=== PATIENT | female | born 1945 | race Caucasian/White ===

== ENCOUNTER 2019-07-15 21:08 | Inpatient (IN) | payer MEDICARE, OTHER, SELFPAY ==
--- NOTE | 2019-07-15 21:07 | ED.WEAKNESS ---
HPI - Weakness General Chief complaint: Weakness Stated complaint: weakness Time Seen by Provider: 07/15/19 21:07 Source: patient and RN notes reviewed Mode of arrival: EMS Limitations: no limitations History of Present Illness HPI Narrative: A 74 y/o female presents to the ED via EMS with worsening, severe, generalized weakness for the past week. She states that she was going to the restroom today and she was unable to get off the toilet, so her called EMS. She notes a decreased appetite and a subjective fever. She denies anything aggravating or alleviating her symptoms. She also has chronic back pain or years. She states that she had seen back specialist and was told no surgery could be done. She also denies any SOB, CP, ABD pain, N/V/D, and any other medical complaints at this time. MD Complaint: generalized weakness Onset (ago): week(s) (1) Duration: progressively worsening Location: generalized Severity: severe Relieving factors: none Exacerbating factors: none Associated symptoms: fever/chills (subjective, no chills) and loss of appetite Related Data Home Medications Medication Instructions Recorded Confirmed albuterol sulfate [Proventil HFA] See Rx Instructions .ROUTE 07/16/19 07/16/19 .COMPLEX PRN doxazosin [Cardura] 2 mg PO QAM 07/16/19 07/16/19 hydralazine 50 mg PO DAILY 07/16/19 07/16/19 insulin glargine [Lantus U-100 80 unit SUBCUT HS 07/16/19 07/16/19 Insulin] insulin lispro [Humalog KwikPen 2 unit SUBCUT TID PRN 07/16/19 07/16/19 Insulin] Allergies Allergy/AdvReac Type Severity Reaction Status Date / Time hydromorphone Allergy Severe throat Verified 07/16/19 00:45 swelling silver Allergy Intermediate Unknown Verified 07/16/19 00:45 ezetimibe Allergy Mild PANCREATITI Verified 07/16/19 00:45 S aspirin Allergy Unknown Unknown Verified 07/16/19 00:45 bumetanide Allergy Unknown Unknown Verified 07/16/19 00:45 ciprofloxacin Allergy Unknown Unknown Verified 07/16/19 00:45 codeine Allergy Unknown Unknown Verified 07/16/19 00:45 egg Allergy Unknown Unknown Verified 07/16/19 00:45 erythromycin base Allergy Unknown RASH Verified 07/16/19 00:45 furosemide Allergy Unknown Unknown Verified 07/16/19 00:45 Iodinated Contrast Media Allergy Unknown Unknown Verified 07/16/19 00:45 ketorolac Allergy Unknown Unknown Verified 07/16/19 00:45 metronidazole Allergy Unknown Unknown Verified 07/16/19 00:45 nitroglycerin Allergy Unknown Unknown Verified 07/16/19 00:45 peanut Allergy Unknown RASH Verified 07/16/19 00:45 Penicillins Allergy Unknown RASH Verified 07/16/19 00:45 propoxyphene Allergy Unknown Unknown Verified 07/16/19 00:45 Sulfa (Sulfonamide Allergy Unknown Unknown Verified 07/16/19 00:45 Antibiotics) tetracycline Allergy Unknown RASH Verified 07/16/19 00:45 tree nut Allergy Unknown Unknown Verified 07/16/19 00:45 KETOROLAC TROMETHAMINE Allergy Intermediate Unknown Uncoded 07/16/19 00:45 Contrast Media Allergy Mild RASH Uncoded 12/14/18 11:26 CEFUROXIME AXETIL Allergy Unknown Unknown Uncoded 07/16/19 00:45 METRONIDAZOLE HCL Allergy Unknown Unknown Uncoded 07/16/19 00:45 Review of Systems Review of Systems: All systems reviewed & are unremarkable except as noted in HPI and below Constitutional: Constitutional: Denies chills, Reports fever(s) (subjective), Denies headache(s), Reports poor appetite and Reports weakness (generalized) Eyes: Eyes: Denies blurry vision ENT: Denies headache(s) and Denies neck pain Cardiovascular: Cardiovascular: Denies chest pain and Denies dyspnea Respiratory: Respiratory: Denies cough and Denies dyspnea Gastrointestinal: Gastrointestinal: Denies abdominal pain, Denies diarrhea, Denies nausea and Denies vomiting Genitourinary: Genitourinary: Denies hematuria and Denies dysuria Musculoskeletal: Musculoskeletal: Reports back pain and Denies neck pain Neurologic: Denies headache(s) and Denies weakness PMF Past Medical History Medical History (Updated
[2019-07-15 21:11] VITALS: BP 164/67; PULSE 93; RESP 20; TEMP 36.3; O2SAT 95
--- NOTE | 2019-07-15 21:14 | ECG_ITS ---
Measurements Intervals [place] Rate: 92 P: 64 PA: 153 QRS: 171 QRSD: 128 T: 43 QT: 391 QTc: 484 Interpretive Statements SINUS RHYTHM RIGHT BUNDLE BRANCH BLOCK LEFT POSTERIOR FASCICULAR BLOCK ABNORMAL ECG Electronically Signed On 07-16-2019 7:30:56 MANAGER [employer] by Larry Palumbo D.O.
[2019-07-15 21:20] VITALS: O2SAT 96
[2019-07-15 21:45] LABS: Basophils Absolute Auto 0.1 K/mm3 (0.0-0.1); Basophils Percent Auto 0.4 % (0.2-1.2); Eosinophils Absolute Auto 0.2 K/mm3 (0-0.3); Eosinophils Percent Auto 1.9 % (0-4.4); Hematocrit 31.7 % (37.0-47.0); Hemoglobin 10.1 g/dL (12.0-15.0); Immature Granulocyte Percent A 0.8 % (0-0.5); Mean Corpuscular HGB Conc 31.9 g/dl (32-36); Mean Corpuscular Hemoglobin 26.7 pg (26-34); Mean Corpuscular Volume 83.9 fl (80-100); Monocytes Absolute Auto 0.7 K/mm3 (0.1-0.6); Monocytes Percent Auto 5.8 % (2.6-8.5); Neutrophils Absolute Auto 10.3 K/mm3 (1.3-6.7); Neutrophils Percent Auto 86.1 % (45.5-73.1); Platelet Count Result 203 k/mm3 (150-375); Red Blood Count 3.78 M/mm3 (4.2-5.4); Red Cell Distribution Width 14.3 % (11.5-14.5)
[2019-07-15 21:59] LABS: Alanine Aminotransferase 16 U/L (4-35); Albumin Level 3.7 g/dL (3.5-5.1); Alkaline Phosphatase 91 U/L (38-126); Aspartate Amino Transferase 19 U/L (14-36); Bilirubin,Total 0.4 mg/dL (0.2-1.3); Blood Urea Nitrogen 37 mg/dL (7-17); Calcium 8.5 mg/dL (8.4-10.2); Carbon Dioxide 30 mmol/L (22-30); Chloride 94 mmol/L (98-107); Estimated CRCL calculation 40 ml/min; Estimated Glomerular Filt Rate 37; Glucose 306 mg/dL (65-105); Potassium 4.4 mmol/L (3.4-5.0); Sodium 133 mmol/L (137-145)
[2019-07-16] MEDS: DIAZEPAM 2 MG TABLET PO (00:45)
[2019-07-16 01:01] VITALS: BP 168/60; PULSE 86; RESP 18; TEMP 36.6; O2SAT 97
--- NOTE | 2019-07-16 01:27 | ADMGEN ---
This patient, Codie Crowder, was admitted to Medical Room 243-01. Patient/family oriented to hospital policies and general routines including ID bracelet, bed and alarms, visiting hours, pain management, procedures, bathroom and other care routines, personal items, smoking policy, room service/diet, and visiting hours. Valuables list has been completed. Information on how to activate the Rapid Response Team has been discussed. Patient/Family are encouraged to report perceived risks to care and to ask questions if they do not understand what they are told or what they should do.
[2019-07-16 02:56] LABS: Add Urine Microscopic? YES; Appearance Urine Cloudy (Clear); Bacteria Urine 4+ /hpf; Bilirubin Urine Negative (Negative); Blood Urine 1+ (Negative); Color Urine Yellow (Yellow); Glucose Urine UA 3+ mg/dL (Negative); Ketones Urine Negative (Negative); Leukocyte Esterase Ur 3+ LEU/UL (Negative); Mucus Urine Rare /lpf; Nitrate Urine Negative (Negative); Protein Urine 3+ mg/dL (Negative); Specific Grav Ur 1.013 (1.001-1.035); Squamous Epithelial Cell Urine Many /hpf (Few); Urobilinogen Urine Negative mg/dL (<2.0); WBC Clumps Urine Present /HPF; WBC Urine >75 /hpf
[2019-07-16 05:48] VITALS: BP 153/58; PULSE 81; RESP 16; TEMP 36.6; O2SAT 99
[2019-07-16] MEDS: levoFLOXacin 500 MG/D5W 100 ML 500 MG/100 ML BAG 100 MG IVPB (06:54)
[2019-07-16] MEDS: INSULIN ASPART (*BKC) 100 UNITS/ML SUB-Q ×3 (08:37→18:55)
[2019-07-16 09:29] LABS: Glucose Point of Care 252 (65-105)
[2019-07-16] MEDS: metOLazone 5 MG TABLET PO (10:24)
[2019-07-16] MEDS: DOXAZOSIN MESYLATE 2 MG TABLET PO (10:24)
[2019-07-16] MEDS: hydrALAZINE HCL 50 MG TABLET PO (10:24)
[2019-07-16 11:55] VITALS: BMI 10.0
--- NOTE | 2019-07-16 12:04 | PM.IMHP ---
H&P: HPI History of Present Illness Chief complaint: weakness Narrative: Codie Crowder is a 74 year old female with past medical history of diabetes hypertension reside with her at home patient was quite tired fatigue today while at the toilet patient was not able to stand up and her was elderly was not able to help her EMS was called and patient was brought to the emergency department see still complains pain all over the body difficulty with movement pain is worse with movement patient denies any abdominal pain nausea or vomiting dysuria or frequency of urination for patient does have history of diabetes Review of Systems Review of Systems: All systems reviewed & are unremarkable except as noted in HPI and below PMFSH Past Medical History Medical History (Updated 07/16/19 @ 12:19 by Lashae Reese MD) Asthma Bronchitis Cataracts, bilateral CHF (congestive heart failure) COPD (chronic obstructive pulmonary disease) Diverticulitis Diverticulosis DM (diabetes mellitus) Emphysema, unspecified Gall bladder disease GERD (gastroesophageal reflux disease) H/O: HTN (hypertension) History of angina History of pneumonia Hx of cervical cancer Hypercholesteremia Hypothyroid Pancreatitis Peripheral neuropathy Ulcer Surgical History Surgical History (Updated 07/15/19 @ 21:36 by Rajeev Levine) History of appendectomy History of cholecystectomy History of hysterectomy History of local excision of skin lesion Hx of cardiac cath Social History Social History (Updated 07/15/19 @ 21:36 by Rajeev Levine) Smoking status: Former smoker Tobacco type: cigarettes Second hand tobacco smoke exposure: Yes Alcohol intake: never Substance use: never Gender identity (if verbalized by the patient): Female Spiritual care concerns: No Agree to blood products: Yes Meds Home Medications and Allergies Home Medications Medication Instructions Recorded Confirmed Type hydralazine 50 mg tablet 50 mg PO BID #60 tablet 07/14/19 07/16/19 Rx metolazone 5 mg tablet 5 mg PO DAILY #30 tablet 07/14/19 07/16/19 Rx albuterol sulfate [Proventil HFA] See Rx Instructions .ROUTE 07/16/19 07/16/19 History .COMPLEX PRN doxazosin [Cardura] 2 mg PO QAM 07/16/19 07/16/19 History insulin glargine [Lantus U-100 80 unit SUBCUT HS 07/16/19 07/16/19 History Insulin] insulin lispro [Humalog KwikPen 2 unit SUBCUT TID PRN 07/16/19 02 History Insulin] Allergies Allergy/AdvReac Type Severity Reaction Status Date / Time hydromorphone Allergy Severe throat Verified 07/16/19 00:45 swelling silver Allergy Intermediate Unknown Verified 07/16/19 00:45 ezetimibe Allergy Mild PANCREATITI Verified 07/16/19 00:45 S aspirin Allergy Unknown Unknown Verified 07/16/19 00:45 bumetanide Allergy Unknown Unknown Verified 07/16/19 00:45 ciprofloxacin Allergy Unknown Unknown Verified 07/16/19 00:45 codeine Allergy Unknown Unknown Verified 07/16/19 00:45 egg Allergy Unknown Unknown Verified 07/16/19 00:45 erythromycin base Allergy Unknown RASH Verified 07/16/19 00:45 furosemide Allergy Unknown Unknown Verified 07/16/19 00:45 Iodinated Contrast Media Allergy Unknown Unknown Verified 07/16/19 00:45 ketorolac Allergy Unknown Unknown Verified 07/16/19 00:45 metronidazole Allergy Unknown Unknown Verified 07/16/19 00:45 nitroglycerin Allergy Unknown Unknown Verified 07/16/19 00:45 peanut Allergy Unknown RASH Verified 07/16/19 00:45 Penicillins Allergy Unknown RASH Verified 07/16/19 00:45 propoxyphene Allergy Unknown Unknown Verified 07/16/19 00:45 Sulfa (Sulfonamide Allergy Unknown Unknown Verified 07/16/19 00:45 Antibiotics) tetracycline Allergy Unknown RASH Verified 07/16/19 00:45 tree nut Allergy Unknown Unknown Verified 07/16/19 00:45 KETOROLAC TROMETHAMINE Allergy Intermediate Unknown Uncoded 07/16/19 00:45 Contrast Media Allergy Mild RASH Uncoded 12/14/18 11:26 CEFUROXIME AXETIL Allergy Unknown Unknown Uncoded 07/16/19 00:45
[2019-07-16 13:15] VITALS: BMI 10.0
[2019-07-16 13:17] LABS: Glucose Point of Care 265 (65-105)
[2019-07-16 14:00] VITALS: BP 138/52; PULSE 80; RESP 18; TEMP 36.3; O2SAT 97
[2019-07-16] MEDS: INSULIN GLARGINE (*BKC) 100 UNITS/ML 80 UNITS SUB-Q (22:01)
[2019-07-16 22:27] LABS: Glucose Point of Care 370 (65-105)
[2019-07-16 22:27] LABS: Glucose Point of Care 341 (65-105)
[2019-07-16 22:48] VITALS: BP 154/49; PULSE 82; RESP 16; TEMP 36.9; O2SAT 97
[2019-07-17 05:09] LABS: Hematocrit 29.4 % (37.0-47.0); Hemoglobin 9.1 g/dL (12.0-15.0); Mean Corpuscular Hemoglobin 26.2 pg (26-34); Mean Corpuscular Volume 84.7 fl (80-100); Mean Platelet Volume 9.1 fl (7.4-10.4); Platelet Count Result 198 k/mm3 (150-375); Red Blood Count 3.47 M/mm3 (4.2-5.4); Red Cell Distribution Width 14.3 % (11.5-14.5); White Blood Count 8.9 K/mm3 (4.5-10.0)
[2019-07-17 05:24] LABS: Blood Urea Nitrogen 42 mg/dL (7-17); Calcium 8.5 mg/dL (8.4-10.2); Carbon Dioxide 32 mmol/L (22-30); Chloride 92 mmol/L (98-107); Estimated CRCL calculation 37 ml/min; Estimated Glomerular Filt Rate 34; Glucose 273 mg/dL (65-105); Potassium 4.2 mmol/L (3.4-5.0); Sodium 135 mmol/L (137-145)
[2019-07-17 05:54] VITALS: BP 147/63; PULSE 75; RESP 16; TEMP 36.3; O2SAT 98
[2019-07-17] MEDS: metOLazone 5 MG TABLET PO (08:33)
[2019-07-17] MEDS: hydrALAZINE HCL 50 MG TABLET PO (08:33)
[2019-07-17] MEDS: DOXAZOSIN MESYLATE 2 MG TABLET PO (08:33)
[2019-07-17] MEDS: levoFLOXacin 500 MG/D5W 100 ML 500 MG/100 ML BAG 100 MG IVPB (10:16)
[2019-07-17 11:36] LABS: Glucose Point of Care 181 (65-105)
[2019-07-17 14:00] VITALS: BP 174/68; PULSE 79; RESP 18; TEMP 36.6; O2SAT 98
--- NOTE | 2019-07-17 14:25 | PM.IMPN ---
Progress Note: A&P Assessment and Plan (1) Generalized muscle weakness: Code(s): M62.81 - Muscle weakness (generalized) Status: Acute Assessment and Plan: 07/17/19 14:25 Codie Crowder is a 74 year old female with past medical history of diabetes hypertension reside with her at home patient was quite tired fatigue today while at the toilet patient was not able to stand up and her was elderly was not able to help her EMS was called and patient was brought to the emergency department see still complains pain all over the body difficulty with movement pain is worse with movement patient denies any abdominal pain nausea or vomiting dysuria or frequency of urination for patient does have history of diabetes, most likely patient's symptoms are due to UTI S patient is leukourea patient is being treated with levofloxacin will follow up on urine culture and sensitivity will have a PT OT evaluate the patient and will benefit from going into acute rehab. today patient stats doing much better was able to participate with PT/OT and is less fatigue, urine culture is growing E.coli, patient is on levaquin, patient is clinically improving, will plan tomorrow possible discharge (2) H/O: HTN (hypertension): Code(s): Z86.79 - Personal history of other diseases of the circulatory system Status: Acute Assessment and Plan: Will continue home regimen and monitor (3) Asthma: Code(s): J45.909 - Unspecified asthma, uncomplicated Status: Acute (4) CHF (congestive heart failure): Code(s): I50.9 - Heart failure, unspecified Status: Acute Assessment and Plan: Patient clinically stable appears to be euvolemic (5) DM (diabetes mellitus): Code(s): E11.9 - Type 2 diabetes mellitus without complications Status: Acute Assessment and Plan: Will continue home regimen and monitor with sliding scale (6) UTI (urinary tract infection): Code(s): N39.0 - Urinary tract infection, site not specified Status: Acute Assessment and Plan: Plan is above Subjective Date/time seen: 07/17/19 14:25 Codie Crowder is a 74 year old female with past medical history of diabetes hypertension reside with her at home patient was quite tired fatigue today while at the toilet patient was not able to stand up and her was elderly was not able to help her EMS was called and patient was brought to the emergency department see still complains pain all over the body difficulty with movement pain is worse with movement patient denies any abdominal pain nausea or vomiting dysuria or frequency of urination for patient does have history of diabetes, most likely patient's symptoms are due to UTI S patient is leukourea patient is being treated with levofloxacin will follow up on urine culture and sensitivity will have a PT OT evaluate the patient and will benefit from going into acute rehab. today patient stats doing much better was able to participate with PT/OT and is less fatigue, urine culture is growing E.coli, patient is on levaquin, patient is clinically improving, will plan tomorrow possible discharge Review of Systems Review of Systems: All systems reviewed & are unremarkable except as noted in HPI and below Exam Narrative: Exam Narrative: Elderly obese Const: General: comfortable and no acute distress HENMT: General nose exam: Normal nares present Mouth: Yes moist mucous membranes Eyes: General: appearance normal, both eyes and all related structures Sclera: sclerae normal Neck: Neck: supple Resp: Effort & Inspection: normal respiratory effort Auscultation: clear to auscultation bilaterally Cardio: Rate: regular rate Rhythm: regular rhythm Skin: General skin exam: normal color and no rashes or lesions noted Neuro: Speech: normal speech Sensory Exam: normal sensation Extrem: General: normal to inspection Psych: Affect: Anxious affect
[2019-07-17] MEDS: INSULIN ASPART (*BKC) 100 UNITS/ML SUB-Q ×2 (14:29→18:51)
[2019-07-17] MEDS: TOLNAFTATE 1% POWDER 45 GM BTL 1 APPLIC TOPICAL ×2 (15:35→20:50)
[2019-07-17 17:57] LABS: Glucose Point of Care 310 (65-105)
[2019-07-17] MEDS: DIAZEPAM 2 MG TABLET PO (19:58)
[2019-07-17 22:00] VITALS: BP 162/59; PULSE 82; RESP 20; TEMP 36.8; O2SAT 99
[2019-07-17] MEDS: INSULIN GLARGINE (*BKC) 100 UNITS/ML 80 UNITS SUB-Q (22:16)
[2019-07-17] MEDS: INSULIN ASPART (*BKC) 100 UNITS/ML 10 UNITS SUB-Q (22:18)
[2019-07-17 22:38] LABS: Glucose Point of Care 444 (65-105)
[2019-07-17 22:38] LABS: Glucose Point of Care 325 (65-105)
[2019-07-18] MEDS: INSULIN ASPART (*BKC) 100 UNITS/ML 8 UNITS SUB-Q (01:43)
[2019-07-18 03:19] LABS: Glucose Point of Care 289 (65-105)
[2019-07-18 03:25] LABS: Glucose Point of Care 404 (65-105)
[2019-07-18 06:00] VITALS: BP 149/58; PULSE 74; RESP 20; TEMP 36.4; O2SAT 99
[2019-07-18 06:03] LABS: Mean Corpuscular Hemoglobin 26.4 pg (26-34); Mean Platelet Volume 9.3 fl (7.4-10.4); Platelet Count Result 218 k/mm3 (150-375); Red Blood Count 3.41 M/mm3 (4.2-5.4); Red Cell Distribution Width 14.3 % (11.5-14.5); White Blood Count 7.7 K/mm3 (4.5-10.0)
[2019-07-18 06:25] LABS: Blood Urea Nitrogen 46 mg/dL (7-17); Calcium 8.2 mg/dL (8.4-10.2); Carbon Dioxide 34 mmol/L (22-30); Chloride 94 mmol/L (98-107); Estimated CRCL calculation 33 ml/min; Estimated Glomerular Filt Rate 29; Glucose 222 mg/dL (65-105); Sodium 137 mmol/L (137-145)
[2019-07-18] MEDS: hydrALAZINE HCL 50 MG TABLET PO (09:44)
[2019-07-18] MEDS: DOXAZOSIN MESYLATE 2 MG TABLET PO (09:44)
[2019-07-18] MEDS: metOLazone 5 MG TABLET PO (09:44)
[2019-07-18] MEDS: TOLNAFTATE 1% POWDER 45 GM BTL 1 APPLIC TOPICAL ×2 (09:45→22:46)
[2019-07-18] MEDS: levoFLOXacin 500 MG/D5W 100 ML 500 MG/100 ML BAG 100 MG IVPB (09:45)
[2019-07-18 10:51] LABS: Glucose Point of Care 163 (65-105)
[2019-07-18 11:59] VITALS: BP 173/60; PULSE 81; RESP 20; TEMP 36.3; O2SAT 100
--- NOTE | 2019-07-18 12:00 | PC.NURSE ---
Patient complaining of back and chest pain. Vitals normal, see documentation. Repositioned patient to alleviate back pain. Patient comfortable. Will continue to monitor.
[2019-07-18] MEDS: INSULIN ASPART (*BKC) 100 UNITS/ML SUB-Q ×2 (13:09→18:44)
[2019-07-18 14:00] VITALS: BP 167/54; PULSE 77; RESP 18; TEMP 36.4; O2SAT 99
[2019-07-18 14:23] LABS: Glucose Point of Care 291 (65-105)
[2019-07-18] MEDS: ERTAPENEM 1 GM/NS 50 ML 1 GM/50 ML BAG IVPB (15:21)
--- NOTE | 2019-07-18 16:18 | PM.IMPN ---
Progress Note: A&P Assessment and Plan (1) Generalized muscle weakness: Code(s): M62.81 - Muscle weakness (generalized) Status: Acute Assessment and Plan: 07/18/19 16:18 Codie Crowder is a 74 year old female with past medical history of diabetes hypertension reside with her at home patient was quite tired fatigue today while at the toilet patient was not able to stand up and her was elderly was not able to help her EMS was called and patient was brought to the emergency department see still complains pain all over the body difficulty with movement pain is worse with movement patient denies any abdominal pain nausea or vomiting dysuria or frequency of urination for patient does have history of diabetes, most likely patient's symptoms are due to UTI S patient is leukourea patient is being treated with levofloxacin will follow up on urine culture and sensitivity will have a PT OT evaluate the patient and will benefit from going into acute rehab. today patient stats doing much better was able to participate with PT/OT and is less fatigue, urine culture is growing E.coli, patient is on levaquin, today urine culture showed E coli is resistant to Levaquin patient is alert to several antibiotics will start the patient on ertapenem will continue IV antibiotics for 2 days and then plan, will continue present management physical therapy (2) H/O: HTN (hypertension): Code(s): Z86.79 - Personal history of other diseases of the circulatory system Status: Acute Assessment and Plan: Will continue home regimen and monitor (3) Asthma: Code(s): J45.909 - Unspecified asthma, uncomplicated Status: Acute (4) CHF (congestive heart failure): Code(s): I50.9 - Heart failure, unspecified Status: Acute Assessment and Plan: Patient clinically stable appears to be euvolemic (5) DM (diabetes mellitus): Code(s): E11.9 - Type 2 diabetes mellitus without complications Status: Acute Assessment and Plan: Will continue home regimen and monitor with sliding scale (6) UTI (urinary tract infection): Code(s): N39.0 - Urinary tract infection, site not specified Status: Acute Assessment and Plan: Plan is above (7) Nail avulsion, toe: Code(s): S91.209A - Unspecified open wound of unspecified toe(s) with damage to nail, initial encounter Status: Acute Assessment and Plan: Patient with the toenail avulsion will consult podiatry for further recommendation Subjective Date/time seen: 07/18/19 16:18 Codie Crowder is a 74 year old female with past medical history of diabetes hypertension reside with her at home patient was quite tired fatigue today while at the toilet patient was not able to stand up and her was elderly was not able to help her EMS was called and patient was brought to the emergency department see still complains pain all over the body difficulty with movement pain is worse with movement patient denies any abdominal pain nausea or vomiting dysuria or frequency of urination for patient does have history of diabetes, most likely patient's symptoms are due to UTI S patient is leukourea patient is being treated with levofloxacin will follow up on urine culture and sensitivity will have a PT OT evaluate the patient and will benefit from going into acute rehab. today patient stats doing much better was able to participate with PT/OT and is less fatigue, urine culture is growing E.coli, patient is on levaquin, today urine culture showed E coli is resistant to Levaquin patient is alert to several antibiotics will start the patient on ertapenem will continue IV antibiotics for 2 days and then plan, will continue present management physical therapy Review of Systems Review of Systems: All systems reviewed & are unremarkable except as noted in HPI and below Exam Narrative: Exam Narrative: Elderly obese Const: General:
[2019-07-18 18:37] LABS: Glucose Point of Care 305 (65-105)
[2019-07-18 21:36] VITALS: BP 172/59; PULSE 80; RESP 20; TEMP 36.3; O2SAT 100
[2019-07-18] MEDS: INSULIN GLARGINE (*BKC) 100 UNITS/ML 80 UNITS SUB-Q (22:45)
[2019-07-18 23:21] LABS: Glucose Point of Care 322 (65-105)
[2019-07-19 06:00] VITALS: BP 176/83; PULSE 78; RESP 20; TEMP 36.4; O2SAT 97
[2019-07-19 06:37] LABS: Blood Urea Nitrogen 49 mg/dL (7-17); Calcium 8.3 mg/dL (8.4-10.2); Carbon Dioxide 31 mmol/L (22-30); Chloride 95 mmol/L (98-107); Estimated CRCL calculation 33 ml/min; Estimated Glomerular Filt Rate 29; Glucose 291 mg/dL (65-105); Potassium 4.1 mmol/L (3.4-5.0); Sodium 137 mmol/L (137-145)
[2019-07-19 06:38] LABS: Hematocrit 30.6 % (37.0-47.0); Hemoglobin 9.5 g/dL (12.0-15.0); Mean Corpuscular Hemoglobin 26.7 pg (26-34); Mean Platelet Volume 9.4 fl (7.4-10.4); Platelet Count Result 235 k/mm3 (150-375); Red Blood Count 3.56 M/mm3 (4.2-5.4); Red Cell Distribution Width 14.1 % (11.5-14.5)
[2019-07-19] MEDS: hydrALAZINE HCL 50 MG TABLET PO (08:51)
[2019-07-19] MEDS: metOLazone 5 MG TABLET PO (08:51)
[2019-07-19] MEDS: DOXAZOSIN MESYLATE 2 MG TABLET PO (08:51)
[2019-07-19] MEDS: INSULIN ASPART (*BKC) 100 UNITS/ML SUB-Q ×3 (08:54→18:38)
[2019-07-19] MEDS: SODIUM CHLORIDE 0.9% IV 1,000 ML 75 ML IV CONT (08:56)
[2019-07-19] MEDS: TOLNAFTATE 1% POWDER 45 GM BTL 1 APPLIC TOPICAL ×2 (08:57→22:13)
[2019-07-19 09:22] LABS: Glucose Point of Care 227 (65-105)
--- NOTE | 2019-07-19 11:40 | PCPTNOTE ---
Attempted PT treatment. Pt refused due to pain in foot from toenail removal. Will try again later today.
[2019-07-19 12:53] LABS: Glucose Point of Care 370 (65-105)
[2019-07-19] MEDS: ERTAPENEM 1 GM/NS 50 ML 1 GM/50 ML BAG IVPB (13:51)
[2019-07-19 14:00] VITALS: BP 185/62; PULSE 83; RESP 18; TEMP 36.7; O2SAT 98
--- NOTE | 2019-07-19 15:15 | PM.IMPN ---
Progress Note: A&P Assessment and Plan (1) Generalized muscle weakness: Code(s): M62.81 - Muscle weakness (generalized) Status: Acute Assessment and Plan: 07/19/19 15:15 Codie Crowder is a 74 year old female with past medical history of diabetes hypertension reside with her at home patient was quite tired fatigue today while at the toilet patient was not able to stand up and her was elderly was not able to help her EMS was called and patient was brought to the emergency department see still complains pain all over the body difficulty with movement pain is worse with movement patient denies any abdominal pain nausea or vomiting dysuria or frequency of urination for patient does have history of diabetes, most likely patient's symptoms are due to UTI S patient is leukourea patient is being treated with levofloxacin will follow up on urine culture and sensitivity will have a PT OT evaluate the patient and will benefit from going into acute rehab. today patient stats doing much better was able to participate with PT/OT and is less fatigue, urine culture is growing E.coli, patient is on levaquin, today urine culture showed E coli is resistant to Levaquin patient is allergic to several antibiotics started the patient on ertapenem on 07/18, will continue IV antibiotics for 2 days and then plan, today patient was seen by Dr. Foster and toe nail was removed, patient feels better, will continue present management physical therapy (2) H/O: HTN (hypertension): Code(s): Z86.79 - Personal history of other diseases of the circulatory system Status: Acute Assessment and Plan: Will continue home regimen and monitor (3) Asthma: Code(s): J45.909 - Unspecified asthma, uncomplicated Status: Acute Assessment and Plan: Patient is clinically stable (4) CHF (congestive heart failure): Code(s): I50.9 - Heart failure, unspecified Status: Acute Assessment and Plan: Patient clinically stable appears to be euvolemic (5) DM (diabetes mellitus): Code(s): E11.9 - Type 2 diabetes mellitus without complications Status: Acute Assessment and Plan: Will continue home regimen and monitor with sliding scale (6) UTI (urinary tract infection): Code(s): N39.0 - Urinary tract infection, site not specified Status: Acute Assessment and Plan: Plan is above (7) Nail avulsion, toe: Code(s): S91.209A - Unspecified open wound of unspecified toe(s) with damage to nail, initial encounter Status: Acute Assessment and Plan: Patient with the toenail avulsion will consult podiatry for further recommendation Subjective Date/time seen: 07/19/19 15:15 Codie Crowder is a 74 year old female with past medical history of diabetes hypertension reside with her at home patient was quite tired fatigue today while at the toilet patient was not able to stand up and her was elderly was not able to help her EMS was called and patient was brought to the emergency department see still complains pain all over the body difficulty with movement pain is worse with movement patient denies any abdominal pain nausea or vomiting dysuria or frequency of urination for patient does have history of diabetes, most likely patient's symptoms are due to UTI S patient is leukourea patient is being treated with levofloxacin will follow up on urine culture and sensitivity will have a PT OT evaluate the patient and will benefit from going into acute rehab. today patient stats doing much better was able to participate with PT/OT and is less fatigue, urine culture is growing E.coli, patient is on levaquin, today urine culture showed E coli is resistant to Levaquin patient is allergic to several antibiotics started the patient on ertapenem on 07/18, will continue IV antibiotics for 2 days and then plan, today patient was seen by Dr. Foster and toe nail was removed, sherry
--- NOTE | 2019-07-19 15:19 | PCPTNOTE ---
Attempted PT treatment. Pt having back pain and unable to get comfortable. Readjusted pillows behind back. Pt still refused therapy. Will try again tomorrow.
--- NOTE | 2019-07-19 17:08 | PM.CNOR ---
Assessment and Plan Assessment and plan (1) Nail avulsion, toe: Qualifiers: Encounter type: initial encounter Qualified Code(s): S91.209A - Unspecified open wound of unspecified toe(s) with damage to nail, initial encounter Code(s): S91.209A - Unspecified open wound of unspecified toe(s) with damage to nail, initial encounter Status: Acute Assessment and Plan: Discussed nonoperative and operative treatment options with the patient. Risks and benefits of each as well as alternatives were reviewed. All of the patient's questions were answered. The risks of surgery reviewed including but not limited to: Neurovascular damage, wound complication, infection, blood clot, pulmonary embolus, stroke, myocardial infarction, and anesthetic risks up to and including . Continued pain and possible dysfunction were explained. Specific risks of the procedure including later recurrence of deformity. No guarantees were offered. If hardware used, discussed risk of failure/ breakage and possible need for removal. If complications occur, the patient understands the need for further treatment, possible further surgery. Patient verbalizes understanding and wishes to proceed. PLAN: Avulsion of right hallux toenail . Nail avulsed without difficulty. Sterile dressing applied. Dressing change orders submitted. Weight bear as tolerated. Follow-up as needed. 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 Edema control reviewed. Recommend compression stockings. History of Present Illness HPI Consult date: 07/19/19 Requesting physician: Lashae Reese MD Consult reason: other ( right hallux injury) Chief complaint: weakness Narrative: pleasant 74-year-old woman who injured right hallux 2 days ago. She was attempting to stand her toe slid into the stand board and the person assisting. Injured the and of the right hallux. Bleeding noted. Gauze dressing placed. Patient with minimal complaints of pain secondary to neuropathy. Chronic thickened toenails noted previously. No redness, proximal streaking or pain at the ankle. Patient admitted to the hospital with urinary tract infection Review of Systems Review of Systems: All systems reviewed & are unremarkable except as noted in HPI and below Constitutional: Constitutional: Denies chills, Reports fever(s) (subjective), Denies headache(s), Reports poor appetite and Reports weakness (generalized) Eyes: Eyes: Denies blurry vision ENT: Denies headache(s) and Denies neck pain Cardiovascular: Cardiovascular: Denies chest pain and Denies dyspnea Respiratory: Respiratory: Denies cough and Denies dyspnea Gastrointestinal: Gastrointestinal: Denies abdominal pain, Denies diarrhea, Denies nausea and Denies vomiting Genitourinary: Genitourinary: Denies hematuria and Denies dysuria Musculoskeletal: Musculoskeletal: Reports back pain and Denies neck pain Integumentary/Breasts: Skin/Breast: Reports as per HPI and Reports change in nails ( thickening bilateral) Neurologic: Denies headache(s) and Denies weakness Psychiatric: Psychiatric: Denies change in appetite and Denies panic attacks Endocrine: Endocrine: Denies excessive sweating Hematologic/Lymphatic: Hematologic/Lymphatic: Denies easy bleeding PMFSH Past Medical History Medical History (Updated 07/19/19 @ 17:14 by Usama Mejia
--- NOTE | 2019-07-19 17:16 | PM.PROC ---
Procedure Note - Detailed Date of procedure: 07/19/19 Pre-op diagnosis: weakness Right hallux toenail injury Post-op diagnosis: same Procedure performed: right hallux toenail avulsion Description of procedure: Patient identified. Informed consent given. Operative extremity marked. Time-out performed confirming the patient, site of the surgery and the plan. right hallux sterilized with alcohol prep solution. Complete toenail plate avulse and removed. Sterile dressing applied. Patient tolerated without incident. Anesthesia: none Surgeon: Usama Mccarthy MD Estimated blood loss (mL): 3 Drains: No Packing: Yes Pathology: none sent Complications: None Condition: stable Disposition: observation
[2019-07-19 18:28] LABS: Glucose Point of Care 356 (65-105)
[2019-07-19] MEDS: DIAZEPAM 2 MG TABLET PO (18:38)
[2019-07-19 19:00] VITALS: BP 213/71; PULSE 18; RESP 99; TEMP 36.1; O2SAT 84
[2019-07-19 21:40] VITALS: O2SAT 91
[2019-07-19 22:00] VITALS: BP 180/60; PULSE 89; RESP 20; TEMP 36.6; O2SAT 93
[2019-07-19] MEDS: INSULIN GLARGINE (*BKC) 100 UNITS/ML 80 UNITS SUB-Q (22:13)
[2019-07-20] MEDS: SODIUM CHLORIDE 0.9% IV 1,000 ML 75 ML IV CONT ×2 (00:17→15:32)
[2019-07-20 02:56] LABS: Glucose Point of Care 362 (65-105)
[2019-07-20 06:00] VITALS: BP 170/53; PULSE 73; RESP 20; TEMP 36.3; O2SAT 97
[2019-07-20 06:09] LABS: Hematocrit 28.6 % (37.0-47.0); Hemoglobin 8.9 g/dL (12.0-15.0); Mean Corpuscular HGB Conc 31.1 g/dl (32-36); Mean Corpuscular Hemoglobin 26.3 pg (26-34); Mean Corpuscular Volume 84.4 fl (80-100); Mean Platelet Volume 9.1 fl (7.4-10.4); Platelet Count Result 240 k/mm3 (150-375); Red Blood Count 3.39 M/mm3 (4.2-5.4); Red Cell Distribution Width 14.1 % (11.5-14.5); White Blood Count 9.3 K/mm3 (4.5-10.0)
[2019-07-20 06:18] LABS: Blood Urea Nitrogen 44 mg/dL (7-17); Carbon Dioxide 31 mmol/L (22-30); Chloride 97 mmol/L (98-107); Estimated CRCL calculation 40 ml/min; Estimated Glomerular Filt Rate 37; Glucose 269 mg/dL (65-105); Potassium 4.1 mmol/L (3.4-5.0); Sodium 138 mmol/L (137-145)
[2019-07-20] MEDS: TOLNAFTATE 1% POWDER 45 GM BTL 1 APPLIC TOPICAL ×2 (09:50→21:53)
[2019-07-20] MEDS: DOXAZOSIN MESYLATE 2 MG TABLET PO (09:51)
[2019-07-20] MEDS: metOLazone 5 MG TABLET PO (09:51)
[2019-07-20] MEDS: hydrALAZINE HCL 50 MG TABLET PO (09:51)
[2019-07-20 11:13] VITALS: BP 156/50
[2019-07-20 11:28] LABS: Glucose Point of Care 162 (65-105)
[2019-07-20] MEDS: INSULIN ASPART (*BKC) 100 UNITS/ML SUB-Q ×2 (13:08→18:45)
[2019-07-20] MEDS: ERTAPENEM 1 GM/NS 50 ML 1 GM/50 ML BAG IVPB (13:16)
[2019-07-20 13:42] LABS: Glucose Point of Care 308 (65-105)
--- NOTE | 2019-07-20 13:47 | PCOTNOTE ---
Attempted OT treatment, pt declined states she is awaiting dressing to toe, does not feel up to and is anxious about discharge plans. Patient requests to speak with infant caregiver. Therapist left message with Francisco regarding pt request. Will continue per POC.
[2019-07-20 14:00] VITALS: BP 167/52; PULSE 76; RESP 20; TEMP 36.4; O2SAT 90
[2019-07-20] MEDS: SOLOSITE WOUND GEL 85 GM TUBE 1 APPLIC TOPICAL (15:21)
--- NOTE | 2019-07-20 18:25 | PM.IMPN ---
Progress Note: A&P Assessment and Plan (1) Generalized muscle weakness: Code(s): M62.81 - Muscle weakness (generalized) Status: Acute Assessment and Plan: Continue IV antibiotics for 1 day, today patient was seen by Dr. Olguinbbing toe nail was removed today I will consult wound care for brawny leaky rash in both legs (2) H/O: HTN (hypertension): Code(s): Z86.79 - Personal history of other diseases of the circulatory system Status: Acute Assessment and Plan: Will continue home regimen and monitor (3) Asthma: Code(s): J45.909 - Unspecified asthma, uncomplicated Status: Acute Assessment and Plan: Patient is clinically stable (4) CHF (congestive heart failure): Code(s): I50.9 - Heart failure, unspecified Status: Acute Assessment and Plan: Patient clinically stable appears to be euvolemic (5) DM (diabetes mellitus): Code(s): E11.9 - Type 2 diabetes mellitus without complications Status: Acute Assessment and Plan: Will continue home regimen and monitor with sliding scale (6) UTI (urinary tract infection): Code(s): N39.0 - Urinary tract infection, site not specified Status: Acute Assessment and Plan: Plan is above, Dc iv abx tomorrow and DC home, once wound team sees rash on legs (7) Nail avulsion, toe: Qualifiers: Encounter type: initial encounter Qualified Code(s): S91.209A - Unspecified open wound of unspecified toe(s) with damage to nail, initial encounter Code(s): S91.209A - Unspecified open wound of unspecified toe(s) with damage to nail, initial encounter Status: Acute Assessment and Plan: Patient with the toenail avulsion, completed today Subjective Date/time seen: 07/20/19 18:25 Interval history: Codie Crowder is a 74 year old female with past medical history of diabetes hypertension reside with her at home patient was quite tired fatigue today while at the toilet patient was not able to stand up and her was elderly was not able to help her EMS was called and patient was brought to the emergency department see still complains pain all over the body difficulty, does have history of diabetes, as per previous note, pt is being treated for UTI Review of Systems Review of Systems: All systems reviewed & are unremarkable except as noted in HPI and below Exam Narrative: Exam Narrative: Elderly obese Const: General: comfortable and no acute distress HENMT: General nose exam: Normal nares present Mouth: Yes moist mucous membranes Eyes: General: appearance normal, both eyes and all related structures Sclera: sclerae normal Neck: Neck: supple Resp: Effort & Inspection: normal respiratory effort Auscultation: clear to auscultation bilaterally Cardio: Rate: regular rate Rhythm: regular rhythm Skin: General skin exam: normal color and no rashes or lesions noted Neuro: Speech: normal speech Sensory Exam: normal sensation Extrem: General: other (brawny, wet legs venous statis rash ) Psych: Affect: Anxious affect present Objective Data Vital Signs Vital Signs: Vital Signs - 24 hr 07/19/19 19:00 07/19/19 21:40 07/19/19 22:00 Temperature 36.1 C L 36.6 C Pulse Rate 18 L 89 Respiratory Rate 99 H 20 Blood Pressure 213/71 H 180/60 H Pulse Oximetry 84 L 91 93 07/20/19 06:00 07/20/19 11:13 07/20/19 14:00 Temperature 36.3 C L 36.4 C L Pulse Rate 73 76 Respiratory Rate 20 20 Blood Pressure 170/53 H 156/50 H 167/52 H Pulse Oximetry 97 90 Intake/Output Intake/Output: Intake & Output 07/17/19 07/18/19 07/19/19 07/20/19 23:59 23:59 23:59 23:59 Intake Total 2069 2039 1698 2787 Output Total 300 Balance 1769 2039 1698 2787 Meds/Results Medications: Active Medications Generic Name Dose Route Start Last Admin Trade Name Freq PRN Reason Stop Dose Admin Albuterol 2 puff 07/16/19 11:34 Proventil Hfa INHALATIO
[2019-07-20 18:54] LABS: Glucose Point of Care 330 (65-105)
[2019-07-20] MEDS: INSULIN GLARGINE (*BKC) 100 UNITS/ML 80 UNITS SUB-Q (21:49)
[2019-07-20 21:59] LABS: Glucose Point of Care 347 (65-105)
[2019-07-20 22:00] VITALS: BP 178/73; PULSE 78; RESP 18; TEMP 36.3; O2SAT 97
[2019-07-20 22:14] VITALS: O2SAT 95
[2019-07-21] MEDS: SODIUM CHLORIDE 0.9% IV 1,000 ML 75 ML IV CONT (04:43)
[2019-07-21 05:51] LABS: Hematocrit 28.4 % (37.0-47.0); Hemoglobin 8.7 g/dL (12.0-15.0); Mean Corpuscular HGB Conc 30.6 g/dl (32-36); Mean Corpuscular Hemoglobin 26.4 pg (26-34); Mean Corpuscular Volume 86.1 fl (80-100); Mean Platelet Volume 9.3 fl (7.4-10.4); Platelet Count Result 235 k/mm3 (150-375); Red Cell Distribution Width 14.2 % (11.5-14.5); White Blood Count 10.1 K/mm3 (4.5-10.0)
[2019-07-21 06:00] VITALS: BP 154/63; PULSE 73; RESP 21; TEMP 36.4; O2SAT 100
[2019-07-21 06:04] LABS: Blood Urea Nitrogen 42 mg/dL (7-17); Calcium 7.7 mg/dL (8.4-10.2); Carbon Dioxide 29 mmol/L (22-30); Chloride 101 mmol/L (98-107); Estimated CRCL calculation 46 ml/min; Estimated Glomerular Filt Rate 44; Glucose 253 mg/dL (65-105); Potassium 4.3 mmol/L (3.4-5.0); Sodium 138 mmol/L (137-145)
[2019-07-21] MEDS: DOXAZOSIN MESYLATE 2 MG TABLET PO (09:07)
[2019-07-21] MEDS: hydrALAZINE HCL 50 MG TABLET PO (09:08)
[2019-07-21] MEDS: metOLazone 5 MG TABLET PO (09:08)
[2019-07-21] MEDS: SOLOSITE WOUND GEL 85 GM TUBE 1 APPLIC TOPICAL (09:11)
[2019-07-21] MEDS: TOLNAFTATE 1% POWDER 45 GM BTL 1 APPLIC TOPICAL (09:11)
[2019-07-21 10:13] LABS: Glucose Point of Care 192 (65-105)
--- NOTE | 2019-07-21 13:14 | PM.DS ---
DS: Diagnosis Admitting Diagnosis Admitting Diagnosis: Muscle weakness (generalized) Discharge Diagnosis (1) Generalized muscle weakness: Code(s): M62.81 - Muscle weakness (generalized) Status: Acute Assessment and Plan: Codie Crowder is a 74 year old female with past medical history of diabetes hypertension reside with her at home patient was quite tired fatigue today while at the toilet patient was not able to stand up and her was elderly was not able to help her EMS was called and patient was brought to the emergency department, Pt treated for a UTI, urine culture is growing E.coli, patient was initally on levaquin, urine culture showed E coli is resistant to Levaquin patient is allergic to several antibiotics so was started, on ertapenem on 07/18. Pt also had Avulsion of right hallux toenail under DR Foster and wound consult for venous stasis, compression stockings advised. (2) H/O: HTN (hypertension): Code(s): Z86.79 - Personal history of other diseases of the circulatory system Status: Chronic Assessment and Plan: Continue home regimen and monitor (3) Asthma: Code(s): J45.909 - Unspecified asthma, uncomplicated Status: Chronic Assessment and Plan: Clinically stable (4) CHF (congestive heart failure): Code(s): I50.9 - Heart failure, unspecified Status: Chronic Assessment and Plan: Clinically stable appears to be euvolemic (5) DM (diabetes mellitus): Code(s): E11.9 - Type 2 diabetes mellitus without complications Status: Chronic Assessment and Plan: Continue home regimen (6) UTI (urinary tract infection): Code(s): N39.0 - Urinary tract infection, site not specified Status: Acute Assessment and Plan: Plan is above. STable for discharged completed her iv abx course. (7) Nail avulsion, toe: Qualifiers: Encounter type: initial encounter Qualified Code(s): S91.209A - Unspecified open wound of unspecified toe(s) with damage to nail, initial encounter Code(s): S91.209A - Unspecified open wound of unspecified toe(s) with damage to nail, initial encounter Status: Acute Assessment and Plan: Patient with the toenail avulsion, completed yesterday DS: Summary Time Spent with Patient Time attestation: Total time spent providing and/or coordinating discharge services:40 minutes on day of dischrage Exam Narrative: Exam Narrative: Elderly obese Const: General: comfortable and no acute distress HENMT: General nose exam: Normal nares present Mouth: Yes moist mucous membranes Eyes: General: appearance normal, both eyes and all related structures Sclera: sclerae normal Neck: Neck: supple Resp: Effort & Inspection: normal respiratory effort Auscultation: clear to auscultation bilaterally Cardio: Rate: regular rate Rhythm: regular rhythm Skin: General skin exam: normal color and no rashes or lesions noted Neuro: Speech: normal speech Sensory Exam: normal sensation Extrem: General: other (brawny, wet legs venous statis rash ) Psych: Affect: Anxious affect present DS: Data Data Completed and Pending Labs on day of discharge: Labs from last 24 hours 07/21/19 07/21/19 07/21/19 10:10 05:11 05:11 WBC 10.1 H RBC 3.30 L Hgb 8.7 L Hct 28.4 L MCV 86.1 MCH 26.4 MCHC 30.6 L RDW 14.2 Plt Count 235 MPV 9.3 Sodium 138 Potassium 4.3 Chloride 101 Carbon Dioxide 29 BUN 42 H Creatinine 1.20 H Estim Creat Clear Calc 46 Estimated GFR 44 L Glucose 253 H POC Capillary Glucose 192 H Calcium 7.7 L 07/20/19 07/20/19 07/20/19 21:33 18:22 12:51 WBC RBC Hgb Hct MCV MCH MCHC RDW Plt Count MPV Sodium Potassium Chloride Carbon Dioxide BUN Creatinine Estim Creat Clear Calc Estimated GFR Glucose POC Capillary Glucose
[2019-07-21] MEDS: INSULIN ASPART (*BKC) 100 UNITS/ML SUB-Q (13:40)
[2019-07-21 13:52] LABS: Glucose Point of Care 298 (65-105)
== END 2019-07-21 15:30 | disposition home or self-care (01) | DRG 690 ==
LOC: ANHED 23:34 → ANH2MED 07-16 00:15
PROVIDERS: Family Medicine; Admitting Provider Internal Medicine; Emergency Provider Emergency Medicine; PCP Emergency Medicine; Visit Provider Family Medicine
DX: N39.0 Urinary tract infection, site not specified (principal); Z68.41 Body mass index [BMI] 40.0-44.9, adult; B96.20 Unspecified Escherichia coli [E. coli] as the cause of diseases classified elsewhere; S91.201A Unspecified open wound of right great toe with damage to nail, initial encounter; I11.0 Hypertensive heart disease with heart failure; I50.9 Heart failure, unspecified; M54.41 Lumbago with sciatica, right side; K57.90 Diverticulosis of intestine, part unspecified, without perforation or abscess without bleeding; E11.42 Type 2 diabetes mellitus with diabetic polyneuropathy; E03.9 Hypothyroidism, unspecified; K21.9 Gastro-esophageal reflux disease without esophagitis; J43.9 Emphysema, unspecified; I87.2 Venous insufficiency (chronic) (peripheral); E11.36 Type 2 diabetes mellitus with diabetic cataract; E66.9 Obesity, unspecified; X58.XXXA Exposure to other specified factors, initial encounter; Z85.41 Personal history of malignant neoplasm of cervix uteri; Z90.49 Acquired absence of other specified parts of digestive tract; Z90.710 Acquired absence of both cervix and uterus; Z87.891 Personal history of nicotine dependence
CPT/HCPCS: 36415; 80048; 80053; 81001; 85025; 85027; 87077; 87086; 87088; 87186; 87804; 93005; 96365; 96366; 97110; 97162; 97165; 97535; 99285; A9270; G0378; J1335; J1815; J1956; J7030

== ENCOUNTER 2020-05-07 13:34 | Emergency (ER) | payer MEDICARE, OTHER, SELFPAY ==
[2020-05-07] VITALS (7 sets, daily range): BP systolic 152–173; BP diastolic 61–79; PULSE 63–74; RESP 16–20; TEMP 36.4–36.5; O2SAT 97–100
--- NOTE | ~2020-05-07 | XR_ITS ---
EXAMINATION: XR abdomen/kub 1V DATE: 05/07/2020 15:25 INDICATION: Abdominal pain. Nausea. TECHNIQUE: A supine view of the abdomen on 2 radiographs was obtained. COMPARISON: CT abdomen and pelvis 03/03/2019 FINDINGS: There are no dilated loops of bowel. There is a small volume of stool in the colon. IMPRESSION: 1. Normal bowel gas pattern. Reviewed, dictated and finalized at location A. [employer]
--- NOTE | ~2020-05-07 | XR_ITS ---
EXAMINATION: XR chest 1V portable DATE: 05/07/2020 15:25 INDICATION: Chronic obstructive pulmonary disease. TECHNIQUE: A single frontal view of the chest was obtained. COMPARISON: Chest 2 views 04/02/2019, CT abdomen and pelvis 03/03/2019 FINDINGS: There are airspace opacities in the perihilar regions and at the lung bases. No definite pl eural effusion, but obesity decreases sensitivity and specificity. No pneumothorax. Cardiomegaly is n oted. There are prominent paracardial fat pads. IMPRESSION: 1. Airspace opacities in the perihilar regions and at the lung bases, consistent with atelectasis josee donnell pneumonia. 2. Cardiomegaly. Reviewed, dictated and finalized at location A. [facility] [employer] IMPRESSION: 1. Airspace opacities in the perihilar regions and at the lung bases, consisten t with atelectasis versus pneumonia. 2. Cardiomegaly.
--- NOTE | 2020-05-07 13:53 | ED.GENADULT ---
HPI - General Adult General Chief complaint: Nausea/Vomiting/Diarrhea Stated complaint: NAUSEA Time Seen by Provider: 05/07/20 13:37 Source: patient History of Present Illness HPI narrative: Patient is a 74 y/o female complaining moderate nausea for 1 week. There is no known alleviating or exacerbating factor. She has some mild abdominal pain and she feels like she is going to have diarrhea, but did not actually have diarrhea. She did not have vomiting either. She was recently hospitalized for CHF and COPD, but she has no SOB or chest pain at this time. She states that she has not been able to walk for several months due to generalized weakness. Related Data Home Medications Medication Instructions Recorded Confirmed insulin lispro [Humalog KwikPen 2 unit SUBCUT TID PRN 07/16/19 07/16/19 Insulin] albuterol sulfate See Rx Instructions .ROUTE .COMPLEX 10/11/19 alcohol swabs See Rx Instructions .ROUTE .COMPLEX 10/11/19 lancets #50 each 10/11/19 meclizine 25 mg tablet 25 mg PO TID PRN 10/11/19 nitroglycerin 0.4 mg sublingual 0.4 mg SUBLINGUAL .COMPLEX 10/11/19 tablet pen needle, diabetic 32 gauge x #50 each 10/11/19 1/4 torsemide 20 mg tablet See Rx Instructions .ROUTE .COMPLEX 10/11/19 amlodipine 05/07/20 fluconazole 05/07/20 insulin glargine [Lantus U-100 40 unit SUBCUT HS 05/07/20 Insulin] Allergies Allergy/AdvReac Type Severity Reaction Status Date / Time hydromorphone Allergy Severe throat Verified 05/07/20 13:45 swelling silver Allergy Intermediate Unknown Verified 05/07/20 13:45 ezetimibe Allergy Mild PANCREATITI Verified 05/07/20 13:45 S aspirin Allergy Unknown Unknown Verified 05/07/20 13:45 bumetanide Allergy Unknown Unknown Verified 05/07/20 13:45 ciprofloxacin Allergy Unknown Unknown Verified 05/07/20 13:45 codeine Allergy Unknown Unknown Verified 05/07/20 13:45 egg Allergy Unknown Unknown Verified 05/07/20 13:45 erythromycin base Allergy Unknown RASH Verified 05/07/20 13:45 furosemide Allergy Unknown Unknown Verified 05/07/20 13:45 Iodinated Contrast Media Allergy Unknown Unknown Verified 05/07/20 13:45 ketorolac Allergy Unknown Unknown Verified 05/07/20 13:45 metronidazole Allergy Unknown Unknown Verified 05/07/20 13:45 nitroglycerin Allergy Unknown Unknown Verified 05/07/20 13:45 peanut Allergy Unknown RASH Verified 07/16/19 00:45 Penicillins Allergy Unknown RASH Verified 05/07/20 13:45 propoxyphene Allergy Unknown Unknown Verified 05/07/20 13:45 Sulfa (Sulfonamide Allergy Unknown Unknown Verified 05/07/20 13:45 Antibiotics) tetracycline Allergy Unknown RASH Verified 05/07/20 13:45 tree nut Allergy Unknown Unknown Verified 05/07/20 13:45 nitrofurantoin Allergy tounge Verified 05/07/20 13:45 [From Macrobid] swollen, nasusea, vomiting, diarrhea, KETOROLAC TROMETHAMINE Allergy Intermediate Unknown Uncoded 05/07/20 13:45 Contrast Media Allergy Mild RASH Uncoded 05/07/20 13:45 CEFUROXIME AXETIL Allergy Unknown Unknown Uncoded 05/07/20 13:45 METRONIDAZOLE HCL Allergy Unknown Unknown Uncoded 05/07/20 13:45 Review of Systems Constitutional: Constitutional: Denies chills, Denies fever(s), Denies headache(s) and Denies weakness Eyes: Eyes: Denies blurry vision ENT: Denies headache(s) and Denies neck pain Cardiovascular: Cardiovascular: Denies chest pain and Denies dyspnea Respiratory: Respiratory: Denies cough and Denies dyspnea Gastrointestinal: Gastrointestinal: Reports abdominal pain, Denies diarrhea, Reports nausea and Reports vomiting Genitourinary: Genitourinary: Denies hematuria and Denies dysuria Musculoskeletal: Musculoskeletal: Denies back pain, Reports neck pain and Reports other (difficulty with walking) Neurologic: Denies headache(s) and Denies weakness [facility] Past Medical History Medical History (Updated 05/07/20 @ 17:28 by Nupur Godinez MD) Asthma Bronchitis Cataracts, bilateral CHF (congestive heart failure) Controlled insulin-depend
[2020-05-07] MEDS: ONDANSETRON INJ 4 MG/2 ML VIAL IV PUSH (13:59)
[2020-05-07 14:05] LABS: Basophils Absolute Auto 0.1 K/mm3 (0.0-0.1); Basophils Percent Auto 0.5 % (0.2-1.2); Eosinophils Absolute Auto 0.2 K/mm3 (0-0.3); Eosinophils Percent Auto 1.7 % (0-4.4); Hematocrit 29.5 % (37.0-47.0); Hemoglobin 8.8 g/dL (12.0-15.0); Immature Granulocyte Absolute 0.07 K/mm3 (0.00-0.031); Immature Granulocyte Percent A 0.7 % (0-0.5); Lymphocytes Absolute Auto 0.46 K/mm3 (0.9-3.2); Lymphocytes Percent Auto 4.4 % (18.3-44.2); Mean Corpuscular HGB Conc 29.8 g/dl (32-36); Mean Corpuscular Hemoglobin 25.3 pg (26-34); Mean Corpuscular Volume 84.8 fl (80-100); Mean Platelet Volume 9.1 fl (7.4-10.4); Monocytes Absolute Auto 0.5 K/mm3 (0.1-0.6); Monocytes Percent Auto 4.7 % (2.6-8.5); Neutrophils Absolute Auto 9.1 K/mm3 (1.3-6.7); Platelet Count Result 191 k/mm3 (150-375); Red Blood Count 3.48 M/mm3 (4.2-5.4); Red Cell Distribution Width 15.8 % (11.5-14.5); White Blood Count 10.4 K/mm3 (4.5-10.0)
[2020-05-07 14:17] LABS: Alanine Aminotransferase 20 U/L (4-35); Albumin Level 3.7 g/dL (3.5-5.1); Alkaline Phosphatase 93 U/L (38-126); Anion Gap 8.99999 mmol/L (8-16); Aspartate Amino Transferase 25 U/L (14-36); Bilirubin,Total 0.5 mg/dL (0.2-1.3); Blood Urea Nitrogen 48 mg/dL (7-17); Calcium 8.4 mg/dL (8.4-10.2); Carbon Dioxide > 40 mmol/L (22-30); Chloride 89 mmol/L (98-107); Estimated CRCL calculation 22 ml/min; Estimated Glomerular Filt Rate 31; Glucose 245 mg/dL (65-105); Lipase 130 U/L (23-300); Potassium 4.1 mmol/L (3.4-5.0); Sodium 138 mmol/L (137-145)
[2020-05-07 14:42] LABS: Add Urine Microscopic? YES; Appearance Urine Clear (Clear); Bacteria Urine 3+ /hpf; Bilirubin Urine Negative (Negative); Blood Urine Negative (Negative); Color Urine Yellow (Yellow); Glucose Urine UA 1+ mg/dL (Negative); Ketones Urine Negative (Negative); Leukocyte Esterase Ur Negative LEU/UL (Negative); Mucus Urine Few /lpf; Nitrate Urine Negative (Negative); Protein Urine 2+ mg/dL (Negative); RBC Urine 0-2 /hpf (0-2); Specific Grav Ur 1.014 (1.001-1.035); Squamous Epithelial Cell Urine Rare /hpf (Few); Urobilinogen Urine Negative mg/dL (<2.0); WBC Urine 0-3 /hpf
[2020-05-07 14:47] LABS: Anisocytosis 2+ (NORMAL); Hypochromasia 1+ (NORMAL); Platelet Estimate Adequate (Adequate)
[2020-05-07 14:51] LABS: Alveolar/Arterial O2 Gradient 22.7 mmHg; Base Excess ABG 17.1 mEq/l (+/-2.0); Fractional Inspired Oxygen 21 %; HCO3 ABG 43.6 mEq/l (22.0-26.0); Oxygen Content ABG 11.6 %vol (16.0-22.0); PO2 FiO2 Ratio Arterial Blood 2.35 %; Total Hemoglobin 9.6 g/dL (12.0-18.0); pH ABG 7.446 (7.350-7.450)
[2020-05-07 14:52] LABS: PCO2 ABG 64.8 mmHg (35.0-45.0); PO2 ABG 49.4 mmHg (80.0-100.0)
[2020-05-07 14:53] LABS: Device ROOM AIR; Modified Allen's Test Pass; Site Drawn LEFT RADIAL
[2020-05-07] MEDS: SODIUM CHLORIDE 0.9% IV 500 ML 999 ML IV CONT (15:32)
--- NOTE | 2020-05-07 17:44 | PC.NURSE ---
contacted [facility] and [facility] to transfer patient back home. both companies declined due to shortage of rigs. [facility] accepted and eta is [phone]
== END 2020-05-07 21:30 | disposition home or self-care (01) ==
PROVIDERS: Emergency Provider Emergency Medicine
DX: R11.0 Nausea (principal); J43.9 Emphysema, unspecified; I50.9 Heart failure, unspecified; J45.909 Unspecified asthma, uncomplicated; E11.42 Type 2 diabetes mellitus with diabetic polyneuropathy; K21.9 Gastro-esophageal reflux disease without esophagitis; K11.0 Atrophy of salivary gland; I11.0 Hypertensive heart disease with heart failure; Z85.41 Personal history of malignant neoplasm of cervix uteri; E78.00 Pure hypercholesterolemia, unspecified; E03.9 Hypothyroidism, unspecified; Z79.4 Long term (current) use of insulin; Z87.891 Personal history of nicotine dependence; I51.7 Cardiomegaly; R91.8 Other nonspecific abnormal finding of lung field
CPT/HCPCS: 36415; 36600; 71045; 74018; 80053; 81001; 82805; 83690; 85025; 96361; 96374; 99284; J2405; J7040

== ENCOUNTER 2020-05-26 00:21 | Inpatient (IN) | payer MEDICARE, OTHER, SELFPAY ==
[2020-05-26] VITALS (16 sets, daily range): BP systolic 114–146; BP diastolic 50–72; PULSE 60–92; RESP 16–22; TEMP 35.9–36.7; O2SAT 90–96; BMI 46.5
--- NOTE | ~2020-05-26 | XR_ITS ---
EXAMINATION: XR chest 1V portable EXAM DATE: 05/27/2020 20:53 INDICATION: worsening shortness of breath. TECHNIQUE: Portable AP frontal chest x-ray was obtained. Comparison is made to prior examination from 05/26/2020. FINDINGS: Moderate to large left-sided pleural effusion. There is adjacent consolidation partly atele ctasis. Small to moderate right pleural effusion and adjacent atelectasis. Bilateral edema and/or pne umonia. The cardiac silhouette is enlarged. There is pulmonary vascular congestion. There is no signi ficant interval change. IMPRESSION: 1. Cardiomegaly, congestion. CHF exacerbation? 2. Moderate to large left, small to moderate right pleural effusions, adjacent atelectasis. 3. Bilateral edema and/or pneumonia. Reviewed, dictated and finalized at location G. COMMUNICATIONS MANAGER
--- NOTE | ~2020-05-26 | CT_ITS ---
EXAMINATION: CT abdomen pelvis wo con DATE: 05/26/2020 02:34 INDICATION: Abdominal pain. TECHNIQUE: Computed tomography (CT) of the abdomen and pelvis was performed without intravenous contr ast. Automated exposure control and iterative reconstruction technique were employed. The dose-length product was 1560.60 mGy-cm. COMPARISON: CT abdomen and pelvis 03/03/2019 FINDINGS: The visualized portions of the lung bases demonstrate moderate-sized pleural effusions. The re are airspace opacities bilaterally with a dependent predominance, likely atelectasis. Cardiomegaly is noted. No pericardial effusion. The liver, spleen, and pancreas are normal. There are changes of cholecystectomy. The right adrenal gland is normal. There is a 2.6 cm mass in left adrenal gland wanye uring low-attenuation without change, consistent with an adenoma. The kidneys are normal. There are w idespread arterial calcifications. There is diverticulosis of the colon without evidence of diverticu litis. There are no dilated loops of bowel. The appendix is not visualized. There is a small volume o f ascites. Body wall edema is noted. Again seen is a mildly enlarged aortocaval lymph node, likely re active. There is mild lumbar spondylosis. There are bridging endplate osteophytes at multiple levels in the spine, consistent with diffuse idiopathic skeletal hyperostosis (DISH). IMPRESSION: 1. Moderate-sized pleural effusions. 2. 2.6 cm left adrenal adenoma. 3. Small volume of ascites. 4. Stable mildly enlarged aortocaval lymph node, likely reactive. Reviewed, dictated and finalized at location A. TRAFFIC CONTROL SUPERVISOR
--- NOTE | ~2020-05-26 | XR_ITS ---
EXAMINATION: XR chest 1V portable DATE: 05/26/2020 06:28 INDICATION: Shortness of breath. TECHNIQUE: A single frontal view of the chest was obtained. COMPARISON: Chest single view 05/07/2020, CT abdomen and pelvis 05/26/2020 FINDINGS: There are moderate-sized bilateral pleural effusions. There are airspace opacities in the m id and lower lung zones. No pneumothorax. Cardiomegaly is noted. IMPRESSION: 1. Moderate-sized bilateral pleural effusions with interval worsening on the right. 2. Airspace opacities in the mid and lower lung zones with worsening on the right, likely atelectasis . 3. Cardiomegaly. Reviewed, dictated and finalized at location A. E MAKER IMPRESSION: 1. Moderate-sized bilateral pleural effusions with interval worsening on the ri ght. 2. Airspace opacities in the mid and lower lung zones with worsening on the rig ht, likely atelectasis. 3. Cardiomegaly.
[2020-05-26] MEDS: ONDANSETRON INJ 4 MG/2 ML VIAL IV PUSH (00:52)
[2020-05-26] MEDS: SODIUM CHLORIDE 0.9% IV 500 ML 999 ML IV CONT (00:53)
[2020-05-26 01:02] LABS: Basophils Absolute Auto 0.1 K/mm3 (0.0-0.1); Basophils Percent Auto 0.7 % (0.2-1.2); Eosinophils Absolute Auto 0.3 K/mm3 (0-0.3); Eosinophils Percent Auto 3.1 % (0-4.4); Hematocrit 28.7 % (37.0-47.0); Hemoglobin 8.3 g/dL (12.0-15.0); Immature Granulocyte Absolute 0.25 K/mm3 (0.00-0.031); Immature Granulocyte Percent A 2.7 % (0-0.5); Lymphocytes Absolute Auto 0.44 K/mm3 (0.9-3.2); Lymphocytes Percent Auto 4.7 % (18.3-44.2); Mean Corpuscular HGB Conc 28.9 g/dl (32-36); Mean Corpuscular Volume 82.9 fl (80-100); Mean Platelet Volume 9.7 fl (7.4-10.4); Monocytes Absolute Auto 0.4 K/mm3 (0.1-0.6); Monocytes Percent Auto 4.6 % (2.6-8.5); Neutrophils Absolute Auto 7.9 K/mm3 (1.3-6.7); Neutrophils Percent Auto 84.2 % (45.5-73.1); Platelet Count Result 193 k/mm3 (150-375); Red Blood Count 3.46 M/mm3 (4.2-5.4); Red Cell Distribution Width 15.9 % (11.5-14.5); White Blood Count 9.4 K/mm3 (4.5-10.0)
[2020-05-26 01:23] LABS: Alanine Aminotransferase 13 U/L (4-35); Albumin Level 3.7 g/dL (3.5-5.1); Alkaline Phosphatase 89 U/L (38-126); Anion Gap 4 mmol/L (8-16); Aspartate Amino Transferase 18 U/L (14-36); Bilirubin,Total 0.3 mg/dL (0.2-1.3); Blood Urea Nitrogen 45 mg/dL (7-17); Calcium 8.2 mg/dL (8.4-10.2); Carbon Dioxide 39 mmol/L (22-30); Chloride 98 mmol/L (98-107); Estimated CRCL calculation 28 ml/min; Estimated Glomerular Filt Rate 23; Glucose 131 mg/dL (65-105); Potassium 4.8 mmol/L (3.4-5.0); Sodium 141 mmol/L (137-145)
[2020-05-26 01:34] LABS: Troponin I < 0.012 ng/mL (0.000-0.034)
--- NOTE | 2020-05-26 01:34 | ED.GENADULT ---
HPI - General Adult General Chief complaint: Urogenital-Female Stated complaint: weakness Time Seen by Provider: 05/26/20 00:34 History of Present Illness HPI narrative: Patient is a 75-year-old female who presents the emergency department with chief complaint of generalized weakness and generalized malaise. Patient reports that she was seen in the emergency department recently diagnosed with a urinary tract infection and was started on antibiotics. The patient states she has been taking Keflex but then started having diarrhea and stopped taking the Keflex. Patient states she has continued to have diarrhea and now just feels generally unwell. The patient states that she can barely get up and walk approximately 3 steps without significant difficulty. The patient denies chest pain denies shortness of breath. The patient states his symptoms are worsened with movement and exertion and improved with rest. Related Data Home Medications Medication Instructions Recorded Confirmed insulin lispro [Humalog KwikPen 2 unit SUBCUT TID PRN 07/16/19 07/16/19 Insulin] albuterol sulfate See Rx Instructions .ROUTE .COMPLEX 10/11/19 alcohol swabs See Rx Instructions .ROUTE .COMPLEX 10/11/19 lancets #50 each 10/11/19 meclizine 25 mg tablet 25 mg PO TID PRN 10/11/19 nitroglycerin 0.4 mg sublingual 0.4 mg SUBLINGUAL .COMPLEX 10/11/19 tablet pen needle, diabetic 32 gauge x #50 each 10/11/19 1/4 torsemide 20 mg tablet See Rx Instructions .ROUTE .COMPLEX 10/11/19 amlodipine 05/07/20 fluconazole 05/07/20 insulin glargine [Lantus U-100 40 unit SUBCUT HS 05/07/20 Insulin] Allergies Allergy/AdvReac Type Severity Reaction Status Date / Time hydromorphone Allergy Severe throat Verified 05/07/20 13:45 swelling silver Allergy Intermediate Unknown Verified 05/07/20 13:45 ezetimibe Allergy Mild PANCREATITI Verified 05/07/20 13:45 S aspirin Allergy Unknown Unknown Verified 05/07/20 13:45 bumetanide Allergy Unknown Unknown Verified 05/07/20 13:45 ciprofloxacin Allergy Unknown Unknown Verified 05/07/20 13:45 codeine Allergy Unknown Unknown Verified 05/07/20 13:45 egg Allergy Unknown Unknown Verified 05/07/20 13:45 erythromycin base Allergy Unknown RASH Verified 05/07/20 13:45 furosemide Allergy Unknown Unknown Verified 05/07/20 13:45 Iodinated Contrast Media Allergy Unknown Unknown Verified 05/07/20 13:45 ketorolac Allergy Unknown Unknown Verified 05/07/20 13:45 metronidazole Allergy Unknown Unknown Verified 05/07/20 13:45 nitroglycerin Allergy Unknown Unknown Verified 05/07/20 13:45 peanut Allergy Unknown RASH Verified 07/16/19 00:45 Penicillins Allergy Unknown RASH Verified 05/07/20 13:45 propoxyphene Allergy Unknown Unknown Verified 05/07/20 13:45 Sulfa (Sulfonamide Allergy Unknown Unknown Verified 05/07/20 13:45 Antibiotics) tetracycline Allergy Unknown RASH Verified 05/07/20 13:45 tree nut Allergy Unknown Unknown Verified 05/07/20 13:45 nitrofurantoin Allergy tounge Verified 05/07/20 13:45 [From Macrobid] swollen, nasusea, vomiting, diarrhea, KETOROLAC TROMETHAMINE Allergy Intermediate Unknown Uncoded 05/07/20 13:45 Contrast Media Allergy Mild RASH Uncoded 05/07/20 13:45 CEFUROXIME AXETIL Allergy Unknown Unknown Uncoded 05/07/20 13:45 METRONIDAZOLE HCL Allergy Unknown Unknown Uncoded 05/07/20 13:45 Review of Systems Review of Systems: Narrative: A 10 system review of systems was completed on the patient and is negative except for what is stated in the HPI. Nursing and ancillary documentation was reviewed. 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
[2020-05-26 01:53] LABS: Add Urine Microscopic? YES; Appearance Urine Turbid (Clear); Bacteria Urine 4+ /hpf; Bilirubin Urine Negative (Negative); Blood Urine 1+ (Negative); Color Urine Yellow (Yellow); Glucose Urine UA Negative (Negative); Ketones Urine Negative (Negative); Leukocyte Esterase Ur 3+ LEU/UL (Negative); Mucus Urine Heavy /lpf; Nitrate Urine Positive (Negative); Protein Urine 2+ mg/dL (Negative); RBC Urine 51-75 /hpf (0-2); Specific Grav Ur 1.015 (1.001-1.035); Squamous Epithelial Cell Urine Many /hpf (Few); Urobilinogen Urine Negative mg/dL (<2.0); WBC Clumps Urine Present /HPF; WBC Urine >75 /hpf
[2020-05-26] MEDS: ERTAPENEM 1 GM/NS 50 ML 1 GM/50 ML BAG IVPB (03:55)
--- NOTE | 2020-05-26 04:06 | PM.IMHP ---
H&P: HPI History of Present Illness Date/Time: 05/26/20 04:06 Chief Complaint: urinary tract infection Narrative: This is a pleasant 75-year-old morbidly obese, diabetic female who is well known to our hospitalist service from multiple previous admissions with a history of known chronic pancreatitis, poorly controlled type 2 diabetes, chronic diastolic congestive heart failure, pulmonary hypertension, essential hypertension, COPD, sleep apnea, chronic respiratory failure on 2 L of oxygen at home at all times and several other comorbidities who was just recently admitted and discharged from [facility] secondary to acute heart failure exacerbation and acute urinary tract infection. It appears that the patient was discharged about a week ago and has been on Keflex since then. She reports that she started to have diarrhea and decided to stop taking her Keflex. She came into the hospital tonight complaining that she has another urinary tract infection as she just had labs done and was found to have an abnormal urinalysis. She denies any significant dysuria or urinary frequency although she does report that recently she cannot even get up to use the commode or bathroom and has been urinating in her depends. Associated symptoms include lower abdominal/ pelvic discomfort which she states has been ongoing for the past couple weeks. she also has had increased lower extremity swelling, abdominal walled swelling, and increased shortness of breath. She cannot tolerate laying flat. She has several allergies and it seems that some of these are more intolerance is and not true allergies. She is listed to be allergic to both Lasix and Bumex although she mentions that during her most recent hospitalization she was getting IV Lasix without any adverse effects. tonight in the emergency room routine labs were obtained which demonstrated and a grossly abnormal urinalysis and acute on chronic renal failure with creatinine of 2.10. She is currently on 3 L of oxygen via NC. In the past the patient was known to have decubitus ulcer and her reports that she has discoloration on her bottom although the patient denies it but will not allow us to roll her over to take a look. She was started on IV antibiotics in the ER and we have been asked to admit her to the hospital for further care. 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n) History of angina History of pneumonia HTN (hypertension) with goal to be determined Hx of cervical cancer Hypercholesteremia Hypothyroid Neuropathy in diabetes Pancreatitis Peripheral neuropathy Ulcer Venous stasis dermatitis of both lower extremities Surgical History Surgical History History of appendectomy History of cholecystectomy History of hysterectomy History of local excision of skin lesion Hx of cardiac cath Family History Family History Father Acute myocardial infarction, Onset Age: 64 Hypertension, Onset Age: 64 Asthma, Onset Age: 64 Family history of cardiovascular disease, Onset Age: 64 Family history of arthritis, Onset Age: 64 Mother Acute myocardial infarction, Onset Age: 78 Hypertension, Onset Age: 78 Family history of cardiovascular disease, Onset Age: 78 Family history of arthritis, Onset Age: 78 Family history of malignant neoplasm, Onset Age: 78
--- NOTE | 2020-05-26 04:41 | ADMGEN ---
This patient, Codie Crowder, was admitted to 2 Medical Room Critical access hospital- @ [facility]. Patient/family oriented to hospital policies and general routines including ID bracelet, bed and alarms, visiting hours, pain management, procedures, bathroom and other care routines, personal items, smoking policy, room service/diet, and visiting hours. Information on how to activate the Rapid Response Team has been discussed. Patient/Family are encouraged to report perceived risks to care and to ask questions if they do not understand what they are told or what they should do.
[2020-05-26 06:17] LABS: Lipase 46 U/L (23-300)
[2020-05-26 06:27] LABS: NT Pro B Type Natriuretic Pept 6220 PG/ML (5-100)
--- NOTE | 2020-05-26 09:24 | PCPTNOTE ---
Attempted to see patient this a.m. Unable to arouse her for PT eval. Will try again later today.
[2020-05-26 09:36] LABS: Basophils Absolute Auto 0.1 K/mm3 (0.0-0.1); Basophils Percent Auto 0.6 % (0.2-1.2); Eosinophils Absolute Auto 0.2 K/mm3 (0-0.3); Eosinophils Percent Auto 2.4 % (0-4.4); Hematocrit 27.6 % (37.0-47.0); Hemoglobin 7.7 g/dL (12.0-15.0); Immature Granulocyte Absolute 0.17 K/mm3 (0.00-0.031); Immature Granulocyte Percent A 2.1 % (0-0.5); Mean Corpuscular HGB Conc 27.9 g/dl (32-36); Mean Corpuscular Hemoglobin 24.1 pg (26-34); Mean Corpuscular Volume 86.3 fl (80-100); Mean Platelet Volume 8.9 fl (7.4-10.4); Monocytes Absolute Auto 0.4 K/mm3 (0.1-0.6); Monocytes Percent Auto 5.1 % (2.6-8.5); Neutrophils Absolute Auto 6.8 K/mm3 (1.3-6.7); Neutrophils Percent Auto 84.8 % (45.5-73.1); Platelet Count Result 148 k/mm3 (150-375); Red Cell Distribution Width 15.8 % (11.5-14.5)
[2020-05-26 09:47] LABS: INR 1.2; Prothrombin Time 15.4 Seconds (11.1-14.7)
[2020-05-26 09:48] LABS: Alanine Aminotransferase 11 U/L (4-35); Albumin Level 3.3 g/dL (3.5-5.1); Alkaline Phosphatase 73 U/L (38-126); Anion Gap 2 mmol/L (8-16); Aspartate Amino Transferase 17 U/L (14-36); Bilirubin,Total 0.3 mg/dL (0.2-1.3); Blood Urea Nitrogen 45 mg/dL (7-17); Calcium 7.9 mg/dL (8.4-10.2); Carbon Dioxide 38 mmol/L (22-30); Chloride 100 mmol/L (98-107); Estimated CRCL calculation 28 ml/min; Estimated Glomerular Filt Rate 23; Glucose 141 mg/dL (65-105); Magnesium 2.2 mg/dL (1.6-2.3); Partial Thromboplastin Time 32.6 SECONDS (22.3-36.8); Potassium 5.1 mmol/L (3.4-5.0); Sodium 140 mmol/L (137-145)
[2020-05-26] MEDS: metOLazone 5 MG TABLET PO ×2 (09:48→13:35)
[2020-05-26] MEDS: hydrALAZINE HCL 50 MG TABLET PO (09:48)
[2020-05-26] MEDS: amLODIPine BESYLATE 5 MG TABLET PO (09:48)
[2020-05-26] MEDS: DOXAZOSIN MESYLATE 2 MG TABLET PO (09:48)
--- NOTE | 2020-05-26 10:10 | PCRCNOTE ---
Window of time for administration has passed. See next scheduled administration.
[2020-05-26 10:14] LABS: Glucose Point of Care 131 (65-105)
[2020-05-26 10:21] LABS: Hypochromasia 1+ (NORMAL); Platelet Estimate Adequate (Adequate)
--- NOTE | 2020-05-26 11:17 | PM.IMPN ---
Progress Note: A&P Assessment and Plan (1) Complicated UTI (urinary tract infection): Code(s): N39.0 - Urinary tract infection, site not specified Status: Acute Assessment and Plan: Records indicate she was recently treated admitted and discharged 1 week ago from [facility] in [place] for treatment of CHF exacerbation and UTI. Reportedly she stopped taking oral abx after her discharge. Will request records from [place]. She has several allergies; unclear if these are true allergies. Continue Ertapenem (day 1) with urine and blood cultures pending. (2) Acute on chronic renal failure: Qualifiers: Acute renal failure type: unspecified Chronic kidney disease stage: unspecified stage Qualified Code(s): N17.9 - Acute kidney failure, unspecified; N18.9 - Chronic kidney disease, unspecified Code(s): N17.9 - Acute kidney failure, unspecified; N18.9 - Chronic kidney disease, unspecified Status: Acute Assessment and Plan: Cr elevated at 2.1, baseline appears closer to 1.5-1.7 based on previous labs. She received IV fluids in the ED, will avoid any more fluids due to fluid overload. (3) Dyspnea: Qualifiers: Dyspnea type: shortness of breath Qualified Code(s): R06.02 - Shortness of breath Code(s): R06.00 - Dyspnea, unspecified Status: Chronic Assessment and Plan: This is likely multifactorial and related to acute on chronic CHF with moderate bilateral pleural effusions, chronic hypoxic respiratory failure with COPD, morbid obesity and deconditioning. (4) CHF (congestive heart failure): Qualifiers: Heart failure type: systolic Heart failure chronicity: chronic Qualified Code(s): I50.22 - Chronic systolic (congestive) heart failure Code(s): I50.9 - Heart failure, unspecified Status: Acute Assessment and Plan: Acute on chronic CHF, unknown type. With significant swelling and moderate JUANJOSE pleural effusions. Obtain 2D echocardiogram. Resume her home metolazone. May need further diuresis but will need to monitor renal function. Lisinopril held due to renal function. Does not appear to be on beta blockade. Request records from [place]. Monitor I&O, daily weights. (5) Pleural effusion: Code(s): J90 - Pleural effusion, not elsewhere classified Status: Acute Assessment and Plan: Moderate JUANJOSE pleural effusions on imaging suspect secondary to above. I have explained how she could benefit from a thoracentesis today, she refuses such. Continue diuresis and monitor. (6) COPD (chronic obstructive pulmonary disease): Qualifiers: COPD type: unspecified COPD Qualified Code(s): J44.9 - Chronic obstructive pulmonary disease, unspecified Code(s): J44.9 - Chronic obstructive pulmonary disease, unspecified Status: Chronic Assessment and Plan: Continue bronchodilators. (7) DM (diabetes mellitus): Qualifiers: Diabetes mellitus type: type 2 Diabetes mellitus buttermaker helper insulin use: without buttermaker helper use Diabetes mellitus complication status: without complication Qualified Code(s): E11.9 - Type 2 diabetes mellitus without complications Code(s): E11.9 - Type 2 diabetes mellitus without complications Status: Chronic Assessment and Plan: Check A1c in AM. Continue lantus and cover with SSI. Monitor with accu-cheks and adjust regimen as needed. (8) Chronic anemia: Code(s): D64.9 - Anemia, unspecified Status: Chronic Assessment and Plan: A chronic normocytic anemia is noted. No evidence of acute bleeding. Suspect a component of anemia c
[2020-05-26 13:01] LABS: Glucose Point of Care 152 (65-105)
[2020-05-26] MEDS: SACCHAROMYCES BOULARDII 250 MG CAPSULE PO ×2 (13:35→16:03)
[2020-05-26] MEDS: LOPERAMIDE HCL 2 MG CAPSULE PO (13:35)
[2020-05-26] MEDS: PANTOPRAZOLE 40 MG TABLET PO (13:35)
[2020-05-26] MEDS: IPRATROPIUM BR 0.02% INH SOLN 0.5 MG/2.5 ML VIAL INHALATION ×2 (14:46→19:41)
[2020-05-26] MEDS: ALBUTEROL SULFATE NEB 2.5 MG/0.5 ML INH INHALATION ×2 (14:46→19:41)
[2020-05-26] MEDS: diazePAM (*CRX) 2 MG TABLET PO (16:03)
[2020-05-26 16:39] LABS: Glucose Point of Care 147 (65-105)
[2020-05-26] MEDS: TOLNAFTATE 1% POWDER 45 GM BTL 1 APPLIC TOPICAL (21:10)
[2020-05-26] MEDS: INSULIN GLARGINE (*BKC) 100 UNITS/ML 32 UNITS SUB-Q (21:10)
[2020-05-26 21:26] LABS: Glucose Point of Care 224 (65-105)
[2020-05-27] VITALS (11 sets, daily range): BP systolic 110–138; BP diastolic 45–90; PULSE 61–87; RESP 18–22; TEMP 36–36.3; O2SAT 79–95; BMI 47.8
[2020-05-27] MEDS: ALBUTEROL SULFATE NEB 2.5 MG/0.5 ML INH INHALATION ×4 (01:52→20:24)
[2020-05-27] MEDS: IPRATROPIUM BR 0.02% INH SOLN 0.5 MG/2.5 ML VIAL INHALATION ×4 (01:52→20:24)
[2020-05-27] MEDS: ERTAPENEM SODIUM 0.5 GM in SODIUM CHLORIDE 0.9% IV 50 ML IVPB (04:11)
[2020-05-27 06:12] LABS: Anion Gap 4 mmol/L (8-16); Blood Urea Nitrogen 48 mg/dL (7-17); Calcium 7.8 mg/dL (8.4-10.2); Carbon Dioxide 38 mmol/L (22-30); Chloride 100 mmol/L (98-107); Estimated CRCL calculation 26 ml/min; Estimated Glomerular Filt Rate 21; Glucose 181 mg/dL (65-105); Hematocrit 29.4 % (37.0-47.0); Hemoglobin 8.2 g/dL (12.0-15.0); Magnesium 2.2 mg/dL (1.6-2.3); Mean Corpuscular HGB Conc 27.9 g/dl (32-36); Mean Corpuscular Hemoglobin 24.6 pg (26-34); Mean Platelet Volume 9.6 fl (7.4-10.4); Platelet Count Result 147 k/mm3 (150-375); Potassium 4.8 mmol/L (3.4-5.0); Red Blood Count 3.34 M/mm3 (4.2-5.4); Sodium 142 mmol/L (137-145); White Blood Count 7.9 K/mm3 (4.5-10.0)
[2020-05-27 06:51] LABS: Hemoglobin A1C 6.9 % (<5.7)
[2020-05-27 06:56] LABS: Band Neutrophils Percent 1 % (0-6); Basophils Absolute Manual 0.07 K/mm3 (0.0-0.1); Basophils Percent Manual 1 % (0-1); Eosinophils Absolute Manual 0.07 K/mm3 (0.02-0.5); Eosinophils Percent Manual 1 % (0-4); Lymphocytes Absolute Manual 0.71 K/mm3 (1.1-4.5); Monocytes Absolute Manual 0.15 K/mm3 (0.1-0.90); Monocytes Percent Manual 2 % (3-9); Neutrophils Absolute Manual 6.87 K/mm3 (1.7-7.2); Neutrophils Percent Manual 86 % (46-73); Ovalocytes 1+ (NORMAL); Platelet Estimate Adequate (Adequate); Total Cells Counted 100
[2020-05-27 06:57] LABS: Hypochromasia 1+ (NORMAL)
--- NOTE | 2020-05-27 08:30 | PC.NURSE ---
The patient refused her Lovenox SubQ injection for this morning. [employer] is aware.
[2020-05-27] MEDS: DOXAZOSIN MESYLATE 2 MG TABLET PO (08:33)
[2020-05-27] MEDS: amLODIPine BESYLATE 5 MG TABLET PO (08:33)
[2020-05-27] MEDS: PANTOPRAZOLE 40 MG TABLET PO (08:33)
[2020-05-27] MEDS: SACCHAROMYCES BOULARDII 250 MG CAPSULE PO ×2 (08:33→16:30)
[2020-05-27] MEDS: TOLNAFTATE 1% POWDER 45 GM BTL 1 APPLIC TOPICAL ×2 (08:34→22:48)
[2020-05-27] MEDS: EUCERIN CREAM 120 GM JAR 1 APPLIC TOPICAL (08:34)
[2020-05-27 09:17] LABS: Glucose Point of Care 170 (65-105)
[2020-05-27] MEDS: metOLazone 5 MG TABLET 10 MG PO (09:56)
--- NOTE | 2020-05-27 11:16 | PM.IMPN ---
Progress Note: A&P Assessment and Plan (1) Complicated UTI (urinary tract infection): Code(s): N39.0 - Urinary tract infection, site not specified Status: Acute Assessment and Plan: Records indicate she was recently treated admitted and discharged 1 week ago from [facility] in [place] for treatment of CHF exacerbation and UTI. Reportedly she stopped taking oral abx after her discharge for unclear reasons. Still waiting on records from [place]. Treatment options limited by several allergies; unclear if these are true allergies or intolerances. Continue Ertapenem (day 2). Urine culture growing Enterobacter. Blood cultures pending with no growth to date. (2) Debility: Code(s): R53.81 - Other malaise Status: Acute Assessment and Plan: Morbid obesity and several comorbidities. Patient has been living at home with her and tells me she has not been getting up out of bed for weeks . Long discussion regarding my concerns for her safety returning home. Patient declined mobility assessment with PT yesterday. She adamantly declines discharging anywhere other than home. Pressure sores to bilateral buttocks, bilateral posterior thighs. Wound photos reviewed, patient declines rolling over for me to examine them. Wound care consult Thursday. Will work on getting a specialized mattress to offload pressure. (3) Acute on chronic renal failure: Qualifiers: Acute renal failure type: unspecified Chronic kidney disease stage: unspecified stage Qualified Code(s): N17.9 - Acute kidney failure, unspecified; N18.9 - Chronic kidney disease, unspecified Code(s): N17.9 - Acute kidney failure, unspecified; N18.9 - Chronic kidney disease, unspecified Status: Acute Assessment and Plan: Cr elevated at 2.3, baseline appears closer to 1.5-1.7 based on previous labs. She received IV fluids in the ED, will avoid any more fluids due to fluid overload. Monitor BMP. (4) Dyspnea: Qualifiers: Dyspnea type: shortness of breath Qualified Code(s): R06.02 - Shortness of breath Code(s): R06.00 - Dyspnea, unspecified Status: Chronic Assessment and Plan: This is likely multifactorial and related to acute on chronic CHF with moderate bilateral pleural effusions, chronic hypoxic respiratory failure with COPD, morbid obesity and deconditioning. (5) CHF (congestive heart failure): Qualifiers: Heart failure type: systolic Heart failure chronicity: chronic Qualified Code(s): I50.22 - Chronic systolic (congestive) heart failure Code(s): I50.9 - Heart failure, unspecified Status: Acute Assessment and Plan: Acute on chronic CHF, unknown type. With significant swelling and moderate JUANJOSE pleural effusions. Obtain 2D echocardiogram. Continue her home metolazone for new. May need further diuresis but will need to monitor renal function. Lisinopril held due to renal function. Does not appear to be on beta blockade. Requested records from [place]. Monitor I&O, daily weights. (6) Pleural effusion: Code(s): J90 - Pleural effusion, not elsewhere classified Status: Acute Assessment and Plan: Moderate JUANJOSE pleural effusions on imaging suspect secondary to above. I have again today explained how she could benefit from a thoracentesis, she still refuses such. Continue her home metolazone and monitor. (7) COPD (chronic obstructive pulmonary disease): Qualifiers: COPD type: unspecified COPD Qualified Code(s): J44.9 - Chronic obstructive pulmonary disease, unspecified Code(s): J44.9 - Chronic obstructive pulmonary disease, unspecified Sta
[2020-05-27 12:13] LABS: Glucose Point of Care 234 (65-105)
[2020-05-27] MEDS: INSULIN ASPART (*BKC) 100 UNITS/ML SUB-Q ×2 (12:14→16:31)
[2020-05-27] MEDS: diazePAM (*CRX) 2 MG TABLET PO (14:19)
[2020-05-27 16:25] LABS: Glucose Point of Care 213 (65-105)
--- NOTE | 2020-05-27 20:44 | PC.NURSE ---
Called by R/T for pt O2 sat low 80s, pt was receiving breathing treatment at the time. Pt O2 increased to 6L NC following breathing treatment, pt O2 sat 90%. Dr Cotton informed and new orders received.
[2020-05-27] MEDS: FUROSEMIDE INJ 40 MG/4 ML VIAL IV PUSH (21:33)
[2020-05-27] MEDS: INSULIN GLARGINE (*BKC) 100 UNITS/ML 32 UNITS SUB-Q (22:51)
[2020-05-27 22:57] LABS: Glucose Point of Care 209 (65-105)
[2020-05-28] VITALS (10 sets, daily range): BP systolic 125–142; BP diastolic 46–51; PULSE 60–89; RESP 18–22; TEMP 35.7–36.1; O2SAT 87–92
[2020-05-28] MEDS: ALBUTEROL SULFATE NEB 2.5 MG/0.5 ML INH INHALATION ×3 (01:40→14:58)
[2020-05-28] MEDS: IPRATROPIUM BR 0.02% INH SOLN 0.5 MG/2.5 ML VIAL INHALATION ×3 (01:40→14:58)
[2020-05-28] MEDS: ERTAPENEM SODIUM 0.5 GM in SODIUM CHLORIDE 0.9% IV 50 ML IVPB (04:51)
[2020-05-28 05:43] LABS: Basophils Absolute Auto 0.1 K/mm3 (0.0-0.1); Basophils Percent Auto 0.7 % (0.2-1.2); Eosinophils Absolute Auto 0.3 K/mm3 (0-0.3); Eosinophils Percent Auto 2.7 % (0-4.4); Hematocrit 29.1 % (37.0-47.0); Hemoglobin 8.1 g/dL (12.0-15.0); Immature Granulocyte Absolute 0.28 K/mm3 (0.00-0.031); Lymphocytes Absolute Auto 0.38 K/mm3 (0.9-3.2); Mean Corpuscular HGB Conc 27.8 g/dl (32-36); Mean Corpuscular Hemoglobin 24.5 pg (26-34); Mean Corpuscular Volume 87.9 fl (80-100); Mean Platelet Volume 9.8 fl (7.4-10.4); Monocytes Absolute Auto 0.4 K/mm3 (0.1-0.6); Monocytes Percent Auto 4.7 % (2.6-8.5); Neutrophils Percent Auto 84.9 % (45.5-73.1); Platelet Count Result 149 k/mm3 (150-375); Red Blood Count 3.31 M/mm3 (4.2-5.4); Red Cell Distribution Width 15.9 % (11.5-14.5); White Blood Count 9.4 K/mm3 (4.5-10.0)
[2020-05-28 05:57] LABS: Blood Urea Nitrogen 50 mg/dL (7-17); Calcium 7.8 mg/dL (8.4-10.2); Carbon Dioxide > 40 mmol/L (22-30); Chloride 98 mmol/L (98-107); Estimated CRCL calculation 24 ml/min; Estimated Glomerular Filt Rate 19; Glucose 180 mg/dL (65-105); Magnesium 2.2 mg/dL (1.6-2.3); Sodium 142 mmol/L (137-145)
[2020-05-28 06:23] LABS: Platelet Estimate Decreased (Adequate)
[2020-05-28 06:24] LABS: Hypochromasia 1+ (NORMAL)
[2020-05-28 08:23] LABS: Glucose Point of Care 150 (65-105)
[2020-05-28] MEDS: PANTOPRAZOLE 40 MG TABLET PO (08:30)
[2020-05-28] MEDS: amLODIPine BESYLATE 5 MG TABLET PO (08:30)
[2020-05-28] MEDS: SACCHAROMYCES BOULARDII 250 MG CAPSULE PO (08:30)
[2020-05-28] MEDS: DOXAZOSIN MESYLATE 2 MG TABLET PO (08:30)
[2020-05-28] MEDS: EUCERIN CREAM 120 GM JAR 1 APPLIC TOPICAL (08:30)
[2020-05-28] MEDS: metOLazone 5 MG TABLET 10 MG PO (08:30)
[2020-05-28] MEDS: ACETAMINOPHEN 325 MG TABLET 650 MG PO ×2 (08:30→13:25)
[2020-05-28] MEDS: TOLNAFTATE 1% POWDER 45 GM BTL 1 APPLIC TOPICAL (08:32)
[2020-05-28 08:33] LABS: INR 1.1; Prothrombin Time 14.7 Seconds (11.1-14.7)
--- NOTE | 2020-05-28 10:34 | PM.IMPN ---
Subjective Date/time seen: 05/28/20 10:15 Objective Data Vital Signs Vital Signs: Vital Signs - 24 hr 05/27/20 13:57 05/27/20 14:35 05/27/20 20:24 Temperature 97.4 F L Pulse Rate 61 87 61 Respiratory Rate 22 H 18 22 H Blood Pressure 120/90 Pulse Oximetry 91 79 L 05/27/20 20:34 05/27/20 20:37 05/27/20 20:45 Temperature 96.8 F L Pulse Rate 62 62 Respiratory Rate 22 H 20 Blood Pressure 110/45 L Pulse Oximetry 92 91 05/27/20 20:47 05/28/20 01:40 05/28/20 01:50 Temperature Pulse Rate 66 65 Respiratory Rate 22 H 22 H Blood Pressure Pulse Oximetry 91 90 05/28/20 06:00 05/28/20 09:00 05/28/20 09:24 Temperature 96.9 F L Pulse Rate 63 89 Respiratory Rate 22 H 18 Blood Pressure 125/46 L Pulse Oximetry 92 91 90 Intake/Output Intake/Output: Intake & Output 05/25/20 05/26/20 05/27/20 05/28/20 23:59 23:59 23:59 23:59 Intake Total 1740 1430 440 Output Total 850 350 400 Balance 890 1080 40 Meds/Results Medications: Active Medications Generic Name Dose Route Start Last Admin Trade Name Freq PRN Reason Stop Dose Admin Acetaminophen 650 mg 05/28/20 03:58 05/28/20 08:30 Acetaminophen 325 Mg Tablet PO 650 mg Q4H PRN Administration Mild Pain (1-3) or Fever Albuterol 4 puff 05/26/20 07:52 Albuterol Sulfate (*Sp) Aerosol 1 Puff INHALATION Q6HRT PRN Shortness Of Breath Or Wheezing Albuterol 2.5 mg 05/26/20 08:00 05/28/20 09:22 Albuterol Sulfate Neb 2.5 Mg/0.5 Ml Inh INHALATION 2.5 mg Q6HRT DIDI Administration Amlodipine Besylate 5 mg 05/26/20 09:00 05/28/20 08:30 Amlodipine Besylate 5 Mg Tablet PO 5 mg DAILY DIDI Administration Dextrose 12.5 gm 05/26/20 04:26 Dextrose 50% 25 Gm/50 Ml Syringe IV PUSH PRN PRN Hypoglycemia Protocol Diazepam 2 mg 05/26/20 07:52 05/27/20 14:19 Diazepam (*Crx) 2 Mg Tablet PO 2 mg BID PRN Administration anxiety Doxazosin Mesylate 2 mg 05/26/20 09:00 05/28/20 08:30 Doxazosin Mesylate 2 Mg Tablet PO 2 mg QAM DIDI Administration Enoxaparin Sodium 30 mg 05/26/20 09:00 05/28/20 08:31 Enoxaparin 30 Mg/0.3 Ml Syringe SUB-Q Not Given DAILY DIDI Glucagon 1 mg 05/26/20 04:26 Glucagon For Inj 1 Mg Vial IM PRN PRN Hypoglycemia Protocol Glucose 15 gm 05/26/20 04:26 Glucose Oral Gel 15 Gm Of Glucse In 37.5 Gm Tube PO PRN PRN Hypoglycemia Protocol Hydralazine HCl 50 mg 05/26/20 09:00 05/26/20 09:48 Hydralazine Hcl 50 Mg Tablet PO 50 mg BID DIDI Administration Dextrose 1,000 mls @ 100 mls/hr 05/26/20 04:26 Dextrose 5% 1,000 Ml IVPB PRN PRN Hypoglycemia Protocol Ertapenem 0.5 gm/ Sodium 50 mls @ 100 mls/hr 05/27/20 04:00 05/28/20 05:21 Chloride IVPB Infused Q24H DIDI Infusion Insulin Aspart 3 - 6 units 05/26/20 08:00 05/28/20 08:31 Insulin Aspart (*Bkc) 100 Units/Ml SUB-Q Not Given TIDWM [facility] Protocol Insulin Glargine 32 units 05/26/20 21:00 05/27/20 22:51 Insulin Glargine (*Bkc) 100 Units/Ml SUB-Q 32 units HS DIDI Administration Ipratropium [place] 0.5 mg 05/26/20 08:00 05/28/20 09:22 Ipratropium Br 0.02% Inh Soln 0.5 Mg/2.5 Ml Vial INHALATION 0.5 mg Q6HRT DIDI Administration Loperamide HCl 2 mg 05/26/20 12:50 05/26/20 13:35 Loperamide Hcl 2 Mg Capsule PO 2 mg PRN PRN Administration Diarrhea Metolazone 10 mg 05/27/20 09:00 05/28/20 08:30 Metolazone 5 Mg Tablet PO 10 mg QAM DIDI Administration Miconazole Nitrate 1 applic 05/28/20 09:00 Miconazole 2% Antifungal Ointment 56 Gm TOPICAL Q12HR [facility] Multi-Ingred Cream/Lotion/Oil/Oint 1 applic 05/27/20 09:00 05/28/20 08:30 Eucerin Cream 120 Gm Jar TOPICAL 1 applic QAM [facility] Administration Pantoprazole Sodium 40 mg 05/26/20 13:00 05/28/20 08:30 Pantoprazole 40 Mg Tablet PO 40 mg QAM [facility] Administration Saccharomyces Boulard
[2020-05-28 11:42] LABS: Glucose Point of Care 164 (65-105)
--- NOTE | 2020-05-28 16:18 | PM.DS ---
DS: Admitting Diagnosis Admitting Diagnosis Admitting Diagnosis: UTI DS: Discharge Diagnosis Discharge Diagnosis (1) Complicated UTI (urinary tract infection): Code(s): N39.0 - Urinary tract infection, site not specified Status: Acute Assessment and Plan: Date of Admission 05/26/20 Date of Discharge/DOS 05/28/20 Ms. Crowder is an unfortunate 75yo F with congestive heart failure, COPD and chronic respiratory failure on 2L home O2 baseline, type 2 diabetes mellitus, morbid obesity who presented to the ED for evaluation of weakness and increased lower extremity and abdominal wall swelling. Imaging demonstrated moderate bilateral pleural effusions, atelectasis, and cardiomegaly. Initially patient was tolerating her home O2 requirement of 2L however she required up to 6L/min during this admission with worsening shortness of breath. Unfortunately she continued to adamantly decline thoracentesis despite detailed discussions and repeat teaching. She described she did not want drastic measures such as thoracentesis. Further diuresis was limited by acute on chronic renal failure. She was found to have urinary tract infection and was treated with 3 days of IV ertapenem 05/26 - 05/28. She was recently discharged from [facility] 1 week prior also for treatment of UTI and acute CHF. She has not been able to get out of bed for weeks although her significant other and main specialty department supervisor, Jong, notes it has probably been longer than that. It seems she is getting frequent UTIs secondary to this. She declined ambulation with therapy and overall exhibits poor insight regarding her several comorbidities despite teaching. She was upset noting she didn't want to do this anymore and just wanted to go home . Jong describes he is having trouble caring for her at home. Patient repeatedly adamantly declines [facility] placement. Multiple extensive discussions were held with patient and her family, Jong, regarding her goals for further plan of care. We discussed the ertapenem was one of the only antibiotic options given her extensive allergy list. Patient wished to speak with hospice and [facility] representatives met Jong at the house for an informational meeting. I was later notified by care coordination that hospice consents had been signed and that Jong wanted to bring her home this evening. Discharge was arranged home with hospice 05/26/20. Records indicate she was recently treated admitted and discharged 1 week ago from [facility] in [place] for treatment of CHF exacerbation and UTI. Reportedly she stopped taking oral abx after her discharge for unclear reasons. Still waiting on records from [place]. Treatment options limited by several allergies; unclear if these are true allergies or intolerances. Ertapenem #3 Urine culture growing Enterobacter. Blood cultures pending with no growth to date. (2) Debility: Code(s): R53.81 - Other malaise Status: Acute Assessment and Plan: Morbid obesity and several comorbidities. Patient has been living at home with her and tells me she has not been getting up out of bed for weeks . Long discussion regarding my concerns for her safety returning home. Patient declined mobility assessment with PT. She adamantly declines discharging anywhere other than home. Maceration and poor circulation to bilateral buttocks, bilateral posterior thighs. Wound photos reviewed, patient declines rolling over for me to examine them. Wound care consult. Will work on getting a specialized mattress to offload pressure. (3) Acute on chronic renal failure: Qualifiers: Acute renal failure type: unspecified Chronic kidney disease stage: unspecified stage Qualified Code(s): N17.9 - Acute kidney failure, unspecified; N1
[2020-05-28 16:33] LABS: Glucose Point of Care 132 (65-105)
--- NOTE | 2020-06-12 09:56 | PC.NURSE ---
Blood cx are negative
== END 2020-05-28 18:37 | disposition hospice, home (50) | DRG 291 ==
LOC: ANHED 04:02 → ANH2MED 04:22
PROVIDERS: Admitting Provider Family Medicine; Emergency Provider Emergency Medicine; Visit Provider Physician Assistant
DX: I13.0 Hypertensive heart and chronic kidney disease with heart failure and stage 1 through stage 4 chronic kidney disease, or unspecified chronic kidney disease (principal); I50.33 Acute on chronic diastolic (congestive) heart failure; N39.0 Urinary tract infection, site not specified; Z68.42 Body mass index [BMI] 45.0-49.9, adult; J96.10 Chronic respiratory failure, unspecified whether with hypoxia or hypercapnia; E11.22 Type 2 diabetes mellitus with diabetic chronic kidney disease; N18.9 Chronic kidney disease, unspecified; B95.2 Enterococcus as the cause of diseases classified elsewhere; K21.9 Gastro-esophageal reflux disease without esophagitis; E11.42 Type 2 diabetes mellitus with diabetic polyneuropathy; E03.9 Hypothyroidism, unspecified; J43.9 Emphysema, unspecified; E78.00 Pure hypercholesterolemia, unspecified; K57.90 Diverticulosis of intestine, part unspecified, without perforation or abscess without bleeding; E66.01 Morbid (severe) obesity due to excess calories; I27.20 Pulmonary hypertension, unspecified; M54.9 Dorsalgia, unspecified; G47.30 Sleep apnea, unspecified; G89.29 Other chronic pain; D63.8 Anemia in other chronic diseases classified elsewhere; Z53.29 Procedure and treatment not carried out because of patient's decision for other reasons; Z85.41 Personal history of malignant neoplasm of cervix uteri; Z90.49 Acquired absence of other specified parts of digestive tract; Z87.891 Personal history of nicotine dependence; Z99.81 Dependence on supplemental oxygen; Z91.14 Patient's other noncompliance with medication regimen
CPT/HCPCS: 36415; 71045; 74176; 80048; 80053; 81001; 83036; 83690; 83735; 83880; 84484; 85025; 85610; 85730; 87040; 87077; 87086; 87088; 87186; 94640; 96361; 96374; 96375; 97162; 97166; 97530; 99285; A9270; J0131; J1335; J1815; J1940; J2405; J7040

== ENCOUNTER 2020-05-29 11:11 | Inpatient (IN) | payer MEDICARE, OTHER, SELFPAY ==
[2020-05-29] VITALS (29 sets, daily range): BP systolic 112–163; BP diastolic 38–78; PULSE 52–69; RESP 16–29; TEMP 36.1–37.1; O2SAT 93–100; BMI 46.3
--- NOTE | ~2020-05-29 | XR_ITS ---
[id number] 05/29/2020 17:44 Indication: Pleural effusion postthoracentesis Procedure: AP portable chest Comparison: No prior studies for comparison. Findings: Cardiomegaly. Diffuse bilateral airspace disease. Bilateral pleural effusions. Atherosclero sis of the aorta. No pneumothorax identified. Impression: 1: Diffuse bilateral airspace disease which may represent edema or pneumonia. 2: Bilateral pleural effusions. Reviewed, dictated and finalized at location A. RATOR INSERTER Impression: 1: Diffuse bilateral airspace disease which may represent edema or pneumonia. 2: Bilateral pleural effusions.
--- NOTE | ~2020-05-29 | XR_ITS ---
EXAMINATION: XR chest 1V portable EXAM DATE: 06/02/2020 08:08 INDICATION: Shortness of breath. TECHNIQUE: Portable AP frontal chest x-ray was obtained. Comparison is made to prior examination from 05/29/2020. FINDINGS: Probable moderate to large left-sided pleural effusion, difficult to quantify due to opacif ied lung adjacent to this, partly multisegmental atelectasis, but there is also diffuse indistinct re ticulation most consistent with pulmonary edema. Infection not excludable. There is small right pleur al effusion. Cardiomegaly and pulmonary vascular congestion. There is aortic arteriosclerosis. Mild t horacic atelectasis. IMPRESSION: 1. Moderate to large left pneumothorax, adjacent multisegmental atelectasis. 2. Findings consistent with CHF exacerbation. Reviewed, dictated and finalized at location A. ESPONDENCE SPECIALIST
--- NOTE | ~2020-05-29 | XR_ITS ---
EXAMINATION: XR chest 1V portable DATE: 05/29/2020 12:00 INDICATION: Shortness of breath. TECHNIQUE: A single frontal view of the chest was obtained. COMPARISON: Chest single view 05/27/2020, CT abdomen and pelvis 05/26/2020 FINDINGS: There are moderate-sized pleural effusions, left worse than right. There are airspace opaci ties in the mid and lower lung zones. No pneumothorax. Cardiomegaly is noted. IMPRESSION: 1. Stable moderate-sized pleural effusions, left worse than right. 2. Stable airspace opacities in the mid and lower lung zones, consistent with atelectasis or less lik sulema pneumonia. 3. Cardiomegaly. Reviewed, dictated and finalized at location A. D SERVICE COORDINATOR IMPRESSION: 1. Stable moderate-sized pleural effusions, left worse than right. 2. Stable airspace opacities in the mid and lower lung zones, consistent with a telectasis or less likely pneumonia. 3. Cardiomegaly.
--- NOTE | ~2020-05-29 | US_ITS ---
EXAMINATION: US thoracentesis DATE: 05/29/2020 17:37 INDICATION: pleural effusion TECHNIQUE: The procedure and its risks, benefits, and alternatives were discussed with the patient. P otential risks discussed included bleeding, infection, and pneumothorax. The patient understood the r isks and agreed to proceed. The skin was prepped and draped in sterile fashion. 1% lidocaine was used for local anesthesia. Under ultrasound guidance, a 5 Fr catheter with trochar was advanced into the left pleural effusion. Fluid was aspirated. The catheter was removed, and a dressing was applied. The re were no immediate complications. FINDINGS: Ultrasound images demonstrate a left pleural effusion and the catheter within the fluid. IMPRESSION: 1. Successful ultrasound-guided thoracentesis yielding 600 mL of freddy-colored fluid. Reviewed, dictated and finalized at location A. FACTURING LAB TECHNICIAN
[2020-05-29 11:32] LABS: Basophils Percent Auto 0.4 % (0.2-1.2); Eosinophils Absolute Auto 0.1 K/mm3 (0-0.3); Eosinophils Percent Auto 0.5 % (0-4.4); Hematocrit 31.7 % (37.0-47.0); Immature Granulocyte Absolute 0.25 K/mm3 (0.00-0.031); Immature Granulocyte Percent A 2.6 % (0-0.5); Lymphocytes Percent Auto 3.1 % (18.3-44.2); Mean Corpuscular HGB Conc 28.4 g/dl (32-36); Mean Corpuscular Hemoglobin 24.3 pg (26-34); Mean Corpuscular Volume 85.7 fl (80-100); Mean Platelet Volume 9.3 fl (7.4-10.4); Monocytes Absolute Auto 0.2 K/mm3 (0.1-0.6); Monocytes Percent Auto 2.4 % (2.6-8.5); Neutrophils Absolute Auto 8.9 K/mm3 (1.3-6.7); Nucleated Red Blood Cells Perc 0.2 % (0.0-0.2); Platelet Count Result 135 k/mm3 (150-375); White Blood Count 9.8 K/mm3 (4.5-10.0)
[2020-05-29] MEDS: ONDANSETRON INJ 4 MG/2 ML VIAL IV PUSH ×2 (11:32→18:11)
[2020-05-29 11:45] LABS: Alanine Aminotransferase 12 U/L (4-35); Albumin Level 3.7 g/dL (3.5-5.1); Alkaline Phosphatase 81 U/L (38-126); Anion Gap 6 mmol/L (8-16); Aspartate Amino Transferase 19 U/L (14-36); Bilirubin,Total 0.3 mg/dL (0.2-1.3); Blood Urea Nitrogen 56 mg/dL (7-17); Calcium 8.1 mg/dL (8.4-10.2); Carbon Dioxide 36 mmol/L (22-30); Chloride 99 mmol/L (98-107); Estimated CRCL calculation 26 ml/min; Estimated Glomerular Filt Rate 21; Glucose 112 mg/dL (65-105); Lipase 80 U/L (23-300); Potassium 5.4 mmol/L (3.4-5.0); Sodium 141 mmol/L (137-145)
[2020-05-29 12:28] LABS: Alveolar/Arterial O2 Gradient 101.1 mmHg; Base Excess ABG 5.8 mEq/l (+/-2.0); Carboxyhemoglobin 0.7 % THb (0-2.0); Fractional Inspired Oxygen 36 %; HCO3 ABG 34.4 mEq/l (22.0-26.0); Methemoglobin ABG 0.2 %THb (0-1.5); Oxygen Content ABG 12.6 %vol (16.0-22.0); Oxygen Saturation ABG 89.5 % (95.0-100.0); Oxyhemoglobin 90.4 % THb (90.0-100.0); PO2 ABG 66.6 mmHg (80.0-100.0); PO2 FiO2 Ratio Arterial Blood 1.85 %; Reduced Hemoglobin 8.7 %THb (0-5.0); Total Hemoglobin 9.9 g/dL (12.0-18.0)
[2020-05-29 12:30] LABS: Modified Allen's Test Pass; PCO2 ABG 76.7 mmHg (35.0-45.0); Site Drawn RIGHT RADIAL; pH ABG 7.269 (7.350-7.450)
[2020-05-29 12:31] LABS: Device NASAL CANNULA
[2020-05-29 12:46] LABS: Add Urine Microscopic? YES; Appearance Urine Cloudy (Clear); Bacteria Urine Trace /hpf; Bilirubin Urine Negative (Negative); Blood Urine Negative (Negative); Color Urine Yellow (Yellow); Glucose Urine UA Negative (Negative); Hyaline Casts Urine 50+ /lpf; Ketones Urine Negative (Negative); Leukocyte Esterase Ur 1+ LEU/UL (Negative); Mucus Urine Few /lpf; Nitrate Urine Negative (Negative); Protein Urine 2+ mg/dL (Negative); Specific Grav Ur 1.018 (1.001-1.035); Squamous Epithelial Cell Urine Occasional /hpf (Few); Urobilinogen Urine Negative mg/dL (<2.0); WBC Urine 31-50 /hpf
--- NOTE | 2020-05-29 13:00 | ED.GENADULT ---
HPI - General Adult General Chief complaint: Nausea/Vomiting/Diarrhea Stated complaint: Vomiting History of Present Illness HPI narrative: Patient is a 75-year-old female who presents the ER with nausea and vomiting. Complex case for patient was discharged from the hospital yesterday. Apparently she went home on hospice. Patient and have no idea why she was on hospice. Patient is oriented x3 but seems to be depressed and evasive in questioning. She states that she does not want to go to a custodial and only wants to be home with her Jong. Discussed that it appears she has complex medical illnesses including worsening heart failure and chronic pleural effusions. Furthermore it appears as if she has a urinary tract infection that was being treated with IV antibiotics. She had recently been hospitalized at an outside hospital for similar issues. [facility] hospice went out to see the patient this morning and patient was declining hospice and so they felt that she needed more care and referred her to the ER. Related Data Home Medications Medication Instructions Recorded Confirmed nitroglycerin 0.4 mg sublingual 0.4 mg SUBLINGUAL .COMPLEX 10/11/19 05/29/20 tablet Lantus U-100 Insulin 40 unit SUBCUT HS 05/07/20 05/29/20 amlodipine 5 mg PO DAILY 05/07/20 05/29/20 albuterol sulfate 2.5 mg INHALATION TID 05/26/20 05/29/20 hydralazine 50 mg PO BID 05/26/20 05/29/20 ipratropium bromide 0.5 mg INHALATION Q4H PRN 05/26/20 05/29/20 lisinopril 5 mg PO DAILY 05/26/20 05/29/20 metolazone 5 mg PO DAILY 05/26/20 05/29/20 Allergies Allergy/AdvReac Type Severity Reaction Status Date / Time ezetimibe Allergy Severe PANCREATITI Verified 05/29/20 15:30 S hydromorphone Allergy Severe throat Verified 05/29/20 15:30 swelling nitrofurantoin Allergy Severe tounge Verified 05/29/20 15:30 [From Macrobid] swollen, nasusea, vomiting, diarrhea, silver Allergy Intermediate Unknown Verified 05/29/20 15:30 aspirin Allergy Unknown Unknown Verified 05/29/20 15:30 bumetanide Allergy Unknown Unknown Verified 05/29/20 15:30 cefuroxime Allergy Unknown Unknown Verified 05/29/20 15:30 ciprofloxacin Allergy Unknown Unknown Verified 05/29/20 15:30 codeine Allergy Unknown Unknown Verified 05/29/20 15:30 egg Allergy Unknown Unknown Verified 05/29/20 15:30 erythromycin base Allergy Unknown RASH Verified 05/29/20 15:30 Iodinated Contrast Media Allergy Unknown Rash Verified 05/29/20 15:30 ketorolac Allergy Unknown Unknown Verified 05/29/20 15:30 metronidazole Allergy Unknown Unknown Verified 05/29/20 15:30 nitroglycerin Allergy Unknown Unknown Verified 05/29/20 15:30 peanut Allergy Unknown RASH Verified 05/29/20 15:30 Penicillins Allergy Unknown RASH Verified 05/29/20 15:30 propoxyphene Allergy Unknown Unknown Verified 05/29/20 15:30 Sulfa (Sulfonamide Allergy Unknown Unknown Verified 05/29/20 15:30 Antibiotics) tetracycline Allergy Unknown RASH Verified 05/29/20 15:30 tree nut Allergy Unknown Unknown Verified 05/29/20 15:30 Review of Systems Review of Systems: All systems reviewed & are unremarkable except as noted in HPI and below Constitutional: Constitutional: Denies chills, Denies fever(s) and Reports weakness ENT: Denies nasal congestion and Denies sore throat Cardiovascular: Cardiovascular: Denies chest pain, Denies rapid heart rate and Denies radiating jaw, neck or arm pain Respiratory: Respiratory: Denies cough, Denies dyspnea and Denies wheezing Gastrointestinal: Gastrointestinal: Denies abdominal pain, Denies diarrhea, Reports nausea and Reports vomiting Genitourinary: Comments: Indwelling guadarrama PMFSH Past Medical History Medical History Asthma Bronchitis Cataracts, bilateral CHF (congestive heart failure) 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
--- NOTE | 2020-05-29 13:13 | PC.NURSE ---
spoke with jeny from lab, states that she will add on the pt/inr/ptt
[2020-05-29 13:15] LABS: NT Pro B Type Natriuretic Pept 7020 PG/ML (5-100)
[2020-05-29] MEDS: ERTAPENEM 1 GM/NS 50 ML 1 GM/50 ML BAG IVPB (13:35)
[2020-05-29 13:46] LABS: INR 1.2; Partial Thromboplastin Time 34.9 SECONDS (22.3-36.8); Prothrombin Time 16.2 Seconds (11.1-14.7)
--- NOTE | 2020-05-29 14:25 | ADMGEN ---
This patient, Codie Crowder, was admitted to IMU Room 204-01. Patient/family oriented to hospital policies and general routines including ID bracelet, bed and alarms, visiting hours, pain management, procedures, bathroom and other care routines, personal items, smoking policy, room service/diet, and visiting hours. Information on how to activate the Rapid Response Team has been discussed. Patient/Family are encouraged to report perceived risks to care and to ask questions if they do not understand what they are told or what they should do.
--- NOTE | 2020-05-29 14:42 | PM.IMHP ---
H&P: HPI History of Present Illness Date/Time: 05/29/20 14:42 Chief Complaint: Shortness of breath Narrative: Codie Crowder is a 75 year old female from the hospitalist services yesterday. The patient has end-stage congestive heart failure with a low EF. The patient has chronic bilateral pleural effusions and had been refusing to have thoracentesis. The patient is also not very fond of wearing a BiPAP machine. She does have a history of having COPD. She has a history of having multiple UTIs. The patient had been on ertapenem while she was here. Patient had recently been treated for UTI for growing Enterobacter at [facility] the week prior to that. The patient has debility and multiple ulcerated areas to her buttocks multiple pressure sores to her buttocks and thighs. She has been too weak to get out of bed. She also has chronic renal failure. With her congestive heart failure was difficult to give her adequate amount of Lasix that she has knee due to her chronic renal failure. The patient had refused to get a thoracentesis with her pleural effusions her last admission. She is chronically short of breath. However the provider extensively spoke with the family about hospice prior to being discharged yesterday. The patient was wanting to be discharged to home yesterday and hospice was set up.. Her very stated that he had no idea what hospice was it was explained in the emergency room that she has a weak heart and weak kidneys and that she retains fluid her lungs and that if we brought her in today that we would only be temporarily fixing her situation. We can put her on BiPAP and try to get off some of the fluid however she may need to have frequent thoracentesis is to keep the fluid off of her lungs. I explained that we cannot fix CHF and she cannot be cured from it. It does not get any better. The like the patient be admitted today and they can discuss hospice later. Was read as stable moderate size pleural effusions left worse than right stable airspace opacities in mid and lower lung zones consistent with atelectasis are likely pneumonia. Cardiomegaly chest x-ray was would was hernia bed easily congestion congestive heart failure bilateral edema and/or pneumonia. Blood gases pH 7.269 CO2 was 76.7 last month her CO2 was 64.8 prior to that it was 45.2. PO2 was 66.6. pO2 was 66.6. The patient was given Zofran and Invanz in the emergency room. The patient is being admitted to inpatient status for 05/29/2020 date of service Review of Systems Review of Systems: All systems reviewed & are unremarkable except as noted in HPI and below Constitutional: Constitutional: Reports as per HPI and Reports no additional constitutional complaints Eyes: Eyes: Reports as per HPI and Reports no additional eye complaints ENT: Reports system reviewed and no additional complaints, except as documented and Reports Normal hearing present Cardiovascular: Cardiovascular: Reports no additional cardiovascular complaints Respiratory: Respiratory: Reports no additional respiratory complaints and Reports no additional respiratory complaints Gastrointestinal: Gastrointestinal: Reports as per HPI and Reports no additional gastrointestinal complaints Musculoskeletal: Musculoskeletal: Reports no additional musculoskeletal complaints Integumentary/Breasts: Skin/Breast: Reports system reviewed and no additional complaints, except as docu and Reports as per HPI Neurologic: Reports system reviewed and no additional complaints, except as documented, Reports as per HPI and Reports Normal hearing present Psychiatric: Psychiatric: Reports no additional psychiatric complaints and Reports as per HPI Endocrine: Endocrine: Reports no additional endocrine complaints Hematologic/Lymphatic: Hematologic/Lymphatic: Reports no additional hematologic/lymphatic complaints Allergic/Immunologic: Allergic/Immunologic: Reports no additional allergic/i
--- NOTE | 2020-05-29 15:23 | PCWOUND ---
WOCN NOTE patient was seen yesterday 05/28/20 by wound care. Patient with yeast maceration to the bilateral buttocks and posterior thighs. There is a purple discoloration to the buttocks, thighs and labia due to poor circulation to the areas due to morbid obesity and patient refusing to get up and move. Spoke with Loco DAIGLE, orders to be put in for Triple Care Antifungal cream to all areas.
[2020-05-29 15:31] LABS: Glucose Point of Care 93 (65-105)
[2020-05-29 16:02] LABS: Alveolar/Arterial O2 Gradient 180.5 mmHg; Base Excess ABG 6.8 mEq/l (+/-2.0); Fractional Inspired Oxygen 50 %; HCO3 ABG 35.3 mEq/l (22.0-26.0); Oxygen Content ABG 12.6 %vol (16.0-22.0); PO2 ABG 87.9 mmHg (80.0-100.0); PO2 FiO2 Ratio Arterial Blood 1.76 %; Total Hemoglobin 9.3 g/dL (12.0-18.0)
[2020-05-29 16:03] LABS: Device NON-INVASIVE VENT; Modified Allen's Test Pass; PCO2 ABG 78.3 mmHg (35.0-45.0); Site Drawn RIGHT RADIAL; pH ABG 7.272 (7.350-7.450)
[2020-05-29 16:04] LABS: Non-Invasive Expiratory Pressure 6 CMH2O; Non-Invasive Inspiratory Pressure 18 CMH2O; Non-Invasive Vent Rate 4 /MIN
[2020-05-29 16:23] LABS: Anion Gap 4 mmol/L (8-16); Blood Urea Nitrogen 54 mg/dL (7-17); Carbon Dioxide 39 mmol/L (22-30); Chloride 99 mmol/L (98-107); Estimated CRCL calculation 25 ml/min; Estimated Glomerular Filt Rate 21; Glucose 99 mg/dL (65-105); Potassium 5.4 mmol/L (3.4-5.0); Sodium 142 mmol/L (137-145)
[2020-05-29 17:21] LABS: Glucose Point of Care 101 (65-105)
[2020-05-29] MEDS: amLODIPine BESYLATE 5 MG TABLET PO (17:56)
[2020-05-29] MEDS: SPIRONOLACTONE 25 MG TABLET PO (17:56)
[2020-05-29] MEDS: metOLazone 5 MG TABLET PO (17:56)
[2020-05-29] MEDS: lisinopriL 5 MG TABLET PO (17:57)
[2020-05-29] MEDS: hydrALAZINE HCL 50 MG TABLET PO (17:57)
--- NOTE | 2020-05-29 18:59 | PC.NURSE ---
Pt complaining of nausea, zofran given. Bipap removed and pt placed on 4L NC. O2 sat 95%.
[2020-05-29] MEDS: ALBUTEROL SULFATE NEB 2.5 MG/0.5 ML INH INHALATION (19:49)
[2020-05-29 20:44] LABS: Glucose Point of Care 102 (65-105)
[2020-05-29] MEDS: DOXAZOSIN MESYLATE 2 MG TABLET PO (21:25)
[2020-05-29] MEDS: ACETAMINOPHEN 325 MG TABLET 650 MG PO (21:25)
[2020-05-29] MEDS: INSULIN GLARGINE (*BKC) 100 UNITS/ML 40 UNITS SUB-Q (21:26)
[2020-05-30] VITALS (22 sets, daily range): BP systolic 105–117; BP diastolic 35–55; PULSE 47–61; RESP 17–24; TEMP 35.5–36.6; O2SAT 90–99
--- NOTE | 2020-05-30 | ECHO_ITS ---
Patient Info Name: Codie Crowder Age: 75 years : 1945 Gender: Female Ht: 65 in Wt: 278 lbs BSA: 2.48 m2 HR: 90 bpm BP: 117 / 55 mmHg Heart Rhythm: Sinus Arrhythmia Technical Quality: Poor Exam Date: 05/30/2020 2:27 PM Exam Location: [facility] Patient Status: Inpatient Admit Date: 05/29/2020 Staff Ordering Physician: Stuart Wiley MD Reservationist: Ronald Greco RDCS Attending Provider: Stuart Wiley MD Exam Type: CA echo doppler color flow Study Info Indications J96.02 - Acute respiratory failure with hypercapnia Complete two-dimensional, color flow and Doppler transthoracic echocardiogram is performed. Reason for Poor Study: poor echocardiographic windows History/Risk Factors Acute respiratory failure w/ hypercapnia. Summary 1. Right ventricle not well visualized in several views. 2. There is mild to moderately increased left ventricular wall thickness. 3. Very technically difficult study with limited views. Poor endomyocardial border definition prohibits assessmetn of regional wall motion abnormalities. Furthermore, given patient's refusal to cooperate with exam and contrast administration LV systolic function is unable to be acceptably characterized, however, suspect at least mild LV dysfunction EF 40-50%. 4. Left ventricular chamber dimension is not well visualized. 5. The left ventricular diastolic function is grade I diastolic dysfunction. 6. Right ventricular chamber dimension is severely enlarged. 7. Right ventricular systolic function is reduced. 8. There is trace tricuspid valve regurgitation. 9. No pulmonary hypertension, estimated pulmonary arterial systolic pressure is 25 mmHg. 10. Repeat study with definity echo contrast enhancement to clarify LV systolic function and regional wall motion abnormalities. Recommendations * Repeat study with definity echo contrast enhancement to clarify LV systolic function and regional wall motion abnormalities. Left Ventricle There is mild to moderately increased left ventricular wall thickness. Very technically difficult study with limited views. Poor endomyocardial border definition prohibits assessmetn of regional wall motion abnormalities. Furthermore, given patient's refusal to cooperate with exam and contrast administration LV systolic function is unable to be acceptably characterized, however, suspect at least mild LV dysfunction EF 40-50%. Left ventricular chamber dimension is not well visualized. The left ventricular diastolic function is grade I diastolic dysfunction. Right Ventricle Right ventricle not well visualized in several views. Right ventricular chamber dimension is severely enlarged. Right ventricular systolic function is reduced. Left Atria Left atrial chamber dimension is not well visualized. Right Atria Right atrial chamber dimension is not well visualized. Aortic Valve The aortic valve is not well visualized. There is no aortic valve stenosis. Pulmonic Valve The pulmonic valve is not well visualized. Mitral Valve The mitral valve has not well visualized. Tricuspid Valve The tricuspid valve leaflets are not well visualized. There is trace tricuspid valve regurgitation. No pulmonary hypertension, estimated pulmonary arterial systolic pressure is 25 mmHg. Pericardium/Pleural The pericardium appears not well visualized. Aorta The aortic root size at the sinus of Valsalva is not well visualized. Left Ventricular Outflow Tract
[2020-05-30 05:45] LABS: Basophils Percent Auto 0.5 % (0.2-1.2); Eosinophils Absolute Auto 0.1 K/mm3 (0-0.3); Eosinophils Percent Auto 2.2 % (0-4.4); Hematocrit 27.7 % (37.0-47.0); Hemoglobin 7.8 g/dL (12.0-15.0); Immature Granulocyte Absolute 0.11 K/mm3 (0.00-0.031); Immature Granulocyte Percent A 1.7 % (0-0.5); Immature Platelet Fraction Pct 3.3 % (0.9-11.2); Lymphocytes Absolute Auto 0.38 K/mm3 (0.9-3.2); Lymphocytes Percent Auto 5.9 % (18.3-44.2); Mean Corpuscular HGB Conc 28.2 g/dl (32-36); Mean Corpuscular Hemoglobin 23.9 pg (26-34); Mean Corpuscular Volume 84.7 fl (80-100); Mean Platelet Volume 9.9 fl (7.4-10.4); Monocytes Absolute Auto 0.4 K/mm3 (0.1-0.6); Neutrophils Absolute Auto 5.4 K/mm3 (1.3-6.7); Neutrophils Percent Auto 83.7 % (45.5-73.1); Platelet Count Result 148 k/mm3 (150-375); Red Blood Count 3.27 M/mm3 (4.2-5.4); Red Cell Distribution Width 15.9 % (11.5-14.5); White Blood Count 6.5 K/mm3 (4.5-10.0)
[2020-05-30 06:05] LABS: Alanine Aminotransferase 9 U/L (4-35); Alkaline Phosphatase 64 U/L (38-126); Anion Gap 4 mmol/L (8-16); Aspartate Amino Transferase 17 U/L (14-36); Bilirubin,Total 0.3 mg/dL (0.2-1.3); Blood Urea Nitrogen 58 mg/dL (7-17); CRP 2.2 mg/dL (<1.0); Calcium 7.8 mg/dL (8.4-10.2); Carbon Dioxide 37 mmol/L (22-30); Chloride 99 mmol/L (98-107); Estimated CRCL calculation 28 ml/min; Estimated Glomerular Filt Rate 23; Glucose 39 mg/dL (65-105); Magnesium 2.4 mg/dL (1.6-2.3); Potassium 4.7 mmol/L (3.4-5.0); Sodium 140 mmol/L (137-145)
[2020-05-30] MEDS: DEXTROSE 50% 25 GM/50 ML SYRINGE IV PUSH (06:11)
[2020-05-30 06:15] LABS: Hypochromasia 1+ (NORMAL); Platelet Estimate Adequate (Adequate); Stomatocytes 1+ (NORMAL)
[2020-05-30 06:39] LABS: Glucose Point of Care 124 (65-105)
--- NOTE | 2020-05-30 07:50 | PC.NURSE ---
Pt is agitated and ripping off the bipap. Educated the patient to the uses of the bipap and why it is important to wear. Pt is still refusing and is alert and oriented. Placed patient on 4L MD GEOVANNY informed.
[2020-05-30 08:40] LABS: Glucose Point of Care 75 (65-105)
[2020-05-30 09:00] LABS: Free T4 Free Thyroxine Reflex 0.89 ng/dL (0.78-2.19)
[2020-05-30] MEDS: ALBUTEROL SULFATE NEB 2.5 MG/0.5 ML INH INHALATION ×3 (09:04→14:48)
[2020-05-30] MEDS: metOLazone 5 MG TABLET PO (09:09)
[2020-05-30] MEDS: hydrALAZINE HCL 50 MG TABLET PO (09:09)
[2020-05-30] MEDS: amLODIPine BESYLATE 5 MG TABLET PO (09:09)
[2020-05-30] MEDS: lisinopriL 5 MG TABLET PO (09:09)
[2020-05-30] MEDS: ACETAMINOPHEN 325 MG TABLET 650 MG PO ×2 (09:09→18:11)
[2020-05-30] MEDS: SPIRONOLACTONE 25 MG TABLET PO (09:09)
[2020-05-30 10:05] LABS: Total Triiodothyronine (T3) 0.67 NG/ML (0.97-1.69)
[2020-05-30 10:16] LABS: Alveolar/Arterial O2 Gradient 36.8 mmHg; Base Excess ABG 6.2 mEq/l (+/-2.0); Fractional Inspired Oxygen 28 %; HCO3 ABG 33.6 mEq/l (22.0-26.0); Oxygen Content ABG 11.8 %vol (16.0-22.0); Oxygen Saturation ABG 94.8 % (95.0-100.0); Oxyhemoglobin 94.1 % THb (90.0-100.0); PO2 ABG 82.4 mmHg (80.0-100.0); PO2 FiO2 Ratio Arterial Blood 2.94 %; Total Hemoglobin 8.8 g/dL (12.0-18.0); pH ABG 7.311 (7.350-7.450)
[2020-05-30 10:18] LABS: Device NASAL CANNULA; Modified Allen's Test Pass; PCO2 ABG 68.2 mmHg (35.0-45.0); Site Drawn RIGHT RADIAL
--- NOTE | 2020-05-30 10:28 | PM.IMPN ---
Progress Note: A&P Assessment and Plan (1) Acute hypercapnic respiratory failure: Code(s): J96.02 - Acute respiratory failure with hypercapnia Status: Acute Assessment and Plan: ABG on admission . CXR showing L>R moderate pleural effusions with atelectasis and CMG. BiPAP with improved ABG today 7./. Continue BiPAP at night and with naps. (2) Pleural effusion: Code(s): J90 - Pleural effusion, not elsewhere classified Status: Acute Assessment and Plan: Patient underwent left [id number] with 600mL of freddy colored fluid removed. No studies sent. (3) CHF (congestive heart failure): Qualifiers: Heart failure chronicity: chronic Heart failure type: systolic Qualified Code(s): I50.22 - Chronic systolic (congestive) heart failure Code(s): I50.9 - Heart failure, unspecified Status: Acute Assessment and Plan: BNP 7K. CXR as mentioned above. She is extremely fluid overloaded which could be CHF but consider from cirrhosis or CKD as well. Consider also right sided failure. Patient did develop bradycardia with HR in the 20's for about 20-30 secomds. Possibly related to her DEON. Patient and family state patient can take Lasix so will start IV diuretics. Monitor UPO and renal function closely. Echo ordered. No beta-pratima given her bradycardia. Hold lisinopril. Echo poor quality but EF about 40-50% with grade I diastolic dysfunction. RV is severely enlarged with reduced function. (4) Acute on chronic renal failure: Qualifiers: Acute renal failure type: unspecified Chronic kidney disease stage: unspecified stage Qualified Code(s): N17.9 - Acute kidney failure, unspecified; N18.9 - Chronic kidney disease, unspecified Code(s): N17.9 - Acute kidney failure, unspecified; N18.9 - Chronic kidney disease, unspecified Status: Acute Assessment and Plan: Patient's baseline creatinine is 1.2-1.7 this year but earlier this month was 2.1-2.5. She was 2.3 od admission here and better today at 2.1. Lasix started. Will hold lisinopril and spirnolactone at this time since goal is trying to improve fluid status. (5) COPD (chronic obstructive pulmonary disease): Qualifiers: COPD type: unspecified COPD Qualified Code(s): J44.9 - Chronic obstructive pulmonary disease, unspecified Code(s): J44.9 - Chronic obstructive pulmonary disease, unspecified Status: Chronic Assessment and Plan: Stable. Continue with nebulizers. 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 Continue to monitor glucose. Glucose 39 this morning so will decrease lantus. Continue sliding scale insulin. (7) Complicated UTI (urinary tract infection): Code(s): N39.0 - Urinary tract infection, site not specified Status: Acute Assessment and Plan: She had a enterobacter urine culture on 05/26/2020. The patient has multiple allergies and had been on ertapenem up until 05/28. She only received approximately 2 doses. Urine culture here has returned negative. Abx not continued (8) Pressure ulcer: Code(s): L89.90 - Pressure ulcer of unspecified site, unspecified stage Status: Acute Assessment and Plan: Wound care consult was greatly be appreciated. (9) DVT prophylaxis: Code(s): Z29.9 - Encounter for prophylactic measures, unspecified Status: Acute Assessment and Plan: SCDs ordered; plt count better so will start Lovenox Subjective Date/time seen: 05/30/20 10:28 Interval history: Date of service 05/30 75yo female with CHF, DM, COPD and DEON here for SOB and found to have CHF exacerbation. Wore the BiPAP overnight. Off BiPAP at 8AM. SOB better today. Requesting discharge home today. No further n/v. No CP. No abd pain but has chronic back pain. Eating
[2020-05-30] MEDS: FUROSEMIDE INJ 40 MG/4 ML VIAL IV PUSH ×2 (12:32→18:11)
[2020-05-30] MEDS: DOXAZOSIN MESYLATE 2 MG TABLET PO (12:33)
[2020-05-30 12:37] LABS: Glucose Point of Care 76 (65-105)
[2020-05-30] MEDS: IPRATROPIUM BR 0.02% INH SOLN 0.5 MG/2.5 ML VIAL INHALATION (14:47)
[2020-05-30 17:19] LABS: Glucose Point of Care 76 (65-105)
[2020-05-30 20:06] LABS: Glucose Point of Care 72 (65-105)
--- NOTE | 2020-05-30 23:14 | PCRCNOTE ---
Window of time for administration has passed. See next scheduled administration.
[2020-05-31] VITALS (19 sets, daily range): BP systolic 115–150; BP diastolic 42–58; PULSE 53–75; RESP 17–24; TEMP 35.3–36.7; O2SAT 92–97
[2020-05-31 05:39] LABS: Basophils Percent Auto 0.6 % (0.2-1.2); Eosinophils Absolute Auto 0.2 K/mm3 (0-0.3); Eosinophils Percent Auto 2.8 % (0-4.4); Hematocrit 27.8 % (37.0-47.0); Hemoglobin 8.1 g/dL (12.0-15.0); Immature Granulocyte Absolute 0.12 K/mm3 (0.00-0.031); Immature Granulocyte Percent A 1.7 % (0-0.5); Lymphocytes Absolute Auto 0.52 K/mm3 (0.9-3.2); Lymphocytes Percent Auto 7.2 % (18.3-44.2); Mean Corpuscular HGB Conc 29.1 g/dl (32-36); Mean Corpuscular Volume 82.5 fl (80-100); Mean Platelet Volume 9.9 fl (7.4-10.4); Monocytes Absolute Auto 0.5 K/mm3 (0.1-0.6); Monocytes Percent Auto 6.6 % (2.6-8.5); Neutrophils Absolute Auto 5.9 K/mm3 (1.3-6.7); Neutrophils Percent Auto 81.1 % (45.5-73.1); Nucleated Red Blood Cells Perc 0.3 % (0.0-0.2); Platelet Count Result 142 k/mm3 (150-375); Red Blood Count 3.37 M/mm3 (4.2-5.4); Red Cell Distribution Width 16.4 % (11.5-14.5); White Blood Count 7.3 K/mm3 (4.5-10.0)
[2020-05-31 06:20] LABS: Hypochromasia 1+ (NORMAL); Platelet Estimate Decreased (Adequate)
[2020-05-31 06:21] LABS: Target Cells 1+ (NORMAL)
[2020-05-31 06:23] LABS: Blood Urea Nitrogen 59 mg/dL (7-17); Calcium 7.9 mg/dL (8.4-10.2); Carbon Dioxide > 40 mmol/L (22-30); Chloride 100 mmol/L (98-107); Estimated CRCL calculation 23 ml/min; Estimated Glomerular Filt Rate 19; Glucose 58 mg/dL (65-105); Magnesium 2.4 mg/dL (1.6-2.3); Sodium 141 mmol/L (137-145)
[2020-05-31] MEDS: DEXTROSE 50% 25 GM/50 ML SYRINGE IV PUSH (06:28)
[2020-05-31 07:17] LABS: Glucose Point of Care 94 (65-105)
[2020-05-31] MEDS: ALBUTEROL SULFATE NEB 2.5 MG/0.5 ML INH INHALATION ×3 (07:49→19:43)
[2020-05-31] MEDS: IPRATROPIUM BR 0.02% INH SOLN 0.5 MG/2.5 ML VIAL INHALATION ×3 (07:50→19:43)
[2020-05-31] MEDS: FUROSEMIDE INJ 40 MG/4 ML VIAL IV PUSH ×2 (08:41→17:19)
[2020-05-31] MEDS: ENOXAPARIN 30 MG/0.3 ML SYRINGE SUB-Q (08:42)
[2020-05-31 09:43] LABS: Glucose Point of Care 81 (65-105)
[2020-05-31] MEDS: metOLazone 5 MG TABLET PO (11:03)
[2020-05-31] MEDS: amLODIPine BESYLATE 5 MG TABLET PO (11:03)
[2020-05-31] MEDS: DOXAZOSIN MESYLATE 2 MG TABLET PO (11:03)
[2020-05-31] MEDS: ACETAMINOPHEN 325 MG TABLET 650 MG PO ×2 (11:04→20:28)
[2020-05-31 12:26] LABS: Glucose Point of Care 87 (65-105)
--- NOTE | 2020-05-31 16:05 | PM.IMPN ---
Progress Note: A&P Assessment and Plan (1) Acute hypercapnic respiratory failure: Code(s): J96.02 - Acute respiratory failure with hypercapnia Status: Acute Assessment and Plan: ABG on admission 7./. CXR showing L>R moderate pleural effusions with atelectasis and CMG. BiPAP with improved ABG today 7./. Continue BiPAP at night and with naps. Repeat ABG in the morning. (2) Pleural effusion: Code(s): J90 - Pleural effusion, not elsewhere classified Status: Acute Assessment and Plan: Patient underwent left [id number] with 600mL of freddy colored fluid removed. No studies sent. (3) CHF (congestive heart failure): Code(s): I50.9 - Heart failure, unspecified Status: Acute Assessment and Plan: BNP 7K. CXR as mentioned above. She is extremely fluid overloaded which could be CHF but consider from cirrhosis or CKD or right sided failure. Echo poor quality but EF about 40-50% with grade I diastolic dysfunction. RV is severely enlarged with reduced function. Patient did develop bradycardia with HR in the 20's for about 20-30 seconds. Possibly related to her DEON. Patient and family state patient can take Lasix so she was started on IV diuretics. Good UOP with negative fluid balance. Renal function worse today. No beta-pratima given her bradycardia. (4) Acute on chronic renal failure: Qualifiers: Acute renal failure type: unspecified Chronic kidney disease stage: unspecified stage Qualified Code(s): N17.9 - Acute kidney failure, unspecified; N18.9 - Chronic kidney disease, unspecified Code(s): N17.9 - Acute kidney failure, unspecified; N18.9 - Chronic kidney disease, unspecified Status: Acute Assessment and Plan: Patient's baseline creatinine is 1.2-1.7 this year but earlier this month was 2.1-2.5. She was 2.3 on admission here but worse today at 2.5. Continue Lasix IV. Renal function may be artifically low due to fluid overload. Will continue to hold lisinopril and spirnolactone at this time since goal is trying to improve fluid status. (5) COPD (chronic obstructive pulmonary disease): Qualifiers: COPD type: unspecified COPD Qualified Code(s): J44.9 - Chronic obstructive pulmonary disease, unspecified Code(s): J44.9 - Chronic obstructive pulmonary disease, unspecified Status: Chronic Assessment and Plan: Stable. Continue with nebulizers. 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 Continue to monitor glucose. Glucose 58 this morning so continue to hold Lantus. Continue sliding scale insulin. (7) Complicated UTI (urinary tract infection): Code(s): N39.0 - Urinary tract infection, site not specified Status: Acute Assessment and Plan: She had a enterobacter urine culture on 05/26/2020. The patient has multiple allergies and had been on ertapenem up until 05/28. She only received approximately 2 doses. Urine culture here has returned negative. Abx not continued (8) Pressure ulcer: Code(s): L89.90 - Pressure ulcer of unspecified site, unspecified stage Status: Acute Assessment and Plan: Wound care consult was greatly be appreciated. (9) DVT prophylaxis: Code(s): Z29.9 - Encounter for prophylactic measures, unspecified Status: Acute Assessment and Plan: Lovenox Subjective Date/time seen: 05/31/20 16:05 Interval history: Date of service 05/31 75yo female with CHF, DM, COPD and DEON here for SOB and found to have CHF exacerbation. Denies feeling SOB or having CP. Wore the mask last night. No n/v. Decreased appetite. She is requesting discharge. Exam Narrative: Exam Narrative: AF 97.5 150/51 70 18 95% ra Gen - NARD lying semi-recumbent in bed Chest - bibasilar inspiratory crackles, nml RR CV - RRR S1/S
--- NOTE | 2020-05-31 17:27 | PC.NURSE ---
Pt is angrily yelling at staff stating I want to go home! You better call my ambulance to take me home! I informed the patient that the doctor has not discharged her and she is not yet ready to be discharged. The patient is requesting to leave AMA, but is physically unable to. When relaying this to the patient she then explained that Call my teletypewriter operator and call my ambulance, Now! The patient has her personal cellphone and the room phone at the bedside if she wishes to speak with her teletypewriter operator and family members.
[2020-05-31 18:01] LABS: Glucose Point of Care 101 (65-105)
--- NOTE | 2020-05-31 18:45 | PC.NURSE ---
Patient transferred from room 204. Patient oriented to room and policies.
--- NOTE | 2020-05-31 18:57 | PC.NURSE ---
This patient, Codie Crowder, was transferred to [facility] on 05/31/20 at 1840. Personal belongings sent with patient. Report given to PILO Lees. Appropriate documentation sent with patient.
[2020-05-31 23:31] LABS: Glucose Point of Care 122 (65-105)
[2020-06-01] VITALS (11 sets, daily range): BP systolic 112–144; BP diastolic 34–40; PULSE 64–77; RESP 16–20; TEMP 35.7–36.1; O2SAT 92–96
[2020-06-01 05:06] LABS: Alveolar/Arterial O2 Gradient 118.3 mmHg; Base Excess ABG 10.2 mEq/l (+/-2.0); Carboxyhemoglobin 0.1 % THb (0-2.0); Fractional Inspired Oxygen 36 %; HCO3 ABG 36.6 mEq/l (22.0-26.0); Methemoglobin ABG 0.2 %THb (0-1.5); Oxygen Content ABG 11.8 %vol (16.0-22.0); Oxygen Saturation ABG 92.8 % (95.0-100.0); Oxyhemoglobin 91.5 % THb (90.0-100.0); PO2 ABG 67.4 mmHg (80.0-100.0); PO2 FiO2 Ratio Arterial Blood 1.87 %; Reduced Hemoglobin 8.2 %THb (0-5.0); Total Hemoglobin 9.1 g/dL (12.0-18.0); pH ABG 7.395 (7.350-7.450)
[2020-06-01 05:08] LABS: Device NASAL CANNULA; Modified Allen's Test Pass; PCO2 ABG 61.2 mmHg (35.0-45.0); Site Drawn RIGHT RADIAL
[2020-06-01 06:14] LABS: Hematocrit 27.6 % (37.0-47.0); Mean Corpuscular Volume 82.6 fl (80-100); Mean Platelet Volume 9.7 fl (7.4-10.4); Platelet Count Result 137 k/mm3 (150-375); Red Blood Count 3.34 M/mm3 (4.2-5.4); Red Cell Distribution Width 16.5 % (11.5-14.5); White Blood Count 6.2 K/mm3 (4.5-10.0)
[2020-06-01 06:47] LABS: Albumin Level 3.1 g/dL (3.5-5.1); Blood Urea Nitrogen 57 mg/dL (7-17); Carbon Dioxide > 40 mmol/L (22-30); Chloride 98 mmol/L (98-107); Estimated CRCL calculation 24 ml/min; Estimated Glomerular Filt Rate 20; Glucose 107 mg/dL (65-105); Magnesium 2.4 mg/dL (1.6-2.3); Phosphorus 4.8 mg/dL (2.5-4.5); Potassium 4.9 mmol/L (3.4-5.0); Sodium 140 mmol/L (137-145)
[2020-06-01 07:54] LABS: Glucose Point of Care 108 (65-105)
[2020-06-01] MEDS: ACETAMINOPHEN 325 MG TABLET 650 MG PO (08:41)
[2020-06-01] MEDS: IPRATROPIUM BR 0.02% INH SOLN 0.5 MG/2.5 ML VIAL INHALATION ×3 (08:58→22:36)
[2020-06-01] MEDS: ALBUTEROL SULFATE NEB 2.5 MG/0.5 ML INH INHALATION ×3 (08:58→22:36)
[2020-06-01] MEDS: amLODIPine BESYLATE 5 MG TABLET PO (11:11)
[2020-06-01] MEDS: DOXAZOSIN MESYLATE 2 MG TABLET PO (11:11)
[2020-06-01] MEDS: FUROSEMIDE INJ 40 MG/4 ML VIAL IV PUSH ×2 (11:11→16:39)
[2020-06-01] MEDS: metOLazone 5 MG TABLET PO (11:11)
[2020-06-01 13:02] LABS: Glucose Point of Care 152 (65-105)
--- NOTE | 2020-06-01 16:46 | PC.NURSE ---
Pt states that she is allergic to almost all seasonings When asked which ones she said she can basically only have salt, pepper,garlic, and parsley .I have placed a diet modification note in the patients chart.
[2020-06-01 17:05] LABS: Glucose Point of Care 183 (65-105)
--- NOTE | 2020-06-01 17:11 | PM.IMPN ---
Progress Note: A&P Assessment and Plan (1) Acute hypercapnic respiratory failure: Code(s): J96.02 - Acute respiratory failure with hypercapnia Status: Acute Assessment and Plan: ABG on admission 7./66. CXR showing L>R moderate pleural effusions with atelectasis and CMG. BiPAP with improved ABG today 7.319/68/67. Continue BiPAP at night and with naps. (2) Pleural effusion: Code(s): J90 - Pleural effusion, not elsewhere classified Status: Acute Assessment and Plan: Patient underwent left fphdkqmnebfqd44/22 with 600mL of freddy colored fluid removed. No studies sent. (3) CHF (congestive heart failure): Code(s): I50.9 - Heart failure, unspecified Status: Acute Assessment and Plan: BNP 7K. CXR as mentioned above. She is extremely fluid overloaded which could be CHF but consider from cirrhosis or CKD or right sided failure. Echo poor quality but EF about 40-50% with grade I diastolic dysfunction. RV is severely enlarged with reduced function. Patient did develop bradycardia with HR in the 20's for about 20-30 seconds but no recurrence. Possibly related to her DEON. Patient and family state patient can take Lasix so she was started on IV diuretics. Good UOP with negative fluid balance and some clinical findings of improvement. Monitor renal function. No beta-pratima given her bradycardia. Check CXR in the morning. (4) Acute on chronic renal failure: Qualifiers: Acute renal failure type: unspecified Chronic kidney disease stage: unspecified stage Qualified Code(s): N17.9 - Acute kidney failure, unspecified; N18.9 - Chronic kidney disease, unspecified Code(s): N17.9 - Acute kidney failure, unspecified; N18.9 - Chronic kidney disease, unspecified Status: Acute Assessment and Plan: Patient's baseline creatinine is 1.2-1.7 this year but earlier this month was 2.1-2.5. She was 2.3 on admission but stable with Cr today at 2.4. Continue Lasix IV. Renal function may be artificially low due to fluid overload. Will continue to hold lisinopril and spironolactone at this time since goal is trying to improve fluid status. (5) COPD (chronic obstructive pulmonary disease): Qualifiers: COPD type: unspecified COPD Qualified Code(s): J44.9 - Chronic obstructive pulmonary disease, unspecified Code(s): J44.9 - Chronic obstructive pulmonary disease, unspecified Status: Chronic Assessment and Plan: Stable. Continue with nebulizers. 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 The patient's blood glucose was reviewed on 06/01 Glucose remains well controlled. Continue AccuCheks covering with sliding scale. Hypoglycemia protocol available as needed. Continue to hold Lantus. (7) Complicated UTI (urinary tract infection): Code(s): N39.0 - Urinary tract infection, site not specified Status: Acute Assessment and Plan: She had a enterobacter urine culture on 05/26/2020. The patient has multiple allergies and had been on ertapenem up until 05/28. She only received approximately 2 doses. Urine culture here has returned negative. Abx not continued. (8) Pressure ulcer: Code(s): L89.90 - Pressure ulcer of unspecified site, unspecified stage Status: Acute Assessment and Plan: Continue current dressing changes. (9) DVT prophylaxis: Code(s): Z29.9 - Encounter for prophylactic measures, unspecified Status: Acute Assessment and Plan: Lovenox Subjective Date/time seen: 06/01/20 17:11 Interval history: Date of service 06/01 75yo female with CHF, DM, COPD and DEON here for SOB and found to have CHF exacerbation. Feels better. Wore the mask last night. She is requesting discharge and threatening to sign out against medical advise. Spoke with by marguerite
[2020-06-01] MEDS: EUCERIN CREAM 120 GM JAR 1 APPLIC TOPICAL (18:04)
[2020-06-01 22:44] LABS: Glucose Point of Care 253 (65-105)
[2020-06-02] VITALS (11 sets, daily range): BP systolic 112–147; BP diastolic 34–85; PULSE 53–87; RESP 17–20; TEMP 35.7–36.4; O2SAT 86–97
[2020-06-02 06:02] LABS: Hematocrit 27.2 % (37.0-47.0); Hemoglobin 7.8 g/dL (12.0-15.0); Mean Corpuscular HGB Conc 28.7 g/dl (32-36); Mean Corpuscular Hemoglobin 23.9 pg (26-34); Mean Corpuscular Volume 83.2 fl (80-100); Mean Platelet Volume 9.8 fl (7.4-10.4); Platelet Count Result 115 k/mm3 (150-375); Red Blood Count 3.27 M/mm3 (4.2-5.4); Red Cell Distribution Width 16.2 % (11.5-14.5); White Blood Count 6.6 K/mm3 (4.5-10.0)
[2020-06-02 06:30] LABS: Albumin Level 3.1 g/dL (3.5-5.1); Blood Urea Nitrogen 56 mg/dL (7-17); Calcium 8.2 mg/dL (8.4-10.2); Carbon Dioxide > 40 mmol/L (22-30); Chloride 96 mmol/L (98-107); Estimated CRCL calculation 26 ml/min; Estimated Glomerular Filt Rate 21; Glucose 217 mg/dL (65-105); Magnesium 2.4 mg/dL (1.6-2.3); Phosphorus 5.3 mg/dL (2.5-4.5); Sodium 142 mmol/L (137-145)
[2020-06-02 07:36] LABS: Folic Acid 6.6 ng/mL (2.76->20)
[2020-06-02 07:43] LABS: Glucose Point of Care 200 (65-105)
[2020-06-02] MEDS: amLODIPine BESYLATE 5 MG TABLET PO (08:14)
[2020-06-02] MEDS: FUROSEMIDE INJ 40 MG/4 ML VIAL IV PUSH ×2 (08:14→17:32)
[2020-06-02] MEDS: metOLazone 5 MG TABLET PO (08:14)
[2020-06-02] MEDS: EUCERIN CREAM 120 GM JAR 1 APPLIC TOPICAL (08:14)
[2020-06-02] MEDS: DOXAZOSIN MESYLATE 2 MG TABLET PO (08:14)
[2020-06-02] MEDS: ACETAMINOPHEN 325 MG TABLET 650 MG PO (11:11)
[2020-06-02 12:00] LABS: Glucose Point of Care 344 (65-105)
[2020-06-02] MEDS: INSULIN ASPART (*BKC) 100 UNITS/ML SUB-Q ×2 (12:01→17:33)
--- NOTE | 2020-06-02 13:42 | PM.IMPN ---
Progress Note: A&P Assessment and Plan (1) Acute hypercapnic respiratory failure: Code(s): J96.02 - Acute respiratory failure with hypercapnia Status: Acute Assessment and Plan: ABG on admission 7./66. CXR on admission showing L>R moderate pleural effusions with atelectasis and CMG. BiPAP with improved ABG today 7.319//67. Continue BiPAP at night and with naps. Discussed with family (2) Pleural effusion: Code(s): J90 - Pleural effusion, not elsewhere classified Status: Acute Assessment and Plan: Patient underwent left fdzaqkcbqjtxl63/22 with 600mL of freddy colored fluid removed. No studies sent. Repeat CXR today showing moderate to large left pleural effusion with adjacent multisegmental atelectasis and findings consistent with CHF exacerbation. Continue diuretic therapy. She refuses a repeat thoracentesis. (3) CHF (congestive heart failure): Code(s): I50.9 - Heart failure, unspecified Status: Acute Assessment and Plan: BNP 7K. CXR as mentioned above. She is extremely fluid overloaded which could be CHF but consider from cirrhosis or CKD or right sided failure. Echo poor quality but EF about 40-50% with grade I diastolic dysfunction. RV is severely enlarged with reduced function. Patient did develop bradycardia with HR in the 20's for about 20-30 seconds but no recurrence. Possibly related to her DEON. Patient and family state patient can take Lasix so she was started on IV diuretics. Good UOP with negative fluid balance and some clinical findings of improvement. Monitor renal function. No beta-pratima given her bradycardia. CXR as above. (4) Acute on chronic renal failure: Qualifiers: Acute renal failure type: unspecified Chronic kidney disease stage: unspecified stage Qualified Code(s): N17.9 - Acute kidney failure, unspecified; N18.9 - Chronic kidney disease, unspecified Code(s): N17.9 - Acute kidney failure, unspecified; N18.9 - Chronic kidney disease, unspecified Status: Acute Assessment and Plan: Patient's baseline creatinine is 1.2-1.7 this year but earlier this month was 2.1-2.5. She was 2.3 on admission but stable with Cr today at 2.3. Continue Lasix IV and metolazone. Renal function may be artificially low due to fluid overload. Will continue to hold lisinopril and spironolactone at this time since goal is trying to improve fluid status. (5) COPD (chronic obstructive pulmonary disease): Qualifiers: COPD type: unspecified COPD Qualified Code(s): J44.9 - Chronic obstructive pulmonary disease, unspecified Code(s): J44.9 - Chronic obstructive pulmonary disease, unspecified Status: Chronic Assessment and Plan: Stable. Continue with nebulizers. 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 The patient's blood glucose was reviewed on 06/02 Glucose much higher now. Continue AccuCheks covering with sliding scale. Hypoglycemia protocol available as needed. Will resume Lantus. (7) Complicated UTI (urinary tract infection): Code(s): N39.0 - Urinary tract infection, site not specified Status: Acute Assessment and Plan: She had a enterobacter urine culture on 05/26/2020. The patient has multiple allergies and had been on ertapenem up until 05/28. She only received approximately 2 doses. Urine culture here has returned negative. Abx not continued. (8) Pressure ulcer: Code(s): L89.90 - Pressure ulcer of unspecified site, unspecified stage Status: Acute Assessment and Plan: Continue current dressing changes. (9) DVT prophylaxis: Code(s): Z29.9 - Encounter for prophylactic measures, unspecified Status: Acute Assessment and Plan: Lovenox Additional Plan Called back to the room around 315pm for patietn being found poorly respo
[2020-06-02] MEDS: LOPERAMIDE HCL 2 MG CAPSULE PO (14:39)
[2020-06-02 15:18] LABS: Glucose Point of Care 252 (65-105)
--- NOTE | 2020-06-02 15:21 | ECG_ITS ---
Measurements Intervals [place] Rate: 60 P: 62 AK: 183 QRS: 175 QRSD: 139 T: -25 QT: 442 QTc: 445 Interpretive Statements SINUS RHYTHM RIGHT BUNDLE BRANCH BLOCK LEFT POSTERIOR FASCICULAR BLOCK LOW VOLTAGE- PRECORDIAL LEADS ABNORMAL ECG Electronically Signed On 06-03-2020 7:44:46 CYTOMETRY TECHNOLOGIST by Larry Palumbo D.O.
[2020-06-02 15:52] LABS: Hematocrit 29.2 % (37.0-47.0); Hemoglobin 8.5 g/dL (12.0-15.0); Mean Corpuscular HGB Conc 29.1 g/dl (32-36); Mean Corpuscular Hemoglobin 24.5 pg (26-34); Mean Corpuscular Volume 84.1 fl (80-100); Mean Platelet Volume 9.8 fl (7.4-10.4); Platelet Count Result 113 k/mm3 (150-375); Red Blood Count 3.47 M/mm3 (4.2-5.4); Red Cell Distribution Width 16.4 % (11.5-14.5)
[2020-06-02 16:03] LABS: Ammonia < 9 umol/L (9-30); Lactic Acid Reflex 1.6 mmol/L (0.7-2.1)
[2020-06-02 16:06] LABS: Alanine Aminotransferase 14 U/L (4-35); Albumin Level 3.1 g/dL (3.5-5.1); Alkaline Phosphatase 72 U/L (38-126); Aspartate Amino Transferase 21 U/L (14-36); Bilirubin,Total 0.3 mg/dL (0.2-1.3); Blood Urea Nitrogen 57 mg/dL (7-17); Calcium 8.3 mg/dL (8.4-10.2); Carbon Dioxide > 40 mmol/L (22-30); Chloride 95 mmol/L (98-107); Estimated CRCL calculation 26 ml/min; Estimated Glomerular Filt Rate 21; Glucose 263 mg/dL (65-105); Magnesium 2.3 mg/dL (1.6-2.3); Phosphorus 5.5 mg/dL (2.5-4.5); Potassium 4.8 mmol/L (3.4-5.0); Sodium 141 mmol/L (137-145)
[2020-06-02 16:22] LABS: Glucose Point of Care 244 (65-105)
[2020-06-02 16:45] LABS: Base Excess ABG 8.1 mEq/l (+/-2.0); HCO3 ABG 35.7 mEq/l (22.0-26.0); PCO2 ABG 69.4 mmHg (35.0-45.0); PO2 ABG 58.5 mmHg (80.0-100.0)
[2020-06-02 16:46] LABS: Oxygen Saturation ABG 87.4 % (95.0-100.0); Total Hemoglobin 9.5 g/dL (12.0-18.0)
[2020-06-02 16:47] LABS: Alveolar/Arterial O2 Gradient 110.4 mmHg
[2020-06-02 16:48] LABS: Fractional Inspired Oxygen 35 %; Oxygen Content ABG 11.6 %vol (16.0-22.0); Oxyhemoglobin 86.7 % THb (90.0-100.0)
[2020-06-02 16:49] LABS: Device NASAL CANNULA; Modified Allen's Test Pass; Site Drawn LEFT RADIAL
--- NOTE | 2020-06-02 17:00 | PCRCNOTE ---
Window of time for administration has passed. See next scheduled administration.
[2020-06-02] MEDS: IPRATROPIUM BR 0.02% INH SOLN 0.5 MG/2.5 ML VIAL INHALATION (19:42)
[2020-06-02] MEDS: ALBUTEROL SULFATE NEB 2.5 MG/0.5 ML INH INHALATION (19:42)
[2020-06-02] MEDS: INSULIN GLARGINE (*BKC) 100 UNITS/ML 15 UNITS SUB-Q (20:18)
[2020-06-02 22:12] LABS: Glucose Point of Care 230 (65-105)
[2020-06-03] VITALS (15 sets, daily range): BP systolic 125–144; BP diastolic 44–58; PULSE 63–77; RESP 18–24; TEMP 35.7–36; O2SAT 90–99
[2020-06-03 06:19] LABS: Mean Corpuscular HGB Conc 28.6 g/dl (32-36); Mean Corpuscular Hemoglobin 23.9 pg (26-34); Mean Corpuscular Volume 83.6 fl (80-100); Mean Platelet Volume 9.5 fl (7.4-10.4); Platelet Count Result 99 k/mm3 (150-375); Red Blood Count 3.35 M/mm3 (4.2-5.4); Red Cell Distribution Width 16.3 % (11.5-14.5); White Blood Count 7.1 K/mm3 (4.5-10.0)
[2020-06-03 06:34] LABS: Blood Urea Nitrogen 56 mg/dL (7-17); Calcium 8.3 mg/dL (8.4-10.2); Carbon Dioxide > 40 mmol/L (22-30); Chloride 95 mmol/L (98-107); Estimated CRCL calculation 29 ml/min; Estimated Glomerular Filt Rate 24; Glucose 191 mg/dL (65-105); Potassium 4.6 mmol/L (3.4-5.0); Sodium 140 mmol/L (137-145)
[2020-06-03 07:40] LABS: Glucose Point of Care 159 (65-105)
[2020-06-03] MEDS: metOLazone 5 MG TABLET PO (08:44)
[2020-06-03] MEDS: DOXAZOSIN MESYLATE 2 MG TABLET PO (08:44)
[2020-06-03] MEDS: amLODIPine BESYLATE 5 MG TABLET PO (08:44)
[2020-06-03] MEDS: EUCERIN CREAM 120 GM JAR 1 APPLIC TOPICAL (08:45)
[2020-06-03] MEDS: FUROSEMIDE INJ 40 MG/4 ML VIAL IV PUSH ×2 (08:45→16:20)
--- NOTE | 2020-06-03 08:46 | PC.NURSE ---
Per MD, ok to give Lovenox at current platelet level. Pt refused despite education for the need. States she will have a bad nose bleed.
[2020-06-03] MEDS: ACETAMINOPHEN 325 MG TABLET 650 MG PO ×2 (09:05→16:24)
[2020-06-03] MEDS: ALBUTEROL SULFATE NEB 2.5 MG/0.5 ML INH INHALATION ×3 (10:11→21:26)
[2020-06-03] MEDS: IPRATROPIUM BR 0.02% INH SOLN 0.5 MG/2.5 ML VIAL INHALATION ×3 (10:12→21:26)
[2020-06-03 11:44] LABS: Glucose Point of Care 257 (65-105)
[2020-06-03] MEDS: INSULIN ASPART (*BKC) 100 UNITS/ML SUB-Q ×2 (11:52→16:23)
--- NOTE | 2020-06-03 13:05 | PM.IMPN ---
Progress Note: A&P Assessment and Plan (1) Change in mental status: Code(s): R41.82 - Altered mental status, unspecified Status: Acute Assessment and Plan: acute onset mental status changes clear etiology. Symptoms improved possibly related to BiPAP. No history of seizures. No recurrence. Will check CT of the brain for completeness but no focal findings. Will check EEG. (2) Acute hypercapnic respiratory failure: Code(s): J96.02 - Acute respiratory failure with hypercapnia Status: Acute Assessment and Plan: Patient with acute on chronic respiratory failure present on admission. ABG on admission 7.. CXR on admission showing L>R moderate pleural effusions with atelectasis and CMG. Improved with positive pressure ABG .. Continue positive pressure at night and with naps. Patient will need Trilogy since this will be easier to tolerate and compliance has been an issue. (3) Chronic respiratory failure: Code(s): J96.10 - Chronic respiratory failure, unspecified whether with hypoxia or hypercapnia Status: Acute Assessment and Plan: As above. (4) Pleural effusion: Code(s): J90 - Pleural effusion, not elsewhere classified Status: Acute Assessment and Plan: Patient underwent left nxpbzrmilzaix62/22 with 600mL of freddy colored fluid removed. No studies sent. Repeat CXR today showing moderate to large left pleural effusion with adjacent multisegmental atelectasis and findings consistent with CHF exacerbation. Continue diuretic therapy. She refuses a repeat thoracentesis. (5) CHF (congestive heart failure): Code(s): I50.9 - Heart failure, unspecified Status: Acute Assessment and Plan: BNP 7K. CXR as mentioned above. She is extremely fluid overloaded which could be CHF but consider from cirrhosis or CKD or right sided failure. Echo poor quality but EF about 40-50% with grade I diastolic dysfunction. RV is severely enlarged with reduced function. Patient did develop bradycardia with HR in the 20's for about 20-30 seconds but no recurrence. Possibly related to her DEON. Patient and family state patient can take Lasix so she was started on IV thearpy. Good UOP with negative fluid balance and some clinical findings of improvement; cumulative -6L. Renal function stable. No beta-pratima given her bradycardia. Repeat CXR as above. (6) Acute on chronic renal failure: Qualifiers: Acute renal failure type: unspecified Chronic kidney disease stage: unspecified stage Qualified Code(s): N17.9 - Acute kidney failure, unspecified; N18.9 - Chronic kidney disease, unspecified Code(s): N17.9 - Acute kidney failure, unspecified; N18.9 - Chronic kidney disease, unspecified Status: Acute Assessment and Plan: Patient's baseline creatinine is 1.2-1.7 this year but earlier this month was 2.1-2.5. She was 2.3 on admission but stable with Cr today at 2.0. Continue Lasix IV and metolazone. Continue to hold lisinopril and spironolactone at this time. (7) COPD (chronic obstructive pulmonary disease): Qualifiers: COPD type: unspecified COPD Qualified Code(s): J44.9 - Chronic obstructive pulmonary disease, unspecified Code(s): J44.9 - Chronic obstructive pulmonary disease, unspecified Status: Chronic Assessment and Plan: Stable. Continue with nebulizers. 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 The patient's blood glucose was reviewed on 06/03 Glucose up and down. Continue AccuCheks covering with sliding scale. Hypoglycemia protocol available as needed. Lantus just resumed so will follow for now (9) Complicated UTI (urinary tract infection): Code(s): N39.0 - Urinary tract infection, site not specified Status: Acute Assessment and Plan: She had a enterob
[2020-06-03 16:39] LABS: Glucose Point of Care 229 (65-105)
[2020-06-03 16:48] LABS: Glucose Point of Care 260 (65-105)
[2020-06-03] MEDS: TOLNAFTATE 1% POWDER 45 GM BTL 1 APPLIC TOPICAL (20:27)
[2020-06-03] MEDS: INSULIN GLARGINE (*BKC) 100 UNITS/ML 15 UNITS SUB-Q (20:27)
[2020-06-03 21:22] LABS: Glucose Point of Care 230 (65-105)
[2020-06-04] VITALS (15 sets, daily range): BP systolic 128–139; BP diastolic 43–65; PULSE 70–88; RESP 18–24; TEMP 36–36.6; O2SAT 90–96
--- NOTE | 2020-06-04 04:55 | PC.NURSE ---
Patient repositioned several times in attempt to remedy lumbar discomfort. Heating pad applied to lower region of back and tylenol offered but patient refused.
[2020-06-04 06:17] LABS: Basophils Percent Auto 0.6 % (0.2-1.2); Eosinophils Absolute Auto 0.3 K/mm3 (0-0.3); Eosinophils Percent Auto 3.8 % (0-4.4); Hematocrit 27.4 % (37.0-47.0); Immature Granulocyte Absolute 0.08 K/mm3 (0.00-0.031); Immature Granulocyte Percent A 1.1 % (0-0.5); Lymphocytes Absolute Auto 0.49 K/mm3 (0.9-3.2); Mean Corpuscular HGB Conc 29.2 g/dl (32-36); Mean Corpuscular Hemoglobin 24.4 pg (26-34); Mean Corpuscular Volume 83.5 fl (80-100); Mean Platelet Volume 9.8 fl (7.4-10.4); Monocytes Absolute Auto 0.6 K/mm3 (0.1-0.6); Monocytes Percent Auto 8.2 % (2.6-8.5); Neutrophils Absolute Auto 5.6 K/mm3 (1.3-6.7); Neutrophils Percent Auto 79.3 % (45.5-73.1); Platelet Count Result 99 k/mm3 (150-375); Red Blood Count 3.28 M/mm3 (4.2-5.4); Red Cell Distribution Width 16.5 % (11.5-14.5)
[2020-06-04 06:36] LABS: Albumin Level 3.1 g/dL (3.5-5.1); Blood Urea Nitrogen 54 mg/dL (7-17); Calcium 8.3 mg/dL (8.4-10.2); Carbon Dioxide > 40 mmol/L (22-30); Chloride 93 mmol/L (98-107); Estimated CRCL calculation 29 ml/min; Estimated Glomerular Filt Rate 24; Glucose 157 mg/dL (65-105); Magnesium 2.1 mg/dL (1.6-2.3); Phosphorus 4.7 mg/dL (2.5-4.5); Potassium 4.6 mmol/L (3.4-5.0); Sodium 141 mmol/L (137-145)
[2020-06-04 07:34] LABS: Platelet Estimate Decreased (Adequate); Stomatocytes 2+ (NORMAL)
[2020-06-04 07:47] LABS: Glucose Point of Care 147 (65-105)
[2020-06-04] MEDS: FUROSEMIDE INJ 40 MG/4 ML VIAL IV PUSH (07:47)
[2020-06-04] MEDS: metOLazone 5 MG TABLET PO (07:47)
[2020-06-04] MEDS: amLODIPine BESYLATE 5 MG TABLET PO (07:47)
[2020-06-04] MEDS: DOXAZOSIN MESYLATE 2 MG TABLET PO (07:47)
[2020-06-04] MEDS: EUCERIN CREAM 120 GM JAR 1 APPLIC TOPICAL (07:49)
[2020-06-04] MEDS: ALBUTEROL SULFATE NEB 2.5 MG/0.5 ML INH INHALATION ×3 (08:39→21:18)
[2020-06-04] MEDS: IPRATROPIUM BR 0.02% INH SOLN 0.5 MG/2.5 ML VIAL INHALATION ×3 (08:40→21:18)
--- NOTE | 2020-06-04 09:20 | PC.NURSE ---
Patient refused lovenox injection this morning stating she will have a nose bleed. Education given. Platelets checked and MD aware.
--- NOTE | 2020-06-04 09:22 | PC.NURSE ---
Patient continues to refuse treatments despite education given. MD is aware.
--- NOTE | 2020-06-04 09:34 | PCOTNOTE ---
OT evaluation attempted. Patient refusing therapy at this time stating that she is being discharged. Will attempt at later time if patient has not yet discharged from hospital.
--- NOTE | 2020-06-04 10:31 | PCPTNOTE ---
PT evaluation attempted this date. Patient refusing therapy at this time stating that she is being discharged. Will attempt at later time if patient has not yet discharged from hospital.
[2020-06-04 10:48] LABS: Iron 29 ug/dL (37-170)
[2020-06-04 10:54] LABS: Percent Iron Saturation 9 % (20-50)
[2020-06-04] MEDS: INSULIN ASPART (*BKC) 100 UNITS/ML SUB-Q (11:39)
[2020-06-04 12:08] LABS: Glucose Point of Care 206 (65-105)
--- NOTE | 2020-06-04 14:28 | PC.NURSE ---
Several attempts to position patient to provide relief to her back. Patient refused to continue using k-pad and refuses pain med at this time as well.
--- NOTE | 2020-06-04 14:41 | PCPTNOTE ---
Attempted PT eval. Pt refused therapy, states I'm going home. Encouraged pt to participate w/ therapy and she still refused. Will follow.
--- NOTE | 2020-06-04 14:43 | PCOTNOTE ---
Attempted OT evaluation, pt reports is going home and does not want to get up at this time. will attempt at later time, RN notified
--- NOTE | 2020-06-04 17:18 | PM.DS ---
DS: Admitting Diagnosis Admitting Diagnosis Admitting Diagnosis: Shortness of breath DS: Discharge Diagnosis Discharge Diagnosis (1) Change in mental status: Code(s): R41.82 - Altered mental status, unspecified Status: Acute Assessment and Plan: Patient had acute onset mental status changes without clear etiology. Symptoms improved possibly related to BiPAP. No history of seizures. No recurrence. We ordered CT of the brain but patient refused. EEG ordered but not able to be obtained. No recurrence (2) Acute hypercapnic respiratory failure: Code(s): J96.02 - Acute respiratory failure with hypercapnia Status: Acute Assessment and Plan: Patient with acute on chronic respiratory failure present on admission. She wears home O2. ABG on admission . CXR on admission showing L>R moderate pleural effusions with atelectasis and CMG. Improved with PAP therapy ABG .. We continued positive pressure at night and with naps. Patient will need Trilogy since this will be easier to tolerate and compliance has been an issue. Unable to arrange for Trilogy unit today but patient is adament about leaving today. Explained the risks/benefits to her and to her by phone about discharge without the Trilogy set up. They both request discharge today. Spoke with Brittany who is working on arranging for Trilogy at home and hopefully will be able to have that for tomorrow. Apnea link at home ordered. (3) Chronic respiratory failure: Code(s): J96.10 - Chronic respiratory failure, unspecified whether with hypoxia or hypercapnia Status: Acute Assessment and Plan: As above. (4) Pleural effusion: Code(s): J90 - Pleural effusion, not elsewhere classified Status: Acute Assessment and Plan: Patient underwent left nahrcxcdrwdqt00/22 with 600mL of freddy colored fluid removed. No studies sent. Repeat CXR 06/02 showing moderate to large left pleural effusion with adjacent multisegmental atelectasis and findings consistent with CHF exacerbation. She refused a repeat thoracentesis. We continued diuretic therapy (5) CHF (congestive heart failure): Code(s): I50.9 - Heart failure, unspecified Status: Acute Assessment and Plan: BNP 7K. CXR as mentioned above. She is extremely fluid overloaded which could be CHF but consider from cirrhosis and/or CKD and/or right sided failure. Echo poor quality but EF about 40-50% with grade I diastolic dysfunction. RV is severely enlarged with reduced function. Patient did develop bradycardia with HR in the 20's for about 20-30 seconds but no recurrence; felt related to untreated DEON. Patient and family state patient can take Lasix so she was started on IV Lasix here. Good UOP with cumulative negative fluid balance of 6.5L and some clinical findings of improvement. Renal function remained stable. No beta-pratima given her bradycardia. (6) Acute on chronic renal failure: Qualifiers: Acute renal failure type: unspecified Chronic kidney disease stage: unspecified stage Qualified Code(s): N17.9 - Acute kidney failure, unspecified; N18.9 - Chronic kidney disease, unspecified Code(s): N17.9 - Acute kidney failure, unspecified; N18.9 - Chronic kidney disease, unspecified Status: Acute Assessment and Plan: Patient's baseline creatinine is 1.2-1.7 this year but earlier this month was 2.1-2.5. She was 2.3 on admission but stable with Cr today at 2.0. We continued Lasix IV and metolazone. We held lisinopril and spironolactone. (7) COPD (chronic obstructive pulmonary disease): Qualifiers: COPD type: unspecified COPD Qualified Code(s): J44.9 - Chronic obstructive pulmonary disease, unspecified Code(s): J44.9 - Chronic obstructive pulmonary disease, unspecified Status: Chronic Assessment and Plan: Stable. We continued with nebulizers.
[2020-06-04 17:53] LABS: Glucose Point of Care 199 (65-105)
[2020-06-04 21:22] LABS: Glucose Point of Care 177 (65-105)
--- NOTE | 2020-06-05 00:54 | PC.NURSE ---
PT very upset with staff over Amy still not here to take her home. PT called [facility] and to complain. PT spoke with and explained why EMS was taking so long. called nurses station and yelled at staff twice about delayed ride home for his . PT and both very hostile and aggressive with staff over ride time getting pushed back.
--- NOTE | 2020-06-05 02:24 | PC.NURSE ---
[facility] called with new ETA for picking up pt, ETA now at 0530 to 0600. Pt is calling [facility] and complaining. PT unwilling to listen to education on why [facility] has been delayed again.
--- NOTE | 2020-06-05 09:06 | PCRCNOTE ---
PT HAS HOME O2 WITH [facility], WILL ARRANGE HOME TRILOGY UNIT WITH [facility]. DOCUMENTATION HAS BEEN ADDED INTO DISCHARGE SUMMARY AND FAXED TO [facility]. WILL NEED ORDER SIGNED FOR SET UP, WILL ATTEMPT TO KEEP NOTE UPDATED IF ANY ISSUES WITH DELIVERY OR COMPLIANCE WHEN [facility] SETS TRILOGY UP IN HOME.
--- NOTE | 2020-07-07 08:43 | PM.CNCAR ---
History of Present Illness History of Present Illness Consult date/time: 07/07/20 08:43 Cardiology Consultation was CANCELED by primary service. Please note this pertains to an initial consult placed 05/29/2020. This consult was canceled by the requesting hospitalist service but apparently the order was not removed from the system. As a result, the patient was not seen in consult per request of ordering service. Thank you. 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n) History of angina History of pneumonia HTN (hypertension) with goal to be determined Hx of cervical cancer Hypercholesteremia Hypothyroid Neuropathy in diabetes Pancreatitis Peripheral neuropathy Ulcer Venous stasis dermatitis of both lower extremities Surgical History Surgical History History of appendectomy History of cholecystectomy History of hysterectomy History of local excision of skin lesion Hx of cardiac cath Family History Family History Father Acute myocardial infarction, Onset Age: 64 Hypertension, Onset Age: 64 Asthma, Onset Age: 64 Family history of cardiovascular disease, Onset Age: 64 Family history of arthritis, Onset Age: 64 Mother Acute myocardial infarction, Onset Age: 78 Hypertension, Onset Age: 78 Family history of cardiovascular disease, Onset Age: 78 Family history of arthritis, Onset Age: 78 Family history of malignant neoplasm, Onset Age: 78 Sibling Diabetes mellitus Social History Social History Social History: The patient lives with her eliezer. They have been together for over 30 years. They have no children together. She is a former smoker. She desires to be a full code now. Patient had been on hospice for 1 day and the retracted. Smoking packs per day: 3 Smoking cigarettes per day: 60.0 Years smoked: 30 Smoking pack-years: 90.00 Smoking status: Former smoker Tobacco type: cigarettes Second hand tobacco smoke exposure: Yes Smoking end date: 06/08/01 Alcohol intake: never Substance use: never Substance use type: does not use Gender identity (if verbalized by the patient): Female Sexual Orientation (if Verbalized by the Patient): Straight or Heterosexual Spiritual care concerns: No Agree to blood products: Yes Meds Home Medications and Allergies Home Medications Medication Instructions Recorded Confirmed Type diazepam 2 mg tablet 2 mg PO BID PRN #60 tablet 10/12/19 06/24/20 Rx doxazosin 2 mg tablet 2 mg PO QAM #30 tablet 10/12/19 06/24/20 Rx albuterol sulfate 90 mcg/actuation See Rx Instructions .ROUTE 11/23/19 06/24/20 Rx aerosol inhaler .COMPLEX #33.5 gm insulin aspart U-100 100 unit/mL See Rx Instructions .ROUTE 12/30/19 06/24/20 Rx (3 mL) subcutaneous pen .COMPLEX #27 ml amlodipine 5 mg PO DAILY 05/07/20 06/24/20 History ipratropium bromide 0.5 mg INHALATION Q4H PRN 05/26/20 06/24/20 History metolazone 5 mg PO DAILY 05/26/20 06/24/20 History Lantus U-100 Insulin 15 unit SUBCUT HS #0 ml 06/04/20 06/24/20 Rx furosemide [Lasix] 40 mg PO BID #60 tablet 06/04/20 06/24/20 Rx tolnaftate 1 applic TOPICAL Q12HR #1 gm 06/04/20 06/24/20 Rx Allergies Allergy/AdvReac Type Severity Reaction Status Date / Time ezetimibe Allergy Severe PANCREATITI Verified 06/24/20 02:07 S hydromorphone Allergy Severe throat Verified 06/24/20
== END 2020-06-05 05:07 | disposition home health service (06) | DRG 291 ==
LOC: ANHED 11:15 → ANHIMU 14:06 → ANH3MED 06-01 13:22 → ANHIMU 06-11 10:37
PROVIDERS: Nurse Practitioner; Admitting Provider Family Medicine; Emergency Provider Emergency Medicine; Visit Provider Internal Medicine
DX: I13.0 Hypertensive heart and chronic kidney disease with heart failure and stage 1 through stage 4 chronic kidney disease, or unspecified chronic kidney disease (principal); J96.22 Acute and chronic respiratory failure with hypercapnia; I50.33 Acute on chronic diastolic (congestive) heart failure; J90 Pleural effusion, not elsewhere classified; N17.9 Acute kidney failure, unspecified; Z68.42 Body mass index [BMI] 45.0-49.9, adult; E11.22 Type 2 diabetes mellitus with diabetic chronic kidney disease; N18.9 Chronic kidney disease, unspecified; E11.42 Type 2 diabetes mellitus with diabetic polyneuropathy; R41.82 Altered mental status, unspecified; J43.9 Emphysema, unspecified; K21.9 Gastro-esophageal reflux disease without esophagitis; G47.33 Obstructive sleep apnea (adult) (pediatric); D69.6 Thrombocytopenia, unspecified; E03.9 Hypothyroidism, unspecified; K57.90 Diverticulosis of intestine, part unspecified, without perforation or abscess without bleeding; E66.9 Obesity, unspecified; Z90.49 Acquired absence of other specified parts of digestive tract; Z85.41 Personal history of malignant neoplasm of cervix uteri; Z90.710 Acquired absence of both cervix and uterus; Z87.891 Personal history of nicotine dependence; Z99.81 Dependence on supplemental oxygen
CPT/HCPCS: 32555; 36415; 36600; 71045; 80048; 80053; 80069; 81001; 82140; 82375; 82607; 82728; 82746; 82805; 83036; 83050; 83540; 83550; 83605; 83690; 83735; 83880; 84100; 84439; 84443; 84480; 85025; 85027; 85055; 85610; 85730; 86140; 87086; 93005; 93306; 94002; 94003; 94640; 96374; 96375; 99285; A9270; J1335; J1650; J1815; J1940; J2405

== ENCOUNTER 2020-06-13 23:18 | Inpatient (IN) | payer MEDICARE, OTHER, SELFPAY ==
--- NOTE | ~2020-06-13 | CT_ITS ---
EXAMINATION: CT chest wo con DATE: 06/14/2020 01:28 INDICATION: Shortness of breath TECHNIQUE: Computed tomography (CT) of the chest was performed without intravenous contrast. The dose -length product was 1023.89 mGy-cm. Automated exposure control and iterative reconstruction technique were employed. COMPARISON: CT dated 12/21/2013 FINDINGS: Large left pleural effusion with complete consolidation of the left lung, consistent with c ollapse. There are hyperdensities in the lower lobes, likely aspirated barium. Bilateral pleural effu sions. There is mediastinal lymphadenopathy. There is atherosclerosis of the aorta and coronary arter ies. There is atherosclerosis. Largest lymph node measures 1.8 cm short axis dimension. There is grou ndglass opacification which may represent edema. There is a 2.5 cm left adrenal mass, most likely suhail ign adenoma. IMPRESSION: 1. Bilateral pleural effusions, left greater than right with complete collapse of the left lung. 2: Groundglass opacities of the right lung, most likely edema. 3: Mediastinal lymphadenopathy, nonspecific. 4: Patchy hyperdensities of the lower lobes, likely aspirated barium. 5: Left adrenal mass measuring 2.5 cm, most likely benign adenoma. Reviewed, dictated and finalized at location A. STIC HELPER
--- NOTE | ~2020-06-13 | XR_ITS ---
XR chest 1V portable 06/16/2020 06:00 Indication: Left pleural effusion Procedure: AP portable chest Comparison: Comparison to multiple prior studies sequentially, with oldest reviewed study dated 05/09. Findings: Cardiomegaly with bilateral airspace disease. Moderate left pleural effusion with retrocard iac consolidation, likely atelectasis. Impression: 1: Cardiomegaly with improving bilateral airspace disease, likely interstitial edema. 2: Retrocardiac consolidation may represent atelectasis or pneumonia. 3: Moderate left effusion. Reviewed, dictated and finalized at location A. ER TENDER Impression: 1: Cardiomegaly with improving bilateral airspace disease, likely interstitial edema. 2: Retrocardiac consolidation may represent atelectasis or pneumonia. 3: Moderate left effusion.
--- NOTE | ~2020-06-13 | XR_ITS ---
EXAMINATION: [id number] DATE: 06/14/2020 10:04 INDICATION: Left pleural effusion status post thoracentesis. TECHNIQUE: A single frontal view of the chest was obtained. COMPARISON: Chest 2 views at 12:13 AM, chest CT 06/14/2020, CT abdomen and pelvis 05/26/2020 FINDINGS: There are small pleural effusions. There are airspace opacities in right mid and lower lung zones and in all left lung zones. No pneumothorax. Cardiomegaly is noted. IMPRESSION: 1. Small pleural effusions with improvement on the left. 2. Diffuse lung disease, consistent with atelectasis/scarring versus pneumonia. 3. Cardiomegaly. Reviewed, dictated and finalized at location A. S DATA WRITER
--- NOTE | ~2020-06-13 | US_ITS ---
EXAMINATION:US venous doppler LE BI INDICATION:Evaluate for DVT. TECHNIQUE: Multiple grayscale, color flow and Doppler images of the right and left lower extremity de ep venous systems were obtained and reviewed. COMPARISON:10/30/2017 FINDINGS: The common femoral, superficial femoral and popliteal veins demonstrate normal respiratory variation, augmentation and compressibility. Color flow is also seen within the posterior tibial, gr eater saphenous and profunda veins. The peroneal and left posterior tibial veins are not visualized. The left calf not visualized due to overlying cast. IMPRESSION: 1: No lower extremity deep venous thrombosis. Limited study. Reviewed, dictated and finalized at location A. BUILDER SUPERVISOR
--- NOTE | ~2020-06-13 | US_ITS ---
EXAMINATION: US thoracentesis DATE: 06/14/2020 09:57 INDICATION: pleural effusion TECHNIQUE: The skin was prepped and draped in sterile fashion. 1% lidocaine was used for local anesth esia. Under ultrasound guidance, a 5 Fr catheter with trochar was advanced into the left pleural effu candis. Fluid was aspirated. The catheter was removed, and a dressing was applied. There were no immedi ate complications. FINDINGS: Ultrasound images demonstrate a left pleural effusion and the catheter within the fluid. IMPRESSION: 1. Successful ultrasound-guided thoracentesis yielding 900 mL of clear, freddy-colored fluid. Reviewed, dictated and finalized at location A. STUDY CLERK IMPRESSION: 1. Successful ultrasound-guided thoracentesis yielding 900 mL of clear, freddy- colored fluid.
--- NOTE | ~2020-06-13 | XR_ITS ---
XR chest 2V 06/14/2020 00:21 Indication: Shortness of breath Procedure: AP and lateral views of the chest Comparison: Comparison to multiple prior studies sequentially, with oldest reviewed study dated 05/08. Findings: There is now complete opacification of the left hemithorax with a residual air bronchograms . Mediastinal shift to the left. Mild interstitial edema of the right lung. Small effusions. No pneum othorax. No acute osseous abnormality. Impression: 1: Complete opacification of the left hemithorax consistent with lung collapse. Mediastinal shift to the left. 2: Mild interstitial edema versus pneumonia. 2: Small pleural effusions. Reviewed, dictated and finalized at location A. THCARE FACILITY ADMINISTRATOR Impression: 1: Complete opacification of the left hemithorax consistent with lung collapse. Mediastinal shift to the left. 2: Mild interstitial edema versus pneumonia. 2: Small pleural effusions.
--- NOTE | ~2020-06-13 | XR_ITS ---
XR chest 1V portable 06/15/2020 06:16 Indication: Pleural effusion. Procedure: AP portable chest Comparison: Comparison to multiple prior studies sequentially, with oldest reviewed study dated 05/09. Findings: Diffuse bilateral airspace disease, most likely edema. Pneumonia less favored. Cardiomegaly . Small left effusion. No pneumothorax. Impression: 1: Persistent diffuse bilateral airspace disease, likely edema. 2: Moderate-large left pleural effusion. Reviewed, dictated and finalized at location A. L ASSEMBLER Impression: 1: Persistent diffuse bilateral airspace disease, likely edema. 2: Moderate-large left pleural effusion.
--- NOTE | ~2020-06-13 | CT_ITS ---
EXAMINATION: CT brain wo con DATE: 06/14/2020 04:22 INDICATION: Acute syncope. TECHNIQUE: Computed tomography (CT) of the head was performed without intravenous contrast. The dose- length product was 605.33 mGy-cm. Automated exposure control and iterative reconstruction technique w ere employed. COMPARISON: None FINDINGS: Mild generalized atrophy. There are scattered moderate periventricular and subcortical whit e matter changes, most likely related to small vessel ischemic disease (microangiopathy). No ventricu lomegaly or midline shift. Study limited by motion artifact. No acute intracranial hemorrhage or infa rction. Paranasal sinuses and right mastoid air cells are pneumatized. Small left mastoid effusion. N o depressed skull fractures. There is intracranial atherosclerosis. IMPRESSION: 1. No acute intracranial abnormality. 2: Chronic age-related findings. Reviewed, dictated and finalized at location A. TRONIC SECURITY SPECIALIST
[2020-06-13 23:20] VITALS: BP 168/58; PULSE 76; RESP 18; TEMP 36.3; O2SAT 97
--- NOTE | 2020-06-13 23:50 | ECG_ITS ---
Measurements Intervals [place] Rate: 71 P: 63 MN: 180 QRS: 130 QRSD: 131 T: 29 QT: 400 QTc: 437 Interpretive Statements SINUS RHYTHM RIGHT BUNDLE BRANCH BLOCK LEFT POSTERIOR FASCICULAR BLOCK LOW VOLTAGE- PRECORDIAL LEADS BASELINE ARTIFACT- I, II, III, AVR, AVL, AVF, V1-V3 ABNORMAL ECG Electronically Signed On 06-14-2020 7:11:00 UNIVERSITY CONTROLLER by Larry Palumbo D.O.
[2020-06-14] VITALS (23 sets, daily range): BP systolic 123–173; BP diastolic 39–82; PULSE 58–93; RESP 19–28; TEMP 35.5–36.8; O2SAT 53–100; BMI 42.9
[2020-06-14] LABS: Alveolar/Arterial O2 Gradient 70.9 mmHg; Base Excess ABG 8.4 mEq/l (+/-2.0); Fractional Inspired Oxygen 36 %; HCO3 ABG 36.5 mEq/l (22.0-26.0); Oxygen Content ABG 12.8 %vol (16.0-22.0); Oxygen Saturation ABG 96.6 % (95.0-100.0); Oxyhemoglobin 95.8 % THb (90.0-100.0); PCO2 ABG 75.2 mmHg (35.0-45.0); PO2 ABG 98.6 mmHg (80.0-100.0); PO2 FiO2 Ratio Arterial Blood 2.74 %; Site Drawn LEFT RADIAL; Total Hemoglobin 9.4 g/dL (12.0-18.0); pH ABG 7.304 (7.350-7.450)
[2020-06-14 00:01] LABS: Device NASAL CANNULA; Modified Allen's Test Pass
[2020-06-14 00:20] LABS: Basophils Percent Auto 0.5 % (0.2-1.2); Eosinophils Absolute Auto 0.2 K/mm3 (0-0.3); Eosinophils Percent Auto 2.9 % (0-4.4); Hematocrit 30.6 % (37.0-47.0); Hemoglobin 8.7 g/dL (12.0-15.0); Immature Granulocyte Absolute 0.05 K/mm3 (0.00-0.031); Immature Granulocyte Percent A 0.6 % (0-0.5); Lymphocytes Absolute Auto 0.26 K/mm3 (0.9-3.2); Lymphocytes Percent Auto 3.3 % (18.3-44.2); Mean Corpuscular HGB Conc 28.4 g/dl (32-36); Mean Corpuscular Volume 87.9 fl (80-100); Mean Platelet Volume 9.5 fl (7.4-10.4); Monocytes Absolute Auto 0.5 K/mm3 (0.1-0.6); Monocytes Percent Auto 6.3 % (2.6-8.5); Neutrophils Absolute Auto 6.8 K/mm3 (1.3-6.7); Neutrophils Percent Auto 86.4 % (45.5-73.1); Platelet Count Result 176 k/mm3 (150-375); Red Blood Count 3.48 M/mm3 (4.2-5.4); Red Cell Distribution Width 16.5 % (11.5-14.5); White Blood Count 7.9 K/mm3 (4.5-10.0)
[2020-06-14 00:26] LABS: INR 1.1; NT Pro B Type Natriuretic Pept 8610 PG/ML (5-100); Partial Thromboplastin Time 33.9 SECONDS (22.3-36.8); Prothrombin Time 14.3 Seconds (11.1-14.7)
[2020-06-14 00:36] LABS: Blood Urea Nitrogen 41 mg/dL (7-17); Calcium 8.3 mg/dL (8.4-10.2); Carbon Dioxide > 40 mmol/L (22-30); Chloride 93 mmol/L (98-107); Estimated Glomerular Filt Rate 27; Glucose 152 mg/dL (65-105); Sodium 138 mmol/L (137-145)
--- NOTE | 2020-06-14 02:31 | ED.SOB ---
HPI - SOB/Dyspnea General Chief Complaint: Shortness of Breath/Dyspnea Stated Complaint: snycope with sob Time Seen by Provider: 06/13/20 23:19 History of Present Illness HPI Narrative: Patient is a 75-year-old female who presents ER with concerns of syncope and shortness of breath. Patient was discharged this evening from [facility] and was being transferred to [facility] when EMS reported that she suffered a syncopal event to the staff while they were in route. Staff felt patient was too sick to be admitted to their facility and recommended she go to the hospital. She was thus transported here. Patient has been hospitalized at [facility] due to suffering an open tib-fib fracture. She underwent surgical fixation and is currently in a cast the left lower extremity. While she was there she had had a drop in her hemoglobin and received a blood transfusion. From reviewing the notes from that facility it also appears that the patient was offered a thoracentesis for large pleural effusion but had refused. Patient has been admitted to this facility in the past for drainage of the pleural effusion. Patient has no reports of pain and is unsure about the syncopal episode. She reports chronic and persistent shortness of breath. She is currently requiring 4 L nasal cannula and reports she typically wears 3 to 4 L at home. Related Data Home Medications Medication Instructions Recorded Confirmed nitroglycerin 0.4 mg sublingual 0.4 mg SUBLINGUAL .COMPLEX PRN 10/11/19 06/14/20 tablet amlodipine 5 mg PO DAILY 05/07/20 06/14/20 ipratropium bromide 0.5 mg INHALATION Q4H PRN 05/26/20 06/14/20 metolazone 5 mg PO DAILY 05/26/20 06/14/20 Allergies Allergy/AdvReac Type Severity Reaction Status Date / Time ezetimibe Allergy Severe PANCREATITI Verified 05/29/20 15:30 S hydromorphone Allergy Severe throat Verified 05/29/20 15:30 swelling nitrofurantoin Allergy Severe tounge Verified 05/29/20 15:30 [From Macrobid] swollen, nasusea, vomiting, diarrhea, silver Allergy Intermediate Unknown Verified 05/29/20 15:30 aspirin Allergy Unknown Unknown Verified 05/29/20 15:30 bumetanide Allergy Unknown Unknown Verified 05/29/20 15:30 cefuroxime Allergy Unknown Unknown Verified 05/29/20 15:30 ciprofloxacin Allergy Unknown Unknown Verified 05/29/20 15:30 codeine Allergy Unknown Unknown Verified 05/29/20 15:30 egg Allergy Unknown Unknown Verified 05/29/20 15:30 erythromycin base Allergy Unknown RASH Verified 05/29/20 15:30 Iodinated Contrast Media Allergy Unknown Rash Verified 05/29/20 15:30 ketorolac Allergy Unknown Unknown Verified 05/29/20 15:30 metronidazole Allergy Unknown Unknown Verified 05/29/20 15:30 nitroglycerin Allergy Unknown Unknown Verified 05/29/20 15:30 peanut Allergy Unknown RASH Verified 05/29/20 15:30 Penicillins Allergy Unknown RASH Verified 05/29/20 15:30 propoxyphene Allergy Unknown Unknown Verified 05/29/20 15:30 Sulfa (Sulfonamide Allergy Unknown Unknown Verified 05/29/20 15:30 Antibiotics) tetracycline Allergy Unknown RASH Verified 05/29/20 15:30 tree nut Allergy Unknown Unknown Verified 05/29/20 15:30 huber Allergy Hives Verified 06/01/20 16:41 Review of Systems Review of Systems: All systems reviewed & are unremarkable except as noted in HPI and below Constitutional: Constitutional: Denies chills, Denies fever(s) and Reports weakness Respiratory: Respiratory: Denies cough, Reports dyspnea and Denies wheezing Gastrointestinal: Gastrointestinal: Denies abdominal pain, Denies nausea and Denies vomiting Musculoskeletal: Comments: Left lower extremity pain from recent fracture. 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
[2020-06-14] MEDS: ACETAMINOPHEN 500 MG TABLET 1000 MG PO (02:41)
--- NOTE | 2020-06-14 03:50 | PM.IMHP ---
H&P: HPI History of Present Illness Date/Time: 06/14/20 03:50 Chief Complaint: Syncope en route to rehab tonight. Narrative: This is a pleasant 75-year-old morbidly obese, diabetic female who is well known to our hospitalist service from multiple previous admissions with a history of known chronic pancreatitis, poorly controlled type 2 diabetes, chronic diastolic congestive heart failure, pulmonary hypertension, essential hypertension, COPD, sleep apnea, recurrent left sided large pleural effusion, chronic respiratory failure on 2 L of oxygen at home at all times and several other comorbidities who was just recently admitted and discharged from [facility] hospital after being treated for an acute left open bimalleolar fracture secondary to sliding of off the commode at home. The patient was actually just discharged from our own Hospitalist service on 06/04/2020 after she underwent #2 thoracentesis for recurrent left sided pleural effusion and also treated for acute CHF and acute respiratory failure. Over the past few days while the patient was at [facility] she tested negative for COVID-19 and also was again found to have a recurrent large left sided pleural effusion. She reports that she they were planning to perform a thoracentesis although this was never done as it appears that the patient refused per [facility] paperwork as she wanted to talk it over with her first. She was also found to have a Hgb of 6.9 and refused a blood transfusion. Tonight the patient was being transferred to [facility] when EMS reported that she suffered a syncopal event to the staff while they were in route. The patient was brought to the ER for evaluation. Tonight in the ER the patient is alert and oriented x 3. She denies any headache, blurry vision, neck stiffness, fevers, chills, worsening cough, chest pain, abdominal pain, dysuria, hematuria, diarrhea or rectal bleeding. She does complain of shortness of breath. She does not remember passing out tonight. the patient was evaluated emergency room this evening and found to be in acute hypercapnic respiratory failure on ABG. Chest x-ray demonstrated complete left lung opacification which is likely secondary to large left pleural effusion. Routine labs revealed normocytic anemia, worsening BNP of a 1610, and chronic renal failure. Creatinine appears to be at baseline. We been asked to admit the patient to the hospital for her acute on chronic respiratory failure. The patient's only other complaint is diffuse body aches. She verbalized to me that she would like to have a thoracentesis done today. 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n) History of angina History of pneumonia HTN (hypertension) with goal to be determined Hx of cervical cancer Hypercholesteremia Hypothyroid Neuropathy in diabetes Pancreatitis Peripheral neuropathy Ulcer Venous stasis dermatitis of both lower extremities Surgical History Surgical History History of appendectomy History of cholecystectomy History of hysterectomy History of local excision of skin lesion Hx of cardiac cath Family History Family History Father Acute myocardial infarction, Onset Age: 64 Hypertension, Onset Age: 63 Asthma, Onset Age: 63 Family history of cardiovascular disease, Onset Age: 64 Family history of arthritis, Onset Age: 64 Mo
[2020-06-14 05:21] LABS: Glucose Point of Care 168 (65-105)
[2020-06-14 05:29] LABS: Alveolar/Arterial O2 Gradient 486.9 mmHg; Carboxyhemoglobin 0.2 % THb (0-2.0); Fractional Inspired Oxygen 100 %; HCO3 ABG 35.8 mEq/l (22.0-26.0); Methemoglobin ABG 0.2 %THb (0-1.5); Oxygen Content ABG 13.4 %vol (16.0-22.0); Oxygen Saturation ABG 98.7 % (95.0-100.0); Oxyhemoglobin 97.9 % THb (90.0-100.0); PO2 ABG 154.3 mmHg (80.0-100.0); PO2 FiO2 Ratio Arterial Blood 1.54 %; Reduced Hemoglobin 1.7 %THb (0-5.0); Total Hemoglobin 9.5 g/dL (12.0-18.0); pH ABG 7.316 (7.350-7.450)
[2020-06-14 05:32] LABS: Device NON-INVASIVE VENT; Modified Allen's Test Unable to perform; PCO2 ABG 71.8 mmHg (35.0-45.0); Site Drawn RIGHT RADIAL
[2020-06-14 05:33] LABS: Non-Invasive Expiratory Pressure 8 CMH2O; Non-Invasive Inspiratory Pressure 14 CMH2O; Non-Invasive Vent Rate 4 /MIN
--- NOTE | 2020-06-14 06:29 | ADMGEN ---
This patient, Codie Crowder, was admitted to IMU Room 205-01. Patient/family oriented to hospital policies and general routines including ID bracelet, bed and alarms, visiting hours, pain management, procedures, bathroom and other care routines, personal items, smoking policy, room service/diet, and visiting hours. Information on how to activate the Rapid Response Team has been discussed. Patient/Family are encouraged to report perceived risks to care and to ask questions if they do not understand what they are told or what they should do. report from Jeimy moe [id number]
--- NOTE | 2020-06-14 06:31 | PM.EVENT ---
Event Note Event Note Event Note: RAPID RESPONSE NOTE This is a 75 year old morbidly obese diabetic female who was admitted this morning for acute respiratory failure on 4L of supplemental oxygen and was brought up to the floor from the ER after having a head CT performed. Nursing staff called rapid response as the patient appeared blue in the room in the bed and was not breathing. She was quickly put on Bipap and on my arrival to bedside the patient's color has improved and she is now breathing well. Nursing staff was about to start CPR when the patient began to breath on her own. Nursing staff informed me that the patient was not hooked up to oxygen initially and that is why she desaturated. ABG was obtained and the patient is now alert and answering my questions appropriately. She currently denies any shortness of breath or chest pain.
[2020-06-14 08:35] LABS: Glucose Point of Care 129 (65-105)
[2020-06-14] MEDS: TOLNAFTATE 1% POWDER 45 GM BTL 1 APPLIC TOPICAL ×2 (10:48→20:05)
[2020-06-14] MEDS: FUROSEMIDE INJ 40 MG/4 ML VIAL IV PUSH ×2 (10:48→20:04)
[2020-06-14 11:10] LABS: Appearance Pleural Fluid Clear (Clear); Color Pleural Fluid Yellow (Colorless); Lymphocytes Pleural Fluid 23 %; Macrophages Pleural Fluid 10 %; Mesothelial Cells Pleural Flui 3 %; Neutrophils Pleural Fluid 64 % (0-25); Pleural fluid source Pleural fluid
--- NOTE | 2020-06-14 11:43 | PM.CNPUL ---
Assessment and Plan Assessment and plan (1) Acute and chronic respiratory failure with hypercapnia: Code(s): J96.22 - Acute and chronic respiratory failure with hypercapnia Status: Acute Assessment and Plan: Patient with history of CHF, COPD, pulmonary hypertension, DEON, fluid overload and recurrent effusions L > R now with acute on chronic hypercarbic respiratory failure (7.30/75/99) requiring BiPAP Etiology includes fluid overload with massive left effusion, CHF, untreated DEON. Possilbe lung mass/cancer from CT scan report from [facility] and cytology negatiove on fluid from 06/14/2020. No evidence of infection/empyema currently (pH of fluid 7.32). S/P left thoricentesis of 900 with reexpansion of left lung excluding large central obstructing mass of left lung. Doubt PE but with recent left leg fracture will obtain LE dopplers. Agree with aggressive diuresis as tolerated with CRI. Would continue BiPAP overnight tonight and if stable attempt off BiPAP on 06/15/20. (2) Pleural effusion: Code(s): J90 - Pleural effusion, not elsewhere classified Status: Acute Assessment and Plan: She has reaccumulated a large left pleural effusion after thoricentesis of 600 ml on 05/29 at our hospital. No prior studies sent to determine transudate vs exudate. Await current studies. If exudative or not improving quickly with diuresis will need transfer to higher level of care for definitive procedure as she has reaccumulated with complete white out of left hemithorax in 16 days. History of Present Illness History of Present Illness Consult date: 06/14/20 Reason for consult: dyspnea and pleural effusion Chief complaint: large pleural effusion, hypercapnia Narrative: Patient unable to give history so obtained from chart. 75-year-old morbidly obese, diabetic female who is well known to our hospitalist service from multiple previous admissions with a history of known chronic pancreatitis, poorly controlled type 2 diabetes, chronic diastolic congestive heart failure, pulmonary hypertension, essential hypertension, COPD, sleep apnea, recurrent left sided large pleural effusion, chronic respiratory failure on 2 L of oxygen at home at all times and several other comorbidities who was just recently admitted and discharged from [facility] hospital after being treated for an acute left open bimalleolar fracture secondary to sliding of off the commode at home. The patient was actually just discharged from our own Hospitalist service on 06/04/2020 after she underwent thoracentesis for recurrent left sided pleural effusion (no studies sent) and also treated for acute CHF and acute respiratory failure. Over the past few days while the patient was at [facility] she tested negative for COVID-19 and also was again found to have a recurrent large left sided pleural effusion. She reports that she they were planning to perform a thoracentesis although this was never done as it appears that the patient refused per [facility] paperwork as she wanted to talk it over with her first. She was also found to have a Hgb of 6.9 and refused a blood transfusion. On 06/13 the patient was being transferred to [facility] when EMS reported that she suffered a syncopal event to the staff while they were in route. The patient was brought to the ER for evaluation. Tonight in the ER the patient is alert and oriented x 3. She denies any headache, blurry vision, neck stiffness, fevers, chills, worsening cough, chest pain, abdominal pain, dysuria, hematuria, diarrhea or rectal bleeding. She does complain of shortness of breath. She does not remember passing out tonight. the patient was evaluated emergency room this evening and found to be in acute hypercapnic respiratory failure on ABG. Chest x-ray demonstrated complete left lung opacification which is likely secondary to large left pleural effusion. Routine labs revealed normocytic anemia, worsening BNP of a 8610, and chronic carin
[2020-06-14 11:51] LABS: Alveolar/Arterial O2 Gradient 317.9 mmHg; Base Excess ABG 9.9 mEq/l (+/-2.0); Fractional Inspired Oxygen 100 %; Oxygen Content ABG 12.8 %vol (16.0-22.0); Oxygen Saturation ABG 99.6 % (95.0-100.0); Oxyhemoglobin 98.4 % THb (90.0-100.0); PO2 ABG 316.7 mmHg (80.0-100.0); PO2 FiO2 Ratio Arterial Blood 3.17 %; Total Hemoglobin 8.6 g/dL (12.0-18.0); pH ABG 7.303 (7.350-7.450)
[2020-06-14 11:54] LABS: PCO2 ABG 78.4 mmHg (35.0-45.0); Site Drawn LEFT BRACHIAL
[2020-06-14 11:55] LABS: Device BIPAP; Inspiratory Pressure 16 cmH2O; Modified Allen's Test Pass
[2020-06-14 11:56] LABS: Expiratory Pressure 8 cmH2O
[2020-06-14 12:12] LABS: Glucose Point of Care 116 (65-105)
[2020-06-14 17:28] LABS: Glucose Point of Care 94 (65-105)
--- NOTE | 2020-06-14 17:36 | PM.IMPN ---
Progress Note: A&P Assessment and Plan (1) Chronic renal failure, stage 4 (severe): Code(s): N18.4 - Chronic kidney disease, stage 4 (severe) Status: Chronic Assessment and Plan: Bun/cr at patient's baseline. (2) Acute and chronic respiratory failure with hypercapnia: Code(s): J96.22 - Acute and chronic respiratory failure with hypercapnia Status: Acute Assessment and Plan: Secondary to L left sided pleural effusion with lung collapse. S/p IR US guided thoracentesis (3) Change in mental status: Code(s): R41.82 - Altered mental status, unspecified Status: Acute Assessment and Plan: Likely secondary to CO2 retention Now improved (4) Pleural effusion: Code(s): J90 - Pleural effusion, not elsewhere classified Status: Acute Assessment and Plan: S/p thoracentesis. Recurrent Appreciate Pulmonology note. (5) Acute hypercapnic respiratory failure: Code(s): J96.02 - Acute respiratory failure with hypercapnia Status: Acute Assessment and Plan: On BIPAP continuous. (6) Dyspnea: Qualifiers: Dyspnea type: shortness of breath Qualified Code(s): R06.02 - Shortness of breath Code(s): R06.00 - Dyspnea, unspecified Status: Chronic Assessment and Plan: Continuous BiPAP. Subjective Date/time seen: 06/14/20 17:36 On BIPAP at the time of visit. Review of Systems Review of Systems: Narrative: Unable to obtain as patient is on BiPAP Exam Narrative: Exam Narrative: Lying in bed on BiPAP Const: General: ill appearing Nutritional Appearance: overweight HENMT: Head: normal to inspection and normocephalic Face and sinus: normal facial exam Neck: Neck: no lymphadenopathy, supple and no JVD Resp: Effort & Inspection: other (Absent breath sounds on the L side.) Cardio: Rate: regular rate Rhythm: regular rhythm GI: GI Palp: Yes Soft to palpation and Yes No hepatosplenomegaly present Skin: General skin exam: normal color Lesions: no lesions Rashes: no rashes Neuro: General: patient oriented x3 and CN's II-XI intact bilaterally Cranial nerves: Yes CN's II-XII intact bilaterally and Yes Equal, round and reactive pupils present Extrem: General: no pedal edema Objective Data Vital Signs Vital Signs: Vital Signs - 24 hr 06/13/20 23:20 06/14/20 00:28 06/14/20 02:35 Temperature 97.4 F L Pulse Rate 76 70 67 Respiratory Rate 18 21 H 21 H Blood Pressure 168/58 H 169/62 H 162/81 H Pulse Oximetry 97 97 97 06/14/20 03:41 06/14/20 04:10 06/14/20 05:10 Temperature 97.9 F Pulse Rate 93 69 72 Respiratory Rate 21 H 26 H 25 H Blood Pressure 160/73 H 123/54 L Pulse Oximetry 96 93 53 L 06/14/20 05:25 06/14/20 05:30 06/14/20 06:01 Temperature 97.9 F Pulse Rate 75 73 65 Respiratory Rate 28 H 25 H Blood Pressure 173/62 H 123/54 L Pulse Oximetry 100 100 53 L 06/14/20 06:39 06/14/20 08:00 06/14/20 09:55 Temperature 98.1 F Pulse Rate 60 65 70 Respiratory Rate 22 H 20 Blood Pressure 163/52 H 130/42 L Pulse Oximetry 100 100 06/14/20 10:00 06/14/20 11:57 06/14/20 12:00 Temperature 96 F L Pulse Rate 68 73 58 L Respiratory Rate 20 24 H Blood Pressure 152/82 H Pulse Oximetry 100 98 06/14/20 12:41 06/14/20 14:00 06/14/20 16:00 Temperature 98.2 F Pulse Rate 66 62 Respiratory Rate 28 H Blood Pressure 151/55 H Pulse Oximetry 100 98 Intake/Output Intake/Output: Intake & Output 06/11/20 06/12/20 06/13/20 06/14/20 23:59 23:59 23:59 23:59 Output Total 1725 Balance -1725 Meds/Results Medications: Active Medications Generic Name Dose Route Start Last Admin Trade Name Freq PRN Reason Stop Dose Admin Acetaminophen 650 mg 06/14/20 03:22 Acetaminophen 325 Mg Tablet PO Q4H PRN Mild Pain (1-3) or Fever Dextrose 12.5 gm 06/14/20 04:30 Dextrose 50% 25 Gm/50 Ml Syringe IV PUSH PRN PRN Hypoglycemia Protoc
[2020-06-14] MEDS: ACETAMINOPHEN 325 MG TABLET 650 MG PO (17:42)
[2020-06-15] VITALS (17 sets, daily range): BP systolic 152–179; BP diastolic 45–59; PULSE 61–100; RESP 20–26; TEMP 36.4–37.3; O2SAT 91–99; BMI 11.0
[2020-06-15 00:20] LABS: Glucose Point of Care 76 (65-105)
[2020-06-15 02:30] LABS: Glucose Point of Care 96 (65-105)
[2020-06-15 04:16] LABS: Glucose Point of Care 71 (65-105)
[2020-06-15 04:49] LABS: Basophils Percent Auto 0.4 % (0.2-1.2); Eosinophils Absolute Auto 0.3 K/mm3 (0-0.3); Eosinophils Percent Auto 4.3 % (0-4.4); Hematocrit 27.9 % (37.0-47.0); Hemoglobin 8.1 g/dL (12.0-15.0); Immature Granulocyte Absolute 0.04 K/mm3 (0.00-0.031); Immature Granulocyte Percent A 0.6 % (0-0.5); Lymphocytes Absolute Auto 0.44 K/mm3 (0.9-3.2); Lymphocytes Percent Auto 6.5 % (18.3-44.2); Mean Corpuscular Hemoglobin 24.4 pg (26-34); Mean Platelet Volume 9.1 fl (7.4-10.4); Monocytes Absolute Auto 0.5 K/mm3 (0.1-0.6); Monocytes Percent Auto 7.7 % (2.6-8.5); Neutrophils Absolute Auto 5.4 K/mm3 (1.3-6.7); Neutrophils Percent Auto 80.5 % (45.5-73.1); Platelet Count Result 169 k/mm3 (150-375); Red Blood Count 3.32 M/mm3 (4.2-5.4); Red Cell Distribution Width 16.4 % (11.5-14.5); White Blood Count 6.8 K/mm3 (4.5-10.0)
[2020-06-15 04:50] LABS: Alveolar/Arterial O2 Gradient 78.7 mmHg; Base Excess ABG 9.4 mEq/l (+/-2.0); Fractional Inspired Oxygen 32 %; HCO3 ABG 36.4 mEq/l (22.0-26.0); Oxygen Content ABG 16.6 %vol (16.0-22.0); Oxygen Saturation ABG 95.2 % (95.0-100.0); Oxyhemoglobin 94.2 % THb (90.0-100.0); PO2 ABG 78.2 mmHg (80.0-100.0); PO2 FiO2 Ratio Arterial Blood 2.44 %; Total Hemoglobin 12.5 g/dL (12.0-18.0); pH ABG 7.394 (7.350-7.450)
[2020-06-15 04:51] LABS: Device NASAL CANNULA; Modified Allen's Test Pass; PCO2 ABG 60.9 mmHg (35.0-45.0); Site Drawn LEFT RADIAL
[2020-06-15 05:09] LABS: Anisocytosis 1+ (NORMAL); Hypochromasia 1+ (NORMAL); Platelet Estimate Adequate (Adequate)
[2020-06-15 05:11] LABS: Blood Urea Nitrogen 40 mg/dL (7-17); Calcium 8.1 mg/dL (8.4-10.2); Carbon Dioxide > 40 mmol/L (22-30); Chloride 94 mmol/L (98-107); Estimated CRCL calculation 31 ml/min; Estimated Glomerular Filt Rate 27; Glucose 74 mg/dL (65-105); Magnesium 1.9 mg/dL (1.6-2.3); Potassium 4.9 mmol/L (3.4-5.0); Sodium 138 mmol/L (137-145)
[2020-06-15 06:38] LABS: Glucose Point of Care 77 (65-105)
[2020-06-15] MEDS: FUROSEMIDE INJ 40 MG/4 ML VIAL IV PUSH ×2 (08:26→20:58)
[2020-06-15] MEDS: TOLNAFTATE 1% POWDER 45 GM BTL 1 APPLIC TOPICAL ×2 (08:27→20:59)
--- NOTE | 2020-06-15 09:20 | PM.PNPUL ---
Progress Note: A&P Assessment and Plan (1) Acute and chronic respiratory failure with hypercapnia: Code(s): J96.22 - Acute and chronic respiratory failure with hypercapnia Status: Acute Assessment and Plan: Patient with history of CHF, COPD, pulmonary hypertension, DEON, fluid overload and recurrent effusions L > R now with acute on chronic hypercarbic respiratory failure (7.30/75/99) requiring BiPAP Etiology includes fluid overload with massive left effusion, CHF, untreated DEON. Possilbe lung mass/cancer from CT scan report from [facility] and cytology negative on fluid from 06/14/2020. No evidence of infection/empyema currently (pH of fluid 7.32). S/P left thoricentesis of 900 with reexpansion of left lung excluding large central obstructing mass of left lung. Doubt PE but with recent left leg fracture will obtain LE dopplers. 06/14 Agree with aggressive diuresis as tolerated with CRI. Would continue BiPAP overnight tonight and if stable attempt off BiPAP on 06/15/20. 06/15 Stable off BiPAP on NC 3 L with sats 97%, I decreased her to 2. She tells me she is on 2.5 liters at home. CXR with continued left effusion but unchanged. Agree with additional diuresis. Patient would benefit from BiPAP when sleeping for chronic hypercarbic respiratory failure. I would place on BiPAP rate 14, 12/4 and 30% tonight with ABG prior to removal in the morning. (2) Pleural effusion: Code(s): J90 - Pleural effusion, not elsewhere classified Status: Acute Assessment and Plan: She has reaccumulated a large left pleural effusion after thoricentesis of 600 ml on 05/29 at our hospital. No prior studies sent to determine transudate vs exudate. Await current studies. If exudative or not improving quickly with diuresis will need transfer to higher level of care for definitive procedure as she has reaccumulated with complete white out of left hemithorax in 16 days. 06/15 Improved with diuresis and no big change in effusion on CXR today. Continue diuresis. Subjective Date/time seen: 75-year-old morbidly obese, diabetic female who is well known to our hospitalist service from multiple previous admissions with a history of known chronic pancreatitis, poorly controlled type 2 diabetes, chronic diastolic congestive heart failure, pulmonary hypertension, essential hypertension, COPD, sleep apnea, recurrent left sided large pleural effusion, chronic respiratory failure on 2 L of oxygen at home at all times and several other comorbidities who was just recently admitted and discharged from [facility] hospital after being treated for an acute left open bimalleolar fracture secondary to sliding of off the commode at home. The patient was actually just discharged from our own Hospitalist service on 06/04/2020 after she underwent thoracentesis for recurrent left sided pleural effusion (no studies sent) and also treated for acute CHF and acute respiratory failure. Over the past few days while the patient was at [facility] she tested negative for COVID-19 and also was again found to have a recurrent large left sided pleural effusion. She reports that she they were planning to perform a thoracentesis although this was never done as it appears that the patient refused per [facility] paperwork as she wanted to talk it over with her first. She was also found to have a Hgb of 6.9 and refused a blood transfusion. On 06/13 the patient was being transferred to [facility] when EMS reported that she suffered a syncopal event to the staff while they were in route. The patient was brought to the ER for evaluation. Tonight in the ER the patient is alert and oriented x 3. She denies any headache, blurry vision, neck stiffness, fevers, chills, worsening cough, chest pain, abdominal pain, dysuria, hematuria, diarrhea or rectal bleeding. She does complain of shortness of breath. She does not remember passing out tonight. the patient was evaluated emergency room this evening and found to be in
[2020-06-15] MEDS: ONDANSETRON INJ 4 MG/2 ML VIAL IV PUSH (11:54)
[2020-06-15] MEDS: DEXTROSE 50% 25 GM/50 ML SYRINGE IV PUSH (11:54)
[2020-06-15 12:48] LABS: Glucose Point of Care 105 (65-105)
[2020-06-15 13:02] LABS: Glucose Point of Care 64 (65-105)
[2020-06-15 16:44] LABS: Glucose Point of Care 99 (65-105)
--- NOTE | 2020-06-15 16:50 | PM.IMPN ---
Progress Note: A&P Assessment and Plan (1) Chronic renal failure, stage 4 (severe): Code(s): N18.4 - Chronic kidney disease, stage 4 (severe) Status: Chronic Assessment and Plan: Continue to monitor Bun/Cr (2) Acute and chronic respiratory failure with hypercapnia: Code(s): J96.22 - Acute and chronic respiratory failure with hypercapnia Status: Acute Assessment and Plan: Improved S/p thoracentesis Continue supplemental O2. Appreciate pulmonary note. (3) Change in mental status: Code(s): R41.82 - Altered mental status, unspecified Status: Acute Assessment and Plan: Back to her baseline. (4) Pleural effusion: Code(s): J90 - Pleural effusion, not elsewhere classified Status: Acute Assessment and Plan: Diuresing. Continue to monitor Recurrent Follow up in the outpatient setting. Subjective Date/time seen: 06/15/20 16:50 I'm fine. Review of Systems Review of Systems: Narrative: Unable to obtain a thorough review. S/p thoracentesis. Exam Narrative: Exam Narrative: Lying in bed. Const: General: no acute distress, alert, awake and other (Chronically ill looking.) Nutritional Appearance: overweight Orientation/consciousness: patient oriented x3 Limitations: no limitations HENMT: Head: normal to inspection and normocephalic General nose exam: Normal external nose present Face and sinus: normal facial exam Eyes: General: appearance normal, both eyes and all related structures Pupils: Equal, round and reactive pupils present EOM: EOMs intact bilaterally Neck: Neck: no lymphadenopathy, supple and no JVD Lymphatic: no lymphadenopathy noted Resp: Effort & Inspection: normal respiratory effort Auscultation: clear to auscultation bilaterally Cardio: Jugular venous distension: no JVD Rate: regular rate Rhythm: regular rhythm GI: GI Palp: Yes Soft to palpation and Yes No hepatosplenomegaly present Skin: General skin exam: pallor Neuro: General: patient oriented x3 and CN's II-XI intact bilaterally Cranial nerves: Yes CN's II-XII intact bilaterally and Yes Equal, round and reactive pupils present Cognition (Neuro): normal cognition Motor exam (neuro): 5/5 motor strength present throughout Extrem: General: full ROM and no pedal edema Objective Data Vital Signs Vital Signs: Vital Signs - 24 hr 06/14/20 18:00 06/14/20 18:59 06/14/20 20:00 Temperature 97.8 F Pulse Rate 66 63 68 Respiratory Rate 28 H Blood Pressure 142/47 H Pulse Oximetry 91 98 06/14/20 20:10 06/14/20 22:00 06/14/20 23:44 Temperature 96.8 F L Pulse Rate 64 64 66 Respiratory Rate 24 H 21 H Blood Pressure 149/39 H Pulse Oximetry 99 98 06/15/20 00:00 06/15/20 02:00 06/15/20 04:00 Temperature 98.2 F Pulse Rate 61 67 90 Respiratory Rate 21 H 20 Blood Pressure 160/58 H Pulse Oximetry 98 99 06/15/20 06:00 06/15/20 08:00 06/15/20 08:01 Temperature 98.4 F Pulse Rate 77 76 77 Respiratory Rate 20 20 Blood Pressure 152/55 H Pulse Oximetry 98 95 06/15/20 08:25 06/15/20 09:00 06/15/20 10:00 Temperature Pulse Rate 81 Respiratory Rate Blood Pressure Pulse Oximetry 97 93 06/15/20 12:00 06/15/20 14:00 06/15/20 15:56 Temperature 97.7 F 99.1 F Pulse Rate 85 81 85 Respiratory Rate 24 H 20 Blood Pressure 164/45 H 167/58 H Pulse Oximetry 92 96 06/15/20 16:00 06/15/20 16:10 Temperature Pulse Rate 82 Respiratory Rate Blood Pressure Pulse Oximetry 97 Intake/Output Intake/Output: Intake & Output 06/12/20 06/13/20 06/14/20 06/15/20 23:59 23:59 23:59 23:59 Intake Total 100 Output Total 1725 1500 Balance -1725 -1400 Meds/Results Medications: Active Medications Generic Name Dose Route Start Last Admin Trade Name Freq PRN Reason Stop Dose Admin Dextrose 12.5 gm 06/14/20 04:30 06/15/20 11:54 Dextrose 50% 25 Gm/50 Ml Syringe IV PUSH 12.5 gm PRN PRN Adminis
[2020-06-15 21:31] LABS: Glucose Point of Care 110 (65-105)
[2020-06-16] VITALS (13 sets, daily range): BP systolic 120–180; BP diastolic 49–95; PULSE 58–85; RESP 16–28; TEMP 36.5–37.1; O2SAT 94–100
[2020-06-16 00:49] LABS: Glucose Point of Care 109 (65-105)
[2020-06-16 05:27] LABS: Alveolar/Arterial O2 Gradient 88.5 mmHg; Base Excess ABG 11.5 mEq/l (+/-2.0); Device NON-INVASIVE VENT; Fractional Inspired Oxygen 35 %; Modified Allen's Test Pass; Oxygen Content ABG 11.9 %vol (16.0-22.0); Oxygen Saturation ABG 97.4 % (95.0-100.0); Oxyhemoglobin 95.9 % THb (90.0-100.0); PCO2 ABG 55.4 mmHg (35.0-45.0); PO2 ABG 96.7 mmHg (80.0-100.0); PO2 FiO2 Ratio Arterial Blood 2.76 %; Site Drawn RIGHT RADIAL; Total Hemoglobin 8.7 g/dL (12.0-18.0); pH ABG 7.443 (7.350-7.450)
[2020-06-16 05:28] LABS: Non-Invasive Expiratory Pressure 8 CMH2O; Non-Invasive Inspiratory Pressure 16 CMH2O; Non-Invasive Vent Rate 14 /MIN
[2020-06-16 06:15] LABS: Glucose Point of Care 97 (65-105)
[2020-06-16 09:33] LABS: Glucose Point of Care 84 (65-105)
[2020-06-16] MEDS: TOLNAFTATE 1% POWDER 45 GM BTL 1 APPLIC TOPICAL (10:07)
[2020-06-16] MEDS: FUROSEMIDE INJ 40 MG/4 ML VIAL IV PUSH ×2 (10:07→21:23)
--- NOTE | 2020-06-16 10:30 | PM.PNPUL ---
Progress Note: A&P Assessment and Plan (1) Acute and chronic respiratory failure with hypercapnia: Code(s): J96.22 - Acute and chronic respiratory failure with hypercapnia Status: Acute Assessment and Plan: Patient with history of CHF, COPD, pulmonary hypertension, DEON, fluid overload and recurrent effusions L > R now with acute on chronic hypercarbic respiratory failure (7.30/75/99) requiring BiPAP Etiology includes fluid overload with massive left effusion, CHF, untreated DEON. Possible lung mass/cancer from CT scan report from [facility] and cytology negative on fluid from 06/14/2020. No evidence of infection/empyema currently (pH of fluid 7.32). S/P left thoricentesis of 900 with reexpansion of left lung excluding large central obstructing mass of left lung. Doubt PE but with recent left leg fracture will obtain LE dopplers. 06/14 Agree with aggressive diuresis as tolerated with CRI. Would continue BiPAP overnight tonight and if stable attempt off BiPAP on 06/15/20. 06/15 Stable off BiPAP on NC 3 L with sats 97%, I decreased her to 2. She tells me she is on 2.5 liters at home. CXR with continued left effusion but unchanged. Agree with additional diuresis. Patient would benefit from BiPAP when sleeping for chronic hypercarbic respiratory failure. 06/16 Patient much improved with thoricentesis, aggressive diuresis and nocturnal BiPAP. Patient wore BiPAP rate 14, 16/8, 35%, inspiratory time 1.0 sec, rise 1 (fastest) with medium full face mask with ABG 7.44/55/97. Patient should be discharged to the rehab setting on these setting and this should be applied at night and during the daytime when she sleeps. Discharge on 3 L NC during day. She likely has obesity hypoventilation syndrome with chronic hypercarbia but will need an out-patient sleep study to assess for DEON. Can follow in pulmonary clinic if her sleep study is positive for DEON. Will sign off, please call with any questions. (2) Pleural effusion: Code(s): J90 - Pleural effusion, not elsewhere classified Status: Acute Assessment and Plan: She has reaccumulated a large left pleural effusion after thoricentesis of 600 ml on 05/29 at our hospital. No prior studies sent to determine transudate vs exudate. Await current studies. If exudative or not improving quickly with diuresis will need transfer to higher level of care for definitive procedure as she has reaccumulated with complete white out of left hemithorax in 16 days. 06/14 Underwent thoricentesis of left lung with 900 ml clear fluid removed, pH 7.32, cytology with no malignant cells and few mesothelial cells. Differential N64/L23/mac10/meso3. Gram stain and fungal stain negative. LDH, T prot, glucose, amylase and triglycerides pending. Continue aggressive diuresis. Repeat CXR one week following discharge to assess effusion. 06/15 Improved with diuresis and no big change in effusion on CXR today. Continue diuresis. 06/16 Diuresed total 5.2 L and CXR with improved congestion on right and improved left effusion now about [address]. Continue aggressive diuresis. Subjective Date/time seen: Date/time seen: 75-year-old morbidly obese, diabetic female who is well known to our hospitalist service from multiple previous admissions with a history of known chronic pancreatitis, poorly controlled type 2 diabetes, chronic diastolic congestive heart failure, pulmonary hypertension, essential hypertension, COPD, sleep apnea, recurrent left sided large pleural effusion, chronic respiratory failure on 2 L of oxygen at home at all times and several other comorbidities who was just recently admitted and discharged from [facility] hospital after being treated for an acute left open bimalleolar fracture secondary to sliding of off the commode at home. The patient was actually just discharged from our own Hospitalist service on 06/04/2020 after she underwent thoracentesis for recurrent left sided pleural effusion (no studies sent) and also treated for a
[2020-06-16 12:59] LABS: Glucose Point of Care 142 (65-105)
--- NOTE | 2020-06-16 15:27 | PM.DS ---
DS: Admitting Diagnosis Admitting Diagnosis Admitting Diagnosis: (1) Acute and chronic respiratory failure with hypercapnia: Code(s): J96.22 - Acute and chronic respiratory failure with hypercapnia Status: Acute Assessment and Plan: The patient has been admitted to IMU. The patient's acute on chronic respiratory failure is likely secondary to her large left pleural effusion which has been ongoing for several days now. The patient will be initiated on BiPAP and has been given Lasix therapy. Continue oxygen supplementation. Check another ABG in 1 hour. RT assess and treat. (2) Pleural effusion: Code(s): J90 - Pleural effusion, not elsewhere classified Status: Acute Assessment and Plan: The patient has had recurrent left-sided pleural effusion requiring multiple thoracentesis over the past few weeks. (3) CHF (congestive heart failure): Qualifiers: Heart failure chronicity: acute on chronic Heart failure type: unspecified Qualified Code(s): I50.9 - Heart failure, unspecified Code(s): I50.9 - Heart failure, unspecified Status: Acute Assessment and Plan: (4) Syncope: Qualifiers: Syncope type: unspecified Qualified Code(s): R55 - Syncope and collapse Code(s): R55 - Syncope and collapse Status: Acute Assessment and Plan: (5) HTN (hypertension) with goal to be determined: Code(s): I10 - Essential (primary) hypertension Status: Chronic Assessment and Plan: (6) COPD (chronic obstructive pulmonary disease): Qualifiers: COPD type: unspecified COPD Qualified Code(s): J44.9 - Chronic obstructive pulmonary disease, unspecified Code(s): J44.9 - Chronic obstructive pulmonary disease, unspecified Status: Chronic Assessment and Plan: continue oxygen supplementation. Continue bronchodilators. (7) GERD (gastroesophageal reflux disease): Qualifiers: Esophagitis presence: esophagitis presence not specified Qualified Code(s): K21.9 - Gastro-esophageal reflux disease without esophagitis Code(s): K21.9 - Gastro-esophageal reflux disease without esophagitis Status: Chronic Assessment and Plan: Stable. (8) Hypothyroid: Qualifiers: Hypothyroidism type: unspecified Qualified Code(s): E03.9 - Hypothyroidism, unspecified Code(s): E03.9 - Hypothyroidism, unspecified Status: Chronic Assessment and Plan: (9) Chronic back pain: Qualifiers: Back pain laterality: unspecified Back pain location: low back pain Sciatica laterality: bilateral sciatica Sciatica presence: with sciatica Qualified Code(s): M54.41 - Lumbago with sciatica, right side; M54.42 - Lumbago with sciatica, left side; G89.29 - Other chronic pain Code(s): M54.9 - Dorsalgia, unspecified; G89.29 - Other chronic pain Status: Chronic (10) DM (diabetes mellitus): Qualifiers: Diabetes mellitus complication status: without complication Diabetes mellitus residential insulin use: without rn long term care use Diabetes mellitus type: type 2 Qualified Code(s): E11.9 - Type 2 diabetes mellitus without complications Code(s): E11.9 - Type 2 diabetes mellitus without complications Status: Chronic (11) Chronic renal failure, stage 4 (severe): Code(s): N18.4 - Chronic kidney disease, stage 4 (severe) Status: Chronic DS: Discharge Diagnosis Discharge Diagnosis (1) Acute and chronic respiratory failure with hypercapnia: Code(s): J96.22 - Acute and chronic respiratory failure with hypercapnia Status: Acute (2) Pleural effusion on left: Code(s): J90 - Pleural effusion, not elsewhere classified Status: Acute (3) Chronic pleural effusion: Code(s): J90 - Pleural effusion, not elsewhere classified Status: Chronic (4) Generalized weakness: Code(s): R53.1 - Wea
[2020-06-16 16:34] LABS: Glucose Point of Care 160 (65-105)
[2020-06-16 19:31] LABS: SARS-CoV-2 RNA PCR Negative
[2020-06-16 21:08] LABS: Glucose Point of Care 213 (65-105)
--- NOTE | 2020-06-16 21:49 | PC.NURSE ---
This patient, Codie Crowder, was received from [[id number]] on 06/16/20 at 2115. Patient/family oriented to unit policies and routines
--- NOTE | 2020-06-16 22:43 | PC.NURSE ---
This patient, Codie Crowder, was transferred to [facility] on 06/16/20 at 2110. Personal belongings sent with patient. Report given to PILO Steven. Appropriate documentation sent with patient.
[2020-06-17 00:01] LABS: Glucose Point of Care 170 (65-105)
[2020-06-17 02:31] VITALS: RESP 21
[2020-06-17 04:42] LABS: Amylase, Pleural Fluid 22 U/L
[2020-06-17 05:53] LABS: Glucose Point of Care 164 (65-105)
[2020-06-17 05:57] VITALS: BP 163/59; PULSE 77; RESP 18; TEMP 36.3; O2SAT 94
[2020-06-17] MEDS: TOLNAFTATE 1% POWDER 45 GM BTL 1 APPLIC TOPICAL (08:00)
[2020-06-17 09:30] VITALS: O2SAT 96
[2020-06-17 20:58] LABS: LDH Pleural Fluid 58 U/L; Total Protein Pleural Fluid 3.2 g/dL
[2020-06-20 13:59] LABS: Glucose Pleural Fluid 144 mg/dL
== END 2020-06-17 10:21 | DRG 291 ==
LOC: ANHED 06-14 01:27 → ANHIMU 06-14 03:43 → ANHCPC 06-17 09:39 → ANHIMU 06-21 15:41
PROVIDERS: Internal Medicine Pulmonary Disease; Admitting Provider Family Medicine; Emergency Provider Emergency Medicine; Visit Provider Internal Medicine
DX: I13.0 Hypertensive heart and chronic kidney disease with heart failure and stage 1 through stage 4 chronic kidney disease, or unspecified chronic kidney disease (principal); J96.22 Acute and chronic respiratory failure with hypercapnia; I50.33 Acute on chronic diastolic (congestive) heart failure; J90 Pleural effusion, not elsewhere classified; N18.4 Chronic kidney disease, stage 4 (severe); Z68.41 Body mass index [BMI] 40.0-44.9, adult; I50.32 Chronic diastolic (congestive) heart failure; J44.9 Chronic obstructive pulmonary disease, unspecified; E11.22 Type 2 diabetes mellitus with diabetic chronic kidney disease; E66.01 Morbid (severe) obesity due to excess calories; Z20.822 Contact with and (suspected) exposure to COVID-19
CPT/HCPCS: 32555; 36415; 36600; 70450; 71045; 71046; 71250; 80048; 82150; 82375; 82805; 82945; 83050; 83615; 83735; 83880; 83986; 84157; 84311; 84478; 85025; 85610; 85730; 87102; 87206; 88104; 88108; 88184; 88305; 89051; 93005; 93970; 94002; 94660; 97110; 97161; 97166; 97530; 99285; A9270; C9803; G0378; J1650; J1940; J2405; U0003

== ENCOUNTER 2020-06-17 23:40 | Inpatient (IN) | payer MEDICARE, OTHER, SELFPAY ==
--- NOTE | ~2020-06-17 | XR_ITS ---
EXAMINATION: XR chest 1V portable INDICATION: Shortness of breath TECHNIQUE: Portable AP chest at 2358 hours COMPARISON: 06/16/2020 FINDINGS: Airspace opacities of the lung bases and left midlung zone persist without significant garduno ge. There is a small to moderate size left pleural effusion. No pneumothorax is identified. The cardi omediastinal silhouette is stable. IMPRESSION: 1. Stable opacities of the lung bases and left midlung zone, consistent with atelectasis versus pneum onia. 2. Onxon-[id number] sized left pleural effusion, stable. Reviewed, dictated and finalized at location A. STRIPER IMPRESSION: 1. Stable opacities of the lung bases and left midlung zone, consistent with at electasis versus pneumonia. 2. Eqllq-mn-hkonxnmu sized left pleural effusion, stable.
--- NOTE | ~2020-06-17 | CT_ITS ---
EXAMINATION: CT abdomen pelvis wo con EXAM DATE: 06/18/2020 01:12 INDICATION: Abdominal pain. TECHNIQUE: Spiral CT of the abdomen and pelvis was performed without contrast. Axial, coronal and s agittal images were reviewed. The dose-length product (DLP) for this examination was 1509.13 mGy-cm. The exposure was tailored according to patient size (auto mA exposure control), and iterative recon struction (ASIR) was used as additional dose reduction technique. Comparison is made to prior examina tion from 05/26/2020. FINDINGS: There is a 2.6 cm low-density left adrenal gland lesion, an adenoma unchanged. The liver, spleen, adrenal glands and pancreas are otherwise unremarkable. Gallbladder not identified, patient likely has had cholecystectomy. Punctate bilateral nephrolithiasis. No hydronephrosis. The uterus i s not identified and has likely been surgically resected. The bladder is collapsed with [place] cathet er balloon anchor inside. There is no retroperitoneal or pelvic lymphadenopathy. There is moderate scattered arteriosclerotic disease. The appendix is not positively visualized. There is no pericecal inflammatory change to suggest appe ndicitis. There is extensive sigmoid diverticulosis. There is perisigmoid fat stranding, possible acu te uncomplicated diverticulitis. The stomach and small bowel are unremarkable. There is expected am ount of colonic stool. No free intraperitoneal gas. There is cardiomegaly. Small to moderate left , small right pleural effusions. Multi segmental left lower lobe atelectasis, segmental right basilar atelectasis. Some heterogeneous left basilar region, superimposed infection also possible. The lung bases are unremarkable. The bones are unremarkable. There is edema within the subcutaneous fat and of the left side of the abdominal skin. Compared to previous examination, there is been interval improvement in the size of both pleural effu sions. Perisigmoid fat stranding appears not significantly changed. IMPRESSION: 1. Extensive sigmoid diverticulosis with possible acute uncomplicated diverticulitis. 2. Small to moderate left, smart pleural effusions with adjacent atelectasis. Possible left basilar pneumonia. 3. Cardiomegaly. 4. Left adrenal adenoma. 5. Punctate bilateral nephrolithiasis. Reviewed, dictated and finalized at location B. WRIGHT HELPER IMPRESSION: 1. Extensive sigmoid diverticulosis with possible acute uncomplicated divertic ulitis. 2. Small to moderate left, smart pleural effusions with adjacent atelectasis. Possible left basilar pneumonia. 3. Cardiomegaly. 4. Left adrenal adenoma. 5. Punctate bilateral nephrolithiasis.
[2020-06-17 23:37] VITALS: BP 167/54; PULSE 75; RESP 24; TEMP 36.3; O2SAT 98
--- NOTE | 2020-06-17 23:45 | ECG_ITS ---
Measurements Intervals [place] Rate: 72 P: 68 AR: 169 QRS: 176 QRSD: 125 T: 30 QT: 391 QTc: 429 Interpretive Statements SINUS RHYTHM RIGHT BUNDLE BRANCH BLOCK LEFT POSTERIOR FASCICULAR BLOCK BASELINE ARTIFACT- I, V1-V2 ABNORMAL ECG Electronically Signed On 06-22-2020 10:56:57 [place]ER by Larry Palumbo D.O.
--- NOTE | 2020-06-17 23:59 | ED.GENADULT ---
HPI - General Adult General Chief complaint: Shortness of Breath/Dyspnea Stated complaint: SOB/ n/v History of Present Illness HPI narrative: Patient presents to emergency department from [facility] via EMS for multiple complaints. Patient states has been feeling sick all day states she has been having abdominal pain associated with 2 episodes of diarrhea. Patient also states that she has been having some shortness of breath. Patient was just discharged from [facility] earlier today and was sent to the [facility]. F patient had a chest x-ray that was concerning for pneumonia on the left side and was sent back for further evaluation at the emergency department. Patient states she does not feel safe at her current prison and does not wish to return there patient denies any fevers or chills she denies any chest pain she denies any vomiting Related Data Home Medications Medication Instructions Recorded Confirmed nitroglycerin 0.4 mg sublingual 0.4 mg SUBLINGUAL .COMPLEX PRN 10/11/19 06/14/20 tablet amlodipine 5 mg PO DAILY 05/07/20 06/14/20 ipratropium bromide 0.5 mg INHALATION Q4H PRN 05/26/20 06/14/20 metolazone 5 mg PO DAILY 05/26/20 06/14/20 Allergies Allergy/AdvReac Type Severity Reaction Status Date / Time ezetimibe Allergy Severe PANCREATITI Verified 05/29/20 15:30 S hydromorphone Allergy Severe throat Verified 05/29/20 15:30 swelling nitrofurantoin Allergy Severe tounge Verified 05/29/20 15:30 [From Macrobid] swollen, nasusea, vomiting, diarrhea, silver Allergy Intermediate Unknown Verified 05/29/20 15:30 aspirin Allergy Unknown Unknown Verified 05/29/20 15:30 bumetanide Allergy Unknown Unknown Verified 05/29/20 15:30 cefuroxime Allergy Unknown Unknown Verified 05/29/20 15:30 ciprofloxacin Allergy Unknown Unknown Verified 05/29/20 15:30 codeine Allergy Unknown Unknown Verified 05/29/20 15:30 egg Allergy Unknown Unknown Verified 05/29/20 15:30 erythromycin base Allergy Unknown RASH Verified 05/29/20 15:30 Iodinated Contrast Media Allergy Unknown Rash Verified 05/29/20 15:30 ketorolac Allergy Unknown Unknown Verified 05/29/20 15:30 metronidazole Allergy Unknown Unknown Verified 05/29/20 15:30 nitroglycerin Allergy Unknown Unknown Verified 05/29/20 15:30 peanut Allergy Unknown RASH Verified 05/29/20 15:30 Penicillins Allergy Unknown RASH Verified 05/29/20 15:30 propoxyphene Allergy Unknown Unknown Verified 05/29/20 15:30 Sulfa (Sulfonamide Allergy Unknown Unknown Verified 05/29/20 15:30 Antibiotics) tetracycline Allergy Unknown RASH Verified 05/29/20 15:30 tree nut Allergy Unknown Unknown Verified 05/29/20 15:30 huber Allergy Hives Verified 06/01/20 16:41 Review of Systems Review of Systems: Narrative: Gen.: Denies fevers or chills ENT: Denies congestion Respiratory: Reports shortness of breath CV: Denies chest pain or palpitations GI: See HPI Musculoskeletal: Denies back pain or muscle pain Neuro: Denies numbness, tingling, weakness or focal weakness Skin: Denies rash Except as documented, all other systems reviewed and negative PMFSH Past Medical History Medical History Asthma Bronchitis Cataracts, bilateral CHF (congestive heart failure) 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n) History of angina History of pneumonia HTN (hypertension) with goal to be determined Hx of cervical cancer Hypercholesteremia Hypothyroid Neuropathy in diabetes Pancreatitis Peripheral neuropathy Ulcer Venous stasis dermatitis of both lower extremities Surgical History Surgical History History of appendectomy History of cholecystectomy History of hysterectomy Hi
[2020-06-18] VITALS (11 sets, daily range): BP systolic 153–167; BP diastolic 47–58; PULSE 64–77; RESP 15–22; TEMP 36.2–36.7; O2SAT 94–99; BMI 41.3
[2020-06-18 00:16] LABS: INR 1.1; Prothrombin Time 15.1 Seconds (11.1-14.7)
[2020-06-18 00:17] LABS: Partial Thromboplastin Time 31.2 SECONDS (22.3-36.8)
[2020-06-18 00:23] LABS: Basophils Absolute Auto 0.1 K/mm3 (0.0-0.1); Basophils Percent Auto 0.8 % (0.2-1.2); Eosinophils Absolute Auto 0.3 K/mm3 (0-0.3); Eosinophils Percent Auto 3.7 % (0-4.4); Hematocrit 30.3 % (37.0-47.0); Hemoglobin 8.9 g/dL (12.0-15.0); Immature Granulocyte Percent A 1.3 % (0-0.5); Lymphocytes Absolute Auto 0.43 K/mm3 (0.9-3.2); Lymphocytes Percent Auto 5.5 % (18.3-44.2); Mean Corpuscular HGB Conc 29.4 g/dl (32-36); Mean Corpuscular Hemoglobin 24.6 pg (26-34); Mean Corpuscular Volume 83.7 fl (80-100); Mean Platelet Volume 9.1 fl (7.4-10.4); Monocytes Absolute Auto 0.7 K/mm3 (0.1-0.6); Monocytes Percent Auto 8.3 % (2.6-8.5); Neutrophils Absolute Auto 6.3 K/mm3 (1.3-6.7); Neutrophils Percent Auto 80.4 % (45.5-73.1); Platelet Count Result 160 k/mm3 (150-375); Red Blood Count 3.62 M/mm3 (4.2-5.4); Red Cell Distribution Width 16.5 % (11.5-14.5); White Blood Count 7.9 K/mm3 (4.5-10.0)
[2020-06-18 00:23] LABS: Alveolar/Arterial O2 Gradient 42.2 mmHg; Base Excess ABG 18.5 mEq/l (+/-2.0); Fractional Inspired Oxygen 30 %; HCO3 ABG 44.9 mEq/l (22.0-26.0); Oxygen Content ABG 13.4 %vol (16.0-22.0); Oxygen Saturation ABG 97.4 % (95.0-100.0); Oxyhemoglobin 96.3 % THb (90.0-100.0); PO2 ABG 95.6 mmHg (80.0-100.0); PO2 FiO2 Ratio Arterial Blood 3.19 %; Total Hemoglobin 9.8 g/dL (12.0-18.0); pH ABG 7.459 (7.350-7.450)
[2020-06-18 00:25] LABS: Device NASAL CANNULA; Liters per Minute 2.5 LPM; Modified Allen's Test Pass; PCO2 ABG 64.8 mmHg (35.0-45.0); Site Drawn LEFT RADIAL
[2020-06-18 00:28] LABS: Alanine Aminotransferase 13 U/L (4-35); Albumin Level 3.4 g/dL (3.5-5.1); Alkaline Phosphatase 82 U/L (38-126); Aspartate Amino Transferase 23 U/L (14-36); Bilirubin,Total 0.6 mg/dL (0.2-1.3); Lipase 94 U/L (23-300)
[2020-06-18 00:43] LABS: Anisocytosis 1+ (NORMAL); Hypochromasia 1+ (NORMAL); Platelet Estimate Adequate (Adequate)
[2020-06-18 00:44] LABS: Blood Urea Nitrogen 31 mg/dL (7-17); Calcium 8.3 mg/dL (8.4-10.2); Carbon Dioxide > 40 mmol/L (22-30); Chloride 89 mmol/L (98-107); Estimated CRCL calculation 29 ml/min; Estimated Glomerular Filt Rate 26; Glucose 162 mg/dL (65-105); Potassium 4.3 mmol/L (3.4-5.0); Sodium 138 mmol/L (137-145)
[2020-06-18 01:51] LABS: Add Urine Microscopic? YES; Appearance Urine Clear (Clear); Bacteria Urine Trace /hpf; Bilirubin Urine Negative (Negative); Blood Urine 1+ (Negative); Color Urine Straw (Yellow); Glucose Urine UA Negative (Negative); Ketones Urine Negative (Negative); Leukocyte Esterase Ur Trace LEU/UL (Negative); Mucus Urine Rare /lpf; Nitrate Urine Negative (Negative); Protein Urine 2+ mg/dL (Negative); RBC Urine 21-50 /hpf (0-2); Specific Grav Ur 1.011 (1.001-1.035); Urobilinogen Urine Negative mg/dL (<2.0); WBC Urine 16-20 /hpf
[2020-06-18] MEDS: metroNIDAZOLE 500 MG/ISO 100ML 500 MG/100 ML BAG 100 MG IVPB ×3 (03:50→17:38)
--- NOTE | 2020-06-18 05:02 | ADMGEN ---
This patient, Codie Crowder, was admitted to Medical Room 261-01. Patient/family oriented to hospital policies and general routines including ID bracelet, bed and alarms, visiting hours, pain management, procedures, bathroom and other care routines, personal items, smoking policy, room service/diet, and visiting hours. Information on how to activate the Rapid Response Team has been discussed. Patient/Family are encouraged to report perceived risks to care and to ask questions if they do not understand what they are told or what they should do.
[2020-06-18] MEDS: levoFLOXacin 500 MG/D5W 100 ML 500 MG/100 ML BAG 100 MG IVPB (05:25)
[2020-06-18] MEDS: SODIUM CHLORIDE 0.9% IV 1,000 ML 80 ML IV CONT ×2 (05:25→17:39)
[2020-06-18 06:55] LABS: Glucose Point of Care 150 (65-105)
[2020-06-18 11:33] LABS: Glucose Point of Care 132 (65-105)
--- NOTE | 2020-06-18 13:36 | PCOTNOTE ---
OT evaluation attempted this date. Patient refusing transfer at this time stating that she is in too much pain and feeling very nauseous. Will attempt OT evaluation tomorrow as appropriate.
[2020-06-18 16:16] LABS: Glucose Point of Care 157 (65-105)
--- NOTE | 2020-06-18 17:26 | PM.IMPN ---
Progress Note: A&P Assessment and Plan (1) Diverticulitis: Code(s): K57.92 - Diverticulitis of intestine, part unspecified, without perforation or abscess without bleeding Status: Acute Assessment and Plan: Started on Levofloxacing and Metronidazol Clear liquid diet and advance as tolerated. (2) Pleural effusion on left: Code(s): J90 - Pleural effusion, not elsewhere classified Status: Acute Assessment and Plan: Coverage provided by Levofloxacin Will continue to monitor (3) Chronic renal failure, stage 4 (severe): Code(s): N18.4 - Chronic kidney disease, stage 4 (severe) Status: Chronic Assessment and Plan: Continue to monitor Bun/Cr Avoid nephrotoxins Subjective Date/time seen: 06/18/20 17:26 Patient states that she feels fine. Review of Systems Review of Systems: Narrative: Patient was discharged yesterday to [facility] however was not feeling well and was brought back to ED where this time she was found to have diverticulitis. Gastrointestinal: Comments: LLQ pain. Exam Narrative: Exam Narrative: Lying in bed. Const: General: healthy appearing, comfortable, no acute distress and other (Well appearing) Limitations: no limitations HENMT: Head: normal to inspection and normocephalic Face and sinus: normal facial exam Neck: Neck: no lymphadenopathy, supple and no JVD Resp: Auscultation: clear to auscultation bilaterally Cardio: Rate: regular rate Rhythm: regular rhythm GI: GI Palp: Yes Soft to palpation and Yes No hepatosplenomegaly present Skin: Lesions: no lesions Neuro: General: patient oriented x3 and CN's II-XI intact bilaterally Cranial nerves: Yes CN's II-XII intact bilaterally and Yes Equal, round and reactive pupils present Cognition (Neuro): normal cognition Motor exam (neuro): 5/5 motor strength present throughout Extrem: General: no pedal edema Objective Data Vital Signs Vital Signs: Vital Signs - 24 hr 06/17/20 23:37 06/18/20 01:35 06/18/20 03:04 Temperature 97.4 F L Pulse Rate 75 69 64 Respiratory Rate 24 H 19 15 Blood Pressure 167/54 H 158/57 H 156/54 H Pulse Oximetry 98 96 95 06/18/20 04:04 06/18/20 04:39 06/18/20 05:21 Temperature 97.1 F L Pulse Rate 73 71 77 Respiratory Rate 22 H 20 16 Blood Pressure 162/55 H 167/58 H 158/47 H Pulse Oximetry 95 94 99 06/18/20 05:35 06/18/20 05:42 06/18/20 08:40 Temperature 97.1 F L Pulse Rate 77 77 Respiratory Rate 16 16 Blood Pressure 158/47 H Pulse Oximetry 99 99 99 06/18/20 14:00 Temperature 98.1 F Pulse Rate 74 Respiratory Rate 18 Blood Pressure 165/57 H Pulse Oximetry 94 Intake/Output Intake/Output: Intake & Output 06/15/20 06/16/20 06/17/20 06/18/20 23:59 23:59 23:59 23:59 Intake Total 500 Output Total 1400 Balance -1400 500 Meds/Results Medications: Active Medications Generic Name Dose Route Start Last Admin Trade Name Freq PRN Reason Stop Dose Admin Dextrose 12.5 gm 06/18/20 10:09 Dextrose 50% 25 Gm/50 Ml Syringe IV PUSH PRN PRN Hypoglycemia Protocol Glucagon 1 mg 06/18/20 10:09 Glucagon For Inj 1 Mg Vial IM PRN PRN Hypoglycemia Protocol Glucose 15 gm 06/18/20 10:09 Glucose Oral Gel 15 Gm Of Glucse In 37.5 Gm Tube PO PRN PRN Hypoglycemia Protocol Metronidazole 500 mg in 100 mls @ 100 mls/hr 06/18/20 11:00 06/18/20 12:51 Flagyl 500 Mg/Iso Soln 100 Ml IVPB Infused Q6HR DIDI Infusion Levofloxacin/Dextrose 250 mg in 50 mls @ 100 mls/hr 06/19/20 06:00 Levaquin 250 Mg/D5w 50 Ml IVPB Q24H DIDI Sodium Chloride 1,000 mls @ 80 mls/hr 06/18/20 03:35 06/18/20 05:25 Normal Saline Iv IV CONT 80 mls/hr .[id number] DIDI Administration Acetaminophen 1,000 mg in 100 mls @ 400 mls/hr 06/18/20 03:32 06/18/20 13:03 Ofirmev 1,000 Mg Ivpb IVPB 06/19/20 03:33 400 mls/hr Q6H PRN Administration Mild Pain (1-3) or Fever Dextrose 1,000 m
[2020-06-18] MEDS: TOLNAFTATE 1% POWDER 45 GM BTL 1 APPLIC TOPICAL (20:27)
[2020-06-18 20:56] LABS: Glucose Point of Care 240 (65-105)
[2020-06-19] MEDS: metroNIDAZOLE 500 MG/ISO 100ML 500 MG/100 ML BAG 100 MG IVPB ×2 (00:20→06:56)
[2020-06-19] MEDS: levoFLOXacin 250 MG/D5W 50 ML 250 MG/50 ML BAG 100 MG IVPB (05:00)
[2020-06-19 05:55] LABS: Basophils Absolute Auto 0.1 K/mm3 (0.0-0.1); Basophils Percent Auto 0.7 % (0.2-1.2); Eosinophils Absolute Auto 0.3 K/mm3 (0-0.3); Eosinophils Percent Auto 3.9 % (0-4.4); Hematocrit 28.1 % (37.0-47.0); Hemoglobin 8.3 g/dL (12.0-15.0); Immature Granulocyte Absolute 0.13 K/mm3 (0.00-0.031); Immature Granulocyte Percent A 1.8 % (0-0.5); Lymphocytes Absolute Auto 0.65 K/mm3 (0.9-3.2); Lymphocytes Percent Auto 9.1 % (18.3-44.2); Mean Corpuscular HGB Conc 29.5 g/dl (32-36); Mean Corpuscular Hemoglobin 24.2 pg (26-34); Mean Corpuscular Volume 81.9 fl (80-100); Mean Platelet Volume 9.3 fl (7.4-10.4); Monocytes Absolute Auto 0.6 K/mm3 (0.1-0.6); Monocytes Percent Auto 8.4 % (2.6-8.5); Neutrophils Absolute Auto 5.4 K/mm3 (1.3-6.7); Neutrophils Percent Auto 76.1 % (45.5-73.1); Platelet Count Result 160 k/mm3 (150-375); Red Blood Count 3.43 M/mm3 (4.2-5.4); Red Cell Distribution Width 16.4 % (11.5-14.5); White Blood Count 7.1 K/mm3 (4.5-10.0)
[2020-06-19 06:00] VITALS: BP 120/50; PULSE 76; RESP 20; TEMP 36.7; O2SAT 98
[2020-06-19 06:07] LABS: Blood Urea Nitrogen 25 mg/dL (7-17); Calcium 7.4 mg/dL (8.4-10.2); Carbon Dioxide > 40 mmol/L (22-30); Chloride 93 mmol/L (98-107); Estimated CRCL calculation 32 ml/min; Estimated Glomerular Filt Rate 29; Glucose 167 mg/dL (65-105); Sodium 138 mmol/L (137-145)
[2020-06-19] MEDS: SODIUM CHLORIDE 0.9% IV 1,000 ML 80 ML IV CONT (06:44)
[2020-06-19 07:10] LABS: Hypochromasia 1+ (NORMAL); Platelet Estimate Adequate (Adequate)
[2020-06-19 08:27] LABS: Glucose Point of Care 155 (65-105)
[2020-06-19 09:00] VITALS: O2SAT 97
[2020-06-19] MEDS: TOLNAFTATE 1% POWDER 45 GM BTL 1 APPLIC TOPICAL ×2 (09:00→20:10)
[2020-06-19 11:54] VITALS: BMI 41.3
[2020-06-19 12:17] LABS: Glucose Point of Care 298 (65-105)
[2020-06-19] MEDS: INSULIN ASPART (*BKC) 100 UNITS/ML SUB-Q (12:38)
[2020-06-19 14:00] VITALS: BP 145/59; PULSE 68; RESP 22; TEMP 36.5; O2SAT 97
--- NOTE | 2020-06-19 17:36 | PM.IMPN ---
Progress Note: A&P Assessment and Plan (1) Diverticulitis: Code(s): K57.92 - Diverticulitis of intestine, part unspecified, without perforation or abscess without bleeding Status: Acute Assessment and Plan: Started on Levofloxacing and Metronidazole but will discontinue metronidazole with the persistent nausea and a mild degree of diverticulitis on CT scan and normal physical exam Clear liquid diet advanced to full liquid (2) Pleural effusion on left: Code(s): J90 - Pleural effusion, not elsewhere classified Status: Acute Assessment and Plan: Had thoracentesis with negative cultures within the last 2 weeks. Looks minimal on chest x-ray and no further intervention at this time (3) Chronic renal failure, stage 4 (severe): Code(s): N18.4 - Chronic kidney disease, stage 4 (severe) Status: Chronic Assessment and Plan: Creatinine decreased to 1.7 and continue to monitor (4) DVT prophylaxis: Code(s): Z29.9 - Encounter for prophylactic measures, unspecified Status: Acute Assessment and Plan: DVT prophylaxis with Lovenox 40 mg. GFR borderline Subjective Date/time seen: 06/19/20 17:36 Interval history: Date of visit 06/19 75-year-old. Hypertensive type 2 diabetic recently discharged after episode of respiratory failure and hypercapnia with pleural effusion who returns with anorexia abdominal pain and found to have mild diverticulitis. Admitted for IV antibiotics. Has nausea when she gets the metronidazole but overall feeling better with no abdominal pain. Exam Narrative: Exam Narrative: Blood pressure 144/60 pulse 68 saturating 97% on room air Lungs clear CV regular rate rhythm Abdomen is soft obese nontender bowel sounds are present Extremities no edema cast on left leg just below knee Neuro alert no focal deficits Objective Data Vital Signs Vital Signs: Vital Signs - 24 hr 06/18/20 20:00 06/18/20 22:00 06/19/20 06:00 Temperature 36.6 C 36.7 C Pulse Rate 76 76 76 Respiratory Rate 16 16 20 Blood Pressure 153/51 H 120/50 L Pulse Oximetry 94 94 98 06/19/20 09:00 06/19/20 14:00 Temperature 36.5 C Pulse Rate 68 Respiratory Rate 22 H Blood Pressure 145/59 H Pulse Oximetry 97 97 Intake/Output Intake/Output: Intake & Output 06/16/20 06/17/20 06/18/20 06/19/20 23:59 23:59 23:59 23:59 Intake Total 2300 1890 Output Total 1400 1100 600 Balance -1400 1200 1290 Meds/Results Medications: Active Medications Generic Name Dose Route Start Last Admin Trade Name Freq PRN Reason Stop Dose Admin Dextrose 12.5 gm 06/18/20 10:09 Dextrose 50% 25 Gm/50 Ml Syringe IV PUSH PRN PRN Hypoglycemia Protocol Glucagon 1 mg 06/18/20 10:09 Glucagon For Inj 1 Mg Vial IM PRN PRN Hypoglycemia Protocol Glucose 15 gm 06/18/20 10:09 Glucose Oral Gel 15 Gm Of Glucse In 37.5 Gm Tube PO PRN PRN Hypoglycemia Protocol Levofloxacin/Dextrose 250 mg in 50 mls @ 100 mls/hr 06/19/20 06:00 06/19/20 05:30 Levaquin 250 Mg/D5w 50 Ml IVPB Infused Q24H DIDI Infusion Sodium Chloride 1,000 mls @ 50 mls/hr 06/18/20 03:35 06/19/20 06:44 Normal Saline Iv IV CONT 80 mls/hr .Q20H DIDI Administration Dextrose 1,000 mls @ 100 mls/hr 06/18/20 10:09 Dextrose 5% 1,000 Ml IVPB PRN PRN Hypoglycemia Protocol Insulin Aspart 2 - 5 units 06/18/20 12:00 06/19/20 12:38 Insulin Aspart (*Bkc) 100 Units/Ml SUB-Q 3 units TIDWM DIDI Administration Protocol Miconazole Nitrate 1 applic 06/18/20 21:00 06/19/20 09:00 Miconazole 2% Antifungal Ointment 56 Gm TOPICAL 1 applic Q12HR DIDI Administration Ondansetron HCl 4 mg 06/19/20 06:29 Ondansetron Inj 4 Mg/2 Ml Vial IV PUSH Q6H PRN Nausea And Vomiting Tolnaftate 1 applic 06/18/20 21:00 06/19/20 09:00 Tolnaftate 1% Powder 45 Gm Btl TOPICAL 1 applic Q12HR DIDI Administration Radiolo
[2020-06-19] MEDS: ONDANSETRON INJ 4 MG/2 ML VIAL IV PUSH ×2 (18:01→23:59)
[2020-06-19 18:08] LABS: Glucose Point of Care 186 (65-105)
[2020-06-19 19:56] VITALS: O2SAT 98
[2020-06-19 22:00] VITALS: BP 173/81; PULSE 72; RESP 21; TEMP 36.1; O2SAT 100
[2020-06-19] MEDS: INSULIN GLARGINE (*BKC) 100 UNITS/ML 10 UNITS SUB-Q (22:05)
[2020-06-19 22:20] LABS: Glucose Point of Care 223 (65-105)
[2020-06-19 22:20] LABS: Glucose Point of Care 219 (65-105)
[2020-06-19] MEDS: SODIUM CHLORIDE 0.9% IV 1,000 ML 50 ML IV CONT (23:12)
[2020-06-20 05:53] LABS: Basophils Absolute Auto 0.1 K/mm3 (0.0-0.1); Basophils Percent Auto 0.8 % (0.2-1.2); Eosinophils Absolute Auto 0.2 K/mm3 (0-0.3); Eosinophils Percent Auto 3.1 % (0-4.4); Hematocrit 29.8 % (37.0-47.0); Hemoglobin 8.8 g/dL (12.0-15.0); Immature Granulocyte Absolute 0.13 K/mm3 (0.00-0.031); Immature Granulocyte Percent A 1.7 % (0-0.5); Lymphocytes Absolute Auto 0.56 K/mm3 (0.9-3.2); Lymphocytes Percent Auto 7.3 % (18.3-44.2); Mean Corpuscular HGB Conc 29.5 g/dl (32-36); Mean Corpuscular Hemoglobin 24.1 pg (26-34); Mean Corpuscular Volume 81.6 fl (80-100); Mean Platelet Volume 9.1 fl (7.4-10.4); Monocytes Absolute Auto 0.6 K/mm3 (0.1-0.6); Monocytes Percent Auto 7.2 % (2.6-8.5); Neutrophils Absolute Auto 6.1 K/mm3 (1.3-6.7); Neutrophils Percent Auto 79.9 % (45.5-73.1); Platelet Count Result 177 k/mm3 (150-375); Red Blood Count 3.65 M/mm3 (4.2-5.4); Red Cell Distribution Width 16.2 % (11.5-14.5); White Blood Count 7.7 K/mm3 (4.5-10.0)
[2020-06-20 06:00] VITALS: BP 169/54; PULSE 67; RESP 20; TEMP 36.1; O2SAT 98
[2020-06-20 06:01] LABS: Anion Gap 3 mmol/L (8-16); Blood Urea Nitrogen 22 mg/dL (7-17); Calcium 7.4 mg/dL (8.4-10.2); Carbon Dioxide 39 mmol/L (22-30); Chloride 96 mmol/L (98-107); Estimated CRCL calculation 34 ml/min; Estimated Glomerular Filt Rate 31; Glucose 179 mg/dL (65-105); Potassium 3.9 mmol/L (3.4-5.0); Sodium 138 mmol/L (137-145)
[2020-06-20] MEDS: ONDANSETRON INJ 4 MG/2 ML VIAL IV PUSH (07:33)
[2020-06-20 07:37] LABS: Platelet Estimate Adequate (Adequate)
[2020-06-20 07:38] LABS: Hypochromasia 1+ (NORMAL); Stomatocytes 1+ (NORMAL)
[2020-06-20] MEDS: diazePAM (*CRX) 2 MG TABLET PO (08:34)
[2020-06-20] MEDS: TOLNAFTATE 1% POWDER 45 GM BTL 1 APPLIC TOPICAL ×2 (08:37→21:35)
[2020-06-20] MEDS: amLODIPine BESYLATE 5 MG TABLET PO (08:49)
[2020-06-20] MEDS: FUROSEMIDE 40 MG TABLET PO ×2 (08:49→16:29)
[2020-06-20] MEDS: DOXAZOSIN MESYLATE 2 MG TABLET PO (08:49)
[2020-06-20 09:09] LABS: Glucose Point of Care 186 (65-105)
--- NOTE | 2020-06-20 10:05 | PCPTNOTE ---
Patient refused treatment this session due to being too sick and nauseated. Explained the importance of therapy to Pt and how sitting upright might help her stomach to settle down. Pt stated I just don't want to jostle my tummy. I've been up sick all night. Will attempt again.
[2020-06-20 11:55] LABS: Glucose Point of Care 184 (65-105)
[2020-06-20] MEDS: PROMETHAZINE HCL 25 MG/ML AMPUL 12.5 MG IV PUSH (13:32)
[2020-06-20 14:00] VITALS: BP 175/68; PULSE 74; RESP 18; TEMP 36.1; O2SAT 100
--- NOTE | 2020-06-20 16:33 | PM.IMPN ---
Progress Note: A&P Assessment and Plan (1) Diverticulitis: Code(s): K57.92 - Diverticulitis of intestine, part unspecified, without perforation or abscess without bleeding Status: Acute Assessment and Plan: Started on Levofloxacing and Metronidazole but discontinued metronidazole with the persistent nausea and a mild degree of diverticulitis on CT scan and normal physical exam Clear liquid diet advanced to full liquid 06/19 amd regular today if tolerates (2) Pleural effusion on left: Code(s): J90 - Pleural effusion, not elsewhere classified Status: Acute Assessment and Plan: Had thoracentesis with negative cultures within the last 2 weeks. Looks minimal on chest x-ray and no further intervention at this time (3) Chronic renal failure, stage 4 (severe): Code(s): N18.4 - Chronic kidney disease, stage 4 (severe) Status: Chronic Assessment and Plan: Creatinine decreased to 1.6 and continue to monitor (4) DVT prophylaxis: Code(s): Z29.9 - Encounter for prophylactic measures, unspecified Status: Acute Assessment and Plan: DVT prophylaxis with Lovenox 40 mg. GFR borderline (5) HTN (hypertension): Code(s): I10 - Essential (primary) hypertension Status: Acute Assessment and Plan: BP rising so restarted amlodipine, doxazosin, and furosemide (6) DM (diabetes mellitus): Qualifiers: Diabetes mellitus type: type 2 Diabetes mellitus senior care insulin use: without long term care social worker use Diabetes mellitus complication status: without complication Qualified Code(s): E11.9 - Type 2 diabetes mellitus without complications Code(s): E11.9 - Type 2 diabetes mellitus without complications Status: Chronic Assessment and Plan: BS rising so restarted HS lantus Subjective Date/time seen: 06/20/20 16:33 Interval history: Date of visit 06/20 75-year-old. Hypertensive type 2 diabetic recently discharged after episode of respiratory failure and hypercapnia with pleural effusion who returns with anorexia abdominal pain and found to have mild diverticulitis. Admitted for IV antibiotics. Has nausea when she got the metronidazole but still nauseated today. Exam Narrative: Exam Narrative: Blood pressure 154/62 pulse 66 saturating 94% on room air Lungs clear CV regular rate rhythm Abdomen is soft obese nontender bowel sounds are present Extremities no edema cast on left leg just below knee Neuro alert no focal deficits Objective Data Vital Signs Vital Signs: Vital Signs - 24 hr 06/19/20 19:56 06/19/20 22:00 06/20/20 06:00 Temperature 36.1 C L 36.1 C L Pulse Rate 72 67 Respiratory Rate 21 H 20 Blood Pressure 173/81 H 169/54 H Pulse Oximetry 98 100 98 06/20/20 14:00 Temperature 36.1 C L Pulse Rate 74 Respiratory Rate 18 Blood Pressure 175/68 H Pulse Oximetry 100 Intake/Output Intake/Output: Intake & Output 06/17/20 06/18/20 06/19/20 06/20/20 23:59 23:59 23:59 23:59 Intake Total 2300 3090 1220 Output Total 1400 1100 925 500 Balance -1400 1200 2165 720 Meds/Results Medications: Active Medications Generic Name Dose Route Start Last Admin Trade Name Freq PRN Reason Stop Dose Admin Albuterol 4 puff 06/20/20 07:30 Albuterol Sulfate (*Sp) Aerosol 1 Puff INHALATION Q4H PRN Shortness Of Breath Amlodipine Besylate 5 mg 06/20/20 09:00 06/20/20 08:49 Amlodipine Besylate 5 Mg Tablet PO 5 mg DAILY DIDI Administration Dextrose 12.5 gm 06/18/20 10:09 Dextrose 50% 25 Gm/50 Ml Syringe IV PUSH PRN PRN Hypoglycemia Protocol Diazepam 2 mg 06/20/20 07:20 06/20/20 08:34 Diazepam (*Crx) 2 Mg Tablet PO 2 mg BID PRN Administration anxiety Doxazosin Mesylate 2 mg 06/20/20 09:00 06/20/20 08:49 Doxazosin Mesylate 2 Mg Tablet PO 2 mg QAM DIDI Administration Furosemide 40 mg 06/20/20 09:00 06/20/20 16:29 Furosemide 40 Mg Tablet PO 40 mg BI
[2020-06-20 17:09] LABS: Glucose Point of Care 167 (65-105)
[2020-06-20] MEDS: SODIUM CHLORIDE 0.9% IV 1,000 ML 50 ML IV CONT (17:15)
[2020-06-20 20:00] VITALS: O2SAT 93
[2020-06-20 21:31] LABS: Glucose Point of Care 168 (65-105)
[2020-06-20] MEDS: INSULIN GLARGINE (*BKC) 100 UNITS/ML 15 UNITS SUB-Q (21:31)
[2020-06-20 21:45] VITALS: BP 171/51; PULSE 62; RESP 20; TEMP 36.3; O2SAT 93
[2020-06-21] MEDS: diazePAM (*CRX) 2 MG TABLET PO (00:07)
[2020-06-21 06:00] VITALS: BP 142/56; PULSE 60; RESP 16; TEMP 36.1; O2SAT 100
[2020-06-21 07:43] LABS: Glucose Point of Care 91 (65-105)
[2020-06-21] MEDS: FUROSEMIDE 40 MG TABLET PO ×2 (09:39→16:48)
[2020-06-21] MEDS: amLODIPine BESYLATE 5 MG TABLET PO (09:39)
[2020-06-21] MEDS: DOXAZOSIN MESYLATE 2 MG TABLET PO (09:39)
[2020-06-21] MEDS: TOLNAFTATE 1% POWDER 45 GM BTL 1 APPLIC TOPICAL ×2 (09:40→20:36)
[2020-06-21] MEDS: SODIUM CHLORIDE 0.9% IV 1,000 ML 50 ML IV CONT (11:49)
[2020-06-21 11:55] LABS: Glucose Point of Care 143 (65-105)
[2020-06-21 14:00] VITALS: BP 131/47; PULSE 76; RESP 16; TEMP 36.8; O2SAT 95
[2020-06-21 16:45] LABS: Glucose Point of Care 151 (65-105)
[2020-06-21 17:44] LABS: SARS-CoV-2 RNA PCR Negative
--- NOTE | 2020-06-21 18:32 | PM.IMPN ---
Progress Note: A&P Assessment and Plan (1) Diverticulitis: Code(s): K57.92 - Diverticulitis of intestine, part unspecified, without perforation or abscess without bleeding Status: Acute Assessment and Plan: Started on Levofloxacing and Metronidazole but discontinued metronidazole with the persistent nausea and a mild degree of diverticulitis on CT scan and normal physical exam Clear liquid diet advanced to full liquid 06/19 and regular now (2) Pleural effusion on left: Code(s): J90 - Pleural effusion, not elsewhere classified Status: Acute Assessment and Plan: Had thoracentesis with negative cultures within the last 2 weeks. Looks minimal on chest x-ray and no further intervention at this time (3) Chronic renal failure, stage 4 (severe): Code(s): N18.4 - Chronic kidney disease, stage 4 (severe) Status: Chronic Assessment and Plan: Creatinine decreased to 1.6 06/20 and continue to monitor (4) DVT prophylaxis: Code(s): Z29.9 - Encounter for prophylactic measures, unspecified Status: Acute Assessment and Plan: DVT prophylaxis with Lovenox 40 mg. GFR borderline (5) HTN (hypertension): Code(s): I10 - Essential (primary) hypertension Status: Acute Assessment and Plan: BP rising so restarted amlodipine, doxazosin, and furosemide (6) DM (diabetes mellitus): Qualifiers: Diabetes mellitus type: type 2 Diabetes mellitus exterminator helper termite insulin use: without nursing home use Diabetes mellitus complication status: without complication Qualified Code(s): E11.9 - Type 2 diabetes mellitus without complications Code(s): E11.9 - Type 2 diabetes mellitus without complications Status: Chronic Assessment and Plan: BS rising so restarted HS lantus and fbs today 91 Subjective Date/time seen: 06/21/20 18:32 Interval history: Date of visit 06/21 75-year-old. Hypertensive type 2 diabetic recently discharged after episode of respiratory failure and hypercapnia with pleural effusion who returns with anorexia abdominal pain and found to have mild diverticulitis. Admitted for IV antibiotics. Has nausea when she got the metronidazole but much better today after d/c metronidazole and changed to phenergan for nausea. Exam Narrative: Exam Narrative: Blood pressure 134/56 pulse 76 saturating 96% on room air Lungs clear CV regular rate rhythm Abdomen is soft obese nontender bowel sounds are present Extremities no edema cast on left leg just below knee Neuro alert no focal deficits Objective Data Vital Signs Vital Signs: Vital Signs - 24 hr 06/20/20 20:00 06/20/20 21:45 06/21/20 06:00 Temperature 36.3 C L 36.1 C L Pulse Rate 62 60 Respiratory Rate 20 16 Blood Pressure 171/51 H 142/56 H Pulse Oximetry 93 93 100 06/21/20 14:00 Temperature 36.8 C Pulse Rate 76 Respiratory Rate 16 Blood Pressure 131/47 L Pulse Oximetry 95 Intake/Output Intake/Output: Intake & Output 06/18/20 06/19/20 06/20/20 06/21/20 23:59 23:59 23:59 23:59 Intake Total 2300 3090 2400 2184 Output Total 3722 880 8047 1750 Balance 1200 2165 650 434 Meds/Results Medications: Active Medications Generic Name Dose Route Start Last Admin Trade Name Freq PRN Reason Stop Dose Admin Albuterol 4 puff 06/20/20 07:30 Albuterol Sulfate (*Sp) Aerosol 1 Puff INHALATION Q4H PRN Shortness Of Breath Amlodipine Besylate 5 mg 06/20/20 09:00 06/21/20 09:39 Amlodipine Besylate 5 Mg Tablet PO 5 mg DAILY DIDI Administration Dextrose 12.5 gm 06/18/20 10:09 Dextrose 50% 25 Gm/50 Ml Syringe IV PUSH PRN PRN Hypoglycemia Protocol Diazepam 2 mg 06/20/20 07:20 06/21/20 00:07 Diazepam (*Crx) 2 Mg Tablet PO 2 mg BID PRN Administration anxiety Doxazosin Mesylate 2 mg 06/20/20 09:00 06/21/20 09:39 Doxazosin Mesylate 2 Mg Tablet PO 2 mg QAM DIDI Administration Furosemide 40 mg 06/20/20 09:
[2020-06-21 20:00] VITALS: O2SAT 94
[2020-06-21] MEDS: INSULIN GLARGINE (*BKC) 100 UNITS/ML 15 UNITS SUB-Q (20:35)
[2020-06-21 20:42] LABS: Glucose Point of Care 215 (65-105)
[2020-06-21 21:12] VITALS: BP 156/54; PULSE 81; RESP 16; TEMP 36.3; O2SAT 94
[2020-06-22 05:14] VITALS: BP 151/56; PULSE 68; RESP 16; TEMP 36; O2SAT 98
[2020-06-22 05:44] LABS: Basophils Absolute Auto 0.1 K/mm3 (0.0-0.1); Basophils Percent Auto 0.8 % (0.2-1.2); Eosinophils Absolute Auto 0.3 K/mm3 (0-0.3); Eosinophils Percent Auto 3.1 % (0-4.4); Hematocrit 27.5 % (37.0-47.0); Hemoglobin 8.1 g/dL (12.0-15.0); Immature Granulocyte Absolute 0.15 K/mm3 (0.00-0.031); Immature Granulocyte Percent A 1.7 % (0-0.5); Lymphocytes Absolute Auto 0.67 K/mm3 (0.9-3.2); Lymphocytes Percent Auto 7.5 % (18.3-44.2); Mean Corpuscular HGB Conc 29.5 g/dl (32-36); Mean Corpuscular Hemoglobin 24.1 pg (26-34); Mean Corpuscular Volume 81.8 fl (80-100); Monocytes Absolute Auto 0.6 K/mm3 (0.1-0.6); Monocytes Percent Auto 6.9 % (2.6-8.5); Neutrophils Absolute Auto 7.2 K/mm3 (1.3-6.7); Platelet Count Result 184 k/mm3 (150-375); Red Blood Count 3.36 M/mm3 (4.2-5.4); Red Cell Distribution Width 16.4 % (11.5-14.5)
[2020-06-22 05:53] LABS: Blood Urea Nitrogen 24 mg/dL (7-17); Calcium 7.2 mg/dL (8.4-10.2); Carbon Dioxide > 40 mmol/L (22-30); Chloride 97 mmol/L (98-107); Estimated CRCL calculation 30 ml/min; Estimated Glomerular Filt Rate 27; Glucose 185 mg/dL (65-105); Potassium 3.3 mmol/L (3.4-5.0); Sodium 137 mmol/L (137-145)
[2020-06-22 06:09] LABS: Anisocytosis 1+ (NORMAL); Hypochromasia 2+ (NORMAL); Platelet Estimate Adequate (Adequate)
[2020-06-22 08:16] LABS: Glucose Point of Care 179 (65-105)
[2020-06-22] MEDS: POTASSIUM CHLORIDE 20 MEQ TABLET 40 MEQ PO (08:50)
[2020-06-22] MEDS: DOXAZOSIN MESYLATE 2 MG TABLET PO (08:52)
[2020-06-22] MEDS: FUROSEMIDE 40 MG TABLET PO ×2 (08:52→17:46)
[2020-06-22] MEDS: amLODIPine BESYLATE 5 MG TABLET PO (08:52)
[2020-06-22] MEDS: TOLNAFTATE 1% POWDER 45 GM BTL 1 APPLIC TOPICAL (08:53)
[2020-06-22 11:52] LABS: Glucose Point of Care 212 (65-105)
--- NOTE | 2020-06-22 13:44 | WPDCDIQUERY2 ---
CDI Query Clarification Request -06/18 urine culture growing >100,000 Pseudomonas aeroginosa Please clarify if there is a possible corresponding diagnosis for above finding.
[2020-06-22 14:00] VITALS: BP 145/38; PULSE 79; RESP 16; TEMP 36.1; O2SAT 94
[2020-06-22 14:08] LABS: Glucose Point of Care 175 (65-105)
[2020-06-22 15:15] VITALS: BP 156/52
[2020-06-22 17:12] LABS: Glucose Point of Care 220 (65-105)
[2020-06-22] MEDS: INSULIN ASPART (*BKC) 100 UNITS/ML SUB-Q (17:22)
[2020-06-22 21:10] LABS: Glucose Point of Care 261 (65-105)
[2020-06-22 21:20] VITALS: BP 148/45; PULSE 69; RESP 18; TEMP 36.1; O2SAT 95
[2020-06-22] MEDS: INSULIN GLARGINE (*BKC) 100 UNITS/ML 15 UNITS SUB-Q (22:25)
[2020-06-22 22:34] LABS: Glucose Point of Care 231 (65-105)
[2020-06-23 06:00] VITALS: BP 151/48; PULSE 74; RESP 16; TEMP 36.2; O2SAT 96
--- NOTE | 2020-06-23 18:35 | PM.DS ---
DS: Admitting Diagnosis Admitting Diagnosis Admitting Diagnosis: Diverticulitis with nausea and vomiting DS: Discharge Diagnosis Discharge Diagnosis (1) Diverticulitis: Code(s): K57.92 - Diverticulitis of intestine, part unspecified, without perforation or abscess without bleeding Status: Acute Assessment and Plan: Started on Levofloxacin and Metronidazole but discontinued metronidazole with the persistent nausea and a mild degree of diverticulitis on CT scan and normal physical exam Clear liquid diet advanced to full liquid 06/19 and regular which she tolerated well 1-2 days before discharge (2) Pleural effusion on left: Code(s): J90 - Pleural effusion, not elsewhere classified Status: Acute Assessment and Plan: Had thoracentesis with negative cultures within the last 2 weeks. Looks minimal on chest x-ray and no further intervention at this time (3) Chronic renal failure, stage 4 (severe): Code(s): N18.4 - Chronic kidney disease, stage 4 (severe) Status: Chronic Assessment and Plan: Creatinine 1.8 at discharge which is approximately her baseline (4) HTN (hypertension): Code(s): I10 - Essential (primary) hypertension Status: Acute Assessment and Plan: Initially low but with hydration slowly jb and restarted amlodipine, doxazosin, and furosemide (5) DM (diabetes mellitus): Qualifiers: Diabetes mellitus type: type 2 Diabetes mellitus termite exterminator insulin use: without termite exterminator use Diabetes mellitus complication status: without complication Qualified Code(s): E11.9 - Type 2 diabetes mellitus without complications Code(s): E11.9 - Type 2 diabetes mellitus without complications Status: Chronic Assessment and Plan: Discharged on her usual Lantus dose HS 15 units with sliding scale sugars running in the low 100s to occasionally 200 while here (6) UTI (urinary tract infection): Qualifiers: Hematuria presence: without hematuria Urinary tract infection type: acute cystitis Qualified Code(s): N30.00 - Acute cystitis without hematuria Code(s): N39.0 - Urinary tract infection, site not specified Status: Acute Assessment and Plan: Urine grew greater than 100,000 colonies of Pseudomonas. She had no urinary symptoms but with her nausea and possible mild diverticulitis was treated with levofloxacin. The Pseudomonas was sensitive to the levofloxacin also. DS: Summary Hospital Course Hospital Course: 75-year-old hypertensive type 2 diabetic who was residing rehab after recent fracture left ankle with short-leg cast. She developed nausea and vomiting and was brought to the emergency room and CT scan revealed mild sigmoid diverticulitis. Her physical exam was unremarkable and she was placed on levofloxacin, hydrated, given antiemetics. Her symptoms subsided she was able tolerate a regular diet. She reduced total 6 days 6-7 days IV antibiotics while here. Urine culture grew Pseudomonas also which was sensitive to the levofloxacin. Encouraged her to return to rehab but she refused and was discharged home to significant other Time Spent with Patient Time attestation: Total time spent providing and/or coordinating discharge services: 35 minutes Exam Narrative: Exam Narrative: Condition on discharge Blood pressure 150 over 76 pulse 74 saturating 96% on room air afebrile Lungs clear CV regular rate rhythm Abdomen soft nontender bowel sounds normal active Extremities without edema was shortly cast on left leg Neuro alert no focal deficits Able to be discharged home in stable condition. We did recommend further rehab and she was accepted at 2 different institutions but refused to return to rehab, selecting to go home with . DS: Data Data Completed and Pending Labs on day of discharge: Labs from last 24 hours 06/22/20 06/22/20 22:30 19:44 POC Capillary Glucose 231 H 261 H Discharge Plan Disch
--- NOTE | 2020-07-16 18:09 | PM.IMHP ---
H&P: HPI History of Present Illness Date/Time: 07/16/20 18:09 Chief Complaint: Abdominal pain. Narrative: Codie Corwder is a 75-year-old female, morbidly obese, diabetic who was discharged from the hospitalist service, she is well from multiple previous admissions with a history of known chronic pancreatitis, poorly controlled type 2 diabetes, chronic diastolic congestive heart failure, pulmonary hypertension, essential hypertension, COPD, sleep apnea, recurrent left sided large pleural effusion, chronic respiratory failure on 2 L of oxygen at home at all times and several other comorbidities who was just recently admitted and discharged from [facility] hospital after being treated for an acute left open bimalleolar fracture secondary to sliding of off the commode at home. The patient was actually just discharged from our own Hospitalist service on after she underwent #2 thoracentesis for recurrent left sided pleural effusion and also treated for acute CHF and acute respiratory failure. Over the past few days while the patient was at [facility] she tested negative for COVID-19 and also was again found to have a recurrent large left sided pleural effusion. Patient was discharged to SNF but upon arrival complained of abdominal pain and was brought to ED where preliminary work up was significant for diverticulitis in the sigmoid colon found on CT abdomen and pelvis. Review of Systems Review of Systems: Narrative: patient presnted to ED with abdominal pain. Constitutional: Comments: no fevers, no rigors, no chills. Cardiovascular: Comments: no chest pain, no pnd, no orthopnea. Respiratory: Comments: recurrent pleural effusion s/p thoracentesis Gastrointestinal: Comments: abdominal pain. Musculoskeletal: Comments: ankle fx, non weight bearing. Integumentary/Breasts: Comments: no rashes. Neurologic: Comments: no sensory motor deficit. [facility] Past Medical History Medical History Asthma Bronchitis Cataracts, bilateral CHF (congestive heart failure) 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n) History of angina History of pneumonia HTN (hypertension) with goal to be determined Hx of cervical cancer Hypercholesteremia Hypothyroid Neuropathy in diabetes Pancreatitis Peripheral neuropathy Ulcer Venous stasis dermatitis of both lower extremities Surgical History Surgical History History of appendectomy History of cholecystectomy History of hysterectomy History of local excision of skin lesion Hx of cardiac cath Family History Family History Father Acute myocardial infarction, Onset Age: 64 Hypertension, Onset Age: 64 Asthma, Onset Age: 64 Family history of cardiovascular disease, Onset Age: 64 Family history of arthritis, Onset Age: 64 Mother Acute myocardial infarction, Onset Age: 78 Hypertension, Onset Age: 78 Family history of cardiovascular disease, Onset Age: 78 Family history of arthritis, Onset Age: 78 Family history of malignant neoplasm, Onset Age: 78 Sibling Diabetes mellitus Social History Social History Social History: The patient lives with her eliezer. They have been together for over 30 years. They have no children together. She is a former smoker. She desires to be a full code now. Patient had been on hospice for 1 day and the retracted. Smoking packs per day: 3 Smoking cigarettes per day: 60.0 Years smoked: 30 Smoking pack-years: 90.00 Smoking status: Former smoker Tobacco type: cigarettes Sec
== END 2020-06-23 07:15 | disposition home health service (06) | DRG 392 ==
LOC: ANHED 06-18 00:22 → ANH2MED 06-18 04:13
PROVIDERS: Admitting Provider Internal Medicine; Emergency Provider Emergency Medicine; Visit Provider Internal Medicine
DX: K57.32 Diverticulitis of large intestine without perforation or abscess without bleeding (principal); I13.0 Hypertensive heart and chronic kidney disease with heart failure and stage 1 through stage 4 chronic kidney disease, or unspecified chronic kidney disease; N18.4 Chronic kidney disease, stage 4 (severe); N30.00 Acute cystitis without hematuria; B96.5 Pseudomonas (aeruginosa) (mallei) (pseudomallei) as the cause of diseases classified elsewhere; I50.9 Heart failure, unspecified; E11.22 Type 2 diabetes mellitus with diabetic chronic kidney disease; E11.42 Type 2 diabetes mellitus with diabetic polyneuropathy; E11.36 Type 2 diabetes mellitus with diabetic cataract; H26.9 Unspecified cataract; Z20.828 Contact with and (suspected) exposure to other viral communicable diseases; J43.9 Emphysema, unspecified; E03.9 Hypothyroidism, unspecified; K21.9 Gastro-esophageal reflux disease without esophagitis; Z28.21 Immunization not carried out because of patient refusal; Z87.891 Personal history of nicotine dependence; Z79.899 Other long term (current) drug therapy
CPT/HCPCS: 36415; 36600; 71045; 74176; 80048; 80076; 81001; 82805; 83690; 85025; 85610; 85730; 87077; 87086; 87088; 87186; 93005; 96361; 96366; 96367; 96375; 96376; 97110; 97161; 97166; 97530; 97535; 99285; A9270; C9803; G0378; J0131; J1815; J1956; J2405; J2550; J7030; U0003; U0005

== ENCOUNTER 2020-06-24 01:58 | Observation (INO) | payer MEDICARE, OTHER, SELFPAY ==
--- NOTE | ~2020-06-24 | XR_ITS ---
XR chest 1V portable 06/24/2020 06:13 Indication: Left pleural effusion Procedure: AP portable chest Comparison: 06/17/2020 Findings: Large left pleural effusion. There is compressive consolidation in the left lung. There is right basilar infiltrates. No right effusion or pneumothorax. Impression: 1: Large left pleural effusion with underlying compressive atelectasis. Cannot exclude superimposed p neumonia. 2: Right basilar infiltrates, atelectasis versus pneumonia. Reviewed, dictated and finalized at location A. OR ACCOUNTANT ANALYST Impression: 1: Large left pleural effusion with underlying compressive atelectasis. Cannot exclude superimposed pneumonia. 2: Right basilar infiltrates, atelectasis versus pneumonia.
--- NOTE | 2020-06-24 01:09 | ADMGEN ---
This patient, Codie Crowder, was direct admitted to Medical Room 345-01. Patient/family oriented to hospital policies and general routines including ID bracelet, bed and alarms, visiting hours, pain management, procedures, bathroom and other care routines, personal items, smoking policy, room service/diet, and visiting hours. Information on how to activate the Rapid Response Team has been discussed. Patient/Family are encouraged to report perceived risks to care and to ask questions if they do not understand what they are told or what they should do.
[2020-06-24 01:26] VITALS: O2SAT 100
[2020-06-24 01:59] VITALS: BP 167/64; PULSE 85; RESP 16; TEMP 36.7; O2SAT 100
[2020-06-24 01:59] LABS: Glucose Point of Care 216 (65-105)
[2020-06-24 02:02] VITALS: BMI 41.9
--- NOTE | 2020-06-24 02:30 | PM.IMHP ---
H&P: HPI History of Present Illness Date/Time: 06/24/20 02:30 Chief Complaint: Generalized Weakness Narrative: This is a pleasant 75-year-old morbidly obese, diabetic female who is well known to our hospitalist service from multiple previous admissions with a history of known chronic pancreatitis, poorly controlled type 2 diabetes, chronic diastolic congestive heart failure, pulmonary hypertension, essential hypertension, COPD, sleep apnea, recurrent left sided large pleural effusion, chronic respiratory failure on 2 L of oxygen at home at all times and several other comorbidities who was just discharged from our hospitalist service yesterday morning back to her home with home health care and presented to the hospital [facility] as a direct admission from [facility]. The patient was just treated for diverticulitis and recurrent left pleural effusion this past week in our hospital. she was offered to be placed in rehab although the patient refused and asked to be discharged home yesterday. Patient's home healthcare nurse arrived and was very worried that the patient could not take care of herself and referred her to [facility] emergency room for evaluation. The patient was evaluated at [facility] and routine labs and imaging were done. There were no significant abnormalities found on routine testing in the emergency room. We were called an asked to directly admit the patient as she had generalized weakness and ambulatory dysfunction. ER provider at [facility] related to me that they do not have any beds available. On my encounter with the patient mahnaz she has no complaints and she does agree that she needs to go to rehab. The patient realizes that having home health care is not enough as she is not strong enough to take care of herself at home when they are not there. The patient has asked if we could help get her placed in a rehab center which is close by her home. On specific questioning the patient denies any headache, fever, chills, neck stiffness, shortness of breath, cough, nausea, vomiting, wheezing, abdominal pain, dysuria, hematuria, diarrhea, rectal bleeding, or focal neurological deficits. The patient is on her usual to 0.5 L of oxygen via nasal cannula and she tells me that her back is stiff from being on a stretcher. No other complaints at this time. 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n) History of angina History of pneumonia HTN (hypertension) with goal to be determined Hx of cervical cancer Hypercholesteremia Hypothyroid Neuropathy in diabetes Pancreatitis Peripheral neuropathy Ulcer Venous stasis dermatitis of both lower extremities Surgical History Surgical History History of appendectomy History of cholecystectomy History of hysterectomy History of local excision of skin lesion Hx of cardiac cath Family History Family History Father Acute myocardial infarction, Onset Age: 64 Hypertension, Onset Age: 64 Asthma, Onset Age: 64 Family history of cardiovascular disease, Onset Age: 64 Family history of arthritis, Onset Age: 64 Mother Acute myocardial infarction, Onset Age: 78 Hypertension, Onset Age: 78 Family history of cardiovascular disease, Onset Age: 78 Family history of arthritis, Onset Age: 78 Family history of malignant neoplasm, O
[2020-06-24 02:59] LABS: Basophils Absolute Auto 0.1 K/mm3 (0.0-0.1); Basophils Percent Auto 0.6 % (0.2-1.2); Eosinophils Absolute Auto 0.3 K/mm3 (0-0.3); Eosinophils Percent Auto 2.7 % (0-4.4); Hematocrit 30.2 % (37.0-47.0); Immature Granulocyte Absolute 0.19 K/mm3 (0.00-0.031); Lymphocytes Percent Auto 5.1 % (18.3-44.2); Mean Corpuscular HGB Conc 29.8 g/dl (32-36); Mean Corpuscular Hemoglobin 24.7 pg (26-34); Mean Corpuscular Volume 82.7 fl (80-100); Mean Platelet Volume 9.5 fl (7.4-10.4); Monocytes Absolute Auto 0.7 K/mm3 (0.1-0.6); Monocytes Percent Auto 6.8 % (2.6-8.5); Neutrophils Percent Auto 82.8 % (45.5-73.1); Platelet Count Result 212 k/mm3 (150-375); Red Blood Count 3.65 M/mm3 (4.2-5.4); Red Cell Distribution Width 16.5 % (11.5-14.5); White Blood Count 9.7 K/mm3 (4.5-10.0)
[2020-06-24 03:17] LABS: Alanine Aminotransferase 13 U/L (4-35); Albumin Level 3.3 g/dL (3.5-5.1); Alkaline Phosphatase 73 U/L (38-126); Aspartate Amino Transferase 23 U/L (14-36); Bilirubin,Total 0.4 mg/dL (0.2-1.3); Blood Urea Nitrogen 27 mg/dL (7-17); Calcium 7.7 mg/dL (8.4-10.2); Carbon Dioxide > 40 mmol/L (22-30); Chloride 92 mmol/L (98-107); Estimated CRCL calculation 27 ml/min; Estimated Glomerular Filt Rate 24; Glucose 200 mg/dL (65-105); Magnesium 1.1 mg/dL (1.6-2.3); Potassium 3.6 mmol/L (3.4-5.0); Sodium 137 mmol/L (137-145)
[2020-06-24] MEDS: MAGNESIUM SULF 2 GM/WATER 50ML 2 GM/50 ML BAG IVPB (04:43)
[2020-06-24 06:12] VITALS: BP 158/46; PULSE 67; RESP 20; TEMP 36.1; O2SAT 100
[2020-06-24 08:00] VITALS: O2SAT 100
[2020-06-24] MEDS: amLODIPine BESYLATE 5 MG TABLET PO (08:59)
[2020-06-24] MEDS: TOLNAFTATE 1% POWDER 45 GM BTL 1 APPLIC TOPICAL (08:59)
[2020-06-24] MEDS: DOXAZOSIN MESYLATE 2 MG TABLET PO (09:00)
--- NOTE | 2020-06-24 09:57 | PCPTNOTE ---
orders received...attempted to eval, told patient is d/c'g...
--- NOTE | 2020-06-24 15:53 | PM.DS ---
DS: Admitting Diagnosis Admitting Diagnosis Admitting Diagnosis: Weakness with increasing left pleural effusion DS: Discharge Diagnosis Discharge Diagnosis (1) Generalized weakness: Code(s): R53.1 - Weakness Status: Acute Assessment and Plan: . Generalized weakness is likely secondary to chronic illnesses and multiple recent hospitalizations. The patient was offered inpatient rehab this past week and again today but refused refused although physicians and Care coordinators have explained to the patient in detail that she is too weak to go back home. She verbalized her agreement and understanding but still insisted on returning home. (2) Chronic pleural effusion: Code(s): J90 - Pleural effusion, not elsewhere classified Status: Chronic Assessment and Plan: The patient is currently on her home oxygen of 2.5 L via NC. Chest x-ray looks like the left effusion is worse. We suggested patient have repeat thoracentesis for re-evaluation of fluid L as well as therapeutic thoracentesis but she declined (3) Chronic renal failure, stage 4 (severe): Code(s): N18.4 - Chronic kidney disease, stage 4 (severe) Status: Chronic Assessment and Plan: Creatinine 2.0 stable with her usual stage 4 renal failure (4) HTN (hypertension): Qualifiers: Hypertension type: unspecified Qualified Code(s): I10 - Essential (primary) hypertension Code(s): I10 - Essential (primary) hypertension Status: Chronic Assessment and Plan: BP fair control. Continue amlodipine and diuretics (5) COPD (chronic obstructive pulmonary disease): Qualifiers: COPD type: unspecified COPD Qualified Code(s): J44.9 - Chronic obstructive pulmonary disease, unspecified Code(s): J44.9 - Chronic obstructive pulmonary disease, unspecified Status: Chronic Assessment and Plan: Continue bronchodilators. (6) DM (diabetes mellitus): Qualifiers: Diabetes mellitus type: type 2 Diabetes mellitus termination clerk insulin use: without termination clerk use Diabetes mellitus complication status: without complication Qualified Code(s): E11.9 - Type 2 diabetes mellitus without complications Code(s): E11.9 - Type 2 diabetes mellitus without complications Status: Chronic Assessment and Plan: , SSI Coverage, . Continue Lantus 15 units daily (7) CHF (congestive heart failure): Qualifiers: Heart failure type: unspecified Heart failure chronicity: acute on chronic Qualified Code(s): I50.9 - Heart failure, unspecified Code(s): I50.9 - Heart failure, unspecified Status: Chronic Assessment and Plan: Compensated. Stable combined systolic diastolic heart failure. Echo 05/30 40 -50% EF with grade 1 diastolic dysfunction Not a candidate for GRACE-inhibitor with a renal failure and has had bradycardia in the past so continue diuresing only (8) Bimalleolar fracture of left ankle: Qualifiers: Encounter type: subsequent encounter Fracture type: closed Fracture healing: with routine healing Qualified Code(s): S82.842D - Displaced bimalleolar fracture of left lower leg, subsequent encounter for closed fracture with routine healing Code(s): S82.842A - Displaced bimalleolar fracture of left lower leg, initial encounter for closed fracture Status: Chronic Assessment and Plan: Continue Ortho recommendations nonweightbearing at present time DS: Summary Hospital Course Hospital Course: 74-year-old hypertensive type 2 diabetic with chronic renal failure stage 4 discharge from [facility] on 06/23/20. She was unable to care for herself as we expected after she had refused placement for rehab. She contacted local ambulance service who took her to [facility]. She had a recurrent left pleural effusion although she was not short of breath or hypoxic, was transferred here for observation. Here she refused thorace
== END 2020-06-24 11:58 | disposition home health service (06) ==
PROVIDERS: Admitting Provider Family Medicine; Visit Provider Internal Medicine
DX: R53.1 Weakness (principal); E83.42 Hypomagnesemia; J90 Pleural effusion, not elsewhere classified; J96.10 Chronic respiratory failure, unspecified whether with hypoxia or hypercapnia; I13.0 Hypertensive heart and chronic kidney disease with heart failure and stage 1 through stage 4 chronic kidney disease, or unspecified chronic kidney disease; N18.4 Chronic kidney disease, stage 4 (severe); S82.842D Displaced bimalleolar fracture of left lower leg, subsequent encounter for closed fracture with routine healing; I50.32 Chronic diastolic (congestive) heart failure; K86.1 Other chronic pancreatitis; E11.22 Type 2 diabetes mellitus with diabetic chronic kidney disease; Z99.81 Dependence on supplemental oxygen; E11.40 Type 2 diabetes mellitus with diabetic neuropathy, unspecified; J44.9 Chronic obstructive pulmonary disease, unspecified; H26.9 Unspecified cataract; K21.9 Gastro-esophageal reflux disease without esophagitis; E78.00 Pure hypercholesterolemia, unspecified; E03.9 Hypothyroidism, unspecified; I87.8 Other specified disorders of veins; Z87.891 Personal history of nicotine dependence; Z79.4 Long term (current) use of insulin; E66.01 Morbid (severe) obesity due to excess calories; Z68.41 Body mass index [BMI] 40.0-44.9, adult
CPT/HCPCS: 36415; 71045; 80053; 83735; 85025; 96365; A9270; G0378; G0379; J3475

== ENCOUNTER 2020-07-08 09:18 | Emergency (ER) | payer MEDICARE, OTHER, SELFPAY ==
[2020-07-08] VITALS (40 sets, daily range): BP systolic 118–164; BP diastolic 51–88; PULSE 0–141; RESP 14–29; TEMP 36.7; O2SAT 81–100
--- NOTE | ~2020-07-08 | XR_ITS ---
XR_[id number] DATE: 07/08/2020 16:49 INDICATION: Status post thoracentesis for left pleural effusion TECHNIQUE: Portable AP views of the chest following thoracentesis COMPARISON: 07/08/2020 portable AP chest at 1056 hours FINDINGS: There is complete opacification of left hemithorax with some air bronchograms in the left u pper and lower lobes. No pneumothorax is evident. There is no significant change in appearance of the chest following thoracentesis yielding 750 cc pleural fluid. The right lung remains clear. Mild rightward shift of the heart mediastinum is suggested. Consider CT thorax for further evaluation . IMPRESSION: Continued opacification of the left hemithorax, with evidence of left lung atelectasis an d/or consolidation. Residual pleural fluid is not excluded. Mild rightward shift of heart and mediastinum are suggested. Consider CT thorax for further evaluatio n. Reviewed, dictated and finalized at [facility]. Reviewed, dictated and finalized at location A. DINING ROOM ATTENDANT IMPRESSION: Continued opacification of the left hemithorax, with evidence of le ft lung atelectasis and/or consolidation. Residual pleural fluid is not exclude d. Mild rightward shift of heart and mediastinum are suggested. Consider CT thorax for further evaluation.
--- NOTE | ~2020-07-08 | XR_ITS ---
EXAMINATION: XR chest 1V DATE: 07/08/2020 11:01 INDICATION: Increasing oxygen demand TECHNIQUE: frontal view of the chest was obtained. COMPARISON: Chest radiograph dated 06/24/[address] abdomen and pelvis dated 06/18/2020 FINDINGS: Interval progression of now essentially complete opacification of the left hemithorax likely represen ting increase in size of a left pleural effusion with associated compressive atelectasis. Underlying malignancy or pneumonia in the opacified left lung is not excludable. Right lung remains clear with n o pulmonary edema, pneumothorax or right-sided pleural effusion. Cardiomegaly but appreciated on prio r CT with nearly obscured left heart border due to the adjacent pleural effusion and airspace disease . IMPRESSION: 1. Interval progression of now essentially complete opacification of the left hemithorax consistent w ith enlarging left pleural effusion and associated atelectasis although underlying malignancy or pneu monia is not excludable. Reviewed, dictated and finalized at location A. NE SERVICE TEACHER IMPRESSION: 1. Interval progression of now essentially complete opacification of the left h emithorax consistent with enlarging left pleural effusion and associated atelec tasis although underlying malignancy or pneumonia is not excludable.
--- NOTE | ~2020-07-08 | US_ITS ---
US thoracentesis DATE: 07/08/2020 16:53 INDICATION: Left pleural effusion TECHNIQUE: The purpose of the procedure, technique and potential complications were discussed with th e patient. The patient indicated understanding and gave consent. Real-time imaging reveals the presence of pleural fluid. An appropriate site for intracostal access w as identified in the posterolateral lower left chest. The skin was prepared with sterile Betadine. St erile drape was applied. 1% lidocaine local anesthetic was administered. A single stick needle/cathet er was introduced into the pleural space with ultrasound guidance. The catheter was advanced over the needle once fluid is noted at the hub of the needle. 900 cc of dark yellow clear fluid was drained u neventfully. The patient was very cooperative and tolerated the procedure well, without apparent complication. A chest radiograph was obtained following the procedure. COMPARISON: 07/08/2020 bilateral AP chest IMPRESSION: Sonographically guided percutaneous thoracentesis healing 900 cc of clear dark yellow ple ural fluid Reviewed, dictated and finalized at [facility]. Reviewed, dictated and finalized at location A. CAN FOOD MACHINE TENDER IMPRESSION: Sonographically guided percutaneous thoracentesis healing 900 cc of clear dark yellow pleural fluid
[2020-07-08 10:10] LABS: Basophils Absolute Auto 0.1 K/mm3 (0.0-0.1); Basophils Percent Auto 0.6 % (0.2-1.2); Eosinophils Absolute Auto 0.4 K/mm3 (0-0.3); Eosinophils Percent Auto 4.3 % (0-4.4); Hematocrit 31.5 % (37.0-47.0); Hemoglobin 9.3 g/dL (12.0-15.0); Immature Granulocyte Absolute 0.11 K/mm3 (0.00-0.031); Immature Granulocyte Percent A 1.3 % (0-0.5); Lymphocytes Percent Auto 5.8 % (18.3-44.2); Mean Corpuscular HGB Conc 29.5 g/dl (32-36); Mean Corpuscular Hemoglobin 24.5 pg (26-34); Mean Corpuscular Volume 82.9 fl (80-100); Mean Platelet Volume 9.4 fl (7.4-10.4); Monocytes Absolute Auto 0.4 K/mm3 (0.1-0.6); Neutrophils Absolute Auto 7.1 K/mm3 (1.3-6.7); Platelet Count Result 182 k/mm3 (150-375); Red Cell Distribution Width 15.6 % (11.5-14.5); White Blood Count 8.6 K/mm3 (4.5-10.0)
[2020-07-08 10:15] LABS: Platelet Estimate Adequate (Adequate)
[2020-07-08 10:16] LABS: Hypochromasia 1+ (NORMAL)
[2020-07-08 10:22] LABS: Alanine Aminotransferase 13 U/L (4-35); Albumin Level 3.6 g/dL (3.5-5.1); Alkaline Phosphatase 84 U/L (38-126); Aspartate Amino Transferase 20 U/L (14-36); Bilirubin,Total 0.4 mg/dL (0.2-1.3); Blood Urea Nitrogen 34 mg/dL (7-17); Calcium 8.4 mg/dL (8.4-10.2); Carbon Dioxide > 40 mmol/L (22-30); Chloride 89 mmol/L (98-107); Estimated CRCL calculation 28 ml/min; Estimated Glomerular Filt Rate 26; Glucose 249 mg/dL (65-105); Lipase 52 U/L (23-300); Potassium 3.9 mmol/L (3.4-5.0); Sodium 135 mmol/L (137-145)
--- NOTE | 2020-07-08 10:24 | ED.GENADULT ---
HPI - General Adult General Chief complaint: Nausea/Vomiting/Diarrhea <Lizbet Dhillon PA-C - Last Filed: 07/08/20 18:54> Stated complaint: nausea/sob <Lizbet Dhillon PA-C - Last Filed: 07/08/20 18:54> Time Seen by Provider: 07/08/20 10:04 <FERN Mobley Last Filed: 07/08/20 18:54> Source: patient <FERN Mobley Last Filed: 07/08/20 18:54> Mode of arrival: EMS <FERN Mobley Last Filed: 07/08/20 18:54> Limitations: no limitations <FERN Mobley Last Filed: 07/08/20 18:54> History of Present Illness HPI narrative: Patient was brought in from rehab center by EMS with complaint of nausea and diarrhea. When I approach the patient to obtain history the first thing she said to me is I want to go home, I just need to be admitted overnight to arrange home care . I had some difficulty obtaining exactly what her chief complaint was, finally she stated that she has had some nausea. She states she is on 2.5 L oxygen routinely, she was on 4 L when I entered the room so I decreased that to baseline to follow. She also is complaining that she feels like she is more full through the abdomen. <Lizbet Dhillon PA-C - Last Filed: 07/08/20 18:54> Onset (ago): day(s) <FERN Mobley Last Filed: 07/08/20 18:54> Pain Consistency: constant <FERN Mobley Last Filed: 07/08/20 18:54> Treatments prior to arrival: NSAID <FERN Mobley Last Filed: 07/08/20 18:54> Related Data Home medications: Home Medications Medication Instructions Recorded Confirmed amlodipine 5 mg PO DAILY 05/07/20 06/24/20 ipratropium bromide 0.5 mg INHALATION Q4H PRN 05/26/20 06/24/20 metolazone 5 mg PO DAILY 05/26/20 06/24/20 <Lizbet Dhillon PA-C - Last Filed: 07/08/20 18:54> Allergies/adverse reactions: Allergies Allergy/AdvReac Type Severity Reaction Status Date / Time ezetimibe Allergy Severe PANCREATITI Verified 07/08/20 09:32 S hydromorphone Allergy Severe throat Verified 07/08/20 09:32 swelling nitrofurantoin Allergy Severe tounge Verified 07/08/20 09:32 [From Macrobid] swollen, nasusea, vomiting, diarrhea, silver Allergy Intermediate Unknown Verified 07/08/20 09:32 aspirin Allergy Unknown Unknown Verified 07/08/20 09:32 bumetanide Allergy Unknown Unknown Verified 07/08/20 09:32 cefuroxime Allergy Unknown Unknown Verified 07/08/20 09:32 ciprofloxacin Allergy Unknown Unknown Verified 07/08/20 09:32 codeine Allergy Unknown Unknown Verified 07/08/20 09:32 egg Allergy Unknown Unknown Verified 07/08/20 09:32 erythromycin base Allergy Unknown RASH Verified 07/08/20 09:32 Iodinated Contrast Media Allergy Unknown Rash Verified 07/08/20 09:32 ketorolac Allergy Unknown Unknown Verified 07/08/20 09:32 metronidazole Allergy Unknown Unknown Verified 07/08/20 09:32 nitroglycerin Allergy Unknown Unknown Verified 07/08/20 09:32 peanut Allergy Unknown RASH Verified 07/08/20 09:32 Penicillins Allergy Unknown RASH Verified 07/08/20 09:32 propoxyphene Allergy Unknown Unknown Verified 07/08/20 09:32 Sulfa (Sulfonamide Allergy Unknown Unknown Verified 07/08/20 09:32 Antibiotics) tetracycline Allergy Unknown RASH Verified 07/08/20 09:32 tree nut Allergy Unknown Unknown Verified 07/08/20 09:32 huber Allergy Hives Verified 07/08/20 09:32 <Lizbet Dhillon PA-C - Last Filed: 07/08/20 18:54> Review of Systems Review of Systems: All systems reviewed & are unremarkable except as noted in HPI and below <Lizbet Dhillon PA-C - Last Filed: 07/08/20 18:54> PMFSH Past Medical History Medical History: Medical History Asthma Bronchitis Cataracts, bilateral CHF (congestive heart failure) 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
[2020-07-08 10:43] LABS: Add Urine Microscopic? YES; Appearance Urine Cloudy (Clear); Bacteria Urine 2+ /hpf; Bilirubin Urine Negative (Negative); Blood Urine Negative (Negative); Color Urine Yellow (Yellow); Glucose Urine UA Negative (Negative); Ketones Urine Negative (Negative); Leukocyte Esterase Ur 3+ LEU/UL (Negative); Mucus Urine Rare /lpf; Nitrate Urine Negative (Negative); Protein Urine 2+ mg/dL (Negative); RBC Urine 0-2 /hpf (0-2); Specific Grav Ur 1.013 (1.001-1.035); Squamous Epithelial Cell Urine Rare /hpf (Few); Urobilinogen Urine Negative mg/dL (<2.0); WBC Clumps Urine Present /HPF; WBC Urine 51-75 /hpf
[2020-07-08] MEDS: SODIUM CHLORIDE 0.9% IV 500 ML 999 ML IV CONT (11:11)
--- NOTE | 2020-07-08 12:37 | ECG_ITS ---
Measurements Intervals [place] Rate: 75 P: 69 HI: 176 QRS: 193 QRSD: 120 T: 30 QT: 387 QTc: 433 Interpretive Statements SINUS RHYTHM VENTRICULAR PREMATURE COMPLEX RIGHT AXIS DEVIATION RIGHT BUNDLE BRANCH BLOCK LOW VOLTAGE- PRECORDIAL LEADS BASELINE ARTIFACT- I, II, V4 ABNORMAL ECG Electronically Signed On 07-08-2020 14:54:27 CENTER MEDICAL AND LAB DIRECTOR by Larry Palumbo D.O.
--- NOTE | 2020-07-08 13:56 | PCCCNOTE ---
Care Coordination was called to talk with pt about her not wanting to return to [facility] when discharged from the ED later today after her procedure. Explained that we could not find her another facility today due to being Thursday and administrative staff not being available to accept pts. Pt states she will go home. Pt is unable to walk and care for herself. at bedside states he can not take care of her due to his physical health. Gave pt list of private care givers and home health agencies and told her that her PCP would need to order home health if she went home. Encouraged pt to return to [facility] and call other nursing homes tomorrow for availability.
[2020-07-08] MEDS: CEPHALEXIN 500 MG CAPSULE PO (13:58)
[2020-07-08 14:09] LABS: Glucose Point of Care 214 (65-105)
[2020-07-08] MEDS: ONDANSETRON INJ 4 MG/2 ML VIAL IV PUSH (14:16)
[2020-07-08 15:42] LABS: INR 1.1; Prothrombin Time 14.7 Seconds (11.1-14.7)
[2020-07-08 15:43] LABS: Partial Thromboplastin Time 31.4 SECONDS (22.3-36.8)
--- NOTE | 2020-07-08 16:20 | PC.NURSE ---
to ultrasound for procedure
--- NOTE | 2020-07-08 16:59 | PC.NURSE ---
back from procedure. stable. bandaid d/i lt outer chest wall. repositioned per request
--- NOTE | 2020-07-08 18:32 | PC.NURSE ---
called [facility] to transfer patient to [facility]. company declined. contacted [facility] they stated they have a rig on the way
== END 2020-07-08 19:30 ==
PROVIDERS: Emergency Provider General Practice
DX: I50.9 Heart failure, unspecified (principal); N39.0 Urinary tract infection, site not specified; I49.3 Ventricular premature depolarization; I45.10 Unspecified right bundle-branch block; R94.31 Abnormal electrocardiogram [ECG] [EKG]; E11.42 Type 2 diabetes mellitus with diabetic polyneuropathy; J43.9 Emphysema, unspecified; K21.9 Gastro-esophageal reflux disease without esophagitis; I10 Essential (primary) hypertension; Z85.41 Personal history of malignant neoplasm of cervix uteri; E78.00 Pure hypercholesterolemia, unspecified; E03.9 Hypothyroidism, unspecified; Z87.891 Personal history of nicotine dependence
CPT/HCPCS: 32555; 36415; 51701; 71045; 80053; 81001; 82948; 83690; 85025; 85610; 85730; 87086; 87088; 93005; 96365; 96375; 99284; A9270; J0131; J2405; J7040

== ENCOUNTER 2020-07-13 21:48 | Emergency (ER) | payer MEDICARE, OTHER, SELFPAY ==
[2020-07-13] VITALS (11 sets, daily range): BP systolic 150–165; BP diastolic 62–67; PULSE 73–83; RESP 16–28; TEMP 36.3; O2SAT 90–100
--- NOTE | ~2020-07-13 | XR_ITS ---
XR chest 1V portable 07/13/2020 22:13 Indication: Shortness of breath. History of CHF. Hypertension. Procedure: AP portable chest Comparison: Comparison to multiple prior studies sequentially, with oldest reviewed study dated 06/17. Findings: There is complete opacification of the left hemithorax without significant change. There is mild interstitial edema the right lung. No right pleural effusion. No pneumothorax. No acute osseous abnormality. Impression: 1: Mild interstitial edema of the right lung. 2: Persistent complete consolidation/opacification left lung. Reviewed, dictated and finalized at location A. [employer] Impression: 1: Mild interstitial edema of the right lung. 2: Persistent complete consolidation/opacification left lung.
--- NOTE | 2020-07-13 21:59 | ED.SOB ---
HPI - SOB/Dyspnea General Chief Complaint: Shortness of Breath/Dyspnea Stated Complaint: sob History of Present Illness HPI Narrative: Patient is a 75-year-old female who presents the ER from her longterm with concerns for shortness of breath. Patient apparently had an oxygen saturation of 50% for the longterm. When EMS arrived she was satting 94%. She is chronically O2 dependent. On 07/08/2020 patient had a thoracentesis while in the ER and was discharged back to the longterm. At that time she is wearing 3 L nasal cannula. Patient reports that she will be discharged home in 2 days from her longterm and will have [facility] just home health. Patient reports she is not feeling particularly short of breath at this time. She is not having any infectious symptoms. Patient has known large pleural effusions. Discussed that if she needed a thoracentesis would probably be best to go back to [facility] where she had been seen previously as she continues to have recurrence of these effusions and would likely benefit from having a drain. Patient reports she would not want this procedure performed at all. Related Data Home Medications Medication Instructions Recorded Confirmed amlodipine 5 mg PO DAILY 05/07/20 06/24/20 ipratropium bromide 0.5 mg INHALATION Q4H PRN 05/26/20 06/24/20 metolazone 5 mg PO DAILY 05/26/20 06/24/20 Allergies Allergy/AdvReac Type Severity Reaction Status Date / Time ezetimibe Allergy Severe PANCREATITI Verified 07/13/20 22:12 S hydromorphone Allergy Severe throat Verified 07/13/20 22:12 swelling nitrofurantoin Allergy Severe tounge Verified 07/13/20 22:12 [From Macrobid] swollen, nasusea, vomiting, diarrhea, silver Allergy Intermediate Unknown Verified 07/13/20 22:12 aspirin Allergy Unknown Unknown Verified 07/13/20 22:12 bumetanide Allergy Unknown Unknown Verified 07/13/20 22:12 cefuroxime Allergy Unknown Unknown Verified 07/13/20 22:12 ciprofloxacin Allergy Unknown Unknown Verified 07/13/20 22:12 codeine Allergy Unknown Unknown Verified 07/13/20 22:12 egg Allergy Unknown Unknown Verified 07/13/20 22:12 erythromycin base Allergy Unknown RASH Verified 07/13/20 22:12 Iodinated Contrast Media Allergy Unknown Rash Verified 07/13/20 22:12 ketorolac Allergy Unknown Unknown Verified 07/13/20 22:12 metronidazole Allergy Unknown Unknown Verified 07/13/20 22:12 nitroglycerin Allergy Unknown Unknown Verified 07/13/20 22:12 peanut Allergy Unknown RASH Verified 07/13/20 22:12 Penicillins Allergy Unknown RASH Verified 07/13/20 22:12 propoxyphene Allergy Unknown Unknown Verified 07/13/20 22:12 Sulfa (Sulfonamide Allergy Unknown Unknown Verified 07/13/20 22:12 Antibiotics) tetracycline Allergy Unknown RASH Verified 07/13/20 22:12 tree nut Allergy Unknown Unknown Verified 07/13/20 22:12 huber Allergy Hives Verified 07/13/20 22:12 Review of Systems Review of Systems: All systems reviewed & are unremarkable except as noted in HPI and below Constitutional: Constitutional: Denies chills, Denies fever(s) and Denies weakness ENT: Denies nasal congestion and Denies sore throat Cardiovascular: Cardiovascular: Denies chest pain, Denies rapid heart rate and Denies radiating jaw, neck or arm pain Respiratory: Respiratory: Denies cough, Reports dyspnea (Chronic dyspnea) and Denies wheezing Gastrointestinal: Gastrointestinal: Denies abdominal pain, Denies diarrhea, Denies nausea and Denies vomiting Musculoskeletal: Musculoskeletal: Denies back pain PMFSH Past Medical History Medical History Asthma Bronchitis Cataracts, bilateral CHF (congestive heart failure) 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
--- NOTE | 2020-07-13 22:11 | ECG_ITS ---
Measurements Intervals [place] Rate: 79 P: 77 MA: 172 QRS: 187 QRSD: 129 T: -4 QT: 389 QTc: 447 Interpretive Statements SINUS RHYTHM RIGHT BUNDLE BRANCH BLOCK LEFT POSTERIOR FASCICULAR BLOCK LOW VOLTAGE- PRECORDIAL LEADS BASELINE ARTIFACT- I, III, AVR, AVL, V1-V6 ABNORMAL ECG Electronically Signed On 07-14-2020 8:01:17 [employer]BILE DEVELOPER by Larry Palumbo D.O.
[2020-07-13 22:18] LABS: Alveolar/Arterial O2 Gradient 120.2 mmHg; Base Excess ABG 17.2 mEq/l (+/-2.0); Carboxyhemoglobin 0.4 % THb (0-2.0); Fractional Inspired Oxygen 36 %; HCO3 ABG 44.3 mEq/l (22.0-26.0); Methemoglobin ABG 0.1 %THb (0-1.5); Oxygen Content ABG 13.1 %vol (16.0-22.0); Oxygen Saturation ABG 89.6 % (95.0-100.0); Oxyhemoglobin 89.3 % THb (90.0-100.0); PO2 ABG 57.7 mmHg (80.0-100.0); Reduced Hemoglobin 10.2 %THb (0-5.0); Total Hemoglobin 10.4 g/dL (12.0-18.0); pH ABG 7.432 (7.350-7.450)
[2020-07-13 22:19] LABS: PCO2 ABG 67.9 mmHg (35.0-45.0)
[2020-07-13 22:20] LABS: Basophils Percent Auto 0.5 % (0.2-1.2); Eosinophils Absolute Auto 0.3 K/mm3 (0-0.3); Hematocrit 32.6 % (37.0-47.0); Hemoglobin 9.4 g/dL (12.0-15.0); Immature Granulocyte Absolute 0.17 K/mm3 (0.00-0.031); Immature Granulocyte Percent A 2.1 % (0-0.5); Lymphocytes Absolute Auto 0.52 K/mm3 (0.9-3.2); Lymphocytes Percent Auto 6.5 % (18.3-44.2); Mean Corpuscular HGB Conc 28.8 g/dl (32-36); Mean Corpuscular Hemoglobin 23.9 pg (26-34); Mean Platelet Volume 9.1 fl (7.4-10.4); Monocytes Absolute Auto 0.4 K/mm3 (0.1-0.6); Neutrophils Absolute Auto 6.6 K/mm3 (1.3-6.7); Neutrophils Percent Auto 81.9 % (45.5-73.1); Platelet Count Result 187 k/mm3 (150-375); Red Blood Count 3.93 M/mm3 (4.2-5.4); Red Cell Distribution Width 15.2 % (11.5-14.5)
[2020-07-13 22:21] LABS: Device NASAL CANNULA; Modified Allen's Test Pass; Site Drawn RIGHT RADIAL
[2020-07-13 22:47] LABS: Platelet Estimate Adequate (Adequate)
[2020-07-13 22:48] LABS: Anisocytosis 2+ (NORMAL); Blood Urea Nitrogen 36 mg/dL (7-17); Calcium 8.2 mg/dL (8.4-10.2); Carbon Dioxide > 40 mmol/L (22-30); Chloride 90 mmol/L (98-107); Estimated CRCL calculation 28 ml/min; Estimated Glomerular Filt Rate 29; Glucose 261 mg/dL (65-105); Hypochromasia 1+ (NORMAL); Potassium 4.1 mmol/L (3.4-5.0); Sodium 138 mmol/L (137-145)
[2020-07-13] MEDS: FUROSEMIDE INJ 40 MG/4 ML VIAL 20 MG IV PUSH (23:32)
[2020-07-14 00:20] VITALS: BP 155/72; PULSE 79; RESP 19; O2SAT 95
== END 2020-07-14 00:23 ==
PROVIDERS: Emergency Provider Emergency Medicine
DX: J90 Pleural effusion, not elsewhere classified (principal); I50.9 Heart failure, unspecified; E11.42 Type 2 diabetes mellitus with diabetic polyneuropathy; K21.9 Gastro-esophageal reflux disease without esophagitis; J43.9 Emphysema, unspecified; I11.0 Hypertensive heart disease with heart failure; Z85.41 Personal history of malignant neoplasm of cervix uteri; E78.00 Pure hypercholesterolemia, unspecified; Z99.81 Dependence on supplemental oxygen; Z87.891 Personal history of nicotine dependence
CPT/HCPCS: 36415; 36600; 71045; 80048; 82375; 82805; 83050; 85025; 93005; 96374; 99284; J1940

== ENCOUNTER 2020-08-29 11:22 | Inpatient (IN) | payer MEDICARE, OTHER, SELFPAY ==
[2020-08-29] VITALS (7 sets, daily range): BP systolic 147–171; BP diastolic 46–74; PULSE 67–74; RESP 16–20; TEMP 35.9–36.9; O2SAT 98–100
--- NOTE | ~2020-08-29 | CT_ITS ---
EXAMINATION: CT abdomen pelvis wo con DATE: 08/29/2020 12:07 INDICATION: Diffuse abdominal pain. TECHNIQUE: Computed tomography (CT) of the abdomen and pelvis was performed without intravenous contr ast. The dose-length product was 1428.88 mGy-cm. Automated exposure control and iterative reconstruct ion technique were employed. COMPARISON: CT dated 06/18/2020. FINDINGS: Small left pleural effusion. Cardiomegaly. Left basilar atelectasis/scarring. There is athe rosclerosis of the aorta and coronary arteries. Extensive vascular calcification is seen in the abdom en and pelvis. There are bilateral renal arterial calcifications. No definite renal/ureteral stones. Bladder is jenifer rely distended. There is a fat-containing umbilical hernia. Nonobstructive bowel gas pattern. No free air or free fluid. Moderate colonic fecal loading. Colonic diverticulosis without evidence for acute diverticulitis. No lymphadenopathy. 2.6 cm left adrenal zain noma measuring -4 Hounsfield units. Moderate osteoarthritis of the hips. Generalized demineralization is noted. Mild lumbar spondylosis. IMPRESSION: 1. Severely distended bladder. 2: Left basilar atelectasis/scarring with small left effusion. 3: Cardiomegaly. Reviewed, dictated and finalized at location A.
--- NOTE | ~2020-08-29 | XR_ITS ---
EXAMINATION: XR lumbar spine 2-3V DATE: 09/02/2020 11:16 INDICATION: Back pain after fall TECHNIQUE: Anteroposterior and lateral views of the lumbar spine, and cone-down lateral view of the l umbosacral junction were obtained. COMPARISON: CT, 08/29/2020 FINDINGS: There is no fracture. Bone alignment is normal. The vertebral body heights are maintained. There is mild loss of intervertebral disc space height throughout the lumbar spine. Severe facet oste oarthritis is noted in the lower lumbar spine. There is calcified atherosclerosis of the aorta and ma ny of the other arteries. Phleboliths are noted in the pelvis. IMPRESSION: 1. Moderate lumbar spondylosis without acute findings or significant interval change. Reviewed, dictated and finalized at location A. IMPRESSION: 1. Moderate lumbar spondylosis without acute findings or significant interval chago flannery
--- NOTE | 2020-08-29 11:54 | ED.GENADULT ---
HPI - General Adult General Chief complaint: Abdominal Pain Stated complaint: ABD PAIN/BACK PAIN Source: patient, family, EMS and RN notes reviewed Mode of arrival: EMS Limitations: no limitations History of Present Illness HPI narrative: Patient is 75 years old white female brought to the emergency room by the ambulance with her complaining of exacerbation of chronic back pain secondary to spinal stenosis for the last 20 years. Also complaining of diffuse abdominal pain. Patient got discharged from [facility] 2 days ago because of the same symptoms. Was hospitalized for 2 weeks for physical therapy without improvement.. Patient denies any fever, chills, vomiting, diarrhea, constipation, urinary symptoms, chest pain or shortness of breath. Patient declined the possibility of rehabilitation or chcf placement. Patient also have left ankle fracture May 2020 and still wearing the boot. Patient's is weak and unable to take care of her. Patient takes Tylenol for pain management because she is allergic to a lot of medications. Related Data Home Medications Medication Instructions Recorded Confirmed amlodipine 5 mg PO DAILY 05/07/20 06/24/20 ipratropium bromide 0.5 mg INHALATION Q4H PRN 05/26/20 06/24/20 metolazone 5 mg PO DAILY 05/26/20 06/24/20 Allergies Allergy/AdvReac Type Severity Reaction Status Date / Time ezetimibe Allergy Severe PANCREATITI Verified 08/29/20 11:59 S hydromorphone Allergy Severe throat Verified 08/29/20 11:59 swelling nitrofurantoin Allergy Severe tounge Verified 08/29/20 11:59 [From Macrobid] swollen, nasusea, vomiting, diarrhea, silver Allergy Intermediate Unknown Verified 08/29/20 11:59 aspirin Allergy Unknown Unknown Verified 08/29/20 11:59 bumetanide Allergy Unknown Unknown Verified 08/29/20 11:59 cefuroxime Allergy Unknown Unknown Verified 08/29/20 11:59 ciprofloxacin Allergy Unknown Unknown Verified 08/29/20 11:59 codeine Allergy Unknown Unknown Verified 08/29/20 11:59 egg Allergy Unknown Unknown Verified 08/29/20 11:59 erythromycin base Allergy Unknown RASH Verified 08/29/20 11:59 Iodinated Contrast Media Allergy Unknown Rash Verified 08/29/20 11:59 ketorolac Allergy Unknown Unknown Verified 08/29/20 11:59 metronidazole Allergy Unknown Unknown Verified 08/29/20 11:59 nitroglycerin Allergy Unknown Unknown Verified 08/29/20 11:59 peanut Allergy Unknown RASH Verified 08/29/20 11:59 Penicillins Allergy Unknown RASH Verified 08/29/20 11:59 propoxyphene Allergy Unknown Unknown Verified 08/29/20 11:59 Sulfa (Sulfonamide Allergy Unknown Unknown Verified 08/29/20 11:59 Antibiotics) tetracycline Allergy Unknown RASH Verified 08/29/20 11:59 tree nut Allergy Unknown Unknown Verified 08/29/20 11:59 huber Allergy Hives Verified 08/29/20 11:59 Review of Systems Review of Systems: Narrative: CONSTITUTIONAL: Denies fever, chills, or sweats. EYES: Denies visual changes, redness, or discharge. ENT: Denies rhinorrhea, congestion, sore throat, or otalgia. CARDIOVASCULAR: Denies chest pain, palpitations, or edema. RESPIRATORY: Denies cough or dyspnea. GASTROINTESTINAL: Diffuse abdominal pain GENITOURINARY: Denies dysuria or hematuria. SKIN: Denies rash or itching. MUSCULOSKELETAL: Denies back pain, joint pain, or myalgia. NEUROLOGIC: Denies headache, numbness, or weakness. PSYCHIATRIC: Denies anxiety or depression. [facility] Past Medical History Medical History Asthma Bronchitis Cataracts, bilateral CHF (congestive heart failure) 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n) History of angina History of pneumonia HTN (hypertension) with goal to be determined Hx of cervical canc
[2020-08-29] MEDS: hydrOXYzine HCl 50 MG/ML VIAL IM (12:28)
[2020-08-29] MEDS: ONDANSETRON INJ 4 MG/2 ML VIAL IV PUSH (12:30)
[2020-08-29 12:31] LABS: Basophils Percent Auto 0.3 % (0.2-1.2); Eosinophils Absolute Auto 0.4 K/mm3 (0-0.3); Eosinophils Percent Auto 2.8 % (0-4.4); Hematocrit 30.6 % (37.0-47.0); Hemoglobin 9.2 g/dL (12.0-15.0); Immature Granulocyte Absolute 0.13 K/mm3 (0.00-0.031); Lymphocytes Absolute Auto 0.56 K/mm3 (0.9-3.2); Lymphocytes Percent Auto 4.3 % (18.3-44.2); Mean Corpuscular HGB Conc 30.1 g/dl (32-36); Mean Corpuscular Hemoglobin 24.7 pg (26-34); Mean Corpuscular Volume 82.3 fl (80-100); Mean Platelet Volume 8.8 fl (7.4-10.4); Monocytes Absolute Auto 0.5 K/mm3 (0.1-0.6); Monocytes Percent Auto 4.2 % (2.6-8.5); Neutrophils Absolute Auto 11.3 K/mm3 (1.3-6.7); Neutrophils Percent Auto 87.4 % (45.5-73.1); Platelet Count Result 175 k/mm3 (150-375); Red Blood Count 3.72 M/mm3 (4.2-5.4); White Blood Count 12.9 K/mm3 (4.5-10.0)
[2020-08-29] MEDS: SODIUM CHLORIDE 0.9% IV 1,000 ML 999 ML IV CONT (12:32)
[2020-08-29 12:36] LABS: Add Urine Microscopic? YES; Appearance Urine Cloudy (Clear); Bacteria Urine 3+ /hpf; Bilirubin Urine Negative (Negative); Blood Urine Negative (Negative); Color Urine Yellow (Yellow); Glucose Urine UA 2+ mg/dL (Negative); Ketones Urine Negative (Negative); Leukocyte Esterase Ur 3+ LEU/UL (Negative); Nitrate Urine Positive (Negative); Protein Urine 2+ mg/dL (Negative); RBC Urine 0-2 /hpf (0-2); Specific Grav Ur 1.015 (1.001-1.035); Squamous Epithelial Cell Urine Few /hpf (Few); Urobilinogen Urine Negative mg/dL (<2.0); WBC Urine 51-75 /hpf
[2020-08-29 12:37] LABS: Platelet Estimate Adequate (Adequate)
[2020-08-29 12:38] LABS: Ovalocytes 1+ (NORMAL); Stomatocytes 1+ (NORMAL)
[2020-08-29 12:43] LABS: Alanine Aminotransferase 32 U/L (4-35); Albumin Level 3.7 g/dL (3.5-5.1); Alkaline Phosphatase 56 U/L (38-126); Anion Gap 4 mmol/L (8-16); Aspartate Amino Transferase 24 U/L (14-36); Bilirubin,Total 0.4 mg/dL (0.2-1.3); Blood Urea Nitrogen 87 mg/dL (7-17); Calcium 8.7 mg/dL (8.4-10.2); Carbon Dioxide 34 mmol/L (22-30); Chloride 98 mmol/L (98-107); Estimated CRCL calculation 34 ml/min; Estimated Glomerular Filt Rate 34; Glucose 168 mg/dL (65-105); Lipase 267 U/L (23-300); Potassium 4.4 mmol/L (3.4-5.0); Sodium 136 mmol/L (137-145)
--- NOTE | 2020-08-29 15:38 | PCCCNOTE ---
Patient expressed an interest in a hospital bed at home. Information provided. Information also provided for a [id number]-Robmu that patient is interested in purchasing for herself. described the difficulty they are having with the Teodora lift that they have at home and they feel the sling is too small. Encouraged him to contactthe provider and request the sling to be evaluated.
--- NOTE | 2020-08-29 16:45 | ADMGEN ---
This patient, Codie Crowder, was admitted to 2 Medical Room 240-01. Patient/family oriented to hospital policies and general routines including ID bracelet, bed and alarms, visiting hours, pain management, procedures, bathroom and other care routines, personal items, smoking policy, room service/diet, and visiting hours. Information on how to activate the Rapid Response Team has been discussed. Patient/Family are encouraged to report perceived risks to care and to ask questions if they do not understand what they are told or what they should do.
[2020-08-29] MEDS: SODIUM CHLORIDE 0.9% IV 1,000 ML 125 ML IV CONT (17:19)
--- NOTE | 2020-08-29 22:30 | PM.IMHP ---
H&P: HPI History of Present Illness Date/Time: 08/29/20 22:00 Chief Complaint: Abdominal and back pain. Narrative: This is a 75-year-old female with multiple medical problems including chronic respiratory failure, obstructive sleep apnea, obesity hypoventilation syndrome, COPD, pulmonary hypertension, hypertension, congestive heart failure, diabetes, hypothyroidism, and several other comorbidities who presented to the emergency department earlier today with complaints of abdominal and back pain. She is quite somnolent at the time my evaluation and she cannot provide me with any significant history and as such a majority of the following is obtained via a review of his electronic medical records. Codie is known to the hospitalist service with many admissions over the years and it is noted that she has been hospitalized at several other hospitals in this region recently as well. In fact she was discharged from [facility] in [place] just 2 days ago, where apparently she was admitted for both abdominal and back pain. She has spinal stenosis and has suffered from chronic pain for about 20 years, but it does not sound as though she has ever had an MRI for that or she has continued to refuse an MRI. Tylenol does not provide her with any significant relief but unfortunately she is allergic to most other pain medications. She has been bed-bound since May 2020 after fracturing her left ankle and home health has been following her. Her significant other has been caring for her at home and he feels that he is too weak and elderly to take care of her any longer. When her home health nurse arrived today, the patient was reportedly ?screaming in pain in reporting that she needed to come to the hospital.? On arrival to the emergency department she was complaining of severe 10/10 pain although could not provide much specifics. A CT of the abdomen and pelvis showed a severely distended bladder but no other acute findings. A Angeles catheter has since been inserted and there are 300 cubic centimeters of clear yellow urine in the bag at the time of my evaluation. She has had intermittent issues with urinary retention but denies bladder and bowel incontinence. She also denies numbness in the legs and saddle anesthesia. She is not currently having any abdominal discomfort. She was nauseated when her pain was bad this morning but that has since improved. No vomiting. She also denies fever, chills, sweats, chest pain, shortness of breath, and dysuria. Review of Systems Review of Systems: Narrative: Twelve systems were attempted but are limited as the patient is quite somnolent. Except as documented all other systems were negative. [facility] Past Medical History Medical History (Updated 08/29/20 @ 23:25 by Kelsea Leon PA-C) Adenoma of left adrenal gland Anxiety Chronic anemia Chronic back pain Chronic kidney disease Stage 3 to 4 with average GFR in the high 20s to low 30s. Baseline creatinine appears to range between 1.7 and 2.0. Chronic obstructive pulmonary disease Chronic pancreatitis Chronic respiratory failure with hypoxia, on home oxygen therapy Congestive heart failure Echocardiogram in 05/2020 showed mild to moderately increased LV wall thickness, at least mild LV dysfunction with an EF of 40 to 50%, diastolic dysfunction grade 1, severely enlarged RV chamber, and reduced RV systolic function. Diabetic peripheral neuropathy Diverticulosis With history of diverticulitis. Gastroesophageal reflux disease History of cervical cancer Status post partial hysterectomy in the 1980s. History of deep vein thrombosis History of peptic ulcer History of pneumonia Hypercholesteremia Hypertension Hypothyroidism Insulin dependent type 2 diabetes mellitus Hemoglobin A1c was 7.0% in 05/2020. Morbid obesity Obesity hypoventilation syndrome Obstructive sleep apnea Spinal stenosis Venous stasis dermatitis of both lower extremities Surgical History
[2020-08-29 23:46] LABS: Glucose Point of Care 175 (65-105)
[2020-08-30] MEDS: ISOSORBIDE DINITRATE 10 MG TABLET PO ×3 (00:17→17:39)
[2020-08-30] MEDS: TOLNAFTATE 1% POWDER 45 GM BTL 1 APPLIC TOPICAL ×3 (00:19→21:09)
--- NOTE | 2020-08-30 02:01 | PCRCNOTE ---
patient refused abg; provider was notified
[2020-08-30 05:23] LABS: Hematocrit 25.4 % (37.0-47.0); Hemoglobin 7.7 g/dL (12.0-15.0); Mean Corpuscular HGB Conc 30.3 g/dl (32-36); Mean Corpuscular Hemoglobin 25.3 pg (26-34); Mean Corpuscular Volume 83.6 fl (80-100); Mean Platelet Volume 9.4 fl (7.4-10.4); Platelet Count Result 146 k/mm3 (150-375); Red Blood Count 3.04 M/mm3 (4.2-5.4); Red Cell Distribution Width 17.1 % (11.5-14.5); White Blood Count 9.5 K/mm3 (4.5-10.0)
[2020-08-30 05:46] LABS: Ammonia < 9 umol/L (9-30)
[2020-08-30 05:55] VITALS: BP 148/44; PULSE 65; RESP 16; TEMP 36; O2SAT 98
[2020-08-30 06:01] LABS: Alanine Aminotransferase 24 U/L (4-35); Albumin Level 2.9 g/dL (3.5-5.1); Alkaline Phosphatase 45 U/L (38-126); Anion Gap 2 mmol/L (8-16); Aspartate Amino Transferase 21 U/L (14-36); Bilirubin,Total 0.2 mg/dL (0.2-1.3); Blood Urea Nitrogen 76 mg/dL (7-17); Calcium 7.9 mg/dL (8.4-10.2); Carbon Dioxide 34 mmol/L (22-30); Chloride 100 mmol/L (98-107); Estimated CRCL calculation 32 ml/min; Estimated Glomerular Filt Rate 31; Glucose 149 mg/dL (65-105); Magnesium 1.9 mg/dL (1.6-2.3); Potassium 4.5 mmol/L (3.4-5.0); Sodium 136 mmol/L (137-145)
[2020-08-30] MEDS: metOLazone 5 MG TABLET PO (08:13)
[2020-08-30] MEDS: FUROSEMIDE 40 MG TABLET PO ×2 (08:13→17:39)
[2020-08-30] MEDS: amLODIPine BESYLATE 5 MG TABLET PO (08:13)
[2020-08-30 08:29] LABS: Glucose Point of Care 150 (65-105)
[2020-08-30 09:35] VITALS: O2SAT 97
[2020-08-30] MEDS: INSULIN ASPART (*BKC) 100 UNITS/ML SUB-Q (12:20)
[2020-08-30 12:31] LABS: Glucose Point of Care 279 (65-105)
[2020-08-30 14:00] VITALS: BP 135/53; PULSE 71; RESP 18; TEMP 36.1; O2SAT 96
[2020-08-30] MEDS: PHENYLEPH/SHARK OIL/MO/PETROL CREAM 26 GM 1 APPLIC RECTAL (14:26)
[2020-08-30] MEDS: PHENAZOPYRIDINE HCL 100 MG TABLET 200 MG PO (17:39)
[2020-08-30] MEDS: SIMETHICONE 80 MG TAB.CHEW PO ×2 (17:40→21:00)
--- NOTE | 2020-08-30 18:37 | PM.IMPN ---
Progress Note: A&P Assessment and Plan (1) Urinary retention: Code(s): R33.9 - Retention of urine, unspecified Status: Acute Assessment and Plan: Angeles catheter remains in place urine is clear Peridium ordered (2) Acute exacerbation of chronic low back pain: Code(s): M54.5 - Low back pain; G89.29 - Other chronic pain Status: Acute Assessment and Plan: Patient without complaint of LBP during my examination today (3) Urinary tract infection: Qualifiers: Hematuria presence: without hematuria Urinary tract infection type: site unspecified Qualified Code(s): N39.0 - Urinary tract infection, site not specified Code(s): N39.0 - Urinary tract infection, site not specified Status: Acute Assessment and Plan: Pseudomonal UTI Cefepime AZO (4) Chronic kidney disease: Code(s): N18.9 - Chronic kidney disease, unspecified Status: Inactive Assessment and Plan: At baseline (5) Congestive heart failure: Code(s): I50.9 - Heart failure, unspecified Status: Inactive Assessment and Plan: Chronic congestive heart failure diastolic at baseline (6) Insulin dependent type 2 diabetes mellitus: Code(s): E11.9 - Type 2 diabetes mellitus without complications; Z79.4 - skilled nursing (current) use of insulin Status: Inactive Assessment and Plan: At goal (7) Chronic respiratory failure with hypoxia, on home oxygen therapy: Code(s): J96.11 - Chronic respiratory failure with hypoxia; Z99.81 - Dependence on supplemental oxygen Status: Inactive Assessment and Plan: Home O2 dependent 2 L at baseline (8) Obstructive sleep apnea: Code(s): G47.33 - Obstructive sleep apnea (adult) (pediatric) Status: Inactive Assessment and Plan: Ongoing workup in the outpatient setting (9) Hypothyroidism: Code(s): E03.9 - Hypothyroidism, unspecified Status: Inactive Assessment and Plan: Continue home medication (10) Hypertension: Code(s): I10 - Essential (primary) hypertension Status: Inactive Assessment and Plan: Continue home medications (11) Hemorrhoids: Code(s): K64.9 - Unspecified hemorrhoids Status: Acute Assessment and Plan: Patient in excruciating pain during my interview is unwilling to have physical examination of her rectum at this time. She does agree to steroid therapy. Anticipate this will reduce her amount of pain and allowing proper physical examination tomorrow. Zinc oxide barrier cream Anticipate need for bowel regimen after hemorrhoid pain improved Subjective Date/time seen: 08/30/20 16:37 Patient reports she has extreme rectal pain and feels as if stool is passing through her rectum. She is hollering out. Patient has multiple allergies but is able to receive Tylenol IV. She is found to have a pseudomonal UTI antibiotics have been started. In addition multiple agents were symptomatic relief of been ordered as well. Patient reports all of her questions have been answered and everything has been explained sufficiently. Very her life long partner is bedside all questions answered. Review of Systems Review of Systems: All systems reviewed & are unremarkable except as noted in HPI and below Constitutional: Constitutional: Reports fatigue Gastrointestinal: Gastrointestinal: Reports abdominal pain, Reports belching, Reports bloating, Reports tenesmus and Reports fecal incontinence Genitourinary: Genitourinary: Reports urinary incontinence Comments: Foul-smelling urine with gas bubbles during urination Exam Narrative: Exam Narrative: GEN: NAD, AAOx3, cooperative in acute distress secondary to pain, morbidly obese HEENT: NCAT, MMM, EOMI Neck: no JVD Heart: S1S2 RRR Lungs: CTA B/l Abd: soft, TTP in lower quadrants, ND, bowel sounds normoactive, globose abdomen Ext: moves all, no cyanosis, no clubbing, no edema Neuro: A
[2020-08-30 18:41] LABS: Glucose Point of Care 196 (65-105)
[2020-08-30 20:00] VITALS: O2SAT 100
[2020-08-30 20:03] VITALS: BP 151/50; PULSE 81; RESP 20; TEMP 36.1; O2SAT 97
[2020-08-30] MEDS: INSULIN GLARGINE (*BKC) 100 UNITS/ML 40 UNITS SUB-Q (21:06)
[2020-08-30] MEDS: HYDROCORTISONE ACETATE 25 MG SUPPOSITORY RECTAL (21:13)
[2020-08-31] VITALS (8 sets, daily range): BP systolic 135–171; BP diastolic 46–74; PULSE 66–80; RESP 18–20; TEMP 36.2–36.7; O2SAT 96–100
[2020-08-31 01:17] LABS: Glucose Point of Care 251 (65-105)
[2020-08-31 08:32] LABS: Glucose Point of Care 198 (65-105)
[2020-08-31] MEDS: PHENAZOPYRIDINE HCL 100 MG TABLET 200 MG PO ×3 (08:38→16:05)
[2020-08-31] MEDS: amLODIPine BESYLATE 5 MG TABLET 10 MG PO (08:38)
[2020-08-31] MEDS: FUROSEMIDE 40 MG TABLET PO ×2 (08:38→16:05)
[2020-08-31] MEDS: ISOSORBIDE DINITRATE 10 MG TABLET PO ×2 (08:39→16:06)
[2020-08-31] MEDS: metOLazone 5 MG TABLET PO (08:39)
[2020-08-31] MEDS: HYDROCORTISONE ACETATE 25 MG SUPPOSITORY RECTAL (08:39)
[2020-08-31] MEDS: SIMETHICONE 80 MG TAB.CHEW PO ×3 (08:39→16:06)
[2020-08-31] MEDS: ZINC OXIDE 20% OINT 30 GM TUBE 1 APPLIC TOPICAL (08:40)
[2020-08-31] MEDS: PHENYLEPH/SHARK OIL/MO/PETROL CREAM 26 GM 1 APPLIC RECTAL (08:40)
[2020-08-31] MEDS: TOLNAFTATE 1% POWDER 45 GM BTL 1 APPLIC TOPICAL ×2 (08:40→20:38)
--- NOTE | 2020-08-31 08:52 | PM.IMPN ---
Progress Note: A&P Assessment and Plan (1) Urinary tract infection: Qualifiers: Hematuria presence: without hematuria Urinary tract infection type: site unspecified Qualified Code(s): N39.0 - Urinary tract infection, site not specified Code(s): N39.0 - Urinary tract infection, site not specified Status: Acute Assessment and Plan: Pseudomonal UTI Cefepime AZO (2) Urinary retention: Code(s): R33.9 - Retention of urine, unspecified Status: Acute Assessment and Plan: Guad[place] catheter remains in place urine is clear Peridium ordered Urinary retention likely secondary to large fecal burden anticipate dc of Guad[place] catheter after disimpaction (3) Fecal retention: Qualifiers: Constipation type: unspecified constipation type Qualified Code(s): K59.00 - Constipation, unspecified Code(s): K59.00 - Constipation, unspecified Status: Acute Assessment and Plan: mineral enema magnesium citrate manual disimpaction refused (4) Hemorrhoids: Qualifiers: Hemorrhoid type: unspecified Qualified Code(s): K64.9 - Unspecified hemorrhoids Code(s): K64.9 - Unspecified hemorrhoids Status: Acute Assessment and Plan: hemorrhoid pain improved hydrocortisone rectal suppository Zinc oxide barrier cream bowel regimen at dc (5) Hypertension: Qualifiers: Hypertension type: essential hypertension Qualified Code(s): I10 - Essential (primary) hypertension Code(s): I10 - Essential (primary) hypertension Status: Inactive Assessment and Plan: Continue home medications, add metoprolol 12.5 b.i.d. anticipate increased to 25 mg p.o. b.i.d. tomorrow if heart rate within normal limits Continue pain control (6) Insulin dependent type 2 diabetes mellitus: Code(s): E11.9 - Type 2 diabetes mellitus without complications; Z79.4 - senior living (current) use of insulin Status: Inactive Assessment and Plan: BG in the 400s insulin adjusted to include preprandial 6U and high dose ISS (7) Acute exacerbation of chronic low back pain: Code(s): M54.5 - Low back pain; G89.29 - Other chronic pain Status: Acute Assessment and Plan: Patient without complaint of LBP during my examination today (8) Chronic respiratory failure with hypoxia, on home oxygen therapy: Code(s): J96.11 - Chronic respiratory failure with hypoxia; Z99.81 - Dependence on supplemental oxygen Status: Inactive Assessment and Plan: Home O2 dependent 2 L at baseline Subjective Date/time seen: 08/31/20 spoke w radiology large stool burden in rectum [id number] will need disimpaction and bowel regimen Patient refusing manual disimpaction prefers to have laxatives. Patient advised that she has a large fecal burden and that she likely will be unable to successfully pass this especially in light of her large painful hemorrhoids. She states that she does not care and that she would prefer to continue with laxative therapy. Patient advised to consider treatment and to let me know if she changes her mind. Review of Systems Review of Systems: All systems reviewed & are unremarkable except as noted in HPI and below Exam Narrative: Exam Narrative: GEN: NAD, AAOx3, uncooperative, morbidly obese HEENT: NCAT, MMM, EOMI Neck: no JVD Heart: S1S2 RRR Lungs: CTA B/l Abd: soft, ND, mildly TTP : guadarrama catheter w clear yellow fluid Ext: moves all, no cyanosis, no clubbing Neuro: moves all extremities equally, CN intact Psych: argumentative but decisional w capacity Objective Data Vital Signs Vital Signs: Vital Signs - 24 hr 08/30/20 09:35 08/30/20 14:00 08/30/20 20:00 Temperature 96.9 F L Pulse Rate 71 Respiratory Rate 18 Blood Pressure 135/53 L Pulse Oximetry 97 96 100 08/30/20 20:03 08/31/20 00:00 08/31/20 04:56 Temperature 97 F L 97.3 F L 97.2 F L Pulse Rate 81 73 73 Respiratory Rat
[2020-08-31 12:00] LABS: Glucose Point of Care 376 (65-105)
--- NOTE | 2020-08-31 12:01 | PC.NURSE ---
Mineral oil enema was administered, but pt pushed my hand away/smacked my hand while I was giving it. She did not retain it well and said she would not let that doctor stick her fingers in there to extract the stool. She also had her bring in roast beef for lunch- despite being informed this did not go along with her diet. The patient said she did not care that the doctor was trying to limit her sodium and she would eat what she liked.
[2020-08-31] MEDS: INSULIN ASPART (*BKC) 100 UNITS/ML SUB-Q ×2 (13:37→17:08)
[2020-08-31] MEDS: MAGNESIUM CITRATE 300 ML BTL 150 ML PO (16:04)
[2020-08-31 17:07] LABS: Glucose Point of Care 346 (65-105)
[2020-08-31 18:57] LABS: Anion Gap 3 mmol/L (8-16); Blood Urea Nitrogen 70 mg/dL (7-17); Calcium 7.8 mg/dL (8.4-10.2); Carbon Dioxide 35 mmol/L (22-30); Chloride 98 mmol/L (98-107); Estimated CRCL calculation 38 ml/min; Estimated Glomerular Filt Rate 37; Glucose 248 mg/dL (65-105); Sodium 136 mmol/L (137-145)
--- NOTE | 2020-08-31 19:01 | ECG_ITS ---
Measurements Intervals [place] Rate: 71 P: 59 DC: 182 QRS: 163 QRSD: 123 T: 110 QT: 415 QTc: 453 Interpretive Statements SINUS RHYTHM RIGHT BUNDLE BRANCH BLOCK LEFT POSTERIOR FASCICULAR BLOCK BORDERLINE T WAVE ABNORMALITY- HIGH LATERAL LEADS ABNORMAL ECG Electronically Signed On 09-01-2020 7:45:07 CDT by Larry Palumbo D.O.
--- NOTE | 2020-08-31 19:02 | PC.NURSE ---
Patient complaining of sharp chest pain with some fluttering feeling after. Vitals taken and [facility] was called. Stefany didn't answer so I put in an order for a stat EKG.
[2020-08-31 20:09] LABS: Troponin I 0.027 ng/mL (0.000-0.034)
[2020-08-31 20:29] LABS: Glucose Point of Care 269 (65-105)
[2020-08-31] MEDS: METOPROLOL TARTRATE 12.5 MG TABLET PO (20:30)
[2020-08-31] MEDS: INSULIN GLARGINE (*BKC) 100 UNITS/ML 40 UNITS SUB-Q (20:36)
[2020-09-01] VITALS (8 sets, daily range): BP systolic 144–171; BP diastolic 42–51; PULSE 63–74; RESP 16–20; TEMP 36.3–36.4; O2SAT 93–100
[2020-09-01 08:33] LABS: Glucose Point of Care 199 (65-105)
[2020-09-01] MEDS: amLODIPine BESYLATE 5 MG TABLET 10 MG PO (08:46)
[2020-09-01] MEDS: PHENAZOPYRIDINE HCL 100 MG TABLET 200 MG PO ×3 (08:46→16:28)
[2020-09-01] MEDS: metOLazone 5 MG TABLET PO (08:47)
[2020-09-01] MEDS: FUROSEMIDE 40 MG TABLET PO ×2 (08:47→16:28)
[2020-09-01] MEDS: SIMETHICONE 80 MG TAB.CHEW PO ×4 (08:47→20:44)
[2020-09-01] MEDS: METOPROLOL TARTRATE 12.5 MG TABLET PO ×2 (08:48→20:47)
[2020-09-01] MEDS: HYDROCORTISONE ACETATE 25 MG SUPPOSITORY RECTAL ×2 (08:50→20:43)
[2020-09-01] MEDS: ZINC OXIDE 20% OINT 30 GM TUBE 1 APPLIC TOPICAL (08:50)
[2020-09-01] MEDS: TOLNAFTATE 1% POWDER 45 GM BTL 1 APPLIC TOPICAL ×2 (08:50→20:56)
[2020-09-01] MEDS: PHENYLEPH/SHARK OIL/MO/PETROL CREAM 26 GM 1 APPLIC RECTAL (08:51)
[2020-09-01] MEDS: INSULIN ASPART (*BKC) 100 UNITS/ML 6 UNITS SUB-Q ×3 (08:55→16:29)
[2020-09-01] MEDS: ISOSORBIDE DINITRATE 10 MG TABLET PO ×2 (09:06→16:28)
[2020-09-01 09:28] LABS: Hematocrit 26.4 % (37.0-47.0); Mean Corpuscular HGB Conc 30.3 g/dl (32-36); Mean Corpuscular Hemoglobin 24.9 pg (26-34); Mean Corpuscular Volume 82.2 fl (80-100); Mean Platelet Volume 9.1 fl (7.4-10.4); Platelet Count Result 151 k/mm3 (150-375); Red Blood Count 3.21 M/mm3 (4.2-5.4); Red Cell Distribution Width 16.6 % (11.5-14.5); White Blood Count 8.6 K/mm3 (4.5-10.0)
[2020-09-01 09:41] LABS: Anion Gap 3 mmol/L (8-16); Blood Urea Nitrogen 68 mg/dL (7-17); Calcium 8.5 mg/dL (8.4-10.2); Carbon Dioxide 37 mmol/L (22-30); Chloride 98 mmol/L (98-107); Estimated CRCL calculation 38 ml/min; Estimated Glomerular Filt Rate 37; Glucose 197 mg/dL (65-105); Potassium 4.5 mmol/L (3.4-5.0); Sodium 138 mmol/L (137-145)
--- NOTE | 2020-09-01 10:07 | PM.IMPN ---
Progress Note: A&P Assessment and Plan (1) Urinary tract infection: Qualifiers: Hematuria presence: without hematuria Urinary tract infection type: site unspecified Qualified Code(s): N39.0 - Urinary tract infection, site not specified Code(s): N39.0 - Urinary tract infection, site not specified Status: Acute Assessment and Plan: Pseudomonal UTI Cefepime AZO (2) Urinary retention: Code(s): R33.9 - Retention of urine, unspecified Status: Acute Assessment and Plan: Angeles catheter remains in place urine is clear Peridium ordered Urinary retention likely secondary to large fecal burden anticipate dc of Angeles catheter after disimpaction (3) Fecal retention: Qualifiers: Constipation type: unspecified constipation type Qualified Code(s): K59.00 - Constipation, unspecified Code(s): K59.00 - Constipation, unspecified Status: Acute Assessment and Plan: enama refused by patient magnesium citrate manual disimpaction refused (4) Hemorrhoids: Qualifiers: Hemorrhoid type: unspecified Qualified Code(s): K64.9 - Unspecified hemorrhoids Code(s): K64.9 - Unspecified hemorrhoids Status: Acute Assessment and Plan: hemorrhoid pain improved hydrocortisone rectal suppository Zinc oxide barrier cream bowel regimen at dc (5) Hypertension: Qualifiers: Hypertension type: essential hypertension Qualified Code(s): I10 - Essential (primary) hypertension Code(s): I10 - Essential (primary) hypertension Status: Inactive Assessment and Plan: 09/01: 144/42 with metoprolol 12.5mg bid and home meds Continue to monitor (6) Insulin dependent type 2 diabetes mellitus: Code(s): E11.9 - Type 2 diabetes mellitus without complications; Z79.4 - assisted (current) use of insulin Status: Inactive Assessment and Plan: 09/01: Improving with TID AC novolog 6 U Continue to monitor (7) Acute exacerbation of chronic low back pain: Code(s): M54.5 - Low back pain; G89.29 - Other chronic pain Status: Acute Assessment and Plan: Chronic and near baseline (8) Chronic respiratory failure with hypoxia, on home oxygen therapy: Code(s): J96.11 - Chronic respiratory failure with hypoxia; Z99.81 - Dependence on supplemental oxygen Status: Inactive Assessment and Plan: Home O2 dependent 2 L at baseline Continue Subjective Date/time seen: 09/01/20 10:07 Interval history: Admitted with fecal impaction and urinary retention. Refuses manual disimpaction. Severe hemorrhoid pain. 09/01. Had some nausea and near vomiting during the night. Had mild chest discomfort during the night. Until associated symptoms otherwise. No shortness of breath or palpitations. EKG was performed and unremarkable. Feels need to defecate. 1/2 bottle maxi trait not effective. Full bottle pending. Takes med titrate p.r.n. at home. Only other complaint is chronic moderate to severe low back pain worse with any movement. Very sedentary at home due to that. Uses only Tylenol at home. Intolerant or allergic to multiple medications. Review of Systems Review of Systems: All systems reviewed & are unremarkable except as noted in HPI and below Exam Narrative: Exam Narrative: Morbidly obese elderly female lying in her hospital bed in no acute distress HEENT: EOMI, PERRL, sclerae nonicteric, pharyngeal mucosa pink and intact NECK: No JVD, adenopathy, or thyromegaly CHEST: Clear to auscultation. Normal effort. HEART: NL S1/S2, regular, no murmur ABDOMEN: BS+, soft, nontender, no mass, no bruits EXTREMITIES: No cyanosis, edema, or clubbing NEUROLOGIC: CN intact and symmetric to inspection. MUSCULOSKELETAL: Tone and strength symmetric. PSYCH: Alert. Oriented to person, place, and time. Objective Data Vital Signs Vital Signs: Vital Signs - 24 hr 08/31/20 10:56 08/31/20 14:00 03
[2020-09-01] MEDS: MAGNESIUM CITRATE 300 ML BTL PO (11:51)
[2020-09-01 12:44] LABS: Glucose Point of Care 258 (65-105)
[2020-09-01] MEDS: INSULIN ASPART (*BKC) 100 UNITS/ML SUB-Q ×2 (12:51→16:29)
[2020-09-01 16:27] LABS: Glucose Point of Care 233 (65-105)
[2020-09-01] MEDS: INSULIN GLARGINE (*BKC) 100 UNITS/ML 40 UNITS SUB-Q (20:43)
[2020-09-01 21:13] LABS: Glucose Point of Care 181 (65-105)
[2020-09-02] VITALS (8 sets, daily range): BP systolic 138–168; BP diastolic 49–52; PULSE 60–72; RESP 16–20; TEMP 36–36.1; O2SAT 97–99
[2020-09-02 09:14] LABS: Glucose Point of Care 141 (65-105)
[2020-09-02 09:17] LABS: Hematocrit 26.2 % (37.0-47.0); Mean Corpuscular HGB Conc 30.5 g/dl (32-36); Mean Corpuscular Hemoglobin 25.4 pg (26-34); Mean Corpuscular Volume 83.2 fl (80-100); Mean Platelet Volume 9.1 fl (7.4-10.4); Platelet Count Result 148 k/mm3 (150-375); Red Blood Count 3.15 M/mm3 (4.2-5.4); Red Cell Distribution Width 16.4 % (11.5-14.5); White Blood Count 8.3 K/mm3 (4.5-10.0)
[2020-09-02] MEDS: FUROSEMIDE 40 MG TABLET PO ×2 (09:21→16:22)
[2020-09-02] MEDS: ISOSORBIDE DINITRATE 10 MG TABLET PO ×2 (09:22→16:22)
[2020-09-02] MEDS: METOPROLOL TARTRATE 12.5 MG TABLET PO ×2 (09:22→20:23)
[2020-09-02] MEDS: amLODIPine BESYLATE 5 MG TABLET 10 MG PO (09:22)
[2020-09-02] MEDS: metOLazone 5 MG TABLET PO (09:22)
[2020-09-02] MEDS: INSULIN ASPART (*BKC) 100 UNITS/ML 6 UNITS SUB-Q ×3 (09:24→16:42)
[2020-09-02] MEDS: HYDROCORTISONE ACETATE 25 MG SUPPOSITORY RECTAL ×2 (09:27→20:30)
[2020-09-02] MEDS: SIMETHICONE 80 MG TAB.CHEW PO ×4 (09:27→20:23)
[2020-09-02 09:34] LABS: Blood Urea Nitrogen 57 mg/dL (7-17); Calcium 8.6 mg/dL (8.4-10.2); Carbon Dioxide > 40 mmol/L (22-30); Chloride 97 mmol/L (98-107); Estimated CRCL calculation 33 ml/min; Estimated Glomerular Filt Rate 31; Glucose 146 mg/dL (65-105); Potassium 4.2 mmol/L (3.4-5.0); Sodium 138 mmol/L (137-145)
[2020-09-02] MEDS: TOLNAFTATE 1% POWDER 45 GM BTL 1 APPLIC TOPICAL ×2 (09:45→20:26)
[2020-09-02] MEDS: ZINC OXIDE 20% OINT 30 GM TUBE 1 APPLIC TOPICAL (09:45)
[2020-09-02] MEDS: PHENYLEPH/SHARK OIL/MO/PETROL CREAM 26 GM 1 APPLIC RECTAL (09:46)
--- NOTE | 2020-09-02 10:24 | PM.IMPN ---
Progress Note: A&P Assessment and Plan (1) Urinary tract infection: Qualifiers: Hematuria presence: without hematuria Urinary tract infection type: site unspecified Qualified Code(s): N39.0 - Urinary tract infection, site not specified Code(s): N39.0 - Urinary tract infection, site not specified Status: Acute Assessment and Plan: Pseudomonal UTI Cefepime (2) Urinary retention: Code(s): R33.9 - Retention of urine, unspecified Status: Acute Assessment and Plan: Angeles catheter remains in place urine is clear Urinary retention likely secondary to large fecal burden Consider voiding trial in AM (3) Fecal retention: Qualifiers: Constipation type: unspecified constipation type Qualified Code(s): K59.00 - Constipation, unspecified Code(s): K59.00 - Constipation, unspecified Status: Acute Assessment and Plan: Mag citrate effective Add routine senna at hs (4) Hemorrhoids: Qualifiers: Hemorrhoid type: unspecified Qualified Code(s): K64.9 - Unspecified hemorrhoids Code(s): K64.9 - Unspecified hemorrhoids Status: Acute Assessment and Plan: hemorrhoid pain improved hydrocortisone rectal suppository Zinc oxide barrier cream bowel regimen (5) Hypertension: Qualifiers: Hypertension type: essential hypertension Qualified Code(s): I10 - Essential (primary) hypertension Code(s): I10 - Essential (primary) hypertension Status: Inactive Assessment and Plan: 09/02: 168/49, pulse 70 with metoprolol 12.5mg bid and home meds, switch to carvedilol 09/02: due to metabolic alkalosis and increased creatinine, decrease metolozone to 5mg q 48 hours (instead of daily) F/u lab Continue to monitor (6) Insulin dependent type 2 diabetes mellitus: Code(s): E11.9 - Type 2 diabetes mellitus without complications; 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 Status: Inactive Assessment and Plan: 09/01: Improving with TID AC novolog 6 U Continue to monitor (7) Acute exacerbation of chronic low back pain: Code(s): M54.5 - Low back pain; G89.29 - Other chronic pain Status: Acute Assessment and Plan: 09/02: Seems worse with focal lumbar tenderness, no hx of trauma, but due to age will obtain x-ray (8) Chronic respiratory failure with hypoxia, on home oxygen therapy: Code(s): J96.11 - Chronic respiratory failure with hypoxia; Z99.81 - Dependence on supplemental oxygen Status: Inactive Assessment and Plan: Home O2 dependent 2 L at baseline Continue Subjective Date/time seen: 09/02/20 10:24 Interval history: Admitted with fecal impaction and urinary retention. Refuses manual disimpaction. Severe hemorrhoid pain. 09/02. Had two good BM's. No n/v. No chest pain. No bleeding. Chronic LACY. Only other complaint is chronic moderate to severe low back pain worse with any movement. Very sedentary at home due to that. Uses only Tylenol at home. Intolerant or allergic to multiple medications. Review of Systems Review of Systems: All systems reviewed & are unremarkable except as noted in HPI and below Exam Narrative: Exam Narrative: Morbidly obese elderly female lying in her hospital bed in no acute distress HEENT: PERRL, sclerae nonicteric, pharyngeal mucosa pink and intact NECK: No JVD, adenopathy, or thyromegaly CHEST: Clear to auscultation. Normal effort. HEART: NL S1/S2, regular, no murmur ABDOMEN: BS+, soft, nontender, no mass, no bruits EXTREMITIES: No cyanosis, edema, or clubbing NEUROLOGIC: CN intact and symmetric to inspection. MUSCULOSKELETAL: Tone and strength symmetric. TENDER LOWER LUMBAR SPINE PSYCH: Alert. Oriented to person, place, and time. Objective Data Vital Signs Vital Signs: Vital Signs - 24 hr 09/01/20 14:00 09/01/20 20:00 09/01/20 20:47 Temperature 97.5 F L Pulse Rate 63 63 Respiratory Rate 16 Blood Pres
[2020-09-02] MEDS: MAGNESIUM CITRATE 300 ML BTL 150 ML PO (11:36)
[2020-09-02 12:31] LABS: Glucose Point of Care 265 (65-105)
[2020-09-02] MEDS: INSULIN ASPART (*BKC) 100 UNITS/ML SUB-Q ×2 (12:41→16:42)
[2020-09-02 16:42] LABS: Glucose Point of Care 215 (65-105)
[2020-09-02] MEDS: ALBUTEROL SULFATE (*SP) AEROSOL 1 PUFF 2 PUFF INHALATION (18:34)
[2020-09-02] MEDS: diazePAM (*CRX) 2 MG TABLET PO (19:00)
[2020-09-02] MEDS: INSULIN GLARGINE (*BKC) 100 UNITS/ML 40 UNITS SUB-Q (20:41)
[2020-09-02 23:05] LABS: Glucose Point of Care 362 (65-105)
[2020-09-03] VITALS (9 sets, daily range): BP systolic 142–150; BP diastolic 52–56; PULSE 63–70; RESP 18–20; TEMP 36.1–36.2; O2SAT 91–100
--- NOTE | 2020-09-03 05:20 | PC.NURSE ---
Patient told [facility] she was in pain but when i went in there to ask if she would like some pain medications she refused. Patient stated she wasn't in that much pain. I reminded her she can call for some if she changes her mind.
[2020-09-03 05:30] LABS: Hemoglobin 7.8 g/dL (12.0-15.0); Mean Corpuscular Hemoglobin 24.8 pg (26-34); Mean Corpuscular Volume 82.8 fl (80-100); Mean Platelet Volume 9.4 fl (7.4-10.4); Platelet Count Result 158 k/mm3 (150-375); Red Blood Count 3.14 M/mm3 (4.2-5.4); Red Cell Distribution Width 16.2 % (11.5-14.5); White Blood Count 8.8 K/mm3 (4.5-10.0)
[2020-09-03 05:59] LABS: Albumin Level 3.3 g/dL (3.5-5.1); Blood Urea Nitrogen 60 mg/dL (7-17); Calcium 8.5 mg/dL (8.4-10.2); Carbon Dioxide > 40 mmol/L (22-30); Chloride 93 mmol/L (98-107); Estimated CRCL calculation 33 ml/min; Estimated Glomerular Filt Rate 31; Glucose 190 mg/dL (65-105); Potassium 4.7 mmol/L (3.4-5.0); Sodium 134 mmol/L (137-145)
[2020-09-03] MEDS: amLODIPine BESYLATE 5 MG TABLET 10 MG PO (09:23)
[2020-09-03] MEDS: HYDROCORTISONE ACETATE 25 MG SUPPOSITORY RECTAL ×2 (09:23→21:34)
[2020-09-03] MEDS: ISOSORBIDE DINITRATE 10 MG TABLET PO ×2 (09:23→16:47)
[2020-09-03] MEDS: FUROSEMIDE 40 MG TABLET PO ×2 (09:23→16:47)
[2020-09-03] MEDS: METOPROLOL TARTRATE 12.5 MG TABLET PO ×2 (09:23→21:34)
[2020-09-03] MEDS: TOLNAFTATE 1% POWDER 45 GM BTL 1 APPLIC TOPICAL ×2 (09:25→21:51)
[2020-09-03] MEDS: ZINC OXIDE 20% OINT 30 GM TUBE 1 APPLIC TOPICAL (09:26)
[2020-09-03] MEDS: PHENYLEPH/SHARK OIL/MO/PETROL CREAM 26 GM 1 APPLIC RECTAL (09:26)
[2020-09-03] MEDS: SIMETHICONE 80 MG TAB.CHEW PO ×4 (09:31→21:34)
[2020-09-03 09:52] LABS: Glucose Point of Care 152 (65-105)
--- NOTE | 2020-09-03 10:00 | PC.NURSE ---
Patient complains of chronic back pain. Patient not able to rate pain. Patient repeats my back hurts. please help me , but is unable to describe pain. I offered a heating pad for the patient, but the patient stated she does not like our heating pads. I offered an ice pack to the patient but she stated it does not work . I repositioned the patient to a more comfortable position and notified her that I would call the physician for additional pain medications. She stated that the only medication she wanted to take was a 325mg tylenol.
[2020-09-03] MEDS: INSULIN ASPART (*BKC) 100 UNITS/ML 6 UNITS SUB-Q ×3 (10:08→17:16)
[2020-09-03] MEDS: ACETAMINOPHEN 325 MG TABLET PO ×2 (10:37→16:47)
[2020-09-03 12:09] LABS: Glucose Point of Care 217 (65-105)
[2020-09-03] MEDS: INSULIN ASPART (*BKC) 100 UNITS/ML SUB-Q ×2 (12:22→17:17)
--- NOTE | 2020-09-03 12:58 | PM.IMPN ---
Progress Note: A&P Assessment and Plan (1) Urinary tract infection: Qualifiers: Hematuria presence: without hematuria Urinary tract infection type: site unspecified Qualified Code(s): N39.0 - Urinary tract infection, site not specified Code(s): N39.0 - Urinary tract infection, site not specified Status: Acute Assessment and Plan: Pseudomonal UTI Cefepime 09/03/20 12:58 Patient with a fecal impaction was given Mag citrate and patient did have 2 BM yesterday however patient continued to complete severe abdominal and back pain with slight movement, patient is allergic to several medications and does not want to be treated, patient UTI with Pseudomonas being treated with cefepime 08/15 will continue to monitor, will have a PT OT evaluate the patient and further recommendation to follow (2) Urinary retention: Code(s): R33.9 - Retention of urine, unspecified Status: Acute Assessment and Plan: [place] catheter remains in place urine is clear Urinary retention likely secondary to large fecal burden Consider voiding trial in AM (3) Fecal retention: Qualifiers: Constipation type: unspecified constipation type Qualified Code(s): K59.00 - Constipation, unspecified Code(s): K59.00 - Constipation, unspecified Status: Acute Assessment and Plan: Mag citrate effective Add routine senna at hs (4) Hemorrhoids: Qualifiers: Hemorrhoid type: unspecified Qualified Code(s): K64.9 - Unspecified hemorrhoids Code(s): K64.9 - Unspecified hemorrhoids Status: Acute Assessment and Plan: hemorrhoid pain improved hydrocortisone rectal suppository Zinc oxide barrier cream bowel regimen (5) Hypertension: Qualifiers: Hypertension type: essential hypertension Qualified Code(s): I10 - Essential (primary) hypertension Code(s): I10 - Essential (primary) hypertension Status: Inactive Assessment and Plan: 09/02: 168/49, pulse 70 with metoprolol 12.5mg bid and home meds, switch to carvedilol 09/02: due to metabolic alkalosis and increased creatinine, decrease metolozone to 5mg q 48 hours (instead of daily) F/u lab Continue to monitor (6) Insulin dependent type 2 diabetes mellitus: Code(s): E11.9 - Type 2 diabetes mellitus without complications; Z79.4 - intermediate (current) use of insulin Status: Inactive Assessment and Plan: 09/01: Improving with TID AC novolog 6 U Continue to monitor (7) Acute exacerbation of chronic low back pain: Code(s): M54.5 - Low back pain; G89.29 - Other chronic pain Status: Acute Assessment and Plan: 09/02: Seems worse with focal lumbar tenderness, no hx of trauma, but due to age will obtain x-ray (8) Chronic respiratory failure with hypoxia, on home oxygen therapy: Code(s): J96.11 - Chronic respiratory failure with hypoxia; Z99.81 - Dependence on supplemental oxygen Status: Inactive Assessment and Plan: Home O2 dependent 2 L at baseline Continue Additional Plan The patient presents today with acute on chronic back pain and abdominal pain. Unfortunately she is allergic to most pain medications and can only take Tylenol. May be prudent to obtain an MRI of the lumbar spine however it does not sound as though she would be interested in having surgery and may not even be a candidate for such. While she does have urinary retention there is no other history or exam findings to suggest acute issues or cord compression. [place] catheter has been inserted for urinary retention and she has been started on ceftriaxone, pending urine culture for what appears to be a UTI. I suspect her abdominal pain was due to the urine retention and less likely her chronic pancreatitis. She is quite somnolent at the time of my evaluation thus will obtain an ABG given her history of chronic respiratory failure and obesity hypoventilation syndrome. She is also quite u
[2020-09-03 17:15] LABS: Glucose Point of Care 296 (65-105)
[2020-09-03] MEDS: ONDANSETRON INJ 4 MG/2 ML VIAL IV PUSH (17:16)
[2020-09-03 21:24] LABS: Glucose Point of Care 293 (65-105)
[2020-09-03] MEDS: SENNOSIDES 8.6 MG TABLET PO (21:34)
[2020-09-03] MEDS: INSULIN GLARGINE (*BKC) 100 UNITS/ML 40 UNITS SUB-Q (21:38)
[2020-09-04] VITALS (8 sets, daily range): BP systolic 130–157; BP diastolic 47–59; PULSE 63–73; RESP 16–20; TEMP 36–36.6; O2SAT 93–100
[2020-09-04 07:44] LABS: Glucose Point of Care 115 (65-105)
[2020-09-04 08:28] LABS: Hematocrit 27.3 % (37.0-47.0); Hemoglobin 8.3 g/dL (12.0-15.0); Mean Corpuscular HGB Conc 30.4 g/dl (32-36); Mean Corpuscular Hemoglobin 24.9 pg (26-34); Mean Corpuscular Volume 81.7 fl (80-100); Mean Platelet Volume 8.7 fl (7.4-10.4); Platelet Count Result 151 k/mm3 (150-375); Red Blood Count 3.34 M/mm3 (4.2-5.4); Red Cell Distribution Width 15.7 % (11.5-14.5); White Blood Count 6.9 K/mm3 (4.5-10.0)
[2020-09-04 08:40] LABS: Blood Urea Nitrogen 56 mg/dL (7-17); Calcium 8.4 mg/dL (8.4-10.2); Carbon Dioxide > 40 mmol/L (22-30); Chloride 94 mmol/L (98-107); Estimated CRCL calculation 28 ml/min; Estimated Glomerular Filt Rate 26; Glucose 92 mg/dL (65-105); Potassium 4.1 mmol/L (3.4-5.0); Sodium 138 mmol/L (137-145)
[2020-09-04] MEDS: metOLazone 5 MG TABLET PO (08:43)
[2020-09-04] MEDS: HYDROCORTISONE ACETATE 25 MG SUPPOSITORY RECTAL ×2 (08:43→20:01)
[2020-09-04] MEDS: METOPROLOL TARTRATE 12.5 MG TABLET PO ×2 (08:43→20:01)
[2020-09-04] MEDS: ISOSORBIDE DINITRATE 10 MG TABLET PO ×2 (08:43→16:40)
[2020-09-04] MEDS: amLODIPine BESYLATE 5 MG TABLET 10 MG PO (08:43)
[2020-09-04] MEDS: ZINC OXIDE 20% OINT 30 GM TUBE 1 APPLIC TOPICAL (08:44)
[2020-09-04] MEDS: TOLNAFTATE 1% POWDER 45 GM BTL 1 APPLIC TOPICAL ×2 (08:44→20:03)
[2020-09-04] MEDS: PHENYLEPH/SHARK OIL/MO/PETROL CREAM 26 GM 1 APPLIC RECTAL (08:44)
[2020-09-04] MEDS: SIMETHICONE 80 MG TAB.CHEW PO ×4 (08:44→20:03)
[2020-09-04] MEDS: INSULIN ASPART (*BKC) 100 UNITS/ML 6 UNITS SUB-Q ×3 (08:49→16:40)
[2020-09-04] MEDS: acetaZOLAMIDE TAB 250 MG TABLET PO (09:00)
--- NOTE | 2020-09-04 11:07 | PM.IMPN ---
Progress Note: A&P Assessment and Plan (1) Urinary tract infection: Qualifiers: Hematuria presence: without hematuria Urinary tract infection type: site unspecified Qualified Code(s): N39.0 - Urinary tract infection, site not specified Code(s): N39.0 - Urinary tract infection, site not specified Status: Acute Assessment and Plan: Pseudomonal UTI Cefepime 09/04/20 11:07 Patient with a fecal impaction was given Mag citrate and patient did have 2 BM yesterday however patient continued to c/o severe abdominal and back pain with slight movement, patient is allergic to several medications and does not want to be treated, patient UTI with Pseudomonas being treated with cefepime 08/15 will continue to monitor, will have a PT OT evaluate the patient and further recommendation to follow. 09/04 Today patient is feeling better her abdomen pain is better however patient thought she was going to be discharged to [place] but direct care specialist and has spoken to her and private being arranged for the patient and patient will be discharged home tomorrow, patient has Angeles due to urinary retention possibly 2/2 to fecal impaction which is now resolved, will remove Angeles today and will give avoiding trial, patient with UTI with pseudomonas being treated with Cefepime, will switch to oral abx before discharging patient tomorrow. (2) Urinary retention: Code(s): R33.9 - Retention of urine, unspecified Status: Acute Assessment and Plan: [place] catheter remains in place urine is clear Urinary retention likely secondary to large fecal burden Consider voiding trial in AM (3) Fecal retention: Qualifiers: Constipation type: unspecified constipation type Qualified Code(s): K59.00 - Constipation, unspecified Code(s): K59.00 - Constipation, unspecified Status: Acute Assessment and Plan: Mag citrate effective Add routine senna at hs (4) Hemorrhoids: Qualifiers: Hemorrhoid type: unspecified Qualified Code(s): K64.9 - Unspecified hemorrhoids Code(s): K64.9 - Unspecified hemorrhoids Status: Acute Assessment and Plan: hemorrhoid pain improved hydrocortisone rectal suppository Zinc oxide barrier cream bowel regimen (5) Hypertension: Qualifiers: Hypertension type: essential hypertension Qualified Code(s): I10 - Essential (primary) hypertension Code(s): I10 - Essential (primary) hypertension Status: Inactive Assessment and Plan: 09/02: 168/49, pulse 70 with metoprolol 12.5mg bid and home meds, switch to carvedilol 09/02: due to metabolic alkalosis and increased creatinine, decrease metolozone to 5mg q 48 hours (instead of daily) F/u lab Continue to monitor (6) Insulin dependent type 2 diabetes mellitus: Code(s): E11.9 - Type 2 diabetes mellitus without complications; Z79.4 - terminal carman (current) use of insulin Status: Inactive Assessment and Plan: 09/01: Improving with TID AC novolog 6 U Continue to monitor (7) Acute exacerbation of chronic low back pain: Code(s): M54.5 - Low back pain; G89.29 - Other chronic pain Status: Acute Assessment and Plan: 09/02: Seems worse with focal lumbar tenderness, no hx of trauma, but due to age will obtain x-ray (8) Chronic respiratory failure with hypoxia, on home oxygen therapy: Code(s): J96.11 - Chronic respiratory failure with hypoxia; Z99.81 - Dependence on supplemental oxygen Status: Inactive Assessment and Plan: Home O2 dependent 2 L at baseline Continue Additional Plan The patient presents today with acute on chronic back pain and abdominal pain. Unfortunately she is allergic to most pain medications and can only take Tylenol. May be prudent to obtain an MRI of the lumbar spine however it does not sound as though she would be interested in having surgery and may not even be a candidate for such. While she does hav
[2020-09-04] MEDS: ACETAMINOPHEN 325 MG TABLET PO (11:53)
[2020-09-04 12:08] LABS: Glucose Point of Care 357 (65-105)
[2020-09-04] MEDS: INSULIN ASPART (*BKC) 100 UNITS/ML SUB-Q (12:23)
[2020-09-04 16:34] LABS: Glucose Point of Care 169 (65-105)
[2020-09-04] MEDS: SENNOSIDES 8.6 MG TABLET PO (20:02)
[2020-09-04] MEDS: INSULIN GLARGINE (*BKC) 100 UNITS/ML 40 UNITS SUB-Q (20:43)
[2020-09-04 21:33] LABS: Glucose Point of Care 190 (65-105)
[2020-09-05 05:53] LABS: Hematocrit 27.3 % (37.0-47.0); Hemoglobin 8.2 g/dL (12.0-15.0); Mean Corpuscular Volume 83.2 fl (80-100); Mean Platelet Volume 9.4 fl (7.4-10.4); Platelet Count Result 175 k/mm3 (150-375); Red Blood Count 3.28 M/mm3 (4.2-5.4); Red Cell Distribution Width 15.6 % (11.5-14.5); White Blood Count 7.5 K/mm3 (4.5-10.0)
[2020-09-05 06:00] VITALS: BP 170/66; PULSE 59; RESP 18; TEMP 36; O2SAT 100
[2020-09-05 06:09] LABS: Blood Urea Nitrogen 54 mg/dL (7-17); Calcium 8.3 mg/dL (8.4-10.2); Carbon Dioxide > 40 mmol/L (22-30); Chloride 96 mmol/L (98-107); Estimated CRCL calculation 25 ml/min; Estimated Glomerular Filt Rate 23; Glucose 118 mg/dL (65-105); Sodium 137 mmol/L (137-145)
[2020-09-05 08:00] LABS: Glucose Point of Care 107 (65-105)
[2020-09-05] MEDS: HYDROCORTISONE ACETATE 25 MG SUPPOSITORY RECTAL (08:59)
[2020-09-05] MEDS: SIMETHICONE 80 MG TAB.CHEW PO ×2 (08:59→12:42)
[2020-09-05] MEDS: amLODIPine BESYLATE 5 MG TABLET 10 MG PO (08:59)
[2020-09-05 09:00] VITALS: PULSE 62; O2SAT 94
[2020-09-05] MEDS: ISOSORBIDE DINITRATE 10 MG TABLET PO (09:00)
[2020-09-05] MEDS: METOPROLOL TARTRATE 12.5 MG TABLET PO (09:00)
[2020-09-05] MEDS: PHENYLEPH/SHARK OIL/MO/PETROL CREAM 26 GM 1 APPLIC RECTAL (09:01)
[2020-09-05] MEDS: FUROSEMIDE 40 MG TABLET PO (09:01)
[2020-09-05] MEDS: TOLNAFTATE 1% POWDER 45 GM BTL 1 APPLIC TOPICAL (09:01)
[2020-09-05] MEDS: ZINC OXIDE 20% OINT 30 GM TUBE 1 APPLIC TOPICAL (09:01)
[2020-09-05 09:16] VITALS: O2SAT 94
[2020-09-05] MEDS: INSULIN ASPART (*BKC) 100 UNITS/ML 6 UNITS SUB-Q ×2 (09:17→12:42)
[2020-09-05 11:58] LABS: Glucose Point of Care 131 (65-105)
--- NOTE | 2020-09-05 12:55 | PM.DS ---
DS: Admitting Diagnosis Admitting Diagnosis Admitting Diagnosis: Chief Complaint: Abdominal and back pain. DS: Discharge Diagnosis Discharge Diagnosis (1) Urinary tract infection: Qualifiers: Hematuria presence: without hematuria Urinary tract infection type: site unspecified Qualified Code(s): N39.0 - Urinary tract infection, site not specified Code(s): N39.0 - Urinary tract infection, site not specified Status: Acute Assessment and Plan: Pseudomonal UTI Cefepime 09/04/20 11:07 Patient with a fecal impaction was given Mag citrate and patient did have 2 BM yesterday however patient continued to c/o severe abdominal and back pain with slight movement, patient is allergic to several medications and does not want to be treated, patient UTI with Pseudomonas being treated with cefepime 08/15 will continue to monitor, will have a PT OT evaluate the patient and further recommendation to follow. 09/04 Today patient is feeling better her abdomen pain is better however patient thought she was going to be discharged to [place] but child care and has spoken to her and private being arranged for the patient and patient will be discharged home tomorrow, patient has Angeles due to urinary retention possibly 2/2 to fecal impaction which is now resolved, will remove Angeles today and will give avoiding trial, patient with UTI with pseudomonas being treated with Cefepime, will switch to oral abx before discharging patient tomorrow. (2) Urinary retention: Code(s): R33.9 - Retention of urine, unspecified Status: Acute Assessment and Plan: Angeles catheter remains in place urine is clear Urinary retention likely secondary to large fecal burden Consider voiding trial in AM (3) Fecal retention: Qualifiers: Constipation type: unspecified constipation type Qualified Code(s): K59.00 - Constipation, unspecified Code(s): K59.00 - Constipation, unspecified Status: Acute Assessment and Plan: Mag citrate effective Add routine senna at hs (4) Hemorrhoids: Qualifiers: Hemorrhoid type: unspecified Qualified Code(s): K64.9 - Unspecified hemorrhoids Code(s): K64.9 - Unspecified hemorrhoids Status: Acute Assessment and Plan: hemorrhoid pain improved hydrocortisone rectal suppository Zinc oxide barrier cream bowel regimen (5) Hypertension: Qualifiers: Hypertension type: essential hypertension Qualified Code(s): I10 - Essential (primary) hypertension Code(s): I10 - Essential (primary) hypertension Status: Inactive Assessment and Plan: 09/02: 168/49, pulse 70 with metoprolol 12.5mg bid and home meds, switch to carvedilol 09/02: due to metabolic alkalosis and increased creatinine, decrease metolozone to 5mg q 48 hours (instead of daily) F/u lab Continue to monitor (6) Insulin dependent type 2 diabetes mellitus: Code(s): E11.9 - Type 2 diabetes mellitus without complications; 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.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 Status: Inactive Assessment and Plan: 09/01: Improving with TID AC novolog 6 U Continue to monitor (7) Acute exacerbation of chronic low back pain: Code(s): M54.5 - Low back pain; G89.29 - Other chronic pain Status: Acute Assessment and Plan: 09/02: Seems worse with focal lumbar tenderness, no hx of trauma, but due to age will obtain x-ray (8) Chronic respiratory failure with hypoxia, on home oxygen therapy: Code(s): J96.11 - Chronic respiratory failure with hypoxia; Z99.81 - Dependence on supplemental oxygen Status: Inactive Assessment and Plan: Home O2 dependent 2 L at baseline Continue DS: Summary Hospital Course Reason for hospitalization: Chief Complaint: Abdominal and back pain. Narrative: This is a 75-year-old female with multiple medical problems including chronic respiratory failure, obstructive sleep apnea, obesity hypoventil
[2020-09-05 13:00] VITALS: BP 138/53; PULSE 59; RESP 18; TEMP 36; O2SAT 100
--- NOTE | 2020-11-09 00:02 | PM.IMHP ---
H&P: HPI History of Present Illness Date/Time: 11/08/20 21:30 Chief Complaint: nausea, abdominal pain Narrative: This is a 75-year-old female with multiple medical problems including chronic respiratory failure, obstructive sleep apnea, obesity hypoventilation syndrome, COPD, pulmonary hypertension, hypertension, congestive heart failure, diabetes, hypothyroidism, and several other comorbidities presents to the [facility] with comlains of nausea, abodminal pain and vmiting since apst few days now. She is nauseated and dry heaving during the visit. She was evlauted in [facility] ED and was noted t ohave CT with diveritulcitis and cxr with chronic left consolidation, which according to the patient has been there since a while. she denies any cough. no fever, chills. she reprots her abdomen is sore all over but more so on the left side. she has multpile different allergies. she was being treated with cephalexin at home for her diveritulcitis. she also has recurrent hx of diveticulitis in the past. she has multple admissions in the past. She was noted to have elevated troponin of 0.104 and hence transferred here for cardiac evaluation. labs and imaging reports were reviwed from the [facility] Review of Systems Review of Systems: Narrative: - CONSTITUTIONAL: Denies weight loss, fever and chills. - HEENT: Denies changes in vision and hearing - RESPIRATORY: Denies SOB and cough. - CV: Denies palpitations and CP. - GI: Denies abdominal pain, nausea, vomiting and diarrhea. - : Denies dysuria and urinary frequency. - MSK: Denies myalgia and joint pain. - SKIN: Denies rash and pruritus. - NEUROLOGICAL: Denies headache and syncope. - PSYCHIATRIC: Denies recent changes in mood. Denies anxiety and depression. All systems reviewed & are unremarkable except as noted in HPI and below [facility] Past Medical History Medical History (Updated 08/31/20 @ 18:25 by Gia Marks MD) Adenoma of left adrenal gland Anxiety Chronic anemia Chronic back pain Chronic kidney disease Stage 3 to 4 with average GFR in the high 20s to low 30s. Baseline creatinine appears to range between 1.7 and 2.0. Chronic obstructive pulmonary disease Chronic pancreatitis Chronic respiratory failure with hypoxia, on home oxygen therapy Congestive heart failure Echocardiogram in 05/2020 showed mild to moderately increased LV wall thickness, at least mild LV dysfunction with an EF of 40 to 50%, diastolic dysfunction grade 1, severely enlarged RV chamber, and reduced RV systolic function. Diabetic peripheral neuropathy Diverticulosis With history of diverticulitis. Gastroesophageal reflux disease History of cervical cancer Status post partial hysterectomy in the 1980s. History of deep vein thrombosis History of peptic ulcer History of pneumonia Hypercholesteremia Hypertension Hypothyroidism Insulin dependent type 2 diabetes mellitus Hemoglobin A1c was 7.0% in 05/2020. Morbid obesity Obesity hypoventilation syndrome Obstructive sleep apnea Spinal stenosis Venous stasis dermatitis of both lower extremities Surgical History Surgical History (Updated 08/29/20 @ 23:17 by Kelsea Leon PA-C) History of appendectomy History of bilateral cataract extraction History of cardiac catheterization X2, without intervention. History of cholecystectomy History of hysterectomy Partial hysterectomy due to cervical cancer. History of local excision of skin lesion Family History Family History Father Acute myocardial infarction, Onset Age: 64 Hypertension, Onset Age: 64 Asthma, Onset Age: 64 Family history of cardiovascular disease, Onset Age: 64 Family history of arthritis, Onset Age: 64 Mother Acute myocardial infarction, Onset Age: 78 Hypertension, Onset Age: 78 Family history of cardiovascular disease, Onset Age: 78 Family history of arthritis, Onset Age: 78 Family history of malignan
== END 2020-09-05 15:54 | disposition home health service (06) | DRG 690 ==
LOC: ANHED 13:48 → ANH2MED 14:37
PROVIDERS: Hospitalist; Internal Medicine; Nurse Practitioner; Physician Assistant; Admitting Provider Family Medicine; Emergency Provider Emergency Medicine; Visit Provider Family Medicine
DX: N39.0 Urinary tract infection, site not specified; J96.11 Chronic respiratory failure with hypoxia; I13.0 Hypertensive heart and chronic kidney disease with heart failure and stage 1 through stage 4 chronic kidney disease, or unspecified chronic kidney disease; I50.32 Chronic diastolic (congestive) heart failure; K86.1 Other chronic pancreatitis; E66.2 Morbid (severe) obesity with alveolar hypoventilation; I27.20 Pulmonary hypertension, unspecified; R33.9 Retention of urine, unspecified; B96.5 Pseudomonas (aeruginosa) (mallei) (pseudomallei) as the cause of diseases classified elsewhere; E11.22 Type 2 diabetes mellitus with diabetic chronic kidney disease; N18.9 Chronic kidney disease, unspecified; K59.00 Constipation, unspecified; K64.9 Unspecified hemorrhoids; M48.00 Spinal stenosis, site unspecified; M54.5 Low back pain; G89.29 Other chronic pain; E11.42 Type 2 diabetes mellitus with diabetic polyneuropathy; E11.36 Type 2 diabetes mellitus with diabetic cataract; H26.9 Unspecified cataract; I87.8 Other specified disorders of veins; E78.00 Pure hypercholesterolemia, unspecified; J43.9 Emphysema, unspecified; J45.909 Unspecified asthma, uncomplicated; K21.9 Gastro-esophageal reflux disease without esophagitis; E03.9 Hypothyroidism, unspecified; Z28.21 Immunization not carried out because of patient refusal; Z99.81 Dependence on supplemental oxygen; Z79.4 Long term (current) use of insulin; Z79.899 Other long term (current) drug therapy; Z85.41 Personal history of malignant neoplasm of cervix uteri; Z87.891 Personal history of nicotine dependence; Z88.0 Allergy status to penicillin; Z88.1 Allergy status to other antibiotic agents; Z88.2 Allergy status to sulfonamides; Z88.8 Allergy status to other drugs, medicaments and biological substances
CPT/HCPCS: 36415; 72100; 74176; 80048; 80053; 80069; 81001; 82140; 82948; 83036; 83690; 83735; 84443; 84484; 85025; 85027; 87077; 87086; 87088; 87186; 93005; 96361; 96365; 96366; 96367; 96372; 96375; 96376; 97161; 97165; 99285; A9270; G0378; J0131; J0692; J0696; J1815; J2405; J3410; J7030

== ENCOUNTER 2020-11-08 23:14 | Inpatient (IN) | payer MEDICARE, OTHER, SELFPAY ==
--- NOTE | ~2020-11-08 | XR_ITS ---
EXAMINATION: XR chest 1V portable EXAM DATE: 11/09/2020 10:27 INDICATION: Pleural effusion, pneumonia. TECHNIQUE: Portable AP frontal chest x-ray was obtained. Comparison is made to prior examination from 07/13/2020. FINDINGS: Previous exam had large left pleural effusion with completely collapsed left lung. There is significant improvement in this, with left upper lobe and part of the left lower lobe aerated on thi s examination, probably overall moderate amount of pleural fluid still remaining and this may be locu lated. The lungs are otherwise clear. Mild cardiomegaly. There is aortic arteriosclerosis. There are bony degenerative changes. IMPRESSION: Moderate left pleural effusion, adjacent multisegmental atelectasis, with significant int erval improvement. Reviewed, dictated and finalized at location B. IMPRESSION: Moderate left pleural effusion, adjacent multisegmental atelectasis , with significant interval improvement.
--- NOTE | 2020-11-08 23:06 | ADMGEN ---
This patient, Codie Crowder, was admitted to [facility] on 11/08/20 at 2257. Patient/family oriented to hospital policies and general routines including ID bracelet, bed and alarms, visiting hours, pain management, procedures, bathroom and other care routines, personal items, smoking policy, room service/diet, and visiting hours. Information on how to activate the Rapid Response Team has been discussed. Patient/Family are encouraged to report perceived risks to care and to ask questions if they do not understand what they are told or what they should do.
[2020-11-08 23:10] VITALS: BP 148/98; PULSE 66; RESP 20; TEMP 36.8; O2SAT 95
[2020-11-08 23:44] VITALS: PULSE 71
[2020-11-08] MEDS: ONDANSETRON INJ 4 MG/2 ML VIAL IV PUSH (23:48)
[2020-11-08 23:56] VITALS: BMI 46.4
[2020-11-09] VITALS (17 sets, daily range): BP systolic 148–185; BP diastolic 56–107; PULSE 32–76; RESP 19–26; TEMP 36.4–37.1; O2SAT 95–98; BMI 46.4
--- NOTE | 2020-11-09 | ECHO_ITS ---
Patient Info Name: Codie Crowder Age: 75 years : 1945 Gender: Female Ht: 60 in Wt: 237 lbs BSA: 2.20 m2 HR: 66 bpm BP: 164 / 57 mmHg Technical Quality: Poor Exam Date: 11/09/2020 2:01 PM Exam Location: [facility] Pulmonary Exam Room: [facility] Patient Status: Outpatient Admit Date: 11/08/2020 Staff Ordering Physician: Paul Gates MD Manufacturing Process Engineer: Hui Shearer RDCS Attending Provider: Maykel Mart MD Referring Physician: Yajaira HERNANDEZ; Exam Type: CA echo doppler color flow Study Info Indications - sob hx/o pulm htn Reason for Poor Study: patient body habitus Summary 1. Left ventricular systolic function is normal, estimated at 55-60%. Left Ventricle Left ventricular chamber dimension is normal. Left ventricular systolic function is normal, estimated at 55-60%. There is no increased left ventricular wall thickness. Left ventricular septal wall motion is normal. The left ventricular diastolic function is grade I diastolic dysfunction. Right Ventricle Right ventricular chamber dimension is normal. Right ventricular systolic function is normal. Left Atria Left atrial chamber dimension is normal. Right Atria Right atrial chamber dimension is normal. Aortic Valve The aortic valve is trileaflet. There is no aortic valve sclerosis. There is no aortic valve stenosis. There is no aortic valve regurgitation. Pulmonic Valve The pulmonic valve is normal. There is no pulmonic valve stenosis. There is no pulmonic regurgitation. Mitral Valve The mitral valve has normal leaflets. There is no mitral valve stenosis. There is no mitral valve regurgitation. Tricuspid Valve The tricuspid valve leaflets are normal. There is no significant tricuspid valve stenosis. There is mild tricuspid valve regurgitation. No pulmonary hypertension, estimated pulmonary arterial systolic pressure is 24 mmHg. Pericardium/Pleural The pericardium appears normal. There is no pericardial effusion. Inferior Vena Cava Normal inferior vena cava with >50% collapse upon inspiration consistent with normal right atrial pressure, 10 mmHg. Aorta The aortic root size at the sinus of Valsalva is normal. The prox ascending aorta size is normal. Left Ventricular Outflow Tract Name Value Normal LVOT 2D LVOT Diameter 2.0 cm LVOT Doppler LVOT Peak Gradient 4 mmHg LVOT Mean Gradient 3 mmHg LVOT VTI 30 cm LVOT VTI/AV VTI Ratio 0.8 LVOT Stroke Volume 90 ml LVOT CO 14.2 l/min LVOT CI 6.4 l/min/m2 Pulmonic Valve Name Value Normal PV Doppler PV Peak Gradient 2 mmHg Mitral Valve
--- NOTE | 2020-11-09 00:12 | ECG_ITS ---
Measurements Intervals [place] Rate: 74 P: 50 WV: 203 QRS: 160 QRSD: 137 T: 71 QT: 414 QTc: 460 Interpretive Statements SINUS RHYTHM FREQUENT ATRIAL PREMATURE COMPLEXES RIGHT BUNDLE BRANCH BLOCK LEFT POSTERIOR FASCICULAR BLOCK ABNORMAL ECG Electronically Signed On 11-09-2020 7:52:19 CDT by Larry Palumbo D.O.
--- NOTE | 2020-11-09 01:01 | ECG_ITS ---
Measurements Intervals [place] Rate: 69 P: 45 PA: 194 QRS: 164 QRSD: 132 T: 37 QT: 413 QTc: 444 Interpretive Statements SINUS RHYTHM ATRIAL PREMATURE COMPLEXES RIGHT BUNDLE BRANCH BLOCK LEFT POSTERIOR FASCICULAR BLOCK BASELINE ARTIFACT- I, II, AVR ABNORMAL ECG Electronically Signed On 11-10-2020 17:45:54 CDT by Larry Palumbo D.O.
--- NOTE | 2020-11-09 01:01 | PC.NURSE ---
PATIENT HAD A 10 SECOND PAUSE. WENT IN TO CHECK PATIENT. PATIENT WAS LETHARGIC, HARD TO WAKE. MUMBLING AND MOANING. CALLED DR LAINEZ AND HE STATED THAT NAUSEA WOULD CAUSE A 10 SECOND PAUSE. ORDERS TO WATCH PATIENT. I REQUESTED TO LABS TO BE DRAWN STAT. HE SAID YES AND THAT HE PUT THEM IN THE COMPUTER. THEY WERE ENTERED UNDER OLD V- NUMBER. REORDERING LABS STAT.
[2020-11-09] MEDS: SODIUM CHLORIDE 0.9% IV 1,000 ML 60 ML IV CONT ×2 (01:38→20:10)
[2020-11-09] MEDS: ONDANSETRON INJ 4 MG/2 ML VIAL (01:43)
[2020-11-09 01:44] LABS: Basophils Absolute Auto 0.1 K/mm3 (0.0-0.1); Basophils Percent Auto 0.7 % (0.2-1.2); Eosinophils Absolute Auto 0.5 K/mm3 (0-0.3); Eosinophils Percent Auto 3.1 % (0-4.4); Hematocrit 29.5 % (37.0-47.0); Hemoglobin 9.4 g/dL (12.0-15.0); Immature Granulocyte Absolute 0.43 K/mm3 (0.00-0.031); Immature Granulocyte Percent A 2.9 % (0-0.5); Lymphocytes Absolute Auto 0.82 K/mm3 (0.9-3.2); Lymphocytes Percent Auto 5.5 % (18.3-44.2); Mean Corpuscular HGB Conc 31.9 g/dl (32-36); Mean Corpuscular Hemoglobin 25.7 pg (26-34); Mean Corpuscular Volume 80.6 fl (80-100); Mean Platelet Volume 8.5 fl (7.4-10.4); Monocytes Absolute Auto 0.6 K/mm3 (0.1-0.6); Monocytes Percent Auto 4.2 % (2.6-8.5); Neutrophils Absolute Auto 12.5 K/mm3 (1.3-6.7); Neutrophils Percent Auto 83.6 % (45.5-73.1); Platelet Count Result 224 k/mm3 (150-375); Red Blood Count 3.66 M/mm3 (4.2-5.4); Red Cell Distribution Width 14.3 % (11.5-14.5); White Blood Count 14.9 K/mm3 (4.5-10.0)
[2020-11-09 01:46] LABS: Glucose Point of Care 237 mg/dl (65-105)
[2020-11-09] MEDS: SCOPOLAMINE 1.5 MG PATCH TRANSDERM ×2 (01:47→10:04)
[2020-11-09 01:56] LABS: Alanine Aminotransferase 11 U/L (4-35); Albumin Level 3.8 g/dL (3.5-5.1); Alkaline Phosphatase 79 U/L (38-126); Anion Gap 9 mmol/L (8-16); Aspartate Amino Transferase 28 U/L (14-36); Bilirubin,Total 0.4 mg/dL (0.2-1.3); Blood Urea Nitrogen 54 mg/dL (7-17); Calcium 9.2 mg/dL (8.4-10.2); Carbon Dioxide 32 mmol/L (22-30); Chloride 96 mmol/L (98-107); Estimated CRCL calculation 22 ml/min; Estimated Glomerular Filt Rate 22; Glucose 219 mg/dL (65-105); Lactic Acid Reflex 0.8 mmol/L (0.7-2.1); Magnesium 1.8 mg/dL (1.6-2.3); Phosphorus 4.5 mg/dL (2.5-4.5); Potassium 3.8 mmol/L (3.4-5.0); Sodium 137 mmol/L (137-145)
[2020-11-09 02:23] LABS: Troponin I 0.126 ng/mL (0.000-0.034)
--- NOTE | 2020-11-09 03:04 | PM.IMHP ---
H&P: HPI History of Present Illness Date/Time: 11/09/20 03:04 Chief Complaint: abdominal pain/nausea, vomitign Narrative: This is a 75-year-old female with multiple medical problems including chronic respiratory failure, obstructive sleep apnea, obesity hypoventilation syndrome, COPD, pulmonary hypertension, hypertension, congestive heart failure, diabetes, hypothyroidism, and several other comorbidities presents to the [facility] with comlains of nausea, abodminal pain and vmiting since apst few days now. She is nauseated and dry heaving during the visit. She was evlauted in [facility] ED and was noted t ohave CT with diveritulcitis and cxr with chronic left consolidation, which according to the patient has been there since a while. she denies any cough. no fever, chills. she reprots her abdomen is sore all over but more so on the left side. she has multpile different allergies. she was being treated with cephalexin at home for her diveritulcitis. she also has recurrent hx of diveticulitis in the past. she has multple admissions in the past. She was noted to have elevated troponin of 0.104 and hence transferred here for cardiac evaluation. labs and imaging reports were reviwed from the [facility] CXR with consolidative chagnes in the left lung bases appears similar to previous evaluation, remaining lung fiels appear clear with heart shadow moderaltey nalrged with no penumothorax or subdiaphragmatic free air CT abdomen and pelvis: mild persistntt infiltrative chagnes in the perviously described area of diverticulitis. no perforation or abscess. large samantha fo stol present within the rectal vault. air in the non dependet portion fo the urinary bladder psosibly assocaited with recent catherisation. corleate wtih urinalysis. persisting colex appearing left base consolidation wtih effusion in the lower chest. wbc 13k hb 9.6 hct 30 plt 280 cr 2.38, bun 55, glu 169 na 138, k 3.9 cl 96 CO2 33 lft normal troponin I: 0.104 lipase 96 mg 1.9 EKG with sinus rhtym, RAD, RBBB, unchanged lactic acid: 0.9 Review of Systems Review of Systems: Narrative: - CONSTITUTIONAL: Denies weight loss, fever and chills. - HEENT: Denies changes in vision and hearing - RESPIRATORY: Denies SOB and cough. - CV: Denies palpitations and CP. - GI: reports abdominal pain, nausea, vomiting and denies diarrhea. - : Denies dysuria and urinary frequency. - MSK: Denies myalgia and joint pain. - SKIN: Denies rash and pruritus. - NEUROLOGICAL: Denies headache and syncope. - PSYCHIATRIC: Denies recent changes in mood. Denies anxiety and depression. All systems reviewed & are unremarkable except as noted in HPI and below Constitutional: Constitutional: Reports fatigue and Reports weakness Neurologic: Reports weakness Endocrine: Endocrine: Reports fatigue [facility] Past Medical History Medical History (Updated 11/09/20 @ 03:33 by Maykel Mart MD) Adenoma of left adrenal gland Anxiety Chronic anemia Chronic back pain Chronic kidney disease Stage 3 to 4 with average GFR in the high 20s to low 30s. Baseline creatinine appears to range between 1.7 and 2.0. Chronic obstructive pulmonary disease Chronic pancreatitis Chronic respiratory failure with hypoxia, on home oxygen therapy Congestive heart failure Echocardiogram in 05/2020 showed mild to moderately increased LV wall thickness, at least mild LV dysfunction with an EF of 40 to 50%, diastolic dysfunction grade 1, severely enlarged RV chamber, and reduced RV systolic function. Diabetic peripheral neuropathy Diverticulosis With history of diverticulitis. Gastroesophageal reflux disease History of cervical cancer Status post partial hysterectomy in the 1980s. History of deep vein thrombosis History of peptic ulcer History of pneumonia Hypercholesteremia Hypertension Hypothyroidism Insulin dependent type 2 diabetes mellitus Hemoglobin A1c was 7.0% in 05/2020. Morbid obesity Obesity hypoventilation syndrome Obstructiv
[2020-11-09 05:21] LABS: Basophils Absolute Auto 0.1 K/mm3 (0.0-0.1); Basophils Percent Auto 0.6 % (0.2-1.2); Eosinophils Absolute Auto 0.2 K/mm3 (0-0.3); Eosinophils Percent Auto 1.3 % (0-4.4); Hematocrit 28.6 % (37.0-47.0); Immature Granulocyte Absolute 0.34 K/mm3 (0.00-0.031); Immature Granulocyte Percent A 2.4 % (0-0.5); Lymphocytes Absolute Auto 0.75 K/mm3 (0.9-3.2); Lymphocytes Percent Auto 5.3 % (18.3-44.2); Mean Corpuscular HGB Conc 31.5 g/dl (32-36); Mean Corpuscular Hemoglobin 25.4 pg (26-34); Mean Corpuscular Volume 80.6 fl (80-100); Mean Platelet Volume 9.1 fl (7.4-10.4); Monocytes Absolute Auto 0.4 K/mm3 (0.1-0.6); Neutrophils Absolute Auto 12.2 K/mm3 (1.3-6.7); Neutrophils Percent Auto 87.4 % (45.5-73.1); Platelet Count Result 237 k/mm3 (150-375); Red Blood Count 3.55 M/mm3 (4.2-5.4); Red Cell Distribution Width 14.3 % (11.5-14.5)
[2020-11-09] MEDS: ONDANSETRON INJ 4 MG/2 ML VIAL IV PUSH (05:26)
[2020-11-09 05:27] LABS: Alanine Aminotransferase 11 U/L (4-35); Albumin Level 3.5 g/dL (3.5-5.1); Alkaline Phosphatase 69 U/L (38-126); Anion Gap 8 mmol/L (8-16); Aspartate Amino Transferase 26 U/L (14-36); Bilirubin,Total 0.3 mg/dL (0.2-1.3); Blood Urea Nitrogen 54 mg/dL (7-17); Calcium 8.6 mg/dL (8.4-10.2); Carbon Dioxide 32 mmol/L (22-30); Chloride 96 mmol/L (98-107); Estimated CRCL calculation 24 ml/min; Estimated Glomerular Filt Rate 24; Glucose 244 mg/dL (65-105); Potassium 3.9 mmol/L (3.4-5.0); Sodium 136 mmol/L (137-145)
[2020-11-09 05:47] LABS: Troponin I 0.109 ng/mL (0.000-0.034)
[2020-11-09 08:17] LABS: Troponin I 0.097 ng/mL (0.000-0.034)
--- NOTE | 2020-11-09 09:20 | PM.CNCAR ---
Assessment and Plan Assessment and plan (1) Elevated troponin: Code(s): R77.8 - Other specified abnormalities of plasma proteins Status: Acute Assessment and Plan: Pt was found to have mildly elevated troponin in setting of CRI, diverticultis and possible pneumonia. No EKG changes, no CP. Flat pattern. Recent ECHO normal per records. will repeat ECHO to re-evalutae LV function. Given hx of DVT it would be beneficial to r/o pulmonary embolism when pt will have chest CT to r/o pneumonia. Cont medical management and risk fact modification. (2) Urinary tract infection: Qualifiers: Hematuria presence: without hematuria Urinary tract infection type: site unspecified Qualified Code(s): N39.0 - Urinary tract infection, site not specified Code(s): N39.0 - Urinary tract infection, site not specified Status: Acute Assessment and Plan: management per PCpt with hx of UTI in 08/26 with Pseudomonas. (3) HTN (hypertension): Qualifiers: Hypertension type: unspecified Qualified Code(s): I10 - Essential (primary) hypertension Code(s): I10 - Essential (primary) hypertension Status: Chronic Assessment and Plan: Mildly elevated will adjust meds (4) Diverticulitis: Code(s): K57.92 - Diverticulitis of intestine, part unspecified, without perforation or abscess without bleeding Status: Acute Assessment and Plan: Management per PC. Blood cultures pending. (5) Chronic renal failure, stage 4 (severe): Code(s): N18.4 - Chronic kidney disease, stage 4 (severe) Status: Chronic (6) Chronic respiratory failure: Qualifiers: Respiratory failure complication: unspecified whether with hypoxia or hypercapnia Qualified Code(s): J96.10 - Chronic respiratory failure, unspecified whether with hypoxia or hypercapnia Code(s): J96.10 - Chronic respiratory failure, unspecified whether with hypoxia or hypercapnia Status: Chronic (7) COPD (chronic obstructive pulmonary disease): Qualifiers: COPD type: unspecified COPD Qualified Code(s): J44.9 - Chronic obstructive pulmonary disease, unspecified Code(s): J44.9 - Chronic obstructive pulmonary disease, unspecified Status: Chronic (8) Asthma: Qualifiers: Asthma complication type: uncomplicated Asthma persistence: persistent Asthma severity: moderate Qualified Code(s): J45.40 - Moderate persistent asthma, uncomplicated Code(s): J45.909 - Unspecified asthma, uncomplicated Status: Chronic (9) DM (diabetes mellitus): Qualifiers: Diabetes mellitus complication status: without complication Diabetes mellitus [employer] insulin use: without [employer] use Diabetes mellitus type: type 2 Qualified Code(s): E11.9 - Type 2 diabetes mellitus without complications Code(s): E11.9 - Type 2 diabetes mellitus without complications Status: Chronic (10) Generalized muscle weakness: Code(s): M62.81 - Muscle weakness (generalized) Status: Acute (11) Elevated WBC count: Code(s): D72.829 - Elevated white blood cell count, unspecified Status: Acute (12) Anemia: Code(s): D64.9 - Anemia, unspecified Status: Acute Assessment and Plan: Thank you for consult. [place] workman. History of Present Illness History of Present Illness Consult date/time: 11/09/20 Chief Complaint: abdominal pain/nausea, vomiting HPI: 75 y/o WF with multiple medical problems including COPD, pulmonary HTN, COPD, HTN, DM, hypothyroidism, chronic respiratory failure presented to outside hospital due to N/V/abdominal pain. Pt was diagnosed with diverticultis abnd transferred to [facility]. Pt is a poor historian, history is obtained predominantly from medical records and nursing staff. According to her nurse pt is very tired since she was up all night, Pt denied CP, palpitations or syncopal episodes. According to rec
--- NOTE | 2020-11-09 09:21 | PCPTNOTE ---
Attempted PT eval. Pt was sleeping, she was drowsy when I woke her and did not want therapy. Will try again at later time
--- NOTE | 2020-11-09 09:36 | PCOTNOTE ---
Patient refusing therapy at this time. Will attempt at later time
[2020-11-09] MEDS: ISOSORBIDE DINITRATE 10 MG TABLET PO ×2 (10:03→16:16)
[2020-11-09] MEDS: amLODIPine BESYLATE 5 MG TABLET PO (10:03)
[2020-11-09] MEDS: TOLNAFTATE 1% POWDER 45 GM BTL 1 APPLIC TOPICAL ×2 (10:04→20:14)
[2020-11-09] MEDS: SIMETHICONE 80 MG TAB.CHEW PO ×4 (10:04→20:14)
[2020-11-09] MEDS: PHENYLEPH/SHARK OIL/MO/PETROL CREAM 26 GM 1 APPLIC RECTAL (10:06)
[2020-11-09] MEDS: HEPARIN SODIUM 5,000 UNITS/ML VIAL 5000 UNITS SUB-Q ×2 (10:08→20:11)
[2020-11-09] MEDS: metroNIDAZOLE 500 MG/ISO 100ML 500 MG/100 ML BAG 100 MG IVPB ×2 (13:05→20:10)
--- NOTE | 2020-11-09 13:17 | PCPTNOTE ---
Attempted PT eval. Pt refused, states she's too dizzy and nauseated. Will try again tomorrow.
--- NOTE | 2020-11-09 13:53 | PCOTNOTE ---
Patient refusing OT evaluation this afternoon stating she felt unwell and very nauseated. Continued to refuse despite encouragement. Will attempt OT evaluation tomorrow.
--- NOTE | 2020-11-09 14:53 | PM.IMPN ---
Progress Note: A&P Assessment and Plan (1) Diverticulitis: Code(s): K57.92 - Diverticulitis of intestine, part unspecified, without perforation or abscess without bleeding Status: Acute (2) HTN (hypertension): Qualifiers: Hypertension type: unspecified Qualified Code(s): I10 - Essential (primary) hypertension Code(s): I10 - Essential (primary) hypertension Status: Chronic (3) Generalized weakness: Code(s): R53.1 - Weakness Status: Acute (4) Pleural effusion on left: Code(s): J90 - Pleural effusion, not elsewhere classified Status: Acute (5) Chronic renal failure, stage 4 (severe): Code(s): N18.4 - Chronic kidney disease, stage 4 (severe) Status: Chronic (6) Debility: Code(s): R53.81 - Other malaise Status: Acute (7) Acute on chronic renal failure: Qualifiers: Acute renal failure type: unspecified Chronic kidney disease stage: unspecified stage Qualified Code(s): N17.9 - Acute kidney failure, unspecified; N18.9 - Chronic kidney disease, unspecified Code(s): N17.9 - Acute kidney failure, unspecified; N18.9 - Chronic kidney disease, unspecified Status: Acute (8) COPD (chronic obstructive pulmonary disease): Qualifiers: COPD type: unspecified COPD Qualified Code(s): J44.9 - Chronic obstructive pulmonary disease, unspecified Code(s): J44.9 - Chronic obstructive pulmonary disease, unspecified Status: Chronic (9) GERD (gastroesophageal reflux disease): Qualifiers: Esophagitis presence: esophagitis presence not specified Qualified Code(s): K21.9 - Gastro-esophageal reflux disease without esophagitis Code(s): K21.9 - Gastro-esophageal reflux disease without esophagitis Status: Chronic (10) Hypothyroid: Qualifiers: Hypothyroidism type: unspecified Qualified Code(s): E03.9 - Hypothyroidism, unspecified Code(s): E03.9 - Hypothyroidism, unspecified Status: Chronic (11) Chronic anemia: Code(s): D64.9 - Anemia, unspecified Status: Chronic (12) Neuropathy in diabetes: Qualifiers: Diabetes mellitus complication detail: diabetic polyneuropathy Diabetes mellitus type: type 2 Qualified Code(s): E11.42 - Type 2 diabetes mellitus with diabetic polyneuropathy Code(s): E11.40 - Type 2 diabetes mellitus with diabetic neuropathy, unspecified Status: Acute (13) Controlled insulin-dependent diabetes mellitus with neuropathy: Status: Acute (14) Chronic back pain: Qualifiers: Back pain laterality: bilateral Back pain location: back pain in unspecified location Qualified Code(s): M54.9 - Dorsalgia, unspecified; G89.29 - Other chronic pain Code(s): M54.9 - Dorsalgia, unspecified; G89.29 - Other chronic pain Status: Chronic (15) CHF (congestive heart failure): Qualifiers: Heart failure chronicity: acute on chronic Heart failure type: unspecified Qualified Code(s): I50.9 - Heart failure, unspecified Code(s): I50.9 - Heart failure, unspecified Status: Chronic (16) DM (diabetes mellitus): Qualifiers: Diabetes mellitus complication status: without complication Diabetes mellitus custodial insulin use: without terminal carman use Diabetes mellitus type: type 2 Qualified Code(s): E11.9 - Type 2 diabetes mellitus without complications Code(s): E11.9 - Type 2 diabetes mellitus without complications Status: Chronic (17) Elevated troponin: Code(s): R77.8 - Other specified abnormalities of plasma proteins Status: Acute (18) Sinus pause: Code(s): I45.5 - Other specified heart block Status: Acute (19) Bradycardia: Code(s): R00.1 - Bradycardia, unspecified Status: Acute Additional Plan PLAN THE SAME ADMISSION # abdominal pain/nausea/vomting: noted active and persistent diverticulitis. will continue ce
[2020-11-09] MEDS: ZINC OXIDE 20% OINT 30 GM TUBE 1 APPLIC TOPICAL (15:30)
[2020-11-09] MEDS: INSULIN ASPART (*BKC) 100 UNITS/ML SUB-Q (18:04)
[2020-11-09 18:57] LABS: Glucose Point of Care 218 mg/dl (65-105)
[2020-11-09 20:13] LABS: Glucose Point of Care 239 mg/dl (65-105)
[2020-11-09] MEDS: INSULIN GLARGINE (*BKC) 100 UNITS/ML 40 UNITS SUB-Q (21:33)
[2020-11-10] VITALS (14 sets, daily range): BP systolic 128–189; BP diastolic 48–90; PULSE 29–88; RESP 16–21; TEMP 36–36.8; O2SAT 96–100
[2020-11-10] MEDS: ACETAMINOPHEN 325 MG TABLET 650 MG PO (00:56)
[2020-11-10] MEDS: ONDANSETRON INJ 4 MG/2 ML VIAL IV PUSH (00:56)
--- NOTE | 2020-11-10 01:02 | ECG_ITS ---
Measurements Intervals [place] Rate: 71 P: 38 OK: 193 QRS: 166 QRSD: 133 T: 32 QT: 441 QTc: 480 Interpretive Statements SINUS RHYTHM ATRIAL PREMATURE COMPLEXES RIGHT BUNDLE BRANCH BLOCK LEFT POSTERIOR FASCICULAR BLOCK LOW VOLTAGE- PRECORDIAL LEADS ABNORMAL ECG Electronically Signed On 11-10-2020 7:49:37 CDT by Larry Palumbo D.O.
[2020-11-10] MEDS: metroNIDAZOLE 500 MG/ISO 100ML 500 MG/100 ML BAG 100 MG IVPB ×3 (04:28→19:34)
[2020-11-10] MEDS: METOCLOPRAMIDE HCL INJ 10 MG/2 ML VIAL 5 MG IV PUSH (04:50)
[2020-11-10 05:29] LABS: Hematocrit 27.8 % (37.0-47.0); Hemoglobin 8.8 g/dL (12.0-15.0); Mean Corpuscular HGB Conc 31.7 g/dl (32-36); Mean Corpuscular Hemoglobin 25.3 pg (26-34); Mean Corpuscular Volume 79.9 fl (80-100); Mean Platelet Volume 9.2 fl (7.4-10.4); Platelet Count Result 219 k/mm3 (150-375); Red Blood Count 3.48 M/mm3 (4.2-5.4); Red Cell Distribution Width 14.2 % (11.5-14.5); White Blood Count 12.2 K/mm3 (4.5-10.0)
[2020-11-10 06:00] LABS: Anion Gap 8 mmol/L (8-16); Blood Urea Nitrogen 44 mg/dL (7-17); Calcium 8.5 mg/dL (8.4-10.2); Carbon Dioxide 31 mmol/L (22-30); Chloride 96 mmol/L (98-107); Cholesterol 237 mg/dL (0-200); Estimated CRCL calculation 27 ml/min; Estimated Glomerular Filt Rate 27; Glucose 214 mg/dL (65-105); HDL Direct 31 mg/dL; Potassium 3.7 mmol/L (3.4-5.0); Sodium 135 mmol/L (137-145); Triglycerides 222 mg/dL (<150)
[2020-11-10 06:10] LABS: LDL Cholesterol Direct 108 mg/dL
[2020-11-10 07:50] LABS: Glucose Point of Care 238 mg/dl (65-105)
[2020-11-10] MEDS: INSULIN ASPART (*BKC) 100 UNITS/ML SUB-Q ×3 (09:22→17:30)
[2020-11-10] MEDS: amLODIPine BESYLATE 5 MG TABLET PO (09:29)
[2020-11-10] MEDS: ISOSORBIDE DINITRATE 10 MG TABLET PO ×2 (09:30→17:10)
[2020-11-10] MEDS: HEPARIN SODIUM 5,000 UNITS/ML VIAL 5000 UNITS SUB-Q (09:41)
[2020-11-10] MEDS: COLLAGENASE OINT 30 GM TUBE 1 APPLIC TOPICAL (09:41)
[2020-11-10] MEDS: SIMETHICONE 80 MG TAB.CHEW PO ×4 (09:43→21:05)
[2020-11-10] MEDS: PHENYLEPH/SHARK OIL/MO/PETROL CREAM 26 GM 1 APPLIC RECTAL (09:44)
[2020-11-10] MEDS: ZINC OXIDE 20% OINT 30 GM TUBE 1 APPLIC TOPICAL (09:44)
[2020-11-10] MEDS: TOLNAFTATE 1% POWDER 45 GM BTL 1 APPLIC TOPICAL ×2 (09:44→21:06)
[2020-11-10 12:27] LABS: Glucose Point of Care 224 mg/dl (65-105)
--- NOTE | 2020-11-10 12:56 | PM.PNCARD ---
Progress Note: A&P Assessment and Plan (1) Elevated troponin: Code(s): R77.8 - Other specified abnormalities of plasma proteins Status: Acute Assessment and Plan: Pt was found to have mildly elevated troponin in setting of CRI, diverticultis and possible pneumonia. No EKG changes, no CP. Flat pattern. Recent ECHO normal per records. will repeat ECHO to re-evalutae LV function. Given hx of DVT it would be beneficial to r/o pulmonary embolism when pt will have chest CT to r/o pneumonia. Cont medical management and risk fact modification. (2) Urinary tract infection: Qualifiers: Hematuria presence: without hematuria Urinary tract infection type: site unspecified Qualified Code(s): N39.0 - Urinary tract infection, site not specified Code(s): N39.0 - Urinary tract infection, site not specified Status: Acute Assessment and Plan: management per PCpt with hx of UTI in 08/26 with Pseudomonas. (3) HTN (hypertension): Qualifiers: Hypertension type: unspecified Qualified Code(s): I10 - Essential (primary) hypertension Code(s): I10 - Essential (primary) hypertension Status: Chronic Assessment and Plan: Mildly elevated will adjust meds (4) Diverticulitis: Code(s): K57.92 - Diverticulitis of intestine, part unspecified, without perforation or abscess without bleeding Status: Acute Assessment and Plan: Management per PC. Blood cultures pending. (5) Chronic renal failure, stage 4 (severe): Code(s): N18.4 - Chronic kidney disease, stage 4 (severe) Status: Chronic (6) Chronic respiratory failure: Qualifiers: Respiratory failure complication: unspecified whether with hypoxia or hypercapnia Qualified Code(s): J96.10 - Chronic respiratory failure, unspecified whether with hypoxia or hypercapnia Code(s): J96.10 - Chronic respiratory failure, unspecified whether with hypoxia or hypercapnia Status: Chronic (7) COPD (chronic obstructive pulmonary disease): Qualifiers: COPD type: unspecified COPD Qualified Code(s): J44.9 - Chronic obstructive pulmonary disease, unspecified Code(s): J44.9 - Chronic obstructive pulmonary disease, unspecified Status: Chronic (8) Asthma: Qualifiers: Asthma severity: moderate Asthma persistence: persistent Asthma complication type: uncomplicated Qualified Code(s): J45.40 - Moderate persistent asthma, uncomplicated Code(s): J45.909 - Unspecified asthma, uncomplicated Status: Chronic (9) DM (diabetes mellitus): Qualifiers: Diabetes mellitus type: type 2 Diabetes mellitus ocean transportation intermediary insulin use: without ocean transportation intermediary use Diabetes mellitus complication status: without complication Qualified Code(s): E11.9 - Type 2 diabetes mellitus without complications Code(s): E11.9 - Type 2 diabetes mellitus without complications Status: Chronic (10) Generalized muscle weakness: Code(s): M62.81 - Muscle weakness (generalized) Status: Acute (11) Elevated WBC count: Code(s): D72.829 - Elevated white blood cell count, unspecified Status: Acute (12) Anemia: Code(s): D64.9 - Anemia, unspecified Status: Acute Assessment and Plan: Thank you for consult. [place] workman. Subjective Date/time seen: 11/10/20 12:56 She feels fair today, still with mild shortness of breath, and mild orthopnea. No chest pain today. Exam Const: General: alert, ill appearing and other (sleepy); No acute distress HENMT: Head: normal to inspection and atraumatic Ears: hearing grossly normal bilaterally Face and sinus: normal facial exam Eyes: General: appearance normal, both eyes and all related structures Pupils: Equal, round and reactive pupils present EOM: EOMs intact bilaterally Neck: Neck: normal visual inspection and no JVD Chest: Chest palpation & inspection: normal inspection of the chest Re
--- NOTE | 2020-11-10 13:16 | PC.NURSE ---
Transfer received from IMU room 207. Patient oriented to the room.
--- NOTE | 2020-11-10 16:21 | PM.IMPN ---
Progress Note: A&P Assessment and Plan (1) Diverticulitis: Code(s): K57.92 - Diverticulitis of intestine, part unspecified, without perforation or abscess without bleeding Status: Acute (2) HTN (hypertension): Qualifiers: Hypertension type: unspecified Qualified Code(s): I10 - Essential (primary) hypertension Code(s): I10 - Essential (primary) hypertension Status: Chronic (3) Generalized weakness: Code(s): R53.1 - Weakness Status: Acute (4) Pleural effusion on left: Code(s): J90 - Pleural effusion, not elsewhere classified Status: Acute (5) Chronic renal failure, stage 4 (severe): Code(s): N18.4 - Chronic kidney disease, stage 4 (severe) Status: Chronic (6) Debility: Code(s): R53.81 - Other malaise Status: Acute (7) Acute on chronic renal failure: Qualifiers: Acute renal failure type: unspecified Chronic kidney disease stage: unspecified stage Qualified Code(s): N17.9 - Acute kidney failure, unspecified; N18.9 - Chronic kidney disease, unspecified Code(s): N17.9 - Acute kidney failure, unspecified; N18.9 - Chronic kidney disease, unspecified Status: Acute (8) COPD (chronic obstructive pulmonary disease): Qualifiers: COPD type: unspecified COPD Qualified Code(s): J44.9 - Chronic obstructive pulmonary disease, unspecified Code(s): J44.9 - Chronic obstructive pulmonary disease, unspecified Status: Chronic (9) GERD (gastroesophageal reflux disease): Qualifiers: Esophagitis presence: esophagitis presence not specified Qualified Code(s): K21.9 - Gastro-esophageal reflux disease without esophagitis Code(s): K21.9 - Gastro-esophageal reflux disease without esophagitis Status: Chronic (10) Hypothyroid: Qualifiers: Hypothyroidism type: unspecified Qualified Code(s): E03.9 - Hypothyroidism, unspecified Code(s): E03.9 - Hypothyroidism, unspecified Status: Chronic (11) Chronic anemia: Code(s): D64.9 - Anemia, unspecified Status: Chronic (12) Neuropathy in diabetes: Qualifiers: Diabetes mellitus type: type 2 Diabetes mellitus complication detail: diabetic polyneuropathy Qualified Code(s): E11.42 - Type 2 diabetes mellitus with diabetic polyneuropathy Code(s): E11.40 - Type 2 diabetes mellitus with diabetic neuropathy, unspecified Status: Acute (13) Controlled insulin-dependent diabetes mellitus with neuropathy: Status: Acute (14) Chronic back pain: Qualifiers: Back pain laterality: bilateral Back pain location: back pain in unspecified location Qualified Code(s): M54.9 - Dorsalgia, unspecified; G89.29 - Other chronic pain Code(s): M54.9 - Dorsalgia, unspecified; G89.29 - Other chronic pain Status: Chronic (15) CHF (congestive heart failure): Qualifiers: Heart failure type: unspecified Heart failure chronicity: acute on chronic Qualified Code(s): I50.9 - Heart failure, unspecified Code(s): I50.9 - Heart failure, unspecified Status: Chronic (16) DM (diabetes mellitus): Qualifiers: Diabetes mellitus type: type 2 Diabetes mellitus fdc insulin use: without oysterman use Diabetes mellitus complication status: without complication Qualified Code(s): E11.9 - Type 2 diabetes mellitus without complications Code(s): E11.9 - Type 2 diabetes mellitus without complications Status: Chronic (17) Elevated troponin: Code(s): R77.8 - Other specified abnormalities of plasma proteins Status: Acute (18) Sinus pause: Code(s): I45.5 - Other specified heart block Status: Acute (19) Bradycardia: Code(s): R00.1 - Bradycardia, unspecified Status: Acute Additional Plan # abdominal pain/nausea/vomiting: noted active and persistent diverticulitis. she has multiple drug allergies prohibiting use o
[2020-11-10 17:08] LABS: Glucose Point of Care 219 mg/dl (65-105)
[2020-11-10] MEDS: diazePAM (*CRX) 2 MG TABLET PO (19:32)
[2020-11-10 20:14] LABS: Glucose Point of Care 219 mg/dl (65-105)
[2020-11-10] MEDS: INSULIN GLARGINE (*BKC) 100 UNITS/ML 40 UNITS SUB-Q (21:06)
[2020-11-11] VITALS (10 sets, daily range): BP systolic 150–187; BP diastolic 52–84; PULSE 65–79; RESP 20; TEMP 36.2–36.4; O2SAT 95–99
[2020-11-11] MEDS: metroNIDAZOLE 500 MG/ISO 100ML 500 MG/100 ML BAG 100 MG IVPB ×3 (04:00→19:48)
[2020-11-11 05:44] LABS: Hematocrit 27.4 % (37.0-47.0); Hemoglobin 8.9 g/dL (12.0-15.0); Mean Corpuscular HGB Conc 32.5 g/dl (32-36); Mean Corpuscular Hemoglobin 25.4 pg (26-34); Mean Corpuscular Volume 78.1 fl (80-100); Mean Platelet Volume 8.5 fl (7.4-10.4); Platelet Count Result 222 k/mm3 (150-375); Red Blood Count 3.51 M/mm3 (4.2-5.4); Red Cell Distribution Width 14.3 % (11.5-14.5); White Blood Count 10.2 K/mm3 (4.5-10.0)
[2020-11-11 05:58] LABS: Anion Gap 9 mmol/L (8-16); Blood Urea Nitrogen 38 mg/dL (7-17); Calcium 8.2 mg/dL (8.4-10.2); Carbon Dioxide 29 mmol/L (22-30); Chloride 99 mmol/L (98-107); Estimated CRCL calculation 30 ml/min; Estimated Glomerular Filt Rate 31; Glucose 288 mg/dL (65-105); Potassium 3.6 mmol/L (3.4-5.0); Sodium 137 mmol/L (137-145)
[2020-11-11 07:56] LABS: Glucose Point of Care 259 mg/dl (65-105)
[2020-11-11] MEDS: SIMETHICONE 80 MG TAB.CHEW PO ×4 (09:00→21:28)
[2020-11-11] MEDS: ISOSORBIDE DINITRATE 10 MG TABLET PO ×2 (09:00→17:35)
[2020-11-11] MEDS: diazePAM (*CRX) 2 MG TABLET PO (09:00)
[2020-11-11] MEDS: amLODIPine BESYLATE 5 MG TABLET PO (09:00)
[2020-11-11] MEDS: INSULIN ASPART (*BKC) 100 UNITS/ML SUB-Q ×3 (09:01→17:35)
[2020-11-11] MEDS: ZINC OXIDE 20% OINT 30 GM TUBE 1 APPLIC TOPICAL (09:02)
[2020-11-11] MEDS: HEPARIN SODIUM 5,000 UNITS/ML VIAL 5000 UNITS SUB-Q ×2 (09:02→21:27)
[2020-11-11] MEDS: COLLAGENASE OINT 30 GM TUBE 1 APPLIC TOPICAL (09:02)
[2020-11-11] MEDS: PHENYLEPH/SHARK OIL/MO/PETROL CREAM 26 GM 1 APPLIC RECTAL (09:03)
[2020-11-11] MEDS: TOLNAFTATE 1% POWDER 45 GM BTL 1 APPLIC TOPICAL ×2 (09:03→21:26)
--- NOTE | 2020-11-11 09:07 | PM.PNCARD ---
Progress Note: A&P Assessment and Plan (1) Elevated troponin: Code(s): R77.8 - Other specified abnormalities of plasma proteins Status: Acute Assessment and Plan: Pt was found to have mildly elevated troponin in setting of CRI, diverticulitis and possible pneumonia. No EKG changes, no CP. Flat pattern. Recent ECHO normal per records. Given hx of DVT it would be beneficial to r/o pulmonary embolism when pt will have chest CT to r/o pneumonia. Cont medical management and risk fact modification. (2) Urinary tract infection: Qualifiers: Hematuria presence: without hematuria Urinary tract infection type: site unspecified Qualified Code(s): N39.0 - Urinary tract infection, site not specified Code(s): N39.0 - Urinary tract infection, site not specified Status: Acute Assessment and Plan: management per PCpt with hx of UTI in 08/26 with Pseudomonas. (3) HTN (hypertension): Qualifiers: Hypertension type: unspecified Qualified Code(s): I10 - Essential (primary) hypertension Code(s): I10 - Essential (primary) hypertension Status: Chronic Assessment and Plan: Mildly elevated will adjust meds (4) Diverticulitis: Code(s): K57.92 - Diverticulitis of intestine, part unspecified, without perforation or abscess without bleeding Status: Acute Assessment and Plan: Management per PC. Blood cultures pending. (5) Chronic renal failure, stage 4 (severe): Code(s): N18.4 - Chronic kidney disease, stage 4 (severe) Status: Chronic (6) Chronic respiratory failure: Qualifiers: Respiratory failure complication: unspecified whether with hypoxia or hypercapnia Qualified Code(s): J96.10 - Chronic respiratory failure, unspecified whether with hypoxia or hypercapnia Code(s): J96.10 - Chronic respiratory failure, unspecified whether with hypoxia or hypercapnia Status: Chronic (7) COPD (chronic obstructive pulmonary disease): Qualifiers: COPD type: unspecified COPD Qualified Code(s): J44.9 - Chronic obstructive pulmonary disease, unspecified Code(s): J44.9 - Chronic obstructive pulmonary disease, unspecified Status: Chronic (8) Asthma: Qualifiers: Asthma severity: moderate Asthma persistence: persistent Asthma complication type: uncomplicated Qualified Code(s): J45.40 - Moderate persistent asthma, uncomplicated Code(s): J45.909 - Unspecified asthma, uncomplicated Status: Chronic (9) DM (diabetes mellitus): Qualifiers: Diabetes mellitus type: type 2 Diabetes mellitus intermodal customer service insulin use: without intermodal customer service use Diabetes mellitus complication status: without complication Qualified Code(s): E11.9 - Type 2 diabetes mellitus without complications Code(s): E11.9 - Type 2 diabetes mellitus without complications Status: Chronic (10) Generalized muscle weakness: Code(s): M62.81 - Muscle weakness (generalized) Status: Acute (11) Elevated WBC count: Code(s): D72.829 - Elevated white blood cell count, unspecified Status: Acute (12) Anemia: Code(s): D64.9 - Anemia, unspecified Status: Acute Subjective Date/time seen: 11/11/20 09:07 She feels fair today, complains of nausea, but no chest pain no shortness of breath. On the monitor she has sinus rhythm Exam Const: General: alert, ill appearing and other (sleepy); No acute distress HENMT: Head: normal to inspection and atraumatic Ears: hearing grossly normal bilaterally Face and sinus: normal facial exam Eyes: General: appearance normal, both eyes and all related structures Pupils: Equal, round and reactive pupils present EOM: EOMs intact bilaterally Neck: Neck: normal visual inspection and no JVD Chest: Chest palpation & inspection: normal inspection of the chest Resp: Effort & Inspection: normal respiratory effort and no respiratory distress Aus
[2020-11-11 11:39] LABS: Glucose Point of Care 212 mg/dl (65-105)
[2020-11-11] MEDS: hydrALAZINE HCL 25 MG TABLET PO ×3 (12:32→21:28)
--- NOTE | 2020-11-11 15:39 | PM.IMPN ---
Progress Note: A&P Assessment and Plan (1) Diverticulitis: Code(s): K57.92 - Diverticulitis of intestine, part unspecified, without perforation or abscess without bleeding Status: Acute (2) HTN (hypertension): Qualifiers: Hypertension type: unspecified Qualified Code(s): I10 - Essential (primary) hypertension Code(s): I10 - Essential (primary) hypertension Status: Chronic (3) Generalized weakness: Code(s): R53.1 - Weakness Status: Acute (4) Pleural effusion on left: Code(s): J90 - Pleural effusion, not elsewhere classified Status: Acute (5) Chronic renal failure, stage 4 (severe): Code(s): N18.4 - Chronic kidney disease, stage 4 (severe) Status: Chronic (6) Debility: Code(s): R53.81 - Other malaise Status: Acute (7) Acute on chronic renal failure: Qualifiers: Acute renal failure type: unspecified Chronic kidney disease stage: unspecified stage Qualified Code(s): N17.9 - Acute kidney failure, unspecified; N18.9 - Chronic kidney disease, unspecified Code(s): N17.9 - Acute kidney failure, unspecified; N18.9 - Chronic kidney disease, unspecified Status: Acute (8) COPD (chronic obstructive pulmonary disease): Qualifiers: COPD type: unspecified COPD Qualified Code(s): J44.9 - Chronic obstructive pulmonary disease, unspecified Code(s): J44.9 - Chronic obstructive pulmonary disease, unspecified Status: Chronic (9) GERD (gastroesophageal reflux disease): Qualifiers: Esophagitis presence: esophagitis presence not specified Qualified Code(s): K21.9 - Gastro-esophageal reflux disease without esophagitis Code(s): K21.9 - Gastro-esophageal reflux disease without esophagitis Status: Chronic (10) Hypothyroid: Qualifiers: Hypothyroidism type: unspecified Qualified Code(s): E03.9 - Hypothyroidism, unspecified Code(s): E03.9 - Hypothyroidism, unspecified Status: Chronic (11) Chronic anemia: Code(s): D64.9 - Anemia, unspecified Status: Chronic (12) Neuropathy in diabetes: Qualifiers: Diabetes mellitus type: type 2 Diabetes mellitus complication detail: diabetic polyneuropathy Qualified Code(s): E11.42 - Type 2 diabetes mellitus with diabetic polyneuropathy Code(s): E11.40 - Type 2 diabetes mellitus with diabetic neuropathy, unspecified Status: Acute (13) Controlled insulin-dependent diabetes mellitus with neuropathy: Status: Acute (14) Chronic back pain: Qualifiers: Back pain laterality: bilateral Back pain location: back pain in unspecified location Qualified Code(s): M54.9 - Dorsalgia, unspecified; G89.29 - Other chronic pain Code(s): M54.9 - Dorsalgia, unspecified; G89.29 - Other chronic pain Status: Chronic (15) CHF (congestive heart failure): Qualifiers: Heart failure type: unspecified Heart failure chronicity: acute on chronic Qualified Code(s): I50.9 - Heart failure, unspecified Code(s): I50.9 - Heart failure, unspecified Status: Chronic (16) DM (diabetes mellitus): Qualifiers: Diabetes mellitus type: type 2 Diabetes mellitus long chain beamer insulin use: without [place] use Diabetes mellitus complication status: without complication Qualified Code(s): E11.9 - Type 2 diabetes mellitus without complications Code(s): E11.9 - Type 2 diabetes mellitus without complications Status: Chronic (17) Elevated troponin: Code(s): R77.8 - Other specified abnormalities of plasma proteins Status: Acute (18) Sinus pause: Code(s): I45.5 - Other specified heart block Status: Acute (19) Bradycardia: Code(s): R00.1 - Bradycardia, unspecified Status: Acute Additional Plan PLAN THE SAME ADMISSION # abdominal pain/nausea/vomting: noted active and persistent diverticulitis. will continue ce
[2020-11-11 16:41] LABS: Glucose Point of Care 367 mg/dl (65-105)
[2020-11-11 20:18] LABS: Glucose Point of Care 292 mg/dl (65-105)
[2020-11-11] MEDS: INSULIN GLARGINE (*BKC) 100 UNITS/ML 40 UNITS SUB-Q (21:24)
[2020-11-12] VITALS (10 sets, daily range): BP systolic 132–162; BP diastolic 50–65; PULSE 54–77; RESP 16–20; TEMP 35.8–36.6; O2SAT 94–100
[2020-11-12] MEDS: metroNIDAZOLE 500 MG/ISO 100ML 500 MG/100 ML BAG 100 MG IVPB ×3 (05:16→20:50)
[2020-11-12 05:42] LABS: Hemoglobin 8.8 g/dL (12.0-15.0); Mean Corpuscular HGB Conc 31.4 g/dl (32-36); Mean Corpuscular Hemoglobin 25.1 pg (26-34); Mean Platelet Volume 8.8 fl (7.4-10.4); Platelet Count Result 213 k/mm3 (150-375); Red Cell Distribution Width 14.6 % (11.5-14.5); White Blood Count 9.4 K/mm3 (4.5-10.0)
[2020-11-12 05:54] LABS: Potassium 3.4 mmol/L (3.4-5.0)
[2020-11-12 05:57] LABS: Anion Gap 8 mmol/L (8-16); Blood Urea Nitrogen 33 mg/dL (7-17); Calcium 8.1 mg/dL (8.4-10.2); Carbon Dioxide 28 mmol/L (22-30); Chloride 99 mmol/L (98-107); Estimated CRCL calculation 37 ml/min; Estimated Glomerular Filt Rate 40; Glucose 269 mg/dL (65-105); Sodium 135 mmol/L (137-145)
[2020-11-12 08:00] LABS: Glucose Point of Care 233 mg/dl (65-105)
[2020-11-12] MEDS: INSULIN ASPART (*BKC) 100 UNITS/ML SUB-Q ×3 (08:18→18:31)
[2020-11-12] MEDS: amLODIPine BESYLATE 5 MG TABLET PO (08:20)
[2020-11-12] MEDS: COLLAGENASE OINT 30 GM TUBE 1 APPLIC TOPICAL (08:20)
[2020-11-12] MEDS: HEPARIN SODIUM 5,000 UNITS/ML VIAL 5000 UNITS SUB-Q ×2 (08:20→20:50)
[2020-11-12] MEDS: hydrALAZINE HCL 25 MG TABLET PO ×4 (08:20→20:50)
[2020-11-12] MEDS: SCOPOLAMINE 1.5 MG PATCH TRANSDERM (08:21)
[2020-11-12] MEDS: ISOSORBIDE DINITRATE 10 MG TABLET PO ×2 (08:21→18:33)
[2020-11-12] MEDS: TOLNAFTATE 1% POWDER 45 GM BTL 1 APPLIC TOPICAL ×2 (08:22→20:51)
[2020-11-12] MEDS: SIMETHICONE 80 MG TAB.CHEW PO ×4 (08:22→20:50)
[2020-11-12] MEDS: ZINC OXIDE 20% OINT 30 GM TUBE 1 APPLIC TOPICAL (08:22)
--- NOTE | 2020-11-12 09:01 | PM.PNCARD ---
Subjective Date/time seen: 11/12/20 09:01 she feels better today, no chest pain no shortness breath nausea vomiting improved. She is in sinus rhythm on the monitor Interval history: 75-year-old female with multiple medical problems including chronic respiratory failure, obstructive sleep apnea, obesity hypoventilation syndrome, COPD, pulmonary hypertension, hypertension, congestive heart failure, diabetes, hypothyroidism, and several other comorbidities presents to the with complains of nausea, abdominal pain and vomiting since past few days now. Pt still feels nauseated and has some diarrhea. Exam Const: General: alert, ill appearing and other (sleepy); No acute distress HENMT: Head: normal to inspection and atraumatic Ears: hearing grossly normal bilaterally Face and sinus: normal facial exam Eyes: General: appearance normal, both eyes and all related structures Pupils: Equal, round and reactive pupils present EOM: EOMs intact bilaterally Neck: Neck: normal visual inspection and no JVD Chest: Chest palpation & inspection: normal inspection of the chest Resp: Effort & Inspection: normal respiratory effort and no respiratory distress Auscultation: diminished lung sounds Cardio: Jugular venous distension: no JVD Rate: regular rate Heart sounds: S1 normal heart sound present, S2 normal heart sound present and no murmurs GI: Inspection: normal to inspection Auscultation: normal bowel sounds Skin: General skin exam: normal color Neuro: Cranial nerves: Yes Equal, round and reactive pupils present Extrem: General: normal to inspection and edema (trace LE edema) Objective Data Vital Signs Vital Signs: Vital Signs - 24 hr 11/11/20 12:00 11/11/20 12:32 11/11/20 14:43 Temperature Pulse Rate 76 Respiratory Rate Blood Pressure 182/74 H 162/84 H Pulse Oximetry 11/11/20 16:00 11/11/20 17:37 11/11/20 20:00 Temperature 36.2 C L Pulse Rate 75 74 Respiratory Rate 20 Blood Pressure 150/67 H 152/53 H Pulse Oximetry 96 11/12/20 00:00 11/12/20 04:00 11/12/20 08:00 Temperature 36.3 C L Pulse Rate 54 L 73 74 Respiratory Rate 16 Blood Pressure 162/65 H Pulse Oximetry 100 100 Intake/Output Intake/Output: Intake & Output 06/04/21 06/05/21 06/06/21 06/07/21 23:59 23:59 23:59 23:59 Intake Total 2089 2650 1440 300 Output Total 400 Balance 2089 2250 1440 300 Meds/Results Medications: Active Medications Generic Name Dose Route Start Last Admin Trade Name Freq PRN Reason Stop Dose Admin Acetaminophen 650 mg 11/09/20 01:13 11/10/20 00:56 Acetaminophen 325 Mg Tablet PO 650 mg Q4H PRN Administration Mild Pain (1-3) or Fever Albuterol 4 puff 11/09/20 03:23 Albuterol Sulfate (*Sp) Aerosol 1 Puff INHALATION QID PRN Shortness Of Breath Or Wheezin Amlodipine Besylate 5 mg 11/09/20 09:00 11/12/20 08:20 Amlodipine Besylate 5 Mg Tablet PO 5 mg DAILY DIDI Administration Collagenase 1 applic 11/10/20 09:00 11/12/20 08:20 Collagenase Oint 30 Gm Tube TOPICAL 1 applic QAM DIDI Administration Dextrose 12.5 gm 11/09/20 17:24 Dextrose 50% 25 Gm/50 Ml Syringe IV PUSH PRN PRN Hypoglycemia Protocol Diazepam 2 mg 11/09/20 03:23 11/11/20 09:00 Diazepam (*Crx) 2 Mg Tablet PO 2 mg BID PRN Administration anxiety Furosemide 40 mg 11/09/20 09:00 Furosemide 40 Mg Tablet PO BID DIDI Glucagon 1 mg 11/09/20 17:24 Glucagon For Inj 1 Mg Vial IM PRN PRN Hypoglycemia Protocol Glucose 15 gm 11/09/20 17:24 Glucose Oral Gel 15 Gm Of Glucse In 37.5 Gm Tube PO PRN PRN Hypoglycemia Protocol Heparin Sodium (Porcine) 5,000 units 11/09/20 09:00 11/12/20 08:20 Heparin Sodium 5,000 Units/Ml Vial SUB-Q 5,000 units Q12HR DIDI Administration Hydralazine HCl 25 mg 11/11/20 13:00 11/12/20 08:20 Hydralazine Hcl 25 Mg Tablet PO 25 mg QID DIDI Administration
[2020-11-12 11:31] LABS: Glucose Point of Care 327 mg/dl (65-105)
--- NOTE | 2020-11-12 13:03 | PM.IMPN ---
Progress Note: A&P Assessment and Plan (1) Diverticulitis: Code(s): K57.92 - Diverticulitis of intestine, part unspecified, without perforation or abscess without bleeding Status: Acute (2) HTN (hypertension): Qualifiers: Hypertension type: unspecified Qualified Code(s): I10 - Essential (primary) hypertension Code(s): I10 - Essential (primary) hypertension Status: Chronic (3) Generalized weakness: Code(s): R53.1 - Weakness Status: Acute (4) Pleural effusion on left: Code(s): J90 - Pleural effusion, not elsewhere classified Status: Acute (5) Chronic renal failure, stage 4 (severe): Code(s): N18.4 - Chronic kidney disease, stage 4 (severe) Status: Chronic (6) Debility: Code(s): R53.81 - Other malaise Status: Acute (7) Acute on chronic renal failure: Qualifiers: Acute renal failure type: unspecified Chronic kidney disease stage: unspecified stage Qualified Code(s): N17.9 - Acute kidney failure, unspecified; N18.9 - Chronic kidney disease, unspecified Code(s): N17.9 - Acute kidney failure, unspecified; N18.9 - Chronic kidney disease, unspecified Status: Acute (8) COPD (chronic obstructive pulmonary disease): Qualifiers: COPD type: unspecified COPD Qualified Code(s): J44.9 - Chronic obstructive pulmonary disease, unspecified Code(s): J44.9 - Chronic obstructive pulmonary disease, unspecified Status: Chronic (9) GERD (gastroesophageal reflux disease): Qualifiers: Esophagitis presence: esophagitis presence not specified Qualified Code(s): K21.9 - Gastro-esophageal reflux disease without esophagitis Code(s): K21.9 - Gastro-esophageal reflux disease without esophagitis Status: Chronic (10) Hypothyroid: Qualifiers: Hypothyroidism type: unspecified Qualified Code(s): E03.9 - Hypothyroidism, unspecified Code(s): E03.9 - Hypothyroidism, unspecified Status: Chronic (11) Chronic anemia: Code(s): D64.9 - Anemia, unspecified Status: Chronic (12) Neuropathy in diabetes: Qualifiers: Diabetes mellitus type: type 2 Diabetes mellitus complication detail: diabetic polyneuropathy Qualified Code(s): E11.42 - Type 2 diabetes mellitus with diabetic polyneuropathy Code(s): E11.40 - Type 2 diabetes mellitus with diabetic neuropathy, unspecified Status: Acute (13) Controlled insulin-dependent diabetes mellitus with neuropathy: Status: Acute (14) Chronic back pain: Qualifiers: Back pain laterality: bilateral Back pain location: back pain in unspecified location Qualified Code(s): M54.9 - Dorsalgia, unspecified; G89.29 - Other chronic pain Code(s): M54.9 - Dorsalgia, unspecified; G89.29 - Other chronic pain Status: Chronic (15) CHF (congestive heart failure): Qualifiers: Heart failure type: unspecified Heart failure chronicity: acute on chronic Qualified Code(s): I50.9 - Heart failure, unspecified Code(s): I50.9 - Heart failure, unspecified Status: Chronic (16) DM (diabetes mellitus): Qualifiers: Diabetes mellitus type: type 2 Diabetes mellitus assistant terminal manager insulin use: without mcfp use Diabetes mellitus complication status: without complication Qualified Code(s): E11.9 - Type 2 diabetes mellitus without complications Code(s): E11.9 - Type 2 diabetes mellitus without complications Status: Chronic (17) Elevated troponin: Code(s): R77.8 - Other specified abnormalities of plasma proteins Status: Acute (18) Sinus pause: Code(s): I45.5 - Other specified heart block Status: Acute (19) Bradycardia: Code(s): R00.1 - Bradycardia, unspecified Status: Acute Additional Plan PLAN THE SAME ADMISSION # abdominal pain/nausea/vomting: noted active and persistent diverticulitis. pt is on iv flag
[2020-11-12 17:59] LABS: Glucose Point of Care 332 mg/dl (65-105)
[2020-11-12] MEDS: INSULIN GLARGINE (*BKC) 100 UNITS/ML 40 UNITS SUB-Q (21:53)
[2020-11-12 21:56] LABS: Glucose Point of Care 276 mg/dl (65-105)
[2020-11-13] VITALS (8 sets, daily range): BP systolic 106–181; BP diastolic 49–62; PULSE 66–79; RESP 16–20; TEMP 36–36.7; O2SAT 96–100
[2020-11-13] MEDS: metroNIDAZOLE 500 MG/ISO 100ML 500 MG/100 ML BAG 100 MG IVPB (03:59)
--- NOTE | 2020-11-13 07:33 | PM.PNCARD ---
Progress Note: A&P Assessment and Plan (1) Elevated troponin: Code(s): R77.8 - Other specified abnormalities of plasma proteins Status: Acute Assessment and Plan: Pt was found to have mildly elevated troponin in setting of CRI, diverticulitis and possible pneumonia. No EKG changes, no CP. Flat pattern. Recent ECHO normal per records. Given hx of DVT it would be beneficial to r/o pulmonary embolism when pt will have chest CT to r/o pneumonia. Cont medical management and risk fact modification. (2) Urinary tract infection: Qualifiers: Hematuria presence: without hematuria Urinary tract infection type: site unspecified Qualified Code(s): N39.0 - Urinary tract infection, site not specified Code(s): N39.0 - Urinary tract infection, site not specified Status: Acute Assessment and Plan: management per PCpt with hx of UTI in 08/26 with Pseudomonas. (3) HTN (hypertension): Qualifiers: Hypertension type: unspecified Qualified Code(s): I10 - Essential (primary) hypertension Code(s): I10 - Essential (primary) hypertension Status: Chronic Assessment and Plan: Mildly elevated will adjust meds (4) Diverticulitis: Code(s): K57.92 - Diverticulitis of intestine, part unspecified, without perforation or abscess without bleeding Status: Acute Assessment and Plan: Management per PC. Blood cultures pending. (5) Chronic renal failure, stage 4 (severe): Code(s): N18.4 - Chronic kidney disease, stage 4 (severe) Status: Chronic (6) Chronic respiratory failure: Qualifiers: Respiratory failure complication: unspecified whether with hypoxia or hypercapnia Qualified Code(s): J96.10 - Chronic respiratory failure, unspecified whether with hypoxia or hypercapnia Code(s): J96.10 - Chronic respiratory failure, unspecified whether with hypoxia or hypercapnia Status: Chronic (7) COPD (chronic obstructive pulmonary disease): Qualifiers: COPD type: unspecified COPD Qualified Code(s): J44.9 - Chronic obstructive pulmonary disease, unspecified Code(s): J44.9 - Chronic obstructive pulmonary disease, unspecified Status: Chronic (8) Asthma: Qualifiers: Asthma severity: moderate Asthma persistence: persistent Asthma complication type: uncomplicated Qualified Code(s): J45.40 - Moderate persistent asthma, uncomplicated Code(s): J45.909 - Unspecified asthma, uncomplicated Status: Chronic (9) DM (diabetes mellitus): Qualifiers: Diabetes mellitus type: type 2 Diabetes mellitus buttermaker insulin use: without buttermaker use Diabetes mellitus complication status: without complication Qualified Code(s): E11.9 - Type 2 diabetes mellitus without complications Code(s): E11.9 - Type 2 diabetes mellitus without complications Status: Chronic (10) Generalized muscle weakness: Code(s): M62.81 - Muscle weakness (generalized) Status: Acute (11) Elevated WBC count: Code(s): D72.829 - Elevated white blood cell count, unspecified Status: Acute (12) Anemia: Code(s): D64.9 - Anemia, unspecified Status: Acute Subjective Date/time seen: 11/13/20 07:33 SHE HAD DIZZINESS YESTERDAY, GOING TO BE SEEN BY NEUROLOGY no chest pain no significant shortness of breath, no nausea or vomiting anymore Exam Const: General: alert, ill appearing and other (sleepy); No acute distress HENMT: Head: normal to inspection and atraumatic Ears: hearing grossly normal bilaterally Face and sinus: normal facial exam Eyes: General: appearance normal, both eyes and all related structures Pupils: Equal, round and reactive pupils present EOM: EOMs intact bilaterally Neck: Neck: normal visual inspection and no JVD Chest: Chest palpation & inspection: normal inspection of the chest Resp: Effort & Inspection: normal respiratory effort and no respirat
[2020-11-13] MEDS: amLODIPine BESYLATE 5 MG TABLET PO (07:55)
[2020-11-13] MEDS: COLLAGENASE OINT 30 GM TUBE 1 APPLIC TOPICAL (07:56)
[2020-11-13] MEDS: hydrALAZINE HCL 25 MG TABLET PO ×4 (07:56→21:54)
[2020-11-13] MEDS: HEPARIN SODIUM 5,000 UNITS/ML VIAL 5000 UNITS SUB-Q (07:56)
[2020-11-13] MEDS: ZINC OXIDE 20% OINT 30 GM TUBE 1 APPLIC TOPICAL (07:57)
[2020-11-13] MEDS: TOLNAFTATE 1% POWDER 45 GM BTL 1 APPLIC TOPICAL ×2 (07:57→21:57)
[2020-11-13] MEDS: ISOSORBIDE DINITRATE 10 MG TABLET PO ×2 (07:57→18:29)
[2020-11-13] MEDS: SIMETHICONE 80 MG TAB.CHEW PO ×4 (07:57→21:54)
[2020-11-13 08:17] LABS: Glucose Point of Care 260 mg/dl (65-105)
[2020-11-13] MEDS: INSULIN ASPART (*BKC) 100 UNITS/ML SUB-Q ×3 (08:18→18:36)
--- NOTE | 2020-11-13 10:00 | WPDNEURCNPN ---
Assessment and Plan Assessment and plan (1) Generalized weakness: Code(s): R53.1 - Weakness Status: Acute Additional Plan generalized weakness with multiple medical problems particularly diabetes mellitus with neuropathy complaints of back pain x-rays the lumbar spine are compatible with moderate lumbar spondylosis without acute finding or significant interval change at this particular time it will be treated symptomatically while the other problems are being tackled and Consult date: 11/13/20 Time Seen: 10:00 HPI: Codie Crowder is a 75 year old female admitted to the hospital for the complaints of abdominal pain with nausea and vomiting in addition to the history of underlying 1. Chronic respiratory failure 2. Obstructive sleep apnea 3. Obesity hyperventilation syndrome 4. COPD 5. Pulmonary hypertension 6. Congestive heart failure 7. Diabetes mellitus 8. Hypothyroidism. Patient is a known smoker 3 packs per day with 30 years smoking history and 90 years smoking packs per year ,evaluation up until now includes lumbar spine x-rays compatible with the spondylosis and routine labs are consistent with the hyper glycemia. patient has been seen by the taxation accountant as well neuro consultation has been obtained because of the possibility of the back pain Review of Systems Review of Systems: All systems reviewed & are unremarkable except as noted in HPI and below PMFSH Past Medical History Medical History Adenoma of left adrenal gland Anxiety Chronic anemia Chronic back pain Chronic kidney disease Stage 3 to 4 with average GFR in the high 20s to low 30s. Baseline creatinine appears to range between 1.7 and 2.0. Chronic obstructive pulmonary disease Chronic pancreatitis Chronic respiratory failure with hypoxia, on home oxygen therapy Congestive heart failure Echocardiogram in 05/2020 showed mild to moderately increased LV wall thickness, at least mild LV dysfunction with an EF of 40 to 50%, diastolic dysfunction grade 1, severely enlarged RV chamber, and reduced RV systolic function. Diabetic peripheral neuropathy Diverticulosis With history of diverticulitis. Gastroesophageal reflux disease History of cervical cancer Status post partial hysterectomy in the 1980s. History of deep vein thrombosis History of peptic ulcer History of pneumonia Hypercholesteremia Hypertension Hypothyroidism Insulin dependent type 2 diabetes mellitus Hemoglobin A1c was 7.0% in 05/2020. Morbid obesity Obesity hypoventilation syndrome Obstructive sleep apnea Spinal stenosis Venous stasis dermatitis of both lower extremities Surgical History Surgical History History of appendectomy History of bilateral cataract extraction History of cardiac catheterization X2, without intervention. History of cholecystectomy History of hysterectomy Partial hysterectomy due to cervical cancer. History of local excision of skin lesion Family History Family History Father Acute myocardial infarction, Onset Age: 64 Hypertension, Onset Age: 64 Asthma, Onset Age: 64 Family history of cardiovascular disease, Onset Age: 64 Family history of arthritis, Onset Age: 64 Mother Acute myocardial infarction, Onset Age: 78 Hypertension, Onset Age: 78 Family history of cardiovascular disease, Onset Age: 78 Family history of arthritis, Onset Age: 78 Family history of malignant neoplasm, Onset Age: 78 Sibling Diabetes mellitus Social History Social History Social History: The patient lives in [place] with her common-law , Jong Christianson. They have been together for over 30 years. They have no children together. She is a former smoker and quit 10+ years ago. No alcohol or illicit substance abuse. Jong is her surrogate decision
[2020-11-13 12:18] LABS: Glucose Point of Care 382 mg/dl (65-105)
--- NOTE | 2020-11-13 12:37 | PM.DS ---
DS: Admitting Diagnosis Admitting Diagnosis Admitting Diagnosis: abdominal pain/nausea, vomiting DS: Discharge Diagnosis Discharge Diagnosis (1) Diverticulitis: Code(s): K57.92 - Diverticulitis of intestine, part unspecified, without perforation or abscess without bleeding Status: Acute Assessment and Plan: # abdominal pain/nausea/vomiting: noted active and persistent diverticulitis. resolved now pt is on iv flagyl only improving stable for discharge # sinus pause 10 s and bradycardias overnight : atropine at bedside. related to her nausea. resolved seen by cardiology # elevated troponin: EKG with nonspecific changes. tronopin 0.104. does have underlying renal disease. will trend for any dynamic changes. Dr. Morrison has been consulted. no active chest pain. ok for discharge # MIKI on CKD stage III: baseline Cr 1.7. back to baseline at 1.3 # constipation: opened bowels. # HTN: home medications # type 2 DM; ssi. monitor. check a1c # Chronic back pain # chronic respiratory failure on home oxygen therapy 2L at baseline # DEON/obesity hypoventilation syndrome # COPD # Pulmonary hypertension # Congestive heart failure mixed systolic diastolic, EF 40-50%, diastolic grade 1, severely enalred RV chamer, reduced RV systolic function. # hypothyroidism: levothyroxine # chronic anemia: stable counts # diabetic peripheral neuropathy # Hx of DVT # Dizziness and vision disturbance consult neurology, seen by neurology ok for discharge (2) HTN (hypertension): Qualifiers: Hypertension type: unspecified Qualified Code(s): I10 - Essential (primary) hypertension Code(s): I10 - Essential (primary) hypertension Status: Chronic (3) Generalized weakness: Code(s): R53.1 - Weakness Status: Acute (4) Pleural effusion on left: Code(s): J90 - Pleural effusion, not elsewhere classified Status: Acute (5) Chronic renal failure, stage 4 (severe): Code(s): N18.4 - Chronic kidney disease, stage 4 (severe) Status: Chronic (6) Debility: Code(s): R53.81 - Other malaise Status: Acute (7) Acute on chronic renal failure: Qualifiers: Acute renal failure type: unspecified Chronic kidney disease stage: unspecified stage Qualified Code(s): N17.9 - Acute kidney failure, unspecified; N18.9 - Chronic kidney disease, unspecified Code(s): N17.9 - Acute kidney failure, unspecified; N18.9 - Chronic kidney disease, unspecified Status: Acute (8) COPD (chronic obstructive pulmonary disease): Qualifiers: COPD type: unspecified COPD Qualified Code(s): J44.9 - Chronic obstructive pulmonary disease, unspecified Code(s): J44.9 - Chronic obstructive pulmonary disease, unspecified Status: Chronic (9) GERD (gastroesophageal reflux disease): Qualifiers: Esophagitis presence: esophagitis presence not specified Qualified Code(s): K21.9 - Gastro-esophageal reflux disease without esophagitis Code(s): K21.9 - Gastro-esophageal reflux disease without esophagitis Status: Chronic (10) Hypothyroid: Qualifiers: Hypothyroidism type: unspecified Qualified Code(s): E03.9 - Hypothyroidism, unspecified Code(s): E03.9 - Hypothyroidism, unspecified Status: Chronic (11) Chronic anemia: Code(s): D64.9 - Anemia, unspecified Status: Chronic (12) Neuropathy in diabetes: Qualifiers: Diabetes mellitus type: type 2 Diabetes mellitus complication detail: diabetic polyneuropathy Qualified Code(s): E11.42 - Type 2 diabetes mellitus with diabetic polyneuropathy Code(s): E11.40 - Type 2 diabetes mellitus with diabetic neuropathy, unspecified Status: Acute (13) Controlled insulin-dependent diabetes mellitus with neuropathy: Status: Acute (14) Chronic back pain: Qualifiers: Back pain laterality: bilateral Back pain location: back pain in unspecified location
[2020-11-13 18:36] LABS: Glucose Point of Care 373 mg/dl (65-105)
[2020-11-13] MEDS: INSULIN GLARGINE (*BKC) 100 UNITS/ML 40 UNITS SUB-Q (21:57)
[2020-11-13 22:01] LABS: Glucose Point of Care 380 mg/dl (65-105)
[2020-11-14 00:35] VITALS: BP 183/52; PULSE 72; RESP 16; TEMP 36.6; O2SAT 100
== END 2020-11-14 01:15 | disposition home health service (06) | DRG 392 ==
LOC: ANHIMU 11-09 16:11 → ANH2MED 11-10 13:14
PROVIDERS: Admitting Provider Internal Medicine; PCP Family Medicine; Visit Provider Family Medicine
DX: K57.92 Diverticulitis of intestine, part unspecified, without perforation or abscess without bleeding (principal); N17.9 Acute kidney failure, unspecified; J96.10 Chronic respiratory failure, unspecified whether with hypoxia or hypercapnia; I13.0 Hypertensive heart and chronic kidney disease with heart failure and stage 1 through stage 4 chronic kidney disease, or unspecified chronic kidney disease; N18.4 Chronic kidney disease, stage 4 (severe); I50.42 Chronic combined systolic (congestive) and diastolic (congestive) heart failure; E66.2 Morbid (severe) obesity with alveolar hypoventilation; Z68.42 Body mass index [BMI] 45.0-49.9, adult; E11.22 Type 2 diabetes mellitus with diabetic chronic kidney disease; I50.9 Heart failure, unspecified; E11.42 Type 2 diabetes mellitus with diabetic polyneuropathy; G47.33 Obstructive sleep apnea (adult) (pediatric); J44.9 Chronic obstructive pulmonary disease, unspecified; E03.9 Hypothyroidism, unspecified; F41.9 Anxiety disorder, unspecified; D35.02 Benign neoplasm of left adrenal gland; D64.9 Anemia, unspecified; I87.2 Venous insufficiency (chronic) (peripheral); K21.9 Gastro-esophageal reflux disease without esophagitis; M48.00 Spinal stenosis, site unspecified; R00.1 Bradycardia, unspecified; J45.909 Unspecified asthma, uncomplicated; Z85.41 Personal history of malignant neoplasm of cervix uteri; Z90.710 Acquired absence of both cervix and uterus; Z86.718 Personal history of other venous thrombosis and embolism; Z87.11 Personal history of peptic ulcer disease; Z90.49 Acquired absence of other specified parts of digestive tract; Z98.42 Cataract extraction status, left eye; Z98.41 Cataract extraction status, right eye; Z87.891 Personal history of nicotine dependence; Z99.81 Dependence on supplemental oxygen
CPT/HCPCS: 36415; 71045; 80048; 80053; 80061; 82948; 83605; 83735; 84100; 84484; 85025; 85027; 87040; 87077; 87086; 87088; 87186; 93005; 93306; 96361; 96365; 96366; 96367; 96372; 96375; 96376; 97161; 97165; A9270; G0378; J0461; J0696; J1100; J1644; J1815; J2370; J2405; J2710; J2765; J3370; J7030; Q9957

== ENCOUNTER 2021-03-01 08:36 | Inpatient (IN) | payer MEDICARE, OTHER, SELFPAY ==
[2021-03-01] VITALS (14 sets, daily range): BP systolic 101–137; BP diastolic 40–63; PULSE 84–99; RESP 12–32; TEMP 36.8–37; O2SAT 89–97; BMI 37.8
--- NOTE | ~2021-03-01 | XR_ITS ---
EXAMINATION: XR foot RT 2V DATE: 03/01/2021 13:51 INDICATION: Right foot chronic wound. TECHNIQUE: 2 views of right foot were obtained. COMPARISON: Right foot radiographs 12/14/2018 FINDINGS: There is dorsiflexion of all of the metatarsophalangeal joints. No fracture. There is mild to moderate osteoarthritis of many of the midfoot joints. There is mild osteoarthritis of first metat arsophalangeal joint and some of the interphalangeal joints. There are enthesophytes at the posterior and plantar aspects of calcaneal tuberosity. There is an ulcer of the heel. There are erosions of ca lcaneal tuberosity, new from 12/14/18, consistent with osteomyelitis. IMPRESSION: 1. Osteomyelitis involving calcaneal tuberosity. Reviewed, dictated and finalized at location A.
--- NOTE | ~2021-03-01 | XR_ITS ---
EXAMINATION: XR chest 1V portable DATE: 03/04/2021 05:55 INDICATION: Pneumonia TECHNIQUE: frontal view of the chest was obtained. COMPARISON: Chest radiograph dated 03/01/2021 FINDINGS: There is inferior predominant gradient of hazy airspace opacities throughout both lungs with more den se consolidation in the left mid and lower lung zones consistent with small right and moderate-sized left posterior layering pleural effusions with associated atelectasis and/or pneumonia. No pneumothor ax. Cardiomegaly. IMPRESSION: 1. Small right and moderate left pleural effusions with associated atelectasis and/or pneumonia great est in the left mid to lower lung zone. 2. Cardiomegaly. Reviewed, dictated and finalized at location A. IMPRESSION: 1. Small right and moderate left pleural effusions with associated atelectasis and/or pneumonia greatest in the left mid to lower lung zone. 2. Cardiomegaly.
--- NOTE | ~2021-03-01 | US_ITS ---
EXAMINATION: US renal BI DATE: 03/03/2021 12:41 INDICATION: Elevated creatinine TECHNIQUE: Multiple ultrasound grayscale images of the kidneys were obtained. COMPARISON: CT dated 08/29/2020 FINDINGS: The right kidney measures 13.0 x 6.2 x 5.2 cm. The left kidney is suboptimally visualized measuring a pproximately 11.5 x 4.9 x 6.2 cm. The kidneys demonstrate normal echogenicity. There is no hydronephr osis in either kidney. No stones identified. The bladder is visualized likely decompressed with a Fo monica catheter reportedly in place. IMPRESSION: 1. Normal kidneys without hydronephrosis. Reviewed, dictated and finalized at location A.
--- NOTE | ~2021-03-01 | US_ITS ---
EXAMINATION: US venous doppler LE EXAM DATE: 03/03/2021 12:40 INDICATION: Bilateral leg edema. TECHNIQUE: Multiple grayscale, color flow and Doppler images of the lower extremity deep venous syste ms bilaterally were obtained and reviewed. Comparison is made to prior examination from 06/14/2020. FINDINGS: Limitations from patient's body habitus, right lower leg brace/cast. Right side: The right common femoral, femoral and profunda veins demonstrate normal color flow, respi ratory variation, augmentation and compressibility. Compressibility, color flow confirmed within the right popliteal, posterior tibial, peroneal, and greater saphenous veins. Left side: The left common femoral, femoral and profunda veins demonstrate normal color flow, respira tory variation, augmentation and compressibility. Compressibility, color flow confirmed within the l eft popliteal, posterior tibial, peroneal, and greater saphenous veins. IMPRESSION: 1. No evidence of lower extremity deep venous thrombosis bilaterally. Reviewed, dictated and finalized at location A.
--- NOTE | ~2021-03-01 | XR_ITS ---
EXAMINATION: XR abdomen/kub 1V EXAM DATE: 03/03/2021 08:36 INDICATION: Nausea and vomiting. TECHNIQUE: Frontal projection of the upper abdomen, frontal projection lower abdomen/pelvis for inter pretation. Comparison is made to prior examination from 05/07/2020. FINDINGS: There is expected amount of colonic stool and gas. No small bowel dilation, nonobstructiv e bowel gas pattern. There are no suspicious calcifications identified. The bones are unremarkab le. Elevated left hemidiaphragm with infrahilar air bronchograms, could be atelectasis an/or pneumo ina. Also left pleural effusion. IMPRESSION: 1. Unremarkable bowel gas pattern. 2. Left lower lobe airspace disease, pleural effusion. Reviewed, dictated and finalized at location A.
--- NOTE | ~2021-03-01 | XR_ITS ---
EXAMINATION: XR chest 1V portable DATE: 03/01/2021 10:05 INDICATION: Shortness of breath. TECHNIQUE: A single frontal view of the chest was obtained. COMPARISON: Chest single view 11/09/2020, CT abdomen and pelvis 08/29/2020 FINDINGS: There are airspace opacities in left mid and lower lung zones. There is a small left pleura l effusion. No pneumothorax. Cardiomegaly is noted. There are prominent paracardial fat pads. IMPRESSION: 1. Mildly worsened small left pleural effusion. 2. Mildly worsened airspace opacities in left mid and lower lung zones, consistent with atelectasis v ersus pneumonia. 3. Cardiomegaly. Reviewed, dictated and finalized at location A. IMPRESSION: 1. Mildly worsened small left pleural effusion. 2. Mildly worsened airspace opacities in left mid and lower lung zones, consist ent with atelectasis versus pneumonia. 3. Cardiomegaly.
--- NOTE | 2021-03-01 08:56 | PC.NURSE ---
CALL WAS MADE TO [facility] REGARDING PT. WE ARE AWAITING A CALL BACK FROM A MEMBER OF THEIR CLINICAL TEAM OR A PILE [employer] K[employer]ITTER
--- NOTE | 2021-03-01 08:59 | ECG_ITS ---
Measurements Intervals [place] Rate: 94 P: 54 [place]: 162 QRS: 163 QRSD: 125 T: 32 QT: 356 QTc: 446 Interpretive Statements SINUS RHYTHM WITH SINUS ARRHYTHMIA RIGHT AXIS DEVIATION RIGHT BUNDLE BRANCH BLOCK BASELINE ARTIFACT- I, II, AVR, AVL, AVF ABNORMAL ECG Electronically Signed On 03-01-2021 9:12:36 CDT by Larry Palumbo D.O.
--- NOTE | 2021-03-01 09:15 | PC.NURSE ---
0915-SPOKE TO PILO HOLLAND FROM [facility]. RECEIVED HER CONTACT NUMBER OF [phone]. STATES PATIENT IS NONCOMPLIANT WITH TAKING OF HOME MEDICATIONS, ESPECIALLY ANYTHING FOR PAIN. PILO HOLLAND STATES PATIENT DISPLAYS ATTENTION SEEKING BEHAVIOR. HAS A NEW WOUND TO RIGHT HEEL WHICH IS BEING TREATED WITH BETADINE. PILO HOLLAND STATES PATIENT IS BEING STARTED ON KEFLEX 500 MG TID X 7 DAYS. MAY TREAT PATIENT NEEDED (IV ANTIBIOTIC AND NEBULIZER TREATMENT). PILO NICHOLS STATES PATIENT HAS NEBULIZER AT HOME TO USE.
[2021-03-01] MEDS: IPRATROPIUM BR 0.02% INH SOLN 0.5 MG/2.5 ML VIAL INHALATION (10:04)
[2021-03-01] MEDS: ALBUTEROL SULFATE NEB 2.5 MG/0.5 ML INH 5 MG INHALATION (10:04)
[2021-03-01 10:19] LABS: Hematocrit 25.4 % (37.0-47.0); Hemoglobin 7.9 g/dL (12.0-15.0); Mean Corpuscular HGB Conc 31.1 g/dl (32-36); Mean Corpuscular Hemoglobin 25.7 pg (26-34); Mean Corpuscular Volume 82.7 fl (80-100); Mean Platelet Volume 9.1 fl (7.4-10.4); Platelet Count Result 278 k/mm3 (150-375); Red Blood Count 3.07 M/mm3 (4.2-5.4); Red Cell Distribution Width 14.2 % (11.5-14.5); White Blood Count 21.2 K/mm3 (4.5-10.0)
--- NOTE | 2021-03-01 10:30 | PC.NURSE ---
1030-ATTEMPTED TO CALL PILO HOLLAND X 2. NO ANSWER. HAS VOICE MAILBOX WHICH HAS NOT BEEN SET UP.
[2021-03-01 10:35] LABS: Lactic Acid Reflex 2.2 mmol/L (0.7-2.1)
[2021-03-01 10:36] LABS: Alanine Aminotransferase 21 U/L (4-35); Albumin Level 3.7 g/dL (3.5-5.1); Alkaline Phosphatase 117 U/L (38-126); Anion Gap 13 mmol/L (8-16); Aspartate Amino Transferase 36 U/L (14-36); Blood Urea Nitrogen 61 mg/dL (7-17); Calcium 8.4 mg/dL (8.4-10.2); Carbon Dioxide 29 mmol/L (22-30); Chloride 91 mmol/L (98-107); Estimated CRCL calculation 22 ml/min; Estimated Glomerular Filt Rate 21; Glucose 247 mg/dL (65-110); Potassium 3.9 mmol/L (3.4-5.0); Sodium 133 mmol/L (137-145)
--- NOTE | 2021-03-01 10:39 | PC.NURSE ---
1031-RECEIVED PHONE CALL FROM PILO HOLLAND. SPOKE TO DR. FAYE.
--- NOTE | 2021-03-01 11:16 | ED.SOB ---
HPI - SOB/Dyspnea General Chief Complaint: Shortness of Breath/Dyspnea Stated Complaint: breathing prob Time Seen by Provider: 03/01/21 09:00 History of Present Illness HPI Narrative: Patient presents with shortness of breath. Patient has a history of CHF asthma chronic kidney disease and anemia. Patient is on home hospice. Is where she has had shortness of breath since 2 AM this morning has been getting progressively worse. She reports a history of asthma as well as pneumonia and feel her symptoms could be either pneumonia or asthma. She was concerned regarding her symptoms and asked to come to the ER for evaluation. Discussed goals of care with patient and she would prefer evaluation for pneumonia and consideration of IV antibiotics. Patient reports cough has not noted a fever denies focal areas of pain Related Data Home Medications Medication Instructions Recorded Confirmed ipratropium bromide 0.5 mg INHALATION Q4H PRN 05/26/20 03/01/21 Lantus U-100 Insulin 40 unit SUBCUT HS 08/29/20 03/01/21 amlodipine 10 mg PO DAILY 08/29/20 03/01/21 albuterol sulfate [Proventil HFA] 4 puff INHALATION PRN PRN 11/09/20 03/01/21 insulin aspart U-100 [Novolog See Rx Instructions .ROUTE .COMPLEX 11/09/20 03/01/21 Flexpen U-100 Insulin] furosemide [Lasix] 80 mg PO BID 03/01/21 03/01/21 ondansetron 4 mg PO Q8H PRN 03/01/21 03/01/21 Allergies Allergy/AdvReac Type Severity Reaction Status Date / Time ezetimibe Allergy Severe PANCREATITI Verified 03/01/21 09:05 S hydromorphone Allergy Severe throat Verified 03/01/21 09:05 swelling nitrofurantoin Allergy Severe tounge Verified 03/01/21 09:05 [From Macrobid] swollen, nasusea, vomiting, diarrhea, peanut Allergy Severe RASH Verified 03/01/21 09:05 tree nut Allergy Severe Swelling Verified 03/01/21 09:05 of Lip/Tongue/Throat silver Allergy Intermediate Unknown Verified 03/01/21 09:05 aspirin Allergy Unknown Unknown Verified 03/01/21 09:05 bumetanide Allergy Unknown Unknown Verified 03/01/21 09:05 cefuroxime Allergy Unknown Unknown Verified 03/01/21 09:05 ciprofloxacin Allergy Unknown Unknown Verified 03/01/21 09:05 codeine Allergy Unknown Unknown Verified 03/01/21 09:05 erythromycin base Allergy Unknown RASH Verified 03/01/21 09:05 Iodinated Contrast Media Allergy Unknown Rash Verified 03/01/21 09:05 ketorolac Allergy Unknown Unknown Verified 03/01/21 09:05 metronidazole Allergy Unknown Unknown Verified 03/01/21 09:05 nitroglycerin Allergy Unknown Unknown Verified 03/01/21 09:05 Penicillins Allergy Unknown RASH Verified 03/01/21 09:05 propoxyphene Allergy Unknown Unknown Verified 03/01/21 09:05 Sulfa (Sulfonamide Allergy Unknown Unknown Verified 03/01/21 09:05 Antibiotics) tetracycline Allergy Unknown RASH Verified 03/01/21 09:05 huber Allergy Hives Verified 03/01/21 09:05 Review of Systems Review of Systems: CONSTITUTIONAL: Denies fever, chills, or sweats. EYES: Denies visual changes, redness, or discharge. ENT: Denies rhinorrhea, congestion, sore throat, or otalgia. CARDIOVASCULAR: Denies chest pain, palpitations, or edema. RESPIRATORY: Reports cough and shortness of breath GASTROINTESTINAL: Denies abdominal pain, nausea, vomiting, or diarrhea. GENITOURINARY: Denies dysuria or hematuria. SKIN: Denies rash or itching. MUSCULOSKELETAL: Denies back pain, joint pain, or myalgia. NEUROLOGIC: Denies headache, numbness, dizziness, or weakness. PSYCHIATRIC: Denies anxiety or depression. All systems reviewed & are unremarkable except as noted in HPI and below [facility] Past Medical History Medical History (Updated 03/01/21 @ 13:28 by Stefany Helms NP) Adenoma of left adrenal gland Anxiety Chronic anemia Chronic back pain Chronic kidney disease Stage 3 to 4 with average GFR in the high 20s to low 30s. Baseline creatinine appears to range between 1.7 and 2.0. Chronic obstructive pulmonary disease Chronic pancreatitis Chronic respiratory failure with hypoxia, on
--- NOTE | 2021-03-01 11:46 | PC.NURSE ---
1145-SPOKE TO PATIENT REGARDING NEED FOR COVID SWAB. PATIENT STATES I DON'T HAVE COVID . I EXPLAINED TO PATIENT SHE HAS PNEUMONIA AND COVID IS A FORM OF PNEUMONIA. I FURTHER EXPLAINED TO PATIENT NEEDED TO BE TESTED FOR SAFETY OF OTHERS. PATIENT DECLINED STATING I'VE ALREADY HAD FIVE COVID TESTS AND I'M NOT HAVING ANOTHER . UPDATE TO CHARGE NURSE AND DIRECTOR OF ASSESSMENT.
[2021-03-01 11:48] LABS: Lymphocytes Absolute Manual 1.69 K/mm3 (1.1-4.5); Monocytes Absolute Manual 0.84 K/mm3 (0.1-0.90); Monocytes Percent Manual 4 % (3-9); Neutrophils Percent Manual 88 % (46-73); Total Cells Counted 100
--- NOTE | 2021-03-01 11:50 | PC.NURSE ---
1150-CALLED TO FLOOR. ACCEPTING RN IS DISCHARGING A PATIENT AND WILL NEED TO CALL BACK FOR REPORT. REQUESTED A QUICK RETURN CALL DUE TO ED FLOW AT PRESENT TIME.
[2021-03-01 11:59] LABS: Platelet Estimate Adequate (Adequate)
[2021-03-01 12:00] LABS: Hypochromasia 2+ (NORMAL)
--- NOTE | 2021-03-01 12:38 | PC.NURSE ---
1238-CALLED REPORT TO PILO BARTON ON 3 MED/SURG.
--- NOTE | 2021-03-01 12:57 | PC.NURSE ---
1257-PATIENT'S PULSE OX IS 89% ON 2L/NC. O2 INCREASED TO 3L/NC WITH PULSE OX OF 89-91%. RESPIRATORY RATE OF 32-37. CALLED AND SPOKE TO THERESE [place] REGARDING PATIENT'S CURRENT CONDITION. OK TO ADMIT PATIENT TO MED/SURG FLOOR.
--- NOTE | 2021-03-01 13:01 | PC.NURSE ---
1301-UPDATED REPORT CALLED TO PILO BARTON REGARDING CHANGE IN PATIENT'S STATUS.
--- NOTE | 2021-03-01 13:02 | PM.IMHP ---
H&P: HPI History of Present Illness Date/Time: 03/01/21 13:02 this is a 75-year-old female patient who is well known to our services. She has a history of diabetes, congestive heart failure, COPD and chronic renal failure. The patient has chronic respiratory failure and is on oxygen at home at 2.5 L. the patient has been complaining of being short of breath since 2:00 a.m. this morning. The patient has not been vaccinated for COVID-19. Chest x-ray was read as mildly worsened small left pleural effusion. Mildly worsened airspace opacities in left mid and lower lung zones, consistent with atelectasis versus pneumonia. Cardiomegaly. The patient was swabbed for COVID-19. Her white count was noted to be 21.2. With H&H of 7.9 and 25.4. Lactic was noted to be 2.2. Her blood sugar was 247. Creatinine is 2.3. Her baseline is somewhere between 1.3 and 2.2. The patient is currently on hospice and lives at home with her common law . The patient stated that she is a DNI and not a DNR. We discussed being on a CPAP for BiPAP and the patient stated that she was not sure if she wanted either 1 of those. The patient was bumped up to 3 L per nasal cannula due to O2 saturation of 89%. The patient's urine is cloudy and appears to be infected. The patient was started on Primaxin. We were awaiting blood and urine cultures. The patient has multiple allergies. She also has a chronic wound to her right foot which has a foul smell. Patient is complaining of feeling short of breath and nauseated. The patient is being admitted for observation services on the date of service of 03/01/2021. Chief Complaint: Shortness of breath Review of Systems Review of Systems: The patient keeps repeating ?I am sick? and is not been answering many of the questions. I reviewed the history with her significant. All systems reviewed & are unremarkable except as noted in HPI and below Constitutional: Constitutional: Reports as per HPI and Reports no additional constitutional complaints Eyes: Eyes: Reports as per HPI and Reports no additional eye complaints ENT: Reports system reviewed and no additional complaints, except as documented and Reports Normal hearing present Cardiovascular: Cardiovascular: Reports no additional cardiovascular complaints Respiratory: Respiratory: Reports no additional respiratory complaints and Reports no additional respiratory complaints Gastrointestinal: Gastrointestinal: Reports as per HPI and Reports no additional gastrointestinal complaints Musculoskeletal: Musculoskeletal: Reports no additional musculoskeletal complaints Integumentary/Breasts: Skin/Breast: Reports system reviewed and no additional complaints, except as docu and Reports as per HPI Neurologic: Reports system reviewed and no additional complaints, except as documented, Reports as per HPI and Reports Normal hearing present Psychiatric: Psychiatric: Reports no additional psychiatric complaints and Reports as per HPI Endocrine: Endocrine: Reports no additional endocrine complaints Hematologic/Lymphatic: Hematologic/Lymphatic: Reports no additional hematologic/lymphatic complaints Allergic/Immunologic: Allergic/Immunologic: Reports no additional allergic/immunologic complaints [facility] Past Medical History Medical History (Updated 03/01/21 @ 13:28 by Stefany Helms NP) Adenoma of left adrenal gland Anxiety Chronic anemia Chronic back pain Chronic kidney disease Stage 3 to 4 with average GFR in the high 20s to low 30s. Baseline creatinine appears to range between 1.7 and 2.0. Chronic obstructive pulmonary disease Chronic pancreatitis Chronic respiratory failure with hypoxia, on home oxygen therapy Chronic wound of extremity Congestive heart failure Echocardiogram in 05/2020 showed mild to moderately increased LV wall thickness, at least mild LV dysfunction with an EF of 40 to 50%, diastolic dysfunction grade 1, severely enlarged RV chamber, and reduced RV systolic fun
[2021-03-01 13:11] LABS: Reflex Lactic Acid Yes or No Add Lactic
[2021-03-01] MEDS: ONDANSETRON INJ 4 MG/2 ML VIAL IV PUSH ×2 (13:18→20:24)
--- NOTE | 2021-03-01 13:24 | PC.NURSE ---
1324-CT ARRIVED TO TAKE PATIENT TO DEPARTMENT FOR SCAN. PATIENT REFUSES CT SCAN. STATES I CAN'T BE MOVED RIGHT NOW BECAUSE I'M SICK .
--- NOTE | 2021-03-01 13:25 | PC.NURSE ---
Per CT,pt refusing CT.
[2021-03-01 13:28] LABS: INR 1.1; Prothrombin Time 13.8 Seconds (11.1-14.7)
[2021-03-01 13:29] LABS: Partial Thromboplastin Time 38.6 SECONDS (22.3-36.8)
--- NOTE | 2021-03-01 14:59 | ADMGEN ---
This patient, Codie Crowder, was admitted to [address] [place] [address] Room 300-01. Patient/family oriented to hospital policies and general routines including ID bracelet, bed and alarms, visiting hours, pain management, procedures, bathroom and other care routines, personal items, smoking policy, room service/diet, and visiting hours. Information on how to activate the Rapid Response Team has been discussed. Patient/Family are encouraged to report perceived risks to care and to ask questions if they do not understand what they are told or what they should do.
[2021-03-01 15:10] LABS: Lactic Acid 5.1 mmol/L (0.7-2.1)
[2021-03-01] MEDS: SOD HYPOCHLORITE 1/4 STRENGTH 473 ML 1 APPLIC TOPICAL ×2 (15:32→20:24)
[2021-03-01] MEDS: SODIUM CHLORIDE 0.9% IV 1,000 ML 50 ML IV CONT (15:36)
[2021-03-01 17:35] LABS: Glucose Point of Care 377 mg/dl (65-105)
[2021-03-01] MEDS: INSULIN ASPART (*BKC) 100 UNITS/ML SUB-Q (17:36)
[2021-03-01] MEDS: ALBUTEROL SULFATE (*SP) AEROSOL 1 PUFF 2 PUFF INHALATION (20:49)
[2021-03-01 23:01] LABS: Glucose Point of Care 378 mg/dl (65-105)
[2021-03-01] MEDS: TOLNAFTATE 1% POWDER 45 GM BTL 1 APPLIC TOPICAL (23:47)
[2021-03-01] MEDS: INSULIN GLARGINE (*BKC) 100 UNITS/ML 40 UNITS SUB-Q (23:47)
[2021-03-02] VITALS (10 sets, daily range): BP systolic 104–121; BP diastolic 45–60; PULSE 64–80; RESP 12–20; TEMP 36.1–36.6; O2SAT 90–94
--- NOTE | 2021-03-02 07:25 | PM.IMPN ---
Progress Note: A&P Assessment and Plan (1) Pneumonia: Qualifiers: Laterality: unspecified laterality Lung location: unspecified part of lung Pneumonia type: due to unspecified organism Qualified Code(s): J18.9 - Pneumonia, unspecified organism Code(s): J18.9 - Pneumonia, unspecified organism Status: Acute Assessment and Plan: The patient was placed on Primaxin. I discussed the case with my collaborative and we decided to involve respiratory care program director as the patient is on hospice. May consider ertapenem IM and sending the patient home. For now we will continue with Primaxin to we can have the antibiotics set up as IM at home. The patient stated that she is a DNI. Sputum and blood cultures are pending. (2) Acute and chronic respiratory failure with hypercapnia: Code(s): J96.22 - Acute and chronic respiratory failure with hypercapnia Status: Acute Assessment and Plan: The patient chronically wears oxygen at home at 2.5 L. She has COPD and CHF. The patient is being treated for pneumonia and is under surveillance for possible COVID-19. Patient's oxygen level was increased to 3 L per nasal cannula for O2 saturation of 89%. I had a discussion about intubation the patient stated she did not want to be intubated. I discussed if she wanted a central line or a CPAP or BiPAP. The patient stated that she has sleep apnea and could not tolerate a CPAP in the past. She was not sure if she would want to be placed on a BiPAP. (3) HTN (hypertension) with goal to be determined: Code(s): I10 - Essential (primary) hypertension Status: Chronic Assessment and Plan: Continue with home medications of metoprolol. (4) Acute on chronic renal failure: Qualifiers: Acute renal failure type: unspecified Chronic kidney disease stage: unspecified stage Qualified Code(s): N17.9 - Acute kidney failure, unspecified; N18.9 - Chronic kidney disease, unspecified Code(s): N17.9 - Acute kidney failure, unspecified; N18.9 - Chronic kidney disease, unspecified Status: Acute Assessment and Plan: Avoid any nephrotoxic medication. Patient's GFR is typically in the upper 20s to 30s her GFR is 21 today. Continue to monitor. (5) Hypothyroid: Qualifiers: Hypothyroidism type: unspecified Qualified Code(s): E03.9 - Hypothyroidism, unspecified Code(s): E03.9 - Hypothyroidism, unspecified Status: Chronic Assessment and Plan: Check thyroid level and continue with home medication. At this point I do not see any thyroid medicine listen (6) Chronic anemia: Code(s): D64.9 - Anemia, unspecified Status: Chronic Assessment and Plan: Patient appears to be at her baseline. Continue to monitor. (7) Complicated UTI (urinary tract infection): Code(s): N39.0 - Urinary tract infection, site not specified Status: Acute Assessment and Plan: Blood and urine cultures are pending. The patient is on Primaxin at this time. (8) CHF (congestive heart failure): Qualifiers: Heart failure type: unspecified Heart failure chronicity: acute on chronic Qualified Code(s): I50.9 - Heart failure, unspecified Code(s): I50.9 - Heart failure, unspecified Status: Chronic Assessment and Plan: Continue with amlodipine and metoprolol. (9) DM (diabetes mellitus): Qualifiers: Diabetes mellitus type: type 2 Diabetes mellitus cloth presser insulin use: without cloth presser use Diabetes mellitus complication status: without complication Qualified Code(s): E11.9 - Type 2 diabetes mellitus without complications Code(s): E11.9 - Type 2 diabetes mellitus without complications Status: Chronic Assessment and Plan: Accu-Cheks AC and HS. Continue with Lantus. Check A1c. (10) Chronic wound of extremity: Status: Acute Assessment and Plan: Wound care consult was greatly be appreciated.
[2021-03-02 07:43] LABS: Glucose Point of Care 367 mg/dl (65-105)
[2021-03-02] MEDS: SOD HYPOCHLORITE 1/4 STRENGTH 473 ML 1 APPLIC TOPICAL ×2 (09:12→20:38)
[2021-03-02] MEDS: ZINC OXIDE 20% OINT 30 GM TUBE 1 APPLIC TOPICAL (09:13)
[2021-03-02] MEDS: TOLNAFTATE 1% POWDER 45 GM BTL 1 APPLIC TOPICAL ×2 (09:13→20:38)
[2021-03-02] MEDS: FUROSEMIDE 80 MG TABLET PO (09:13)
[2021-03-02] MEDS: ONDANSETRON INJ 4 MG/2 ML VIAL IV PUSH ×4 (09:13→23:28)
[2021-03-02] MEDS: METOPROLOL TARTRATE 12.5 MG TABLET PO (09:13)
[2021-03-02] MEDS: amLODIPine BESYLATE 5 MG TABLET 10 MG PO (09:14)
[2021-03-02] MEDS: INSULIN ASPART (*BKC) 100 UNITS/ML SUB-Q ×3 (09:14→17:36)
[2021-03-02 11:52] LABS: Glucose Point of Care 334 mg/dl (65-105)
[2021-03-02] MEDS: HEPARIN SODIUM 5,000 UNITS/ML VIAL 5000 UNITS SUB-Q (12:56)
[2021-03-02 13:15] LABS: Basophils Absolute Auto 0.1 K/mm3 (0.0-0.1); Basophils Percent Auto 0.5 % (0.2-1.2); Hematocrit 22.7 % (37.0-47.0); Hemoglobin 7.4 g/dL (12.0-15.0); Immature Granulocyte Percent A 4.1 % (0-0.5); Lymphocytes Absolute Auto 0.57 K/mm3 (0.9-3.2); Lymphocytes Percent Auto 2.6 % (18.3-44.2); Mean Corpuscular HGB Conc 32.6 g/dl (32-36); Mean Corpuscular Hemoglobin 26.1 pg (26-34); Mean Corpuscular Volume 80.2 fl (80-100); Mean Platelet Volume 9.6 fl (7.4-10.4); Monocytes Absolute Auto 0.9 K/mm3 (0.1-0.6); Monocytes Percent Auto 4.1 % (2.6-8.5); Neutrophils Absolute Auto 19.6 K/mm3 (1.3-6.7); Neutrophils Percent Auto 88.7 % (45.5-73.1); Platelet Count Result 286 k/mm3 (150-375); Red Blood Count 2.83 M/mm3 (4.2-5.4); White Blood Count 22.1 K/mm3 (4.5-10.0)
[2021-03-02 13:46] LABS: Alanine Aminotransferase 99 U/L (4-35); Albumin Level 3.4 g/dL (3.5-5.1); Alkaline Phosphatase 116 U/L (38-126); Anion Gap 11 mmol/L (8-16); Aspartate Amino Transferase 91 U/L (14-36); Bilirubin,Total 0.4 mg/dL (0.2-1.3); Blood Urea Nitrogen 74 mg/dL (7-17); Calcium 8.3 mg/dL (8.4-10.2); Carbon Dioxide 29 mmol/L (22-30); Chloride 89 mmol/L (98-107); Estimated CRCL calculation 15 ml/min; Estimated Glomerular Filt Rate 14; Glucose 338 mg/dL (65-110); Lipase 34 U/L (23-300); Potassium 4.1 mmol/L (3.4-5.0); Sodium 129 mmol/L (137-145)
[2021-03-02 13:56] LABS: Lactate Dehydrogenase 473 U/L (313-618)
[2021-03-02 14:22] LABS: Hemoglobin A1C 8.2 % (<5.7)
[2021-03-02 17:11] LABS: Glucose Point of Care 282 mg/dl (65-105)
[2021-03-02] MEDS: SODIUM CHLORIDE 0.9% IV 1,000 ML 50 ML IVPB (17:37)
[2021-03-02 18:03] LABS: SARS-CoV-2 RNA PCR Negative
[2021-03-02] MEDS: FUROSEMIDE INJ 40 MG/4 ML VIAL IV PUSH (18:38)
[2021-03-02] MEDS: INSULIN GLARGINE (*BKC) 100 UNITS/ML 40 UNITS SUB-Q (21:02)
[2021-03-03 00:35] LABS: Glucose Point of Care 244 mg/dl (65-105)
[2021-03-03 00:41] LABS: Lactic Acid Reflex 1.1 mmol/L (0.7-2.1)
[2021-03-03] MEDS: ONDANSETRON INJ 4 MG/2 ML VIAL IV PUSH ×5 (04:21→23:03)
[2021-03-03 06:00] VITALS: BP 115/72; PULSE 75; RESP 20; TEMP 36.4; O2SAT 92
[2021-03-03 06:23] LABS: Hematocrit 23.2 % (37.0-47.0); Hemoglobin 7.6 g/dL (12.0-15.0); Mean Corpuscular HGB Conc 32.8 g/dl (32-36); Mean Corpuscular Hemoglobin 25.9 pg (26-34); Mean Corpuscular Volume 79.2 fl (80-100); Mean Platelet Volume 9.5 fl (7.4-10.4); Platelet Count Result 340 k/mm3 (150-375); Red Blood Count 2.93 M/mm3 (4.2-5.4); White Blood Count 27.8 K/mm3 (4.5-10.0)
[2021-03-03 06:37] LABS: Alanine Aminotransferase 72 U/L (4-35); Albumin Level 3.5 g/dL (3.5-5.1); Alkaline Phosphatase 112 U/L (38-126); Anion Gap 13 mmol/L (8-16); Aspartate Amino Transferase 46 U/L (14-36); Bilirubin,Total 0.5 mg/dL (0.2-1.3); Blood Urea Nitrogen 75 mg/dL (7-17); Calcium 8.1 mg/dL (8.4-10.2); Carbon Dioxide 27 mmol/L (22-30); Chloride 90 mmol/L (98-107); Estimated CRCL calculation 17 ml/min; Estimated Glomerular Filt Rate 15; Glucose 229 mg/dL (65-110); Potassium 3.6 mmol/L (3.4-5.0); Sodium 130 mmol/L (137-145)
[2021-03-03 07:59] LABS: Glucose Point of Care 203 mg/dl (65-105)
[2021-03-03 08:00] VITALS: PULSE 75; RESP 20; O2SAT 92
[2021-03-03 08:19] LABS: Magnesium 1.9 mg/dL (1.6-2.3)
[2021-03-03] MEDS: INSULIN ASPART (*BKC) 100 UNITS/ML SUB-Q (09:24)
[2021-03-03] MEDS: SOD HYPOCHLORITE 1/4 STRENGTH 473 ML 1 APPLIC TOPICAL ×2 (09:27→20:46)
[2021-03-03] MEDS: FUROSEMIDE INJ 40 MG/4 ML VIAL IV PUSH (09:27)
--- NOTE | 2021-03-03 09:59 | PM.IMPN ---
Progress Note: A&P Assessment and Plan (1) Pneumonia: Qualifiers: Laterality: unspecified laterality Lung location: unspecified part of lung Pneumonia type: due to unspecified organism Qualified Code(s): J18.9 - Pneumonia, unspecified organism Code(s): J18.9 - Pneumonia, unspecified organism Status: Acute Assessment and Plan: The patient was placed on Primaxin. I discussed the case with my collaborative and we decided to involve direct care worker as the patient is on hospice. May consider ertapenem IM and sending the patient home. For now we will continue with Primaxin to we can have the antibiotics set up as IM at home. The patient stated that she is a DNI. Sputum and blood cultures are pending. (2) Acute and chronic respiratory failure with hypercapnia: Code(s): J96.22 - Acute and chronic respiratory failure with hypercapnia Status: Acute Assessment and Plan: The patient chronically wears oxygen at home at 2.5 L. She has COPD and CHF. The patient is being treated for pneumonia and is under surveillance for possible COVID-19. Patient's oxygen level was increased to 3 L per nasal cannula for O2 saturation of 89%. I had a discussion about intubation the patient stated she did not want to be intubated. I discussed if she wanted a central line or a CPAP or BiPAP. The patient stated that she has sleep apnea and could not tolerate a CPAP in the past. She was not sure if she would want to be placed on a BiPAP. (3) HTN (hypertension) with goal to be determined: Code(s): I10 - Essential (primary) hypertension Status: Chronic Assessment and Plan: Continue with home medications of metoprolol. (4) Acute on chronic renal failure: Qualifiers: Acute renal failure type: unspecified Chronic kidney disease stage: unspecified stage Qualified Code(s): N17.9 - Acute kidney failure, unspecified; N18.9 - Chronic kidney disease, unspecified Code(s): N17.9 - Acute kidney failure, unspecified; N18.9 - Chronic kidney disease, unspecified Status: Acute Assessment and Plan: Avoid any nephrotoxic medication. Patient's GFR is typically in the upper 20s to 30s her GFR is 21 today. Continue to monitor. (5) Hypothyroid: Qualifiers: Hypothyroidism type: unspecified Qualified Code(s): E03.9 - Hypothyroidism, unspecified Code(s): E03.9 - Hypothyroidism, unspecified Status: Chronic Assessment and Plan: Check thyroid level and continue with home medication. At this point I do not see any thyroid medicine listen (6) Chronic anemia: Code(s): D64.9 - Anemia, unspecified Status: Chronic Assessment and Plan: Patient appears to be at her baseline. Continue to monitor. (7) Complicated UTI (urinary tract infection): Code(s): N39.0 - Urinary tract infection, site not specified Status: Acute Assessment and Plan: Blood and urine cultures are pending. The patient is on Primaxin at this time. (8) CHF (congestive heart failure): Qualifiers: Heart failure type: unspecified Heart failure chronicity: acute on chronic Qualified Code(s): I50.9 - Heart failure, unspecified Code(s): I50.9 - Heart failure, unspecified Status: Chronic Assessment and Plan: Continue with amlodipine and metoprolol. (9) DM (diabetes mellitus): Qualifiers: Diabetes mellitus type: type 2 Diabetes mellitus dragger out insulin use: without dragger out use Diabetes mellitus complication status: without complication Qualified Code(s): E11.9 - Type 2 diabetes mellitus without complications Code(s): E11.9 - Type 2 diabetes mellitus without complications Status: Chronic Assessment and Plan: Accu-Cheks AC and HS. Continue with Lantus. Check A1c. (10) Chronic wound of extremity: Status: Acute Assessment and Plan: Wound care consult was greatly be appreciated.
--- NOTE | 2021-03-03 10:06 | PCAUD ---
Jong called and updated on pt status.
--- NOTE | 2021-03-03 10:08 | PCAUD ---
Occult stool ordered, if positive consult GI per MD Ch.
--- NOTE | 2021-03-03 10:29 | PM.CNNEP ---
Assessment and Plan Assessment and plan (1) Acute kidney injury: Code(s): N17.9 - Acute kidney failure, unspecified Status: Acute Assessment and Plan: However has acute kidney injury. Her GFR generally runs in the mid to high 20s. Now it is down to about 14 or 15. She has osteomyelitis of her foot, pneumonia, and pyuria. Any or all of these could be leading to her increased creatinine. She is not be eating as well as she should either, and so could be dehydrated as well. In addition she jb on furosemide as an outpatient and so this could have led to some dehydration especially since she was not eating very well at home. Obstruction is a possibility although she has a [place] catheter. We can check a renal sonogram Rhabdomyolysis is always a possibility as well. Will check a CPK. Allergic interstitial nephritis is always a possibility because of her being on antibiotics off and on for her osteomyelitis. However she does not have a rash or eosinophilia and usually does not happen this suddenly. The marrow nephritis would be unlikely in this clinical scenario. (2) Chronic renal failure, stage 4 (severe): Code(s): N18.4 - Chronic kidney disease, stage 4 (severe) Status: Chronic Assessment and Plan: The patient has chronic kidney disease. This is most likely due to diabetes hypertension and vascular disease. (3) Pneumonia: Qualifiers: Laterality: unspecified laterality Lung location: unspecified part of lung Pneumonia type: due to unspecified organism Qualified Code(s): J18.9 - Pneumonia, unspecified organism Code(s): J18.9 - Pneumonia, unspecified organism Status: Acute Assessment and Plan: The patient has pneumonia by chest x-ray. She is on broad-spectrum antibiotics (4) Chronic wound of extremity: Status: Acute Assessment and Plan: She has osteomyelitis. She is on antibiotics (5) CHF (congestive heart failure): Qualifiers: Heart failure type: unspecified Heart failure chronicity: acute on chronic Qualified Code(s): I50.9 - Heart failure, unspecified Code(s): I50.9 - Heart failure, unspecified Status: Chronic Assessment and Plan: She has a history of congestive heart failure. Her echocardiogram did show normal LV function. She does have says grade 1 diastolic dysfunction. (6) Anemia: Qualifiers: Anemia type: unspecified type Qualified Code(s): D64.9 - Anemia, unspecified Code(s): D64.9 - Anemia, unspecified Status: Acute Assessment and Plan: The patient has anemia. This is most likely due to CKD and also chronic illness. Her hemoglobin is only 7.6. Will start some Epogen just to keep her from having to get transfused if possible. Iron is not option because of her active infection. (7) Urinary retention: Code(s): R33.9 - Retention of urine, unspecified Status: Acute Assessment and Plan: She has a Angeles catheter in place (8) HTN (hypertension): Qualifiers: Hypertension type: unspecified Qualified Code(s): I10 - Essential (primary) hypertension Code(s): I10 - Essential (primary) hypertension Status: Chronic Assessment and Plan: Her blood pressure is under good control (9) Urinary tract infection: Qualifiers: Hematuria presence: without hematuria Urinary tract infection type: site unspecified Qualified Code(s): N39.0 - Urinary tract infection, site not specified Code(s): N39.0 - Urinary tract infection, site not specified Status: Acute Assessment and Plan: She has pyuria. Will check a urine culture. She is already on antibiotics. (10) COPD (chronic obstructive pulmonary disease): Qualifiers: COPD type: unspecified COPD Qualified Code(s): J44.9 - Chronic obstructive pulmonary disease, unspecified Code(s): J44.9 - Chronic obstructive pulmonary disease, un
[2021-03-03 11:00] LABS: Creatine Kinase 95 U/L (30-135)
[2021-03-03 12:17] LABS: Glucose Point of Care 176 mg/dl (65-105)
[2021-03-03] MEDS: TOLNAFTATE 1% POWDER 45 GM BTL 1 APPLIC TOPICAL ×2 (13:41→20:47)
[2021-03-03] MEDS: ZINC OXIDE 20% OINT 30 GM TUBE 1 APPLIC TOPICAL (13:41)
[2021-03-03] MEDS: SODIUM CHLORIDE 0.9% IV 1,000 ML 50 ML IVPB (14:00)
[2021-03-03 14:14] VITALS: BP 127/98; PULSE 70; RESP 12; TEMP 36.8; O2SAT 94
[2021-03-03 14:48] LABS: Creatinine Urine 57.9 mg/dL; Total Protein Urine Random 59 mg/dL; Ur Ttl Prot Creatinine Ratio 1.02 mg/mg (0-0.20)
[2021-03-03 14:53] LABS: Sodium Urine Random 23 meq/L
--- NOTE | 2021-03-03 16:46 | WPDCN ---
Assessment and Plan Additional Plan 1. Right heel soft tissue gangrene with soft tissue necrosis and foul smell during examination. Consistent with gangrene of the soft tissue in a diabetic. Patient is empirically being treated on Primaxin and vancomycin day 3. Blood cultures are negative. White count is climbing up at 27,000. Patient will likely need debridement versus amputation of the foot. I do not suspect her white count will improve without any surgical intervention. She has adequate coverage on a combination of Primaxin and vancomycin and once WBC count trends down and right heel infection has been addressed may consider deescalating to a narrower spectrum of antibiotics. 2. 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 Gangrene of soft tissue of the heel. Will likely need surgical intervention. 3. Chronic renal insufficiency with acute renal failure. Creatinine is at 3.0. Antibiotics dose to be adjusted by pharmacy. Monitor renal function closely on vancomycin. Daily BMP. 4. COVID-19 vaccine vaccination status: Under vaccinated. 5. Type 2 diabetes adequately controlled at this point. 6. Date of service 03/03/2021. HPI Data of Consult Date/Time: 03/03/21 16:46 Requesting Physician: Jamie Wiley MD Primary Care Provider: Adair Clifford, Consult Narrative Narrative: Codie Crowder is a 75 year old female with significant past medical history for type 2 diabetes, chronic renal insufficiency, COPD, congestive heart failure and peripheral neuropathy presented to the emergency room complaining of shortness of breath. Patient was also noted to have a foul-smelling soft tissue gangrene to the right heel area. Infectious disease was requested to see her due to persistent elevated white count despite being on Primaxin and vancomycin day 3. Patient states that her shortness of breath has improved slightly. No chest pain. No nausea or vomiting. She does not remember when the soft tissue necrosis in her right heel started. X-ray of the heel showed osteomyelitis of the calcaneal bone. White count is currently at 27,000. Blood cultures are so far negative. Review of Systems Constitutional: Constitutional: Reports no additional constitutional complaints Eyes: Eyes: Reports no additional eye complaints ENT: Reports system reviewed and no additional complaints, except as documented Cardiovascular: Cardiovascular: Reports no additional cardiovascular complaints Respiratory: Respiratory: Reports dyspnea on exertion (Shortness of breath associated with dry cough. No hemoptysis) Gastrointestinal: Gastrointestinal: Reports no additional gastrointestinal complaints Genitourinary: Genitourinary: Reports no additional female genitourinary complaints Musculoskeletal: Musculoskeletal: Reports no additional musculoskeletal complaints Integumentary/Breasts: Skin/Breast: Reports sores Comments: Right heel foul-smelling gangrene Hematologic/Lymphatic: Hematologic/Lymphatic: Reports no additional hematologic/lymphatic complaints Allergic/Immunologic: Allergic/Immunologic: Reports no additional allergic/immunologic complaints [facility] Past Medical History Medical History (Updated 03/03/21 @ 10:40 by Bryan Delcid MD) Acute kidney injury Adenoma of left adrenal gland Anxiety Chronic anemia Chronic back pain Chronic kidney disease Stage 3 to 4 with average GFR in the high 20s to low 30s. Baseline creatinine appears to range between 1.7 and 2.0. Chronic kidney disease (CKD) stage G3b/A1, moderately decreased glomerular filtration rate (GFR) between 30-44 mL/min/1.73 square meter and albuminuria creatinine ratio less than 30 mg/g Chronic obstructive pulmonary disease Chronic pancreatitis Chronic respiratory failure with hypoxia, on home oxygen therapy Chronic wound of extremity Congestive heart failure Echocardiogram in 05/2020 showed mild to moderately increased LV wall thic
[2021-03-03 16:49] LABS: Glucose Point of Care 181 mg/dl (65-105)
[2021-03-03 17:25] VITALS: BP 156/64
[2021-03-03 20:00] VITALS: O2SAT 94
[2021-03-03] MEDS: INSULIN GLARGINE (*BKC) 100 UNITS/ML 40 UNITS SUB-Q (20:46)
[2021-03-03 22:00] VITALS: BP 110/54; PULSE 65; RESP 20; TEMP 36.1; O2SAT 92
[2021-03-04] MEDS: SODIUM CHLORIDE 0.9% IV 1,000 ML 100 ML IVPB ×2 (04:24→21:38)
[2021-03-04 04:25] LABS: Glucose Point of Care 191 mg/dl (65-105)
[2021-03-04] MEDS: ONDANSETRON INJ 4 MG/2 ML VIAL IV PUSH ×5 (04:25→21:38)
--- NOTE | 2021-03-04 04:29 | PC.NURSE ---
Patient is extremely anxious after she talked to her . Started to complain about not being able to breath and being nauseated. Oxygen saturation was WNL along with respiration. Asked if cause some of the anxiety and other symptoms she was having. Patient refused just kept on repeating I want to go back to him I want to go back. Patient requested Zofran to help her sleep. Attempted to educate pt. on what Zofran is used for but during the education She said I never said I wanted it for sleep! Uh I am so sick! Look I am throwing up! There has been no vomit during the night. After the first dose of Zofran was given during the shift pt. called out saying It didn't work like it did before I am still awake. Attempted for the second time to explain what Zofran is used for then she started making gagging noises. Asked pt. about if she wanted something for sleep, she refused saying all sleep aids she can't breath when she asleep. Told patient that there is very light sleep aid she could take and shouldn't use to Zofran for sleep to only use the medication for her nausea due to the side effects Zofran can cause. Patient said she can't breath and she was having a panic attack and wanted 20mg of Valuim, what she takes at home. Asked pt. to clarify how much Valuim she really does take but would never answer the questions, just kept on yelling Oh my god I can't breath, no wait I am sick to my stomach over and over again. Patient refused any other medication of anxiety. Attempted to do some deep breathing and visual guided therapy to help calm the patient down. She never did any of the exercise just stopped screaming and told us to close the door on our way out. Attempted several times during the night to talk to the patient about her medication and the intentions of getting her better. Every time pt. would say Oh I don't want to hear this so I wont. Oh I am sick! Look how sick I am! I am going to throw up. Only medication pt. is agreeing to at this time is Zofran.
[2021-03-04 05:56] LABS: Hematocrit 22.2 % (37.0-47.0); Hemoglobin 7.4 g/dL (12.0-15.0); Mean Corpuscular HGB Conc 33.3 g/dl (32-36); Mean Corpuscular Hemoglobin 26.1 pg (26-34); Mean Corpuscular Volume 78.4 fl (80-100); Mean Platelet Volume 9.5 fl (7.4-10.4); Platelet Count Result 311 k/mm3 (150-375); Red Blood Count 2.83 M/mm3 (4.2-5.4); Red Cell Distribution Width 13.9 % (11.5-14.5); White Blood Count 22.4 K/mm3 (4.5-10.0)
[2021-03-04 06:00] VITALS: BP 147/60; PULSE 70; RESP 20; TEMP 36.1; O2SAT 95
[2021-03-04 06:08] LABS: Alanine Aminotransferase 46 U/L (4-35); Albumin Level 3.3 g/dL (3.5-5.1); Alkaline Phosphatase 98 U/L (38-126); Anion Gap 11 mmol/L (8-16); Aspartate Amino Transferase 29 U/L (14-36); Bilirubin,Total 0.5 mg/dL (0.2-1.3); Blood Urea Nitrogen 75 mg/dL (7-17); Calcium 7.8 mg/dL (8.4-10.2); Carbon Dioxide 29 mmol/L (22-30); Chloride 91 mmol/L (98-107); Estimated CRCL calculation 19 ml/min; Estimated Glomerular Filt Rate 17; Glucose 125 mg/dL (65-110); Magnesium 1.8 mg/dL (1.6-2.3); Phosphorus 4.9 mg/dL (2.5-4.5); Potassium 3.3 mmol/L (3.4-5.0); Sodium 131 mmol/L (137-145)
[2021-03-04 08:00] VITALS: O2SAT 92
[2021-03-04 08:28] LABS: Glucose Point of Care 116 mg/dl (65-105)
[2021-03-04] MEDS: EPOETIN ALFA-EPBX 10,000 UNITS/ML VIAL 10000 UNITS SUB-Q (08:52)
[2021-03-04 08:53] VITALS: PULSE 70
--- NOTE | 2021-03-04 11:33 | WPDINFPN2 ---
Progress Note: A&P Assessment and Plan (1) Elevated WBC count: Code(s): D72.829 - Elevated white blood cell count, unspecified Status: Acute Assessment and Plan: 1. Leukocytosis, due to gangrene and acute osteomyelitis of the R calcaneus and adjacent soft tissue 2. Multiple allergies 3. CRF 4. Asymptomatic bacteriuria REC Imipenem and Vancomycin, continue. Needs surgical evaluation. Length of therapy depends on nature of surgical intervention, if any. No new antibiotic dosing adjustments. Subjective Date/time seen: 03/04/21 11:33 Interval history: no foot pain. Feels tremulous which she ascribes to the currently infusing pantoprazole Exam Narrative: afebrile Const: General: comfortable and no acute distress Eyes: General: appearance normal, both eyes and all related structures Resp: Effort & Inspection: normal respiratory effort Auscultation: clear to auscultation bilaterally Cardio: Rate: regular rate Rhythm: regular rhythm Heart sounds: no gallops and no murmurs GI: Inspection: non-distended GI Palp: Yes Soft to palpation and No Tenderness to palpation present (GI) Skin: General skin exam: normal color Neuro: Other: no tremor Extrem: Other: foot in complex dressing. No proximal erythema nor tenderness Objective Data Vital Signs Vital Signs: Vital Signs - 24 hr 03/03/21 14:14 03/03/21 17:25 03/03/21 20:00 Temperature 36.8 C Pulse Rate 70 Respiratory Rate 12 Blood Pressure 127/98 H 156/64 H Pulse Oximetry 94 94 03/03/21 22:00 03/04/21 06:00 03/04/21 08:53 Temperature 36.1 C L 36.1 C L Pulse Rate 65 70 70 Respiratory Rate 20 20 Blood Pressure 110/54 L 147/60 H Pulse Oximetry 92 95 Intake/Output Intake/Output: Intake & Output 03/01/21 03/02/21 03/03/21 03/04/21 23:59 23:59 23:59 23:59 Intake Total 820 1360 2780 1100 Output Total 150 1000 500 Balance 820 1210 1780 600 Meds/Results Medications: Active Medications Generic Name Dose Route Start Last Admin Trade Name Freq PRN Reason Stop Dose Admin Albuterol 2 puff 03/01/21 12:49 03/01/21 20:49 Albuterol Sulfate (*Sp) Aerosol 1 Puff INHALATION 2 puff Q6HRT PRN Administration Shortness Of Breath Amlodipine Besylate 10 mg 03/02/21 09:00 03/04/21 08:53 Amlodipine Besylate 5 Mg Tablet PO Not Given DAILY DIDI Dextrose 12.5 gm 03/01/21 13:01 Dextrose 50% 25 Gm/50 Ml Syringe IV PUSH PRN PRN Hypoglycemia Protocol Epoetin Jakob-epbx 10,000 units 03/04/21 09:00 03/04/21 08:52 Epoetin Jakob-Epbx 10,000 Units/Ml Vial SUB-Q 10,000 units MoWeFr@0900 DIDI Administration Glucagon 1 mg 03/01/21 13:01 Glucagon For Inj 1 Mg Vial IM PRN PRN Hypoglycemia Protocol Glucose 15 gm 03/01/21 13:01 Glucose Oral Gel 15 Gm Of Glucse In 37.5 Gm Tube PO PRN PRN Hypoglycemia Protocol Imipenem/Cilastatin Sodium 500 100 mls @ 300 mls/hr 03/01/21 21:00 03/04/21 08:59 mg/ Dextrose IVPB 300 mls/hr Q12HR DIDI Administration Dextrose 1,000 mls @ 100 mls/hr 03/01/21 13:01 Dextrose 5% 1,000 Ml IVPB PRN PRN Hypoglycemia Protocol Pantoprazole Sodium 80 mg/ 500 mls @ 50 mls/hr 03/02/21 10:15 03/03/21 16:31 Dextrose IV CONT 50 mls/hr .Q10H DIDI Administration Vancomycin HCl 1,500 mg in 500 mls @ 333.333 mls/hr 03/03/21 16:00 03/03/21 16:00 Vancomycin 1,500 Mg/D5w 500 Ml IVPB 333.33 mls/hr Q48H DIDI Administration Sodium Chloride 1,000 mls @ 100 mls/hr 03/02/21 17:25 03/04/21 04:24 Normal Saline Iv IVPB 100 mls/hr .Q10H DIDI Administration Insulin Aspart 3 - 6 units 03/01/21 17:00 03/04/21 08:58 Insulin Aspart (*Bkc) 100 Units/Ml SUB-Q Not Given TIDWM DIDI Protocol Insulin Glargine 40 units 03/01/21 21:00 03/03/21 20:46 Insulin Glargine (*Bkc) 100 Units/Ml SUB-Q 40 units HS DIDI Administration Ipratropium [place] 0.5 mg 03/01/21 20:25 Ipratropium
[2021-03-04 11:50] LABS: Glucose Point of Care 111 mg/dl (65-105)
[2021-03-04 12:08] LABS: Hematocrit 23.3 % (37.0-47.0); Hemoglobin 7.6 g/dL (12.0-15.0)
--- NOTE | 2021-03-04 12:17 | PCNFU ---
Nutrition Follow-Up Complete: Increased protein/calorie needs related to increased demands for healing as evidenced by unstageable pressure ulcer to right heel. Goal: Patient to consume 75% of meals/supplements or greater. Patient is progressing towards goal. We will continue current goal. Pt current nutrition is DBCC. Last recorded weight is 100 kg, no new weight to report. Bowel Motility:+BM report 03/02 Labs Reviewed:Cr 2.7,BUN 75,Na 133,Alb 3.3,Hct 22.2,Hgb 7.4 Meds Noted:Zofran,NS, Vancomycin, Lantus,Retacrit. Additional Notes: Nutrition follow up. Spoke with THERESE Marmolejo and PILO Dao today. Patient is stating to nausea. Oral intake: 0-25% of DBCC diet. Protein Modular added of Ron BID for right heel unstageable pressure ulcer. Agree with diet orders. Monitoring: Follow up every 3 days.
[2021-03-04] MEDS: SOD HYPOCHLORITE 1/4 STRENGTH 473 ML 1 APPLIC TOPICAL ×2 (13:13→21:38)
--- NOTE | 2021-03-04 13:35 | P.PNIM_ITS ---
Progress Note: A&P Assessment and Plan (1) Acute osteomyelitis of right calcaneus: Code(s): M86.171 - Other acute osteomyelitis, right ankle and foot Status: Acute Assessment and Plan: Unstageable pressure ulcer of right heel previously treated with only betadine as patient was on hospice care that has since been revoked. * Foot x-ray showed ulcer of the heel with erosions of calcaneal tuberosity consistent with osteomyelitis * She has marked leukocytosis up to 27.8. Remains afebrile * Continue IV vancomycin and imipenem * Appreciate Infectious Disease consultation * Will proceed with consultation to General surgery, input is appreciated * Continue local wound care * Supportive care. Analgesics available as needed * Blood culture with growth of Enterococcus * Preliminary blood culture negative to date (only one bottle collected) (2) Acute and chronic respiratory failure with hypercapnia: Code(s): J96.22 - Acute and chronic respiratory failure with hypercapnia Status: Acute Assessment and Plan: Chronic respiratory failure likely related to COPD and obesity hypoventilation syndrome. She is on 2.5 L supplemental O2 at home. Had acute dyspnea on presentation. Currently requiring 3 L supplemental O2 * Declined BiPAP or CPAP therapy on presentation. Reported she does not wish to be intubated should the need arise * CXR demonstrated small left pleural effusion mild airspace opacities, consistent with atelectasis vs pneumonia * She is maintaining adequate oxygen saturations on 3 L per nasal cannula. Continue O2 as needed and wean to goal * Supportive care to include bronchodilators, expectorants, incentive spirometry * No signs or symptoms at this time to suggest pneumonia, however she is on broad-spectrum antibiotics due to osteomyelitis (3) Acute on chronic renal failure: Qualifiers: Acute renal failure type: unspecified Chronic kidney disease stage: unspecified stage Qualified Code(s): N17.9 - Acute kidney failure, unspecified; N18.9 - Chronic kidney disease, unspecified Code(s): N17.9 - Acute kidney failure, unspecified; N18.9 - Chronic kidney disease, unspecified Status: Acute Assessment and Plan: GFR is typically in the upper 20s-30s. Creatinine elevated up to 3.3 this hospital stay. Slight improvement down to 2.7 today * Appreciate nephrology consultation * Acute kidney injury may be related to infection * Renal ultrasound showed normal kidneys without hydronephrosis * Continue to monitor renal function closely (4) Chronic anemia: Code(s): D64.9 - Anemia, unspecified Status: Chronic Assessment and Plan: Chronic anemia likely secondary to kidney disease. Slight decline in hemoglobin from baseline around 7.5. No signs or symptoms to suggest blood loss * Stool occult blood test ordered, pending collection * Continue Protonix while awaiting results * Initiated on Retacrit 31285 units Thursday per Nephrology recommendations * Monitor H&H closely to ensure remaining stable (5) HTN (hypertension) with goal to be determined: Code(s): I10 - Essential (primary) hypertension Status: Chronic Assessment and Plan: Blood pressure reviewed and has been fluctuant. Last BP 147/60 * Continue metoprolol and amlodipine * Monitor BP trends (6) Hypothyroid: Qualifiers: Hypothyroidism type: unspecified Qualified Code(s): E03.9 - Hypothyroidism, unspecified Code(s): E03.9 - Hypothyroidism, unspecified Status: Chronic
--- NOTE | 2021-03-04 13:35 | PM.IMPN ---
Progress Note: A&P Assessment and Plan (1) Acute osteomyelitis of right calcaneus: Code(s): M86.171 - Other acute osteomyelitis, right ankle and foot Status: Acute Assessment and Plan: Unstageable pressure ulcer of right heel previously treated with only betadine as patient was on hospice care that has since been revoked. Foot x-ray showed ulcer of the heel with erosions of calcaneal tuberosity consistent with osteomyelitis She has marked leukocytosis up to 27.8. Remains afebrile Continue IV vancomycin and imipenem Appreciate Infectious Disease consultation Will proceed with consultation to General surgery, input is appreciated Continue local wound care Supportive care. Analgesics available as needed Blood culture with growth of Enterococcus Preliminary blood culture negative to date (only one bottle collected) (2) Acute and chronic respiratory failure with hypercapnia: Code(s): J96.22 - Acute and chronic respiratory failure with hypercapnia Status: Acute Assessment and Plan: Chronic respiratory failure likely related to COPD and obesity hypoventilation syndrome. She is on 2.5 L supplemental O2 at home. Had acute dyspnea on presentation. Currently requiring 3 L supplemental O2 Declined BiPAP or CPAP therapy on presentation. Reported she does not wish to be intubated should the need arise CXR demonstrated small left pleural effusion mild airspace opacities, consistent with atelectasis vs pneumonia She is maintaining adequate oxygen saturations on 3 L per nasal cannula. Continue O2 as needed and wean to goal Supportive care to include bronchodilators, expectorants, incentive spirometry No signs or symptoms at this time to suggest pneumonia, however she is on broad-spectrum antibiotics due to osteomyelitis (3) Acute on chronic renal failure: Qualifiers: Acute renal failure type: unspecified Chronic kidney disease stage: unspecified stage Qualified Code(s): N17.9 - Acute kidney failure, unspecified; N18.9 - Chronic kidney disease, unspecified Code(s): N17.9 - Acute kidney failure, unspecified; N18.9 - Chronic kidney disease, unspecified Status: Acute Assessment and Plan: GFR is typically in the upper 20s-30s. Creatinine elevated up to 3.3 this hospital stay. Slight improvement down to 2.7 today Appreciate nephrology consultation Acute kidney injury may be related to infection Renal ultrasound showed normal kidneys without hydronephrosis Continue to monitor renal function closely (4) Chronic anemia: Code(s): D64.9 - Anemia, unspecified Status: Chronic Assessment and Plan: Chronic anemia likely secondary to kidney disease. Slight decline in hemoglobin from baseline around 7.5. No signs or symptoms to suggest blood loss Stool occult blood test ordered, pending collection Continue Protonix while awaiting results Initiated on Retacrit 14269 units Thursday per Nephrology recommendations Monitor H&H closely to ensure remaining stable (5) HTN (hypertension) with goal to be determined: Code(s): I10 - Essential (primary) hypertension Status: Chronic Assessment and Plan: Blood pressure reviewed and has been fluctuant. Last BP 147/60 Continue metoprolol and amlodipine Monitor BP trends (6) Hypothyroid: Qualifiers: Hypothyroidism type: unspecified Qualified Code(s): E03.9 - Hypothyroidism, unspecified Code(s): E03.9 - Hypothyroidism, unspecified Status: Chronic Assessment and Plan: TSH is within normal limits. She is not on thyroid medication at home (7) DM (diabetes mellitus): Qualifiers: Diabetes mellitus complication status: without complication Diabetes mellitus shelter insulin use: without shelter use Diabetes mellitus type: type 2 Qualified Code(s): E11.9 - Type 2 diabetes mellitus without complications C
[2021-03-04 14:00] VITALS: BP 129/57; PULSE 64; RESP 18; O2SAT 90
--- NOTE | 2021-03-04 15:28 | PM.PNNEP ---
Progress Note: A&P Assessment and Plan (1) Acute kidney injury: Code(s): N17.9 - Acute kidney failure, unspecified Status: Acute Assessment and Plan: etiology not entirely clear infection is possible -- her osteomyelitis and dry gangrene is concerning prerenal azotemia could be playing a role as she has not been eating or drinking very well possibly worsened by diuretic therapy [employer] - urine electrolytes suggest an degree of volume depletion renal ultrasound noted creatinine somewhat better today with increased urine output in the last 24 hours follow repeat labs and UOP (2) Chronic renal failure, stage 4 (severe): Code(s): N18.4 - Chronic kidney disease, stage 4 (severe) Status: Chronic Assessment and Plan: baseline creatinine seems run ~ 1.6 - 2.1mg/dl suspect this is due to diabetes, hypertension, and vascular disease (3) Pneumonia: Qualifiers: Laterality: unspecified laterality Lung location: unspecified part of lung Pneumonia type: due to unspecified organism Qualified Code(s): J18.9 - Pneumonia, unspecified organism Code(s): J18.9 - Pneumonia, unspecified organism Status: Acute Assessment and Plan: as noted by admission imaging follow cultures on antibiotics (4) Chronic wound of extremity: Status: Acute Assessment and Plan: evidence of gangrene and osteomyelitis Infectious Disease and Surgery following on antibiotics plan for debridement in OR tomorrow (5) CHF (congestive heart failure): Qualifiers: Heart failure chronicity: acute on chronic Heart failure type: unspecified Qualified Code(s): I50.9 - Heart failure, unspecified Code(s): I50.9 - Heart failure, unspecified Status: Chronic Assessment and Plan: appear compensated at this time follow volume status closely diastolic dysfunction noted by last Echo (6) Anemia: Qualifiers: Anemia type: unspecified type Qualified Code(s): D64.9 - Anemia, unspecified Code(s): D64.9 - Anemia, unspecified Status: Acute Assessment and Plan: due to CKD along with acute illness and chronic disease attempted use of Epogen but patient apparently did not tolerated IV iron not an option given acute infection follow trend of H/H PRBC transfusion per protocol (7) HTN (hypertension): Qualifiers: Hypertension type: unspecified Qualified Code(s): I10 - Essential (primary) hypertension Code(s): I10 - Essential (primary) hypertension Status: Chronic Assessment and Plan: reasonable control at this time follow trend of hemodynamics Will continue to follow. Subjective Date/time seen: 03/04/21 15:28 Chart reviewed -- assuming care from Dr. Delcid; she tells me that she did not tolerate the retacrit injection as it made her feel terrible and shaky all over -- better urine output noted in the last 24 hours with some mild improvement in renal function. Exam Narrative: General: WD/WN female in NAD Heart: normal S1 and S2; no rub Lungs: clear to auscultation Abdomen: soft, nontender, nondistended, positive bowel sounds Extremities: right foot with dressings in place; trace edema bilterally Skin: warm and dry Objective Data Vital Signs Vital Signs: Vital Signs Temp Pulse Resp BP Pulse Ox 03/04/21 14:00 64 18 129/57 L 90 03/04/21 08:53 70 03/04/21 08:00 92 03/04/21 06:00 36.1 C L 70 20 147/60 H 95 03/03/21 22:00 36.1 C L 65 20 110/54 L 92 03/03/21 20:00 94 03/03/21 17:25 156/64 H Intake/Output Intake/Output: Intake & Output 03/01/21 03/02/21 03/03/21 03/04/21 23:59 23:59 23:59 23:59 Intake Total 820 1360 2780 1320 Output Total 150 1000 500 Balance 820 1210 1780 820 Meds/Results Medications: Active Medications Generic Name Dose Route Start Last Admin Trade Name Freq PRN Reason
--- NOTE | 2021-03-04 15:28 | P.PNNP_ITS ---
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 suggest an degree of volume depletion * renal ultrasound noted * creatinine somewhat better today with increased urine output in the last 24 hours * follow repeat labs and UOP (2) Chronic renal failure, stage 4 (severe): Code(s): N18.4 - Chronic kidney disease, stage 4 (severe) Status: Chronic Assessment and Plan: * baseline creatinine seems run ~ 1.6 - 2.1mg/dl * suspect this is due to diabetes, hypertension, and vascular disease (3) Pneumonia: Qualifiers: Laterality: unspecified laterality Lung location: unspecified part of lung Pneumonia type: due to unspecified organism Qualified Code(s): J18.9 - Pneumonia, unspecified organism Code(s): J18.9 - Pneumonia, unspecified organism Status: Acute Assessment and Plan: * as noted by admission imaging * follow cultures * on antibiotics (4) Chronic wound of extremity: Status: Acute Assessment and Plan: * evidence of gangrene and osteomyelitis * Infectious Disease and Surgery following * on antibiotics * plan for debridement in OR tomorrow (5) CHF (congestive heart failure): Qualifiers: Heart failure chronicity: acute on chronic Heart failure type: unspecified Qualified Code(s): I50.9 - Heart failure, unspecified Code(s): I50.9 - Heart failure, unspecified Status: Chronic Assessment and Plan: * appear compensated at this time * follow volume status closely * diastolic dysfunction noted by last Echo (6) Anemia: Qualifiers: Anemia type: unspecified type Qualified Code(s): D64.9 - Anemia, unspecified Code(s): D64.9 - Anemia, unspecified Status: Acute Assessment and Plan: * due to CKD along with acute illness and chronic disease * attempted use of Epogen but patient apparently did not tolerated * IV iron not an option given acute infection * follow trend of H/H * PRBC transfusion per protocol (7) HTN (hypertension): Qualifiers: Hypertension type: unspecified Qualified Code(s): I10 - Essential (primary) hypertension Code(s): I10 - Essential (primary) hypertension Status: Chronic Assessment and Plan: * reasonable control at this time * follow trend of hemodynamics Will continue to follow. Subjective Date/time seen: 03/04/21 15:28 Chart reviewed -- assuming care from Dr. Delcid; she tells me that she did not tolerate the retacrit injection as it made her feel terrible and shaky all over -- better urine output noted in the last 24 hours with some mild improvement in renal function. Exam Narrative: General: WD/WN female in NAD Heart: normal S1 and S2; no rub Lungs: clear to auscultation Abdomen: soft, nontender, nondistended, positive bowel sounds Extremities: right foot with dressings in place; trace edema bilterally Skin: warm and dry Objective Data Vital Signs Vital Signs: Vital Signs Temp Pulse Resp BP Pulse Ox 03/04/21
--- NOTE | 2021-03-04 15:34 | PM.CNGS ---
Assessment and Plan Assessment and plan (1) Ulcer of right heel: Code(s): L97.419 - Non-pressure chronic ulcer of right heel and midfoot with unspecified severity Status: Acute Assessment and Plan: Right heel ulcer with necrotic tissue and large black eschar and persistent leukocytosis. Right foot x-ray showed evidence of osteomyelitis in the calcaneal tuberosity. She was previously on Hospice but has revoked this during this hospitalization and would like to proceed with full treatment. She is currently on IV Primaxin and Vancomycin per ID recommendations. Ultimately, she needs surgical intervention and treatment options were discussed with the patient in detail. During my evaluation, she insisted on avoiding a below knee amputation and would like to try and salvage her foot if possible. We discussed that the other option is proceeding with excisional debridement of the necrotic right heel ulcer, but this would not treat the acute osteomyelitis and she would require a longer course of IV antibiotics. Even with this option, she would be at risk for having issues with healing and could ultimately still require an amputation if she wanted to continue with aggressive treatment. I discussed the case with Dr. Nava, who evaluated the patient separately. She decided to proceed with excisional debridement, and she has been added onto the OR schedule tomorrow. Description of the procedure, risks, benefits, potential outcomes, and expected skilled nursing wound care was discussed with the patient in detail. Will make her NPO after midnight. Continue broad-spectrum IV antibiotics. Elevate heels off the bed with pillows or by using her heel protectors at the bedside. 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 (7) Chronic respiratory failure: Qualifiers: Respiratory failure complication: unspecified whether with hypoxia or hypercapnia Qualified Code(s): J96.10 - Chronic respiratory failure, unspecified whether with hypoxia or hypercapnia Code(s): J96.10 - Chronic respiratory failure, unspecified whether with hypoxia or hypercapnia Status: Chronic (8) CHF (congestive heart failure): Qualifiers: Heart failure type: unspecified Heart failure chronicity: acute on chronic Qualified Code(s): I50.9 - Heart failure, unspecified Code(s): I50.9 - Heart failure, unspecified Status: Chronic Assessment and Plan: Increases risks for surgery. (9) Asthma: Qualifiers: Asthma severity: moderate Asthma persistence: persistent Asthma complication type: uncomplicated Qualified Code(s): J45.40 - Moderate persistent asthma, uncomplicated Code(s): J45.909 - Unspecified asthma, uncomplicated Status: Chronic Assessment and Plan: Increases risks for surgery. (10) H/O: HTN (hypertension): Code(s): Z86.79 - Personal history of other diseases of the circulatory system Status: Chronic Additional Plan I have discussed the patient's case and plan of care with Dr. Nava. Thank you for allow
[2021-03-04 17:07] LABS: Glucose Point of Care 153 mg/dl (65-105)
[2021-03-04 20:00] VITALS: PULSE 64; RESP 18; O2SAT 90
[2021-03-04 20:48] LABS: Glucose Point of Care 132 mg/dl (65-105)
[2021-03-04] MEDS: INSULIN GLARGINE (*BKC) 100 UNITS/ML 40 UNITS SUB-Q (21:38)
[2021-03-04] MEDS: PANTOPRAZOLE SODIUM IV 40 MG VIAL IV PUSH (21:38)
[2021-03-04] MEDS: TOLNAFTATE 1% POWDER 45 GM BTL 1 APPLIC TOPICAL (21:38)
[2021-03-04 22:00] VITALS: BP 131/52; PULSE 71; RESP 20; TEMP 36.1; O2SAT 95
[2021-03-05] VITALS (16 sets, daily range): BP systolic 115–136; BP diastolic 50–87; PULSE 61–77; RESP 12–24; TEMP 34.4–36.2; O2SAT 90–100
[2021-03-05] MEDS: ONDANSETRON INJ 4 MG/2 ML VIAL IV PUSH ×3 (01:27→18:57)
--- NOTE | 2021-03-05 02:14 | PC.NURSE ---
Patient called out saying she can not breath and her throat is swollen. As she is having this complaint she is also screaming that she needs more Zofran for her breathing. Patient has told staff that she likes the Zofran because it makes her sleepy. Attempted again to educate patient on what Zofran is used for. Vitals were taken, see chart. Patient asked for her Valium. When that was not available she started screaming again Oh God Oh God Oh God I can't breath! Look at me I just can't breath! Her oxygen never dropped even as she is screaming at staff. Notified Dr. Galvez about her request for her Valium but with her having with on going nausea and not wanting to keep anything down she did not recommend the oral medication. Patient refuses to take any other anxiety medication says Oh no I will if I take anything with the Zofran, it makes me sleep as it is and can't take 2 sleepy medication. Attempted for the 4th time to explain what Zofran is for and patient started to scream again. Will watch her oxygen saturation. Once staff leaves the room patient no longer screams. She is resting at this time.
[2021-03-05] MEDS: ALBUTEROL SULFATE (*SP) AEROSOL 1 PUFF 2 PUFF INHALATION (06:00)
[2021-03-05 06:41] LABS: Basophils Absolute Auto 0.1 K/mm3 (0.0-0.1); Basophils Percent Auto 0.3 % (0.2-1.2); Eosinophils Absolute Auto 0.1 K/mm3 (0-0.3); Eosinophils Percent Auto 0.5 % (0-4.4); Hematocrit 24.4 % (37.0-47.0); Hemoglobin 7.9 g/dL (12.0-15.0); Immature Granulocyte Absolute 0.73 K/mm3 (0.00-0.031); Immature Granulocyte Percent A 4.1 % (0-0.5); Lymphocytes Absolute Auto 0.69 K/mm3 (0.9-3.2); Lymphocytes Percent Auto 3.9 % (18.3-44.2); Mean Corpuscular HGB Conc 32.4 g/dl (32-36); Mean Corpuscular Hemoglobin 25.7 pg (26-34); Mean Corpuscular Volume 79.5 fl (80-100); Mean Platelet Volume 9.2 fl (7.4-10.4); Monocytes Absolute Auto 0.6 K/mm3 (0.1-0.6); Monocytes Percent Auto 3.1 % (2.6-8.5); Neutrophils Absolute Auto 15.8 K/mm3 (1.3-6.7); Neutrophils Percent Auto 88.1 % (45.5-73.1); Platelet Count Result 327 k/mm3 (150-375); Red Blood Count 3.07 M/mm3 (4.2-5.4); White Blood Count 17.9 K/mm3 (4.5-10.0)
[2021-03-05 06:48] LABS: Anion Gap 9 mmol/L (8-16); Blood Urea Nitrogen 72 mg/dL (7-17); Carbon Dioxide 31 mmol/L (22-30); Chloride 92 mmol/L (98-107); Estimated CRCL calculation 20 ml/min; Estimated Glomerular Filt Rate 19; Glucose 122 mg/dL (65-110); Magnesium 1.9 mg/dL (1.6-2.3); Potassium 3.5 mmol/L (3.4-5.0); Sodium 132 mmol/L (137-145)
[2021-03-05 07:26] LABS: Platelet Estimate Adequate (Adequate)
[2021-03-05 07:27] LABS: Anisocytosis 2+ (NORMAL); Hypochromasia 1+ (NORMAL); Macrocytosis 1+ (NORMAL)
[2021-03-05] MEDS: PANTOPRAZOLE SODIUM IV 40 MG VIAL IV PUSH ×2 (08:18→21:07)
[2021-03-05] MEDS: TOLNAFTATE 1% POWDER 45 GM BTL 1 APPLIC TOPICAL ×2 (08:31→21:08)
--- NOTE | 2021-03-05 08:45 | PC.NURSE ---
Pt states she is unable to take po meds and has not taken them for days. Saline flushed IV and noted leaking. Updated primary RN and verified with primary RN that pt refusing to take po meds. Primary RN will follow up with MD and provide update. Will start IV and continue to administer IV meds as ordered.
[2021-03-05 08:48] LABS: Glucose Point of Care 121 mg/dl (65-105)
[2021-03-05] MEDS: SODIUM CHLORIDE 0.9% IV 1,000 ML 100 ML IVPB (09:45)
--- NOTE | 2021-03-05 10:12 | P.PNNP_ITS ---
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 suggest an degree of volume depletion * renal ultrasound noted * creatinine improving with reasonable urine output * follow repeat labs and UOP (2) Chronic renal failure, stage 4 (severe): Code(s): N18.4 - Chronic kidney disease, stage 4 (severe) Status: Chronic Assessment and Plan: * baseline creatinine seems run ~ 1.6 - 2.1mg/dl * suspect this is due to diabetes, hypertension, and vascular disease (3) Pneumonia: Qualifiers: Laterality: unspecified laterality Lung location: unspecified part of lung Pneumonia type: due to unspecified organism Qualified Code(s): J18.9 - Pneumonia, unspecified organism Code(s): J18.9 - Pneumonia, unspecified organism Status: Acute Assessment and Plan: * as noted by admission imaging * follow cultures * on antibiotics (4) Chronic wound of extremity: Status: Acute Assessment and Plan: * evidence of gangrene and osteomyelitis * Infectious Disease and Surgery following * on antibiotics * plan for debridement in OR today (5) CHF (congestive heart failure): Qualifiers: Heart failure chronicity: acute on chronic Heart failure type: unspecified Qualified Code(s): I50.9 - Heart failure, unspecified Code(s): I50.9 - Heart failure, unspecified Status: Chronic Assessment and Plan: * appear compensated at this time * follow volume status closely * diastolic dysfunction noted by last Echo (6) Anemia: Qualifiers: Anemia type: unspecified type Qualified Code(s): D64.9 - Anemia, unspecified Code(s): D64.9 - Anemia, unspecified Status: Acute Assessment and Plan: * due to CKD along with acute illness and chronic disease * attempted use of Epogen but patient apparently did not tolerate * IV iron not an option given acute infection * follow trend of H/H * PRBC transfusion per protocol (7) HTN (hypertension): Qualifiers: Hypertension type: unspecified Qualified Code(s): I10 - Essential (primary) hypertension Code(s): I10 - Essential (primary) hypertension Status: Chronic Assessment and Plan: * reasonable control at this time * follow trend of hemodynamics Will continue to follow. Subjective Date/time seen: 03/05/21 10:12 Appears somewhat anxious and concerned about her surgery/procedure later today; nursing reports states she is having difficult taking oral medications (reaso n?); no events/issues overnight; currently NPO. Exam Narrative: General: WD/WN female in NAD Heart: normal S1 and S2; no rub Lungs: clear to auscultation Abdomen: soft, nontender, nondistended, positive bowel sounds Extremities: right foot with dressings in place; trace edema bilaterally Skin: warm and intact Objective Data Vital Signs Vital Signs: Vital Signs Temp Pulse Resp BP Pulse Ox 03/05/21 09:19 65 03/05/21 06:06 62 03/05/21 06:00 68 20 136/50
--- NOTE | 2021-03-05 10:12 | PM.PNNEP ---
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 - urine electrolytes suggest an degree of volume depletion renal ultrasound noted creatinine improving with reasonable urine output follow repeat labs and UOP (2) Chronic renal failure, stage 4 (severe): Code(s): N18.4 - Chronic kidney disease, stage 4 (severe) Status: Chronic Assessment and Plan: baseline creatinine seems run ~ 1.6 - 2.1mg/dl suspect this is due to diabetes, hypertension, and vascular disease (3) Pneumonia: Qualifiers: Laterality: unspecified laterality Lung location: unspecified part of lung Pneumonia type: due to unspecified organism Qualified Code(s): J18.9 - Pneumonia, unspecified organism Code(s): J18.9 - Pneumonia, unspecified organism Status: Acute Assessment and Plan: as noted by admission imaging follow cultures on antibiotics (4) Chronic wound of extremity: Status: Acute Assessment and Plan: evidence of gangrene and osteomyelitis Infectious Disease and Surgery following on antibiotics plan for debridement in OR today (5) CHF (congestive heart failure): Qualifiers: Heart failure chronicity: acute on chronic Heart failure type: unspecified Qualified Code(s): I50.9 - Heart failure, unspecified Code(s): I50.9 - Heart failure, unspecified Status: Chronic Assessment and Plan: appear compensated at this time follow volume status closely diastolic dysfunction noted by last Echo (6) Anemia: Qualifiers: Anemia type: unspecified type Qualified Code(s): D64.9 - Anemia, unspecified Code(s): D64.9 - Anemia, unspecified Status: Acute Assessment and Plan: due to CKD along with acute illness and chronic disease attempted use of Epogen but patient apparently did not tolerate IV iron not an option given acute infection follow trend of H/H PRBC transfusion per protocol (7) HTN (hypertension): Qualifiers: Hypertension type: unspecified Qualified Code(s): I10 - Essential (primary) hypertension Code(s): I10 - Essential (primary) hypertension Status: Chronic Assessment and Plan: reasonable control at this time follow trend of hemodynamics Will continue to follow. Subjective Date/time seen: 03/05/21 10:12 Appears somewhat anxious and concerned about her surgery/procedure later today; nursing reports states she is having difficult taking oral medications (reason?); no events/issues overnight; currently NPO. Exam Narrative: General: WD/WN female in NAD Heart: normal S1 and S2; no rub Lungs: clear to auscultation Abdomen: soft, nontender, nondistended, positive bowel sounds Extremities: right foot with dressings in place; trace edema bilaterally Skin: warm and intact Objective Data Vital Signs Vital Signs: Vital Signs Temp Pulse Resp BP Pulse Ox 03/05/21 09:19 65 03/05/21 06:06 62 03/05/21 06:00 68 20 136/50 L 94 03/05/21 02:13 36.2 C L 66 18 125/56 L 93 03/04/21 22:00 36.1 C L 71 20 131/52 L 95 03/04/21 20:00 64 18 90 03/04/21 14:00 64 18 129/57 L 90 Intake/Output Intake/Output: Intake & Output 03/02/21 03/03/21 03/04/21 03/05/21 23:59 23:59 23:59 23:59 Intake Total 1360 2780 2420 150 Output Total 150 1000 500 650 Balance 1210 1780 1920 -500 Meds/Results Medications: Active Medications Generic Name Dose Route Start Last Admin Trade Name Freq PRN Reason Stop Dose Admin Albuterol 2 puff 03/01/21 12:49 03/05/21 06:00
[2021-03-05 11:42] LABS: Glucose Point of Care 102 mg/dl (65-105)
--- NOTE | 2021-03-05 11:44 | PC.NURSE ---
1143 Pt c/o nausea and states she vomited 3 times, minimal emesis noted, appears small white frothy. Zofran requested by patient and administered.
[2021-03-05] MEDS: LACTATED RINGERS 1,000 ML 30 ML IV CONT ×2 (14:00→15:28)
--- NOTE | 2021-03-05 14:39 | PC.NURSE ---
to OR per bed
--- NOTE | 2021-03-05 14:49 | PC.NURSE ---
1445 pt to or, patient requested 1 earring, 1 ring, glasses to safe via Adelia DAIGLE. Pt signed and agreed with contents of envelop. IVF stopped for transfer to OR.
--- NOTE | 2021-03-05 15:41 | SUR.PREOP ---
vancomycin trough sent 2930
--- NOTE | 2021-03-05 15:52 | WPDANESEPPF ---
Anes - Initial Pre Proc Eval Procedure: Operation Date: 03/05/21 16:00 Proposed Procedures p Debridement Right Heel Ulcer - Jay Nava DO Date/Time: 03/05/21 15:52 Surgeon: Francie Ponce PA-C Pre Op Diagnosis: pneumonia Patient Data Age: 75 Gender: F Height: 1.63 m Weight: 100 kg Last Vital Signs Temp 36.2 C L 03/05/21 14:50 Pulse 67 03/05/21 14:50 Resp 14 03/05/21 14:50 BP 136/87 03/05/21 14:50 Pulse Ox 94 03/05/21 14:50 Allergies Allergy/AdvReac Type Severity Reaction Status Date / Time ezetimibe Allergy Severe PANCREATITI Verified 03/01/21 09:05 S hydromorphone Allergy Severe throat Verified 03/01/21 09:05 swelling nitrofurantoin Allergy Severe tounge Verified 03/01/21 09:05 [From Macrobid] swollen, nasusea, vomiting, diarrhea, peanut Allergy Severe RASH Verified 03/01/21 09:05 tree nut Allergy Severe Swelling Verified 03/01/21 09:05 of Lip/Tongue/Throat silver Allergy Intermediate Unknown Verified 03/01/21 09:05 aspirin Allergy Unknown Unknown Verified 03/01/21 09:05 bumetanide Allergy Unknown Unknown Verified 03/01/21 09:05 cefuroxime Allergy Unknown Unknown Verified 03/01/21 09:05 ciprofloxacin Allergy Unknown Unknown Verified 03/01/21 09:05 codeine Allergy Unknown Unknown Verified 03/01/21 09:05 erythromycin base Allergy Unknown RASH Verified 03/01/21 09:05 Iodinated Contrast Media Allergy Unknown Rash Verified 03/01/21 09:05 ketorolac Allergy Unknown Unknown Verified 03/01/21 09:05 metronidazole Allergy Unknown Unknown Verified 03/01/21 09:05 nitroglycerin Allergy Unknown Unknown Verified 03/01/21 09:05 Penicillins Allergy Unknown RASH Verified 03/01/21 09:05 propoxyphene Allergy Unknown Unknown Verified 03/01/21 09:05 Sulfa (Sulfonamide Allergy Unknown Unknown Verified 03/01/21 09:05 Antibiotics) tetracycline Allergy Unknown RASH Verified 03/01/21 09:05 huber Allergy Hives Verified 03/01/21 09:05 Home Medications Medication Instructions Recorded Confirmed Type ipratropium bromide 0.5 mg INHALATION Q4H PRN 05/26/20 03/01/21 History tolnaftate 1 applic TOPICAL Q12HR #1 gm 06/04/20 03/01/21 Rx Lantus U-100 Insulin 40 unit SUBCUT HS 08/29/20 03/01/21 History amlodipine 10 mg PO DAILY 08/29/20 03/01/21 History metoprolol tartrate 12.5 mg PO DAILY #30 tablet 09/05/20 03/01/21 Rx zinc oxide 1 applic TOPICAL QAM #60 g 09/05/20 03/01/21 Rx albuterol sulfate [Proventil HFA] 4 puff INHALATION PRN PRN 11/09/20 03/01/21 History insulin aspart U-100 [Novolog See Rx Instructions .ROUTE .COMPLEX 11/09/20 03/01/21 History Flexpen U-100 Insulin] furosemide [Lasix] 80 mg PO BID 03/01/21 03/01/21 History ondansetron 4 mg PO Q8H PRN 03/01/21 03/01/21 History Laboratory Tests 03/04/21 03/04/21 03/05/21 17:00 20:42 05:55 WBC 17.9 K/mm3 H K/mm3 (4.5-10.0) RBC 3.07 M/mm3 L M/mm3 (4.2-5.4) Hgb 7.9 g/dL L g/dL (12.0-15.0) Hct 24.4 % L % (37.0-47.0) MCV 79.5 fl L fl (80-100) MCH 25.7 pg L pg (26-34) MCHC 32.4 g/dl g/dl (32-36) RDW 14.0 % % (11.5-14.5) Plt Count 327 k/mm3 k/mm3 (150-375) MPV 9.2 fl fl (7.4-10.4) Immature Gran % (Auto) 4.1 % H % (0-0.5) Neut % (Auto) 88.1 % H % (45.5-73.1) Lymph % (Auto) 3.9 % L % (18.3-44.2) Cloud % (Auto) 3.1 % % (2.6-8.5) Eos % (Auto) 0.5 % % (0-4.4) Baso % (Auto) 0.3 % % (0.2-1.2) Lymph # (Auto) 0.69 K/mm3 L K/mm3 (0.9-3.2) Cloud # (Auto) 0.6 K/mm3 K/mm3 (0.1-0.6) Eos # (Auto) 0.1 K/mm3 K/mm3 (0-0.3) Baso # (Auto) 0.1 K/mm3 K/mm3 (0.0-0.1) Abs Immat Gran (auto) 0.73 K/mm3 H K/mm3 (0.00-0.031) Absolute Neuts (auto) 15.8 K/mm3 H K/mm3 (1.3-6.7) Absolute Nucleated RBC 0.0 K/mm3 K/mm3 (0.0-0.012) Nucleated RBC % 0.0 % % (0.0-0.2
--- NOTE | 2021-03-05 16:12 | WPDHPUPDATE1 ---
History and Physical Update Update Date/Time: 03/05/21 16:12 History and Physical has been reviewed, including an updated exam of the patient. There are NO changes in the patient's condition. Risks, benefits, and alternatives have been discussed and questions answered. Patient agrees to proceed with procedure.
--- NOTE | 2021-03-05 16:20 | SUR.PREOP ---
1550 DR. DEVINE HERE TO SEE PT.
--- NOTE | 2021-03-05 16:22 | SUR.PREOP ---
1625 OR STAFF HERE TO TAKE PT TO OR. SON NOTIFIED.
--- NOTE | 2021-03-05 17:01 | W.PM.PROC2 ---
Procedure Note - Detailed Date of Procedure 03/05/21 Pre-op Diagnosis Right heel unstageable ulcer Post-op Diagnosis other (Right heel stage IV ulcer with osteomyelitis) Procedure Performed Sharp excisional debridement of right heel ulcer including skin, subcutaneous tissue, and bone measuring 6 cm x 5 cm Surgeon Jay Nava, DO Anesthesia MAC Indications This is a 75-year-old woman who presented to the hospital with multiple medical issues. She has a right heel ulcer that has spongy necrotic tissue and a foul smelling drainage. Decision was made to proceed with debridement of the ulcer. Findings Sharp excisional debridement of the right heel ulcer was performed. Skin, subcutaneous fat, muscle, tendon, and bone were debrided. The necrotic tissue appeared to involve the calcaneus. Several bone biopsies were taken for pathology. Most of the necrotic tissue was fully debrided down to healthy appearing bleeding tissue. Description of Procedure Procedure as well as risks, benefits, and alternatives were discussed with patient and her significant other. Written consent was obtained and placed in chart prior to procedure. Patient was brought back to surgical suite. She was placed in left lateral decubitus position. Time-out was done to confirm patient and procedure. IV sedation was then administered by the Anesthesia Department. Her right foot area was prepped and draped in sterile fashion using Betadine prep. A 15 blade scalpel was used to sharply excise the necrotic skin. Metzenbaum scissors were then used to further excise necrotic deeper tissue. Rongeurs were then used to take several bone biopsies. Curettes were then used to scrape some of the necrotic bone until there was more healthy appearing bone within the wound base. Xeroform gauze was then applied followed by 4 x 4 gauze and a Kerlix wrap. The patient was then awakened from anesthesia and transferred to recovery. Estimated Blood Loss 5 Urine Output 25 Pathology yes (Right heel ulcer) Complications No immediate complications Condition stable Disposition floor
--- NOTE | 2021-03-05 17:02 | P.PNIM_ITS ---
Progress Note: A&P Assessment and Plan (1) Acute osteomyelitis of right calcaneus: Code(s): M86.171 - Other acute osteomyelitis, right ankle and foot Status: Acute Assessment and Plan: Unstageable pressure ulcer of right heel previously treated with only betadine as patient was on hospice care that has since been revoked. * Foot x-ray showed ulcer of the heel with erosions of calcaneal tuberosity consistent with osteomyelitis * She has marked leukocytosis up to 27.8. Remains afebrile. WBC improved today down to 17.9 * Continue IV vancomycin and Primaxin * Appreciate Infectious Disease consultation * Appreciate general surgery consultation * Planning for debridement of right heel ulcer in the OR today with Dr. Nava. * She has made it clear she does not wish to consider amputation even though she was informed that debridement and local wound care would prolong her hospital stay and put her at risk for frequent hospital admissions and infections. * Continue local wound care * Supportive care. Analgesics available as needed * Wound culture with growth of Enterococcus * Preliminary blood culture negative to date (only one bottle collected) (2) Acute and chronic respiratory failure with hypercapnia: Code(s): J96.22 - Acute and chronic respiratory failure with hypercapnia Status: Acute Assessment and Plan: Chronic respiratory failure likely related to COPD and obesity hypoventilation syndrome. She is on 2.5 L supplemental O2 at home. Had acute dyspnea on presentation. Currently requiring 3 L supplemental O2 * Declined BiPAP or CPAP therapy on presentation. Reported she does not wish to be intubated should the need arise * CXR demonstrated small left pleural effusion with mild airspace opacities, consistent with atelectasis vs pneumonia * She is maintaining adequate oxygen saturations on 3 L per nasal cannula. Continue O2 as needed and wean to goal * Supportive care to include bronchodilators, expectorants, incentive spirometry * No signs or symptoms at this time to suggest pneumonia, however she is on broad-spectrum antibiotics due to osteomyelitis (3) Acute on chronic renal failure: Qualifiers: Acute renal failure type: unspecified Chronic kidney disease stage: unspecified stage Qualified Code(s): N17.9 - Acute kidney failure, unspecified; N18.9 - Chronic kidney disease, unspecified Code(s): N17.9 - Acute kidney failure, unspecified; N18.9 - Chronic kidney disease, unspecified Status: Acute Assessment and Plan: GFR is typically in the upper 20s-30s. Creatinine elevated up to 3.3 this hospital stay. Slight improvement down to 2.5 today * Appreciate nephrology consultation * Acute kidney injury may be related to infection * Renal ultrasound showed normal kidneys without hydronephrosis * Continue to monitor renal function closely (4) Chronic anemia: Code(s): D64.9 - Anemia, unspecified Status: Chronic Assessment and Plan: Chronic anemia likely secondary to kidney disease. Slight decline in hemoglobin from baseline. No signs or symptoms to suggest blood loss. Hgb 7.9 today. * Stool occult blood test ordered, pending collection * Continue Protonix while awaiting results * Initiated on Retacrit 74867 units Thursday per Nephrology recommendations * Monitor H&H closely to ensure remaining stable (5) HTN (hypertension) with goal to be determined: Code(s): I10 - Essential (primary) hypertension Status: Chronic Assessment and Plan: Blood pressure reviewed and vaughan
--- NOTE | 2021-03-05 17:02 | PM.IMPN ---
Progress Note: A&P Assessment and Plan (1) Acute osteomyelitis of right calcaneus: Code(s): M86.171 - Other acute osteomyelitis, right ankle and foot Status: Acute Assessment and Plan: Unstageable pressure ulcer of right heel previously treated with only betadine as patient was on hospice care that has since been revoked. Foot x-ray showed ulcer of the heel with erosions of calcaneal tuberosity consistent with osteomyelitis She has marked leukocytosis up to 27.8. Remains afebrile. WBC improved today down to 17.9 Continue IV vancomycin and Primaxin Appreciate Infectious Disease consultation Appreciate general surgery consultation Planning for debridement of right heel ulcer in the OR today with Dr. Nava. She has made it clear she does not wish to consider amputation even though she was informed that debridement and local wound care would prolong her hospital stay and put her at risk for frequent hospital admissions and infections. Continue local wound care Supportive care. Analgesics available as needed Wound culture with growth of Enterococcus Preliminary blood culture negative to date (only one bottle collected) (2) Acute and chronic respiratory failure with hypercapnia: Code(s): J96.22 - Acute and chronic respiratory failure with hypercapnia Status: Acute Assessment and Plan: Chronic respiratory failure likely related to COPD and obesity hypoventilation syndrome. She is on 2.5 L supplemental O2 at home. Had acute dyspnea on presentation. Currently requiring 3 L supplemental O2 Declined BiPAP or CPAP therapy on presentation. Reported she does not wish to be intubated should the need arise CXR demonstrated small left pleural effusion with mild airspace opacities, consistent with atelectasis vs pneumonia She is maintaining adequate oxygen saturations on 3 L per nasal cannula. Continue O2 as needed and wean to goal Supportive care to include bronchodilators, expectorants, incentive spirometry No signs or symptoms at this time to suggest pneumonia, however she is on broad-spectrum antibiotics due to osteomyelitis (3) Acute on chronic renal failure: Qualifiers: Acute renal failure type: unspecified Chronic kidney disease stage: unspecified stage Qualified Code(s): N17.9 - Acute kidney failure, unspecified; N18.9 - Chronic kidney disease, unspecified Code(s): N17.9 - Acute kidney failure, unspecified; N18.9 - Chronic kidney disease, unspecified Status: Acute Assessment and Plan: GFR is typically in the upper 20s-30s. Creatinine elevated up to 3.3 this hospital stay. Slight improvement down to 2.5 today Appreciate nephrology consultation Acute kidney injury may be related to infection Renal ultrasound showed normal kidneys without hydronephrosis Continue to monitor renal function closely (4) Chronic anemia: Code(s): D64.9 - Anemia, unspecified Status: Chronic Assessment and Plan: Chronic anemia likely secondary to kidney disease. Slight decline in hemoglobin from baseline. No signs or symptoms to suggest blood loss. Hgb 7.9 today. Stool occult blood test ordered, pending collection Continue Protonix while awaiting results Initiated on Retacrit 19978 units Thursday per Nephrology recommendations Monitor H&H closely to ensure remaining stable (5) HTN (hypertension) with goal to be determined: Code(s): I10 - Essential (primary) hypertension Status: Chronic Assessment and Plan: Blood pressure reviewed and has been fluctuant. Last BP 136/87 Continue metoprolol and amlodipine Monitor BP trends (6) Hypothyroid: Qualifiers: Hypothyroidism type: unspecified Qualified Code(s): E03.9 - Hypothyroidism, unspecified Code(s): E03.9 - Hypothyroidism, unspecified Status: Chronic Assessment and Plan: TSH is within normal limits. She is not on
[2021-03-05 17:17] LABS: Glucose Point of Care 96 mg/dl (65-105)
[2021-03-05 22:16] LABS: Glucose Point of Care 90 mg/dl (65-105)
[2021-03-05 22:16] LABS: Glucose Point of Care 163 mg/dl (65-105)
[2021-03-06] VITALS (10 sets, daily range): BP systolic 101–152; BP diastolic 42–81; PULSE 49–87; RESP 16–20; TEMP 34.4–36.1; O2SAT 91–96
[2021-03-06] MEDS: ONDANSETRON INJ 4 MG/2 ML VIAL IV PUSH ×5 (00:21→17:43)
--- NOTE | 2021-03-06 04:41 | PC.NURSE ---
patient called q4 for shot (aka zofran) due to being so sick and cannot breathe .. 02 sat WNL and has not vomited on my shift. Explained that she can only have medications q4, she does not listen, as soon as this is mentioned she states discomfort in bed, once this is resolved she wants to be moved up in bed... patient told PSYCHODRAMATIST to SHUT UP! And I told her she cannot talk to her this way and she asked us to leave the room... We will respect her wishes until she calls for something else. -AENilesh RN
[2021-03-06 06:43] LABS: Hematocrit 23.8 % (37.0-47.0); Hemoglobin 7.8 g/dL (12.0-15.0); Mean Corpuscular HGB Conc 32.8 g/dl (32-36); Mean Corpuscular Hemoglobin 26.1 pg (26-34); Mean Corpuscular Volume 79.6 fl (80-100); Mean Platelet Volume 9.2 fl (7.4-10.4); Platelet Count Result 310 k/mm3 (150-375); Red Blood Count 2.99 M/mm3 (4.2-5.4); Red Cell Distribution Width 14.1 % (11.5-14.5); White Blood Count 15.9 K/mm3 (4.5-10.0)
[2021-03-06 06:51] LABS: Anion Gap 6 mmol/L (8-16); Blood Urea Nitrogen 66 mg/dL (7-17); Calcium 7.9 mg/dL (8.4-10.2); Carbon Dioxide 32 mmol/L (22-30); Chloride 95 mmol/L (98-107); Estimated CRCL calculation 24 ml/min; Estimated Glomerular Filt Rate 23; Glucose 93 mg/dL (65-110); Potassium 3.1 mmol/L (3.4-5.0); Sodium 133 mmol/L (137-145)
[2021-03-06 08:09] LABS: Glucose Point of Care 83 mg/dl (65-105)
[2021-03-06] MEDS: amLODIPine BESYLATE 5 MG TABLET 10 MG PO (08:45)
[2021-03-06] MEDS: EPOETIN ALFA-EPBX 10,000 UNITS/ML VIAL 10000 UNITS SUB-Q (10:14)
[2021-03-06] MEDS: POTASSIUM CHLORIDE 20 MEQ TABLET 40 MEQ PO (10:14)
[2021-03-06] MEDS: PANTOPRAZOLE SODIUM IV 40 MG VIAL IV PUSH ×2 (10:15→20:29)
[2021-03-06] MEDS: METOPROLOL TARTRATE 12.5 MG TABLET PO (10:15)
[2021-03-06] MEDS: ZINC OXIDE 20% OINT 30 GM TUBE 1 APPLIC TOPICAL (10:22)
[2021-03-06] MEDS: TOLNAFTATE 1% POWDER 45 GM BTL 1 APPLIC TOPICAL ×2 (10:22→20:28)
[2021-03-06 11:47] LABS: Glucose Point of Care 99 mg/dl (65-105)
--- NOTE | 2021-03-06 14:05 | WPDANESPN ---
Anes - Prog Note Post-Op Date/Time: 03/06/21 14:05 Cardiovascular status: normal Respiratory status: normal Airway patency: baseline Mental status: baseline Post-Op hydration status: normal Vital Signs: Last Vital Signs Temp 35.6 C L 03/06/21 10:30 Pulse 49 L 03/06/21 11:53 Resp 20 03/06/21 11:53 BP 119/45 L 03/06/21 11:53 Pulse Ox 91 03/06/21 11:53 Pain Score (VAS): 0 I/O: Intake & Output 03/05/21 03/06/21 03/06/21 23:59 07:59 15:59 Intake Total 500 0 120 Output Total 225 500 Balance 275 -500 120 Laboratory Tests 03/06/21 05:41 03/06/21 05:41 03/05/21 03/05/21 03/05/21 15:31 17:09 21:04 WBC RBC Hgb Hct MCV MCH MCHC RDW Plt Count MPV Sodium Potassium Chloride Carbon Dioxide Anion Gap BUN Creatinine Estim Creat Clear Calc Estimated GFR Glucose POC Capillary Glucose 96 90 Calcium Vancomycin Trough 20.0 03/05/21 03/06/21 03/06/21 22:11 05:41 05:41 WBC 15.9 H RBC 2.99 L Hgb 7.8 L Hct 23.8 L MCV 79.6 L MCH 26.1 MCHC 32.8 RDW 14.1 Plt Count 310 MPV 9.2 Sodium 133 L Potassium 3.1 L Chloride 95 L Carbon Dioxide 32 H Anion Gap 6 L BUN 66 H Creatinine 2.10 H Estim Creat Clear Calc 24 Estimated GFR 23 L Glucose 93 POC Capillary Glucose 163 H Calcium 7.9 L Vancomycin Trough 03/06/21 03/06/21 07:57 11:44 WBC RBC Hgb Hct MCV MCH MCHC RDW Plt Count MPV Sodium Potassium Chloride Carbon Dioxide Anion Gap BUN Creatinine Estim Creat Clear Calc Estimated GFR Glucose POC Capillary Glucose 83 99 Calcium Vancomycin Trough Post-procedural complaints: none Patient Feedback: Patient satisfied with anesthetic care.
--- NOTE | 2021-03-06 14:14 | PM.PNGS ---
Progress Note: A&P Assessment and Plan (1) Ulcer of right heel: Code(s): L97.419 - Non-pressure chronic ulcer of right heel and midfoot with unspecified severity Status: Acute Assessment and Plan: Right heel ulcer with acute osteomyelitis of the calcaneal tuberosity s/p excisional debridement in the OR yesterday. Large area of the ulcer with bone now exposed and some slough. Continue local wound care with Dakin's solution BID. Elevate heels off bed. Discussed with the patient again today that we do not expect this to heal with local wound care at this point and she is likely to have complications with the wound in the future. She is still refusing an amputation at this point. (2) Acute osteomyelitis of right calcaneus: Code(s): M86.171 - Other acute osteomyelitis, right ankle and foot Status: Acute Assessment and Plan: Abx per ID. Additional Plan I have discussed the plan with Dr. Nava. Subjective Subjective Date/Time Seen: 03/06/21 13:40 Post Op day: 1 (Debridement right heel ulcer) Patient reports: no new complaints and afebrile Interval history: Patient seen and examined with the wound care nurse. She reports talking with her boyfriend about an amputation and she is still refusing at this time. She reports some generalized weakness but no other specific complaints. Exam Const: General: comfortable, no acute distress and tired appearing Orientation/consciousness: patient oriented x3 Skin: Other: Right heel ulcer with calcaneus exposed and some yellow slough around the edges of the wound. No purulent drainage or areas of significant tunneling noted. Extrem: General: no calf tenderness and no edema Right lower extremity: foot Details: other (neuropathy with diminished sensation); no tenderness and no unusual warmth Psych: Mental Status: mental status grossly normal Insight: Fair insight present (Psych) Objective Data Vital Signs Vital Signs: Vital Signs - 24 hr 03/05/21 14:50 03/05/21 17:00 03/05/21 17:15 Temperature 97.1 F L 97.2 F L Pulse Rate 67 61 72 Respiratory Rate 14 12 18 Blood Pressure 136/87 115/57 L 134/78 Pulse Oximetry 94 100 92 03/05/21 17:30 03/05/21 17:45 03/05/21 18:25 Temperature 97.2 F L Pulse Rate 72 69 72 Respiratory Rate 18 18 16 Blood Pressure 135/63 132/70 126/56 L Pulse Oximetry 93 92 90 03/05/21 18:40 03/05/21 19:20 03/05/21 20:00 Temperature 97.0 F L 96.9 F L Pulse Rate 64 66 Respiratory Rate 16 18 Blood Pressure 123/62 126/55 L Pulse Oximetry 92 91 92 03/05/21 20:20 03/05/21 22:00 03/06/21 06:00 Temperature 96.9 F L 96.9 F L 96.6 F L Pulse Rate 71 77 75 Respiratory Rate 18 18 18 Blood Pressure 134/68 130/66 126/81 Pulse Oximetry 97 96 91 03/06/21 08:00 03/06/21 08:30 03/06/21 10:15 Temperature 94 F L Pulse Rate 65 87 Respiratory Rate 20 Blood Pressure 101/45 L Pulse Oximetry 96 03/06/21 10:30 03/06/21 11:53 Temperature 96.1 F L Pulse Rate 49 L Respiratory Rate 20 Blood Pressure 119/45 L Pulse Oximetry 91 Intake/Output Intake/Output: Intake & Output 03/03/21 03/04/21 03/05/21 03/06/21 23:59 23:59 23:59 23:59 Intake Total 2780 2420 750 120 Output Total 1000 900 875 500 Balance 3124 6402 -091 -441 Meds/Results Medications: Active Medications Generic Name Dose Route Start Last Admin Trade Name Freq PRN Reason Stop Dose Admin Albuterol 2 puff 03/01/21 12:49 03/05/21 06:00 Albuterol Sulfate (*Sp) Aerosol 1 Puff INHALATION 2 puff Q6HRT PRN Administration Shortness Of Breath Amlodipine Besylate 10 mg 03/02/21 09:00 03/06/21 08:45 Amlodipine Besylate 5 Mg Tablet PO 10 mg DAILY DIDI Administration Dextrose 12.5 gm 03/01/21 13:01 Dextrose 50% 25 Gm/50 Ml Syringe IV PUSH PRN PRN Hypoglycemia Protocol Epoetin Jakob-epbx 10,000 units 03/04/21 09:00 03/06/21 10:14 Epoetin Jakob-Epbx 10,000 Units/Ml Vial SUB-Q 10,000 units MoWeFr
[2021-03-06 15:19] LABS: Vancomycin Random 16.9 ug/mL (10-20)
--- NOTE | 2021-03-06 15:20 | PC.NURSE ---
On 03/06/21, the student, Qian Miranda, provided care and completed [facility] documentation on this patient. I have reviewed the student's documentation and agree with the findings.
--- NOTE | 2021-03-06 15:25 | WPDINFPN2 ---
Progress Note: A&P Assessment and Plan (1) Elevated WBC count: Code(s): D72.829 - Elevated white blood cell count, unspecified Status: Acute Assessment and Plan: 1. Leukocytosis, due to gangrene and acute osteomyelitis of the R calcaneus and adjacent soft tissue 2. Multiple allergies 3. CRF 4. Asymptomatic bacteriuria REC Imipenem and Vancomycin, continue. Await histopathology and cultures. Length of therapy depends on those results. Subjective Date/time seen: 03/06/21 15:25 Interval history: feels ill, nothing specific Exam Narrative: afebrile Const: General: comfortable and no acute distress GI: GI Palp: Yes Soft to palpation and No Tenderness to palpation present (GI) Extrem: Right lower extremity: normal to inspection; no edema Objective Data Vital Signs Vital Signs: Vital Signs - 24 hr 03/05/21 17:00 03/05/21 17:15 03/05/21 17:30 Temperature 36.2 C L Pulse Rate 61 72 72 Respiratory Rate 12 18 18 Blood Pressure 115/57 L 134/78 135/63 Pulse Oximetry 100 92 93 03/05/21 17:45 03/05/21 18:25 03/05/21 18:40 Temperature 36.2 C L 36.1 C L Pulse Rate 69 72 64 Respiratory Rate 18 16 16 Blood Pressure 132/70 126/56 L 123/62 Pulse Oximetry 92 90 92 03/05/21 19:20 03/05/21 20:00 03/05/21 20:20 Temperature 36.1 C L 36.1 C L Pulse Rate 66 71 Respiratory Rate 18 18 Blood Pressure 126/55 L 134/68 Pulse Oximetry 91 92 97 03/05/21 22:00 03/06/21 06:00 03/06/21 08:00 Temperature 36.1 C L 35.9 C L Pulse Rate 77 75 65 Respiratory Rate 18 18 20 Blood Pressure 130/66 126/81 101/45 L Pulse Oximetry 96 91 96 03/06/21 08:30 03/06/21 10:15 03/06/21 10:30 Temperature 34.4 C L 35.6 C L Pulse Rate 87 Respiratory Rate Blood Pressure Pulse Oximetry 03/06/21 11:53 03/06/21 14:42 Temperature Pulse Rate 49 L 52 L Respiratory Rate 20 20 Blood Pressure 119/45 L 104/42 L Pulse Oximetry 91 93 Intake/Output Intake/Output: Intake & Output 03/03/21 03/04/21 03/05/21 03/06/21 23:59 23:59 23:59 23:59 Intake Total 2780 2420 750 120 Output Total 1000 900 875 500 Balance 1780 4074 -034 -228 Meds/Results Medications: Active Medications Generic Name Dose Route Start Last Admin Trade Name Freq PRN Reason Stop Dose Admin Albuterol 2 puff 03/01/21 12:49 03/05/21 06:00 Albuterol Sulfate (*Sp) Aerosol 1 Puff INHALATION 2 puff Q6HRT PRN Administration Shortness Of Breath Amlodipine Besylate 10 mg 03/02/21 09:00 03/06/21 08:45 Amlodipine Besylate 5 Mg Tablet PO 10 mg DAILY DIDI Administration Dextrose 12.5 gm 03/01/21 13:01 Dextrose 50% 25 Gm/50 Ml Syringe IV PUSH PRN PRN Hypoglycemia Protocol Epoetin Jakob-epbx 10,000 units 03/04/21 09:00 03/06/21 10:14 Epoetin Jakob-Epbx 10,000 Units/Ml Vial SUB-Q 10,000 units MoWeFr@0900 DIDI Administration Fentanyl Citrate 25 mcg 03/05/21 15:53 Fentanyl Citrate Inj (*Crx) 100 Mcg/2 Ml Vial IV PUSH Q2M PRN Pain Glucagon 1 mg 03/01/21 13:01 Glucagon For Inj 1 Mg Vial IM PRN PRN Hypoglycemia Protocol Glucose 15 gm 03/01/21 13:01 Glucose Oral Gel 15 Gm Of Glucse In 37.5 Gm Tube PO PRN PRN Hypoglycemia Protocol Dextrose 1,000 mls @ 100 mls/hr 03/01/21 13:01 Dextrose 5% 1,000 Ml IVPB PRN PRN Hypoglycemia Protocol Sodium Chloride 1,000 mls @ 100 mls/hr 03/02/21 17:25 03/05/21 09:45 Normal Saline Iv IVPB 100 mls/hr .Q10H DIDI Administration Vancomycin HCl 1,500 mg in 500 mls @ 333.333 mls/hr 03/05/21 17:03 Vancomycin 1,500 Mg/D5w 500 Ml IVPB PRN PRN PHARMACY PROTOCOL Imipenem/Cilastatin Sodium 500 100 mls @ 300 mls/hr 03/06/21 21:00 mg/ Dextrose IVPB Q12HR [facility] Insulin Aspart 3 - 6 units 03/01/21 17:00 03/06/21 12:20 Insulin Aspart (*Bkc) 100 Units/Ml SUB-Q Not Given TIDWM [facility] Protocol Insulin Glargine 40 units 03/01/21 21:00 03/05/
--- NOTE | 2021-03-06 16:07 | PM.PNNEP ---
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 degree of volume depletion renal ultrasound noted creatinine improving with reasonable urine output follow repeat labs and UOP (2) Chronic renal failure, stage 4 (severe): Code(s): N18.4 - Chronic kidney disease, stage 4 (severe) Status: Chronic Assessment and Plan: baseline creatinine seems run ~ 1.6 - 2.1mg/dl suspect this is due to diabetes, hypertension, and vascular disease (3) Pneumonia: Qualifiers: Laterality: unspecified laterality Lung location: unspecified part of lung Pneumonia type: due to unspecified organism Qualified Code(s): J18.9 - Pneumonia, unspecified organism Code(s): J18.9 - Pneumonia, unspecified organism Status: Acute Assessment and Plan: as noted by admission imaging follow cultures on antibiotics (4) Chronic wound of extremity: Status: Acute Assessment and Plan: evidence of gangrene and osteomyelitis Infectious Disease and Surgery following on antibiotics s/p debridement in OR (on 03/05/21) (5) CHF (congestive heart failure): Qualifiers: Heart failure chronicity: acute on chronic Heart failure type: unspecified Qualified Code(s): I50.9 - Heart failure, unspecified Code(s): I50.9 - Heart failure, unspecified Status: Chronic Assessment and Plan: appear compensated at this time follow volume status closely diastolic dysfunction noted by last Echo (6) Anemia: Qualifiers: Anemia type: unspecified type Qualified Code(s): D64.9 - Anemia, unspecified Code(s): D64.9 - Anemia, unspecified Status: Acute Assessment and Plan: due to CKD along with acute illness and chronic disease attempted use of Epogen but patient apparently did not tolerate IV iron not an option given acute infection follow trend of H/H PRBC transfusion per protocol (7) HTN (hypertension): Qualifiers: Hypertension type: unspecified Qualified Code(s): I10 - Essential (primary) hypertension Code(s): I10 - Essential (primary) hypertension Status: Chronic Assessment and Plan: reasonable control at this time follow trend of hemodynamics Will continue to follow. Subjective Date/time seen: 03/06/21 16:07 S/P debridement of right heal/calcaneus wound by Surgery yesterday and tolerated reasonably well; given extent of disease/infection, wound not likely to heal and recommendations regarding amputation were discussed with patient (she is refusing amputation at this time); no acute issues/events overnight or earlier this AM. Exam Narrative: General: WD/WN female in NAD Heart: normal S1 and S2; no rub Lungs: clear to auscultation Abdomen: soft, nontender, nondistended, positive bowel sounds Extremities: right foot with dressings in place; trace edema bilaterally Skin: warm and intact Objective Data Vital Signs Vital Signs: Vital Signs Temp Pulse Resp BP Pulse Ox 03/06/21 14:42 52 L 20 104/42 L 93 03/06/21 11:53 49 L 20 119/45 L 91 03/06/21 10:30 35.6 C L 03/06/21 10:15 87 03/06/21 08:30 34.4 C L 03/06/21 08:00 65 20 101/45 L 96 03/06/21 06:00 35.9 C L 75 18 126/81 91 03/05/21 22:00 36.1 C L 77 18 130/66 96 03/05/21 20:20 36.1 C L 71 18 134/68 97 03/05/21 20:00 92 03/05/21 19:20 36.1 C L 66 18 126/55 L 91 03/05/21 18:40 36.1 C L
--- NOTE | 2021-03-06 16:07 | P.PNNP_ITS ---
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 suggest an degree of volume depletion * renal ultrasound noted * creatinine improving with reasonable urine output * follow repeat labs and UOP (2) Chronic renal failure, stage 4 (severe): Code(s): N18.4 - Chronic kidney disease, stage 4 (severe) Status: Chronic Assessment and Plan: * baseline creatinine seems run ~ 1.6 - 2.1mg/dl * suspect this is due to diabetes, hypertension, and vascular disease (3) Pneumonia: Qualifiers: Laterality: unspecified laterality Lung location: unspecified part of lung Pneumonia type: due to unspecified organism Qualified Code(s): J18.9 - Pneumonia, unspecified organism Code(s): J18.9 - Pneumonia, unspecified organism Status: Acute Assessment and Plan: * as noted by admission imaging * follow cultures * on antibiotics (4) Chronic wound of extremity: Status: Acute Assessment and Plan: * evidence of gangrene and osteomyelitis * Infectious Disease and Surgery following * on antibiotics * s/p debridement in OR (on 03/05/21) (5) CHF (congestive heart failure): Qualifiers: Heart failure chronicity: acute on chronic Heart failure type: unspecified Qualified Code(s): I50.9 - Heart failure, unspecified Code(s): I50.9 - Heart failure, unspecified Status: Chronic Assessment and Plan: * appear compensated at this time * follow volume status closely * diastolic dysfunction noted by last Echo (6) Anemia: Qualifiers: Anemia type: unspecified type Qualified Code(s): D64.9 - Anemia, unspecified Code(s): D64.9 - Anemia, unspecified Status: Acute Assessment and Plan: * due to CKD along with acute illness and chronic disease * attempted use of Epogen but patient apparently did not tolerate * IV iron not an option given acute infection * follow trend of H/H * PRBC transfusion per protocol (7) HTN (hypertension): Qualifiers: Hypertension type: unspecified Qualified Code(s): I10 - Essential (primary) hypertension Code(s): I10 - Essential (primary) hypertension Status: Chronic Assessment and Plan: * reasonable control at this time * follow trend of hemodynamics Will continue to follow. Subjective Date/time seen: 03/06/21 16:07 S/P debridement of right heal/calcaneus wound by Surgery yesterday and tolerated reasonably well; given extent of disease/infection, wound not likely to heal and recommendations regarding amputation were discussed with patient (she is refusing amputation at this time); no acute issues/events overnight or earlier this AM. Exam Narrative: General: WD/WN female in NAD Heart: normal S1 and S2; no rub Lungs: clear to auscultation Abdomen: soft, nontender, nondistended, positive bowel sounds Extremities: right foot with dressings in place; trace edema bilaterally Skin: warm and intact Objective Data Vital Signs Vital Signs:
--- NOTE | 2021-03-06 16:10 | P.PNIM_ITS ---
Progress Note: A&P Assessment and Plan (1) Acute osteomyelitis of right calcaneus: Code(s): M86.171 - Other acute osteomyelitis, right ankle and foot Status: Acute Assessment and Plan: Unstageable pressure ulcer of right heel previously treated with only betadine as patient was on hospice care that has since been revoked. * Foot x-ray showed ulcer of the heel with erosions of calcaneal tuberosity consistent with osteomyelitis * She had marked leukocytosis up to 27.8, trending down to 15.9 today. Remains afebrile * Continue IV vancomycin and imipenem * Appreciate Infectious Disease and General surgery consultation * She is now s/p sharp excisional debridement of right heel ulcer including skin, subcutaneous tissue and bone * Continue local wound care * Supportive care. Analgesics available as needed * Wound culture with growth of Enterococcus * Preliminary blood culture negative to date (only one bottle collected) * She is aware that complete healing is not anticipated with excision alone and amputation has been recommended, though she does not wish to consider this. (2) Acute and chronic respiratory failure with hypercapnia: Code(s): J96.22 - Acute and chronic respiratory failure with hypercapnia Status: Acute Assessment and Plan: Chronic respiratory failure likely related to COPD and obesity hypoventilation syndrome. She is on 2.5 L supplemental O2 at home. Had acute dyspnea on presentation. Currently requiring 3 L supplemental O2 * Declined BiPAP or CPAP therapy on presentation. * CXR demonstrated small left pleural effusion mild airspace opacities, consistent with atelectasis vs pneumonia * She is maintaining adequate oxygen saturations on 3 L per nasal cannula. Continue O2 as needed and wean to goal * Supportive care to include bronchodilators, expectorants, incentive spirometry * No signs or symptoms at this time to suggest pneumonia, however she is on broad-spectrum antibiotics due to osteomyelitis (3) Acute on chronic renal failure: Qualifiers: Acute renal failure type: unspecified Chronic kidney disease stage: unspecified stage Qualified Code(s): N17.9 - Acute kidney failure, unspecified; N18.9 - Chronic kidney disease, unspecified Code(s): N17.9 - Acute kidney failure, unspecified; N18.9 - Chronic kidney disease, un specified Status: Acute Assessment and Plan: GFR is typically in the upper 20s-30s. Creatinine elevated up to 3.3 this hospital stay, improving down to 2.1 today * Appreciate nephrology consultation * Acute kidney injury may be related to infection * Renal ultrasound showed normal kidneys without hydronephrosis * Continue to monitor renal function closely (4) Chronic anemia: Code(s): D64.9 - Anemia, unspecified Status: Chronic Assessment and Plan: Chronic anemia likely secondary to kidney disease. Slight decline in hemoglobin from baseline. No signs or symptoms to suggest blood loss. Hgb 7.8 today * Stool occult blood test ordered, pending collection * Continue Protonix while awaiting results * Initiated on Retacrit 58935 units Thursday per Nephrology recommendations * Monitor H&H closely to ensure remaining stable (5) HTN (hypertension) with goal to be determined: Code(s): I10 - Essential (primary) hypertension Status: Chronic Assessment and Plan: Blood pressure reviewed and has been fluctuant. Last BP 104/42 * Continue metoprolol and amlodipine * Monitor BP trends (6) Hypothyroid: Qualifiers:
--- NOTE | 2021-03-06 16:10 | PM.IMPN ---
Progress Note: A&P Assessment and Plan (1) Acute osteomyelitis of right calcaneus: Code(s): M86.171 - Other acute osteomyelitis, right ankle and foot Status: Acute Assessment and Plan: Unstageable pressure ulcer of right heel previously treated with only betadine as patient was on hospice care that has since been revoked. Foot x-ray showed ulcer of the heel with erosions of calcaneal tuberosity consistent with osteomyelitis She had marked leukocytosis up to 27.8, trending down to 15.9 today. Remains afebrile Continue IV vancomycin and imipenem Appreciate Infectious Disease and General surgery consultation She is now s/p sharp excisional debridement of right heel ulcer including skin, subcutaneous tissue and bone Continue local wound care Supportive care. Analgesics available as needed Wound culture with growth of Enterococcus Preliminary blood culture negative to date (only one bottle collected) She is aware that complete healing is not anticipated with excision alone and amputation has been recommended, though she does not wish to consider this. (2) Acute and chronic respiratory failure with hypercapnia: Code(s): J96.22 - Acute and chronic respiratory failure with hypercapnia Status: Acute Assessment and Plan: Chronic respiratory failure likely related to COPD and obesity hypoventilation syndrome. She is on 2.5 L supplemental O2 at home. Had acute dyspnea on presentation. Currently requiring 3 L supplemental O2 Declined BiPAP or CPAP therapy on presentation. CXR demonstrated small left pleural effusion mild airspace opacities, consistent with atelectasis vs pneumonia She is maintaining adequate oxygen saturations on 3 L per nasal cannula. Continue O2 as needed and wean to goal Supportive care to include bronchodilators, expectorants, incentive spirometry No signs or symptoms at this time to suggest pneumonia, however she is on broad-spectrum antibiotics due to osteomyelitis (3) Acute on chronic renal failure: Qualifiers: Acute renal failure type: unspecified Chronic kidney disease stage: unspecified stage Qualified Code(s): N17.9 - Acute kidney failure, unspecified; N18.9 - Chronic kidney disease, unspecified Code(s): N17.9 - Acute kidney failure, unspecified; N18.9 - Chronic kidney disease, unspecified Status: Acute Assessment and Plan: GFR is typically in the upper 20s-30s. Creatinine elevated up to 3.3 this hospital stay, improving down to 2.1 today Appreciate nephrology consultation Acute kidney injury may be related to infection Renal ultrasound showed normal kidneys without hydronephrosis Continue to monitor renal function closely (4) Chronic anemia: Code(s): D64.9 - Anemia, unspecified Status: Chronic Assessment and Plan: Chronic anemia likely secondary to kidney disease. Slight decline in hemoglobin from baseline. No signs or symptoms to suggest blood loss. Hgb 7.8 today Stool occult blood test ordered, pending collection Continue Protonix while awaiting results Initiated on Retacrit 18859 units Thursday per Nephrology recommendations Monitor H&H closely to ensure remaining stable (5) HTN (hypertension) with goal to be determined: Code(s): I10 - Essential (primary) hypertension Status: Chronic Assessment and Plan: Blood pressure reviewed and has been fluctuant. Last BP 104/42 Continue metoprolol and amlodipine Monitor BP trends (6) Hypothyroid: Qualifiers: Hypothyroidism type: unspecified Qualified Code(s): E03.9 - Hypothyroidism, unspecified Code(s): E03.9 - Hypothyroidism, unspecified Status: Chronic Assessment and Plan: TSH is within normal limits. She is not on thyroid medication at home (7) DM (diabetes mellitus): Qualifiers: Diabetes mellitus type: type 2 Diabetes mellitus senior care insulin
[2021-03-06 17:24] LABS: Glucose Point of Care 111 mg/dl (65-105)
[2021-03-06] MEDS: SACCHAROMYCES BOULARDII 250 MG CAPSULE PO (17:44)
[2021-03-06] MEDS: INSULIN GLARGINE (*BKC) 100 UNITS/ML 40 UNITS SUB-Q (20:26)
[2021-03-06 21:00] LABS: Glucose Point of Care 111 mg/dl (65-105)
[2021-03-07] MEDS: ONDANSETRON INJ 4 MG/2 ML VIAL IV PUSH ×3 (00:49→23:19)
--- NOTE | 2021-03-07 01:41 | PC.NURSE ---
0045 Patient complaint of nausea. No vomiting or dry heaving noted. Patient request her shot for nausea. Removed water from bedside due to continued nausea. Oral swabs provided to patient.
[2021-03-07 06:00] VITALS: BP 127/50; PULSE 55; RESP 16; TEMP 36.1; O2SAT 93
[2021-03-07 06:10] VITALS: PULSE 75
[2021-03-07] MEDS: ALBUTEROL SULFATE (*SP) AEROSOL 1 PUFF 2 PUFF INHALATION (06:10)
[2021-03-07 06:20] LABS: Basophils Absolute Auto 0.1 K/mm3 (0.0-0.1); Basophils Percent Auto 0.7 % (0.2-1.2); Eosinophils Absolute Auto 0.3 K/mm3 (0-0.3); Eosinophils Percent Auto 1.6 % (0-4.4); Hematocrit 25.5 % (37.0-47.0); Immature Granulocyte Absolute 1.17 K/mm3 (0.00-0.031); Immature Granulocyte Percent A 7.3 % (0-0.5); Lymphocytes Absolute Auto 0.92 K/mm3 (0.9-3.2); Lymphocytes Percent Auto 5.7 % (18.3-44.2); Mean Corpuscular HGB Conc 31.4 g/dl (32-36); Mean Corpuscular Hemoglobin 25.7 pg (26-34); Monocytes Absolute Auto 0.5 K/mm3 (0.1-0.6); Monocytes Percent Auto 3.2 % (2.6-8.5); Neutrophils Absolute Auto 13.2 K/mm3 (1.3-6.7); Neutrophils Percent Auto 81.5 % (45.5-73.1); Nucleated Red Blood Cells Perc 0.1 % (0.0-0.2); Platelet Count Result 301 k/mm3 (150-375); Red Blood Count 3.11 M/mm3 (4.2-5.4); Red Cell Distribution Width 14.5 % (11.5-14.5); White Blood Count 16.1 K/mm3 (4.5-10.0)
[2021-03-07 06:28] LABS: Anion Gap 10 mmol/L (8-16); Blood Urea Nitrogen 64 mg/dL (7-17); Calcium 7.8 mg/dL (8.4-10.2); Carbon Dioxide 30 mmol/L (22-30); Chloride 95 mmol/L (98-107); Estimated CRCL calculation 23 ml/min; Estimated Glomerular Filt Rate 22; Glucose 101 mg/dL (65-110); Potassium 3.3 mmol/L (3.4-5.0); Sodium 135 mmol/L (137-145)
[2021-03-07 07:08] LABS: Anisocytosis 2+ (NORMAL); Platelet Estimate Adequate (Adequate); Poikilocytosis 1+ (NORMAL)
[2021-03-07 08:48] LABS: Glucose Point of Care 111 mg/dl (65-105)
[2021-03-07 09:03] VITALS: O2SAT 93
[2021-03-07] MEDS: ACETAMINOPHEN 325 MG TABLET 650 MG PO ×3 (09:03→23:18)
[2021-03-07 09:06] VITALS: PULSE 55
[2021-03-07] MEDS: amLODIPine BESYLATE 5 MG TABLET 10 MG PO (09:06)
[2021-03-07] MEDS: METOPROLOL TARTRATE 12.5 MG TABLET PO (09:06)
[2021-03-07] MEDS: SACCHAROMYCES BOULARDII 250 MG CAPSULE PO ×2 (09:08→17:22)
[2021-03-07] MEDS: SOD HYPOCHLORITE 1/4 STRENGTH 473 ML 1 APPLIC TOPICAL ×2 (09:08→21:00)
[2021-03-07] MEDS: PANTOPRAZOLE SODIUM IV 40 MG VIAL IV PUSH ×2 (09:08→21:26)
[2021-03-07] MEDS: ZINC OXIDE 20% OINT 30 GM TUBE 1 APPLIC TOPICAL (09:08)
[2021-03-07] MEDS: TOLNAFTATE 1% POWDER 45 GM BTL 1 APPLIC TOPICAL ×2 (09:09→23:18)
--- NOTE | 2021-03-07 11:00 | PCNFU ---
Nutrition Follow-Up Complete: Increased protein/calorie needs related to increased demands for healing as evidenced by unstageable pressure ulcer to right heel. Goal: Patient to consume 75% of meals/supplements or greater. Patient is progressing towards goal. We will continue current goal. Pt current nutrition is Regular Last recorded weight is 100 kg, no new weight to report. Bowel Motility:+BM reported 03/02 Labs Reviewed:Na 135,BUN 64,Cr 2.2,K 3.3,Hgb 8.0 Meds Noted:Florastor, Lopressor, NS,Protonix, Lantus, Zofran Additional Notes: Nutrition follow up. Patient tolerating a regular diet, 50% documented. Nausea has been reported. Skin:right heel unstageable. Protein Modular of Ron BID is providing an additional 90 kcals and 2.5 gms protein. Due to po intake intake diet has been liberalized to a regular diet from a diabetic diet. Monitoring: Follow up every 5 days.
[2021-03-07 11:55] LABS: Glucose Point of Care 125 mg/dl (65-105)
[2021-03-07 14:00] VITALS: BP 113/77; PULSE 63; RESP 24; O2SAT 91
--- NOTE | 2021-03-07 14:30 | P.PNIM_ITS ---
Progress Note: A&P Assessment and Plan (1) Acute osteomyelitis of right calcaneus: Code(s): M86.171 - Other acute osteomyelitis, right ankle and foot Status: Acute Assessment and Plan: Unstageable pressure ulcer of right heel previously treated with only betadine as patient was on hospice care that has since been revoked. * Foot x-ray showed ulcer of the heel with erosions of calcaneal tuberosity consistent with osteomyelitis * She had marked leukocytosis up to 27.8, trending down to 16.1 today. Remains afebrile * Continue IV Primaxin and Vancomycin (being dosed prn based on troughs) * Appreciate Infectious Disease and General surgery consultation * She is now s/p sharp excisional debridement of right heel ulcer including skin, subcutaneous tissue and bone performed on 03/[address] Nava * Continue local wound care * Supportive care. Analgesics available as needed * Wound culture with growth of Enterococcus * Preliminary blood culture negative to date (only one bottle collected) * Appreciate infectious disease recommendations regarding duration of antibiotic therapy * She is aware that complete healing is not anticipated with excision alone and amputation has been recommended, though she does not wish to consider this. (2) Acute and chronic respiratory failure with hypercapnia: Code(s): J96.22 - Acute and chronic respiratory failure with hypercapnia Status: Acute Assessment and Plan: Chronic respiratory failure likely related to COPD and obesity hypoventilation syndrome. She is on 2.5 L supplemental O2 at home. Had acute dyspnea on presentation. Currently requiring 3 L supplemental O2 * Declined BiPAP or CPAP therapy on presentation. * CXR demonstrated small left pleural effusion mild airspace opacities, consistent with atelectasis vs pneumonia * She is maintaining adequate oxygen saturations on 3 L per nasal cannula. Continue O2 as needed and wean to goal * Supportive care to include bronchodilators, expectorants, incentive spirometry * No signs or symptoms at this time to suggest pneumonia, however she is on broad-spectrum antibiotics due to osteomyelitis (3) Acute on chronic renal failure: Qualifiers: Acute renal failure type: unspecified Chronic kidney disease stage: unspecified stage Qualified Code(s): N17.9 - Acute kidney failure, unspecified; N18.9 - Chronic kidney disease, unspecified Code(s): N17.9 - Acute kidney failure, unspecified; N18.9 - Chronic kidney disease, unspecified Status: Acute Assessment and Plan: GFR is typically in the upper 20s-30s. Creatinine elevated up to 3.3 this hospital stay, improving down to 2.2 today * Appreciate nephrology consultation * Acute kidney injury may be related to infection * Renal ultrasound showed normal kidneys without hydronephrosis * Continue to monitor renal function closely (4) Chronic anemia: Code(s): D64.9 - Anemia, unspecified Status: Chronic Assessment and Plan: Chronic anemia likely secondary to kidney disease. Slight decline in hemoglobin from baseline. No signs or symptoms to suggest blood loss. Hgb 8.0today * Stool occult blood test ordered, pending collection * Continue Protonix while awaiting results * Initiated on Retacrit 48639 units Thursday per Nephrology recommendations * Monitor H&H closely to ensure remaining stable (5) HTN (hypertension) with goal to be determined: Code(s): I10 - Essential (primary) hypertension Status: Chronic Assessment and Plan: Blood pressure reviewed and has b
--- NOTE | 2021-03-07 14:30 | PM.IMPN ---
Progress Note: A&P Assessment and Plan (1) Acute osteomyelitis of right calcaneus: Code(s): M86.171 - Other acute osteomyelitis, right ankle and foot Status: Acute Assessment and Plan: Unstageable pressure ulcer of right heel previously treated with only betadine as patient was on hospice care that has since been revoked. Foot x-ray showed ulcer of the heel with erosions of calcaneal tuberosity consistent with osteomyelitis She had marked leukocytosis up to 27.8, trending down to 16.1 today. Remains afebrile Continue IV Primaxin and Vancomycin (being dosed prn based on troughs) Appreciate Infectious Disease and General surgery consultation She is now s/p sharp excisional debridement of right heel ulcer including skin, subcutaneous tissue and bone performed on 03/[address] Nava Continue local wound care Supportive care. Analgesics available as needed Wound culture with growth of Enterococcus Preliminary blood culture negative to date (only one bottle collected) Appreciate infectious disease recommendations regarding duration of antibiotic therapy She is aware that complete healing is not anticipated with excision alone and amputation has been recommended, though she does not wish to consider this. (2) Acute and chronic respiratory failure with hypercapnia: Code(s): J96.22 - Acute and chronic respiratory failure with hypercapnia Status: Acute Assessment and Plan: Chronic respiratory failure likely related to COPD and obesity hypoventilation syndrome. She is on 2.5 L supplemental O2 at home. Had acute dyspnea on presentation. Currently requiring 3 L supplemental O2 Declined BiPAP or CPAP therapy on presentation. CXR demonstrated small left pleural effusion mild airspace opacities, consistent with atelectasis vs pneumonia She is maintaining adequate oxygen saturations on 3 L per nasal cannula. Continue O2 as needed and wean to goal Supportive care to include bronchodilators, expectorants, incentive spirometry No signs or symptoms at this time to suggest pneumonia, however she is on broad-spectrum antibiotics due to osteomyelitis (3) Acute on chronic renal failure: Qualifiers: Acute renal failure type: unspecified Chronic kidney disease stage: unspecified stage Qualified Code(s): N17.9 - Acute kidney failure, unspecified; N18.9 - Chronic kidney disease, unspecified Code(s): N17.9 - Acute kidney failure, unspecified; N18.9 - Chronic kidney disease, unspecified Status: Acute Assessment and Plan: GFR is typically in the upper 20s-30s. Creatinine elevated up to 3.3 this hospital stay, improving down to 2.2 today Appreciate nephrology consultation Acute kidney injury may be related to infection Renal ultrasound showed normal kidneys without hydronephrosis Continue to monitor renal function closely (4) Chronic anemia: Code(s): D64.9 - Anemia, unspecified Status: Chronic Assessment and Plan: Chronic anemia likely secondary to kidney disease. Slight decline in hemoglobin from baseline. No signs or symptoms to suggest blood loss. Hgb 8.0today Stool occult blood test ordered, pending collection Continue Protonix while awaiting results Initiated on Retacrit 75847 units Thursday per Nephrology recommendations Monitor H&H closely to ensure remaining stable (5) HTN (hypertension) with goal to be determined: Code(s): I10 - Essential (primary) hypertension Status: Chronic Assessment and Plan: Blood pressure reviewed and has been fluctuant. Last BP 127/50 Continue metoprolol and amlodipine Monitor BP trends (6) Hypothyroid: Qualifiers: Hypothyroidism type: unspecified Qualified Code(s): E03.9 - Hypothyroidism, unspecified Code(s): E03.9 - Hypothyroidism, unspecified Status: Chronic Assessment and Plan: TSH is within normal limits. She is not on
--- NOTE | 2021-03-07 14:47 | PM.PNNEP ---
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 - urine electrolytes suggest an degree of volume depletion renal ultrasound noted creatinine improving with reasonable urine output follow repeat labs and UOP (2) Chronic renal failure, stage 4 (severe): Code(s): N18.4 - Chronic kidney disease, stage 4 (severe) Status: Chronic Assessment and Plan: baseline creatinine seems run ~ 1.6 - 2.1mg/dl suspect this is due to diabetes, hypertension, and vascular disease (3) Pneumonia: Qualifiers: Laterality: unspecified laterality Lung location: unspecified part of lung Pneumonia type: due to unspecified organism Qualified Code(s): J18.9 - Pneumonia, unspecified organism Code(s): J18.9 - Pneumonia, unspecified organism Status: Acute Assessment and Plan: as noted by admission imaging follow cultures on antibiotics (4) Chronic wound of extremity: Status: Acute Assessment and Plan: evidence osteomyelitis by imaging studies as well as by operative report (recent debridement on 03/05/21) Infectious Disease and Surgery following on antibiotics s/p debridement in OR (on 03/05/21) (5) CHF (congestive heart failure): Qualifiers: Heart failure chronicity: acute on chronic Heart failure type: unspecified Qualified Code(s): I50.9 - Heart failure, unspecified Code(s): I50.9 - Heart failure, unspecified Status: Chronic Assessment and Plan: appear relatively compensated at this time follow volume status closely diastolic dysfunction noted by last Echo (6) Anemia: Qualifiers: Anemia type: unspecified type Qualified Code(s): D64.9 - Anemia, unspecified Code(s): D64.9 - Anemia, unspecified Status: Acute Assessment and Plan: due to CKD along with acute illness and chronic disease attempted use of Epogen but patient apparently did not tolerate IV iron not an option given acute infection follow trend of H/H PRBC transfusion per protocol (7) HTN (hypertension): Qualifiers: Hypertension type: unspecified Qualified Code(s): I10 - Essential (primary) hypertension Code(s): I10 - Essential (primary) hypertension Status: Chronic Assessment and Plan: reasonable control at this time follow trend of hemodynamics Will continue to follow. Subjective Date/time seen: 03/07/21 14:47 Appears to be doing reasonably well on my visit -- she is having pain in her her right heal since her recent debridement but tolerable; no other acute issues/symptoms at this time; no issues/events overnight or earlier this AM; no acute distress noted. Exam Narrative: General: WD/WN female in NAD Heart: normal S1 and S2; no rub Lungs: clear to auscultation Abdomen: soft, nontender, nondistended, positive bowel sounds Extremities: right foot with dressings in place; trace edema bilaterally Skin: warm and intact Objective Data Vital Signs Vital Signs: Vital Signs Temp Pulse Resp BP Pulse Ox 03/07/21 14:00 63 24 H 113/77 91 03/07/21 09:06 55 L 03/07/21 09:03 93 03/07/21 06:10 75 03/07/21 06:00 36.1 C L 55 L 16 127/50 L 93 03/06/21 22:00 36.1 C L 52 L 16 129/55 L 92 03/06/21 20:00 92 Intake/Output Intake/Output: Intake & Output 03/04/21 03/05/21 03/06/21 03/07/21 23:59 23:59 23:59 23:59 Intake Total 2420 668 685 9875 Output Total 900 875 500 350 Balance 1520 -125 -
--- NOTE | 2021-03-07 14:47 | P.PNNP_ITS ---
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 - urine electrolytes suggest an degree of volume depletion * renal ultrasound noted * creatinine improving with reasonable urine output * follow repeat labs and UOP (2) Chronic renal failure, stage 4 (severe): Code(s): N18.4 - Chronic kidney disease, stage 4 (severe) Status: Chronic Assessment and Plan: * baseline creatinine seems run ~ 1.6 - 2.1mg/dl * suspect this is due to diabetes, hypertension, and vascular disease (3) Pneumonia: Qualifiers: Laterality: unspecified laterality Lung location: unspecified part of lung Pneumonia type: due to unspecified organism Qualified Code(s): J18.9 - Pneumonia, unspecified organism Code(s): J18.9 - Pneumonia, unspecified organism Status: Acute Assessment and Plan: * as noted by admission imaging * follow cultures * on antibiotics (4) Chronic wound of extremity: Status: Acute Assessment and Plan: * evidence osteomyelitis by imaging studies as well as by operative report (recent debridement on 03/05/21) * Infectious Disease and Surgery following * on antibiotics * s/p debridement in OR (on 03/05/21) (5) CHF (congestive heart failure): Qualifiers: Heart failure chronicity: acute on chronic Heart failure type: unspecified Qualified Code(s): I50.9 - Heart failure, unspecified Code(s): I50.9 - Heart failure, unspecified Status: Chronic Assessment and Plan: * appear relatively compensated at this time * follow volume status closely * diastolic dysfunction noted by last Echo (6) Anemia: Qualifiers: Anemia type: unspecified type Qualified Code(s): D64.9 - Anemia, unspecified Code(s): D64.9 - Anemia, unspecified Status: Acute Assessment and Plan: * due to CKD along with acute illness and chronic disease * attempted use of Epogen but patient apparently did not tolerate * IV iron not an option given acute infection * follow trend of H/H * PRBC transfusion per protocol (7) HTN (hypertension): Qualifiers: Hypertension type: unspecified Qualified Code(s): I10 - Essential (primary) hypertension Code(s): I10 - Essential (primary) hypertension Status: Chronic Assessment and Plan: * reasonable control at this time * follow trend of hemodynamics Will continue to follow. Subjective Date/time seen: 03/07/21 14:47 Appears to be doing reasonably well on my visit -- she is having pain in her her right heal since her recent debridement but tolerable; no other acute issues/symptoms at this time; no issues/events overnight or earlier this AM; no acute distress noted. Exam Narrative: General: WD/WN female in NAD Heart: normal S1 and S2; no rub Lungs: clear to auscultation Abdomen: soft, nontender, nondistended, positive bowel sounds Extremities: right foot with dressings in place; trace edema bilaterally Skin: warm and intact Objective Data Vital Signs Vital Signs:
--- NOTE | 2021-03-07 15:31 | PC.NURSE ---
On 03/07/21, the student, Terri LOPEZ, provided care and completed [facility] documentation on this patient. I have reviewed the student's documentation and agree with the findings.
[2021-03-07] MEDS: POTASSIUM CHLORIDE 20 MEQ TABLET PO (15:55)
[2021-03-07 16:16] LABS: Glucose Point of Care 163 mg/dl (65-105)
[2021-03-07] MEDS: INSULIN GLARGINE (*BKC) 100 UNITS/ML 40 UNITS SUB-Q (21:26)
[2021-03-07 22:00] VITALS: BP 117/56; PULSE 49; RESP 18; TEMP 35.6; O2SAT 91
[2021-03-07 23:17] LABS: Glucose Point of Care 167 mg/dl (65-105)
[2021-03-08 06:00] VITALS: BP 115/57; PULSE 44; RESP 18; TEMP 36.1; O2SAT 91
[2021-03-08 06:43] LABS: Basophils Absolute Auto 0.1 K/mm3 (0.0-0.1); Basophils Percent Auto 0.5 % (0.2-1.2); Eosinophils Absolute Auto 0.2 K/mm3 (0-0.3); Eosinophils Percent Auto 1.3 % (0-4.4); Hematocrit 25.8 % (37.0-47.0); Hemoglobin 7.8 g/dL (12.0-15.0); Immature Granulocyte Absolute 1.61 K/mm3 (0.00-0.031); Immature Granulocyte Percent A 9.2 % (0-0.5); Lymphocytes Percent Auto 5.1 % (18.3-44.2); Mean Corpuscular HGB Conc 30.2 g/dl (32-36); Mean Corpuscular Hemoglobin 25.6 pg (26-34); Mean Corpuscular Volume 84.6 fl (80-100); Mean Platelet Volume 9.2 fl (7.4-10.4); Monocytes Absolute Auto 0.5 K/mm3 (0.1-0.6); Neutrophils Absolute Auto 14.2 K/mm3 (1.3-6.7); Neutrophils Percent Auto 80.9 % (45.5-73.1); Nucleated Red Blood Cells Perc 0.2 % (0.0-0.2); Platelet Count Result 262 k/mm3 (150-375); Red Blood Count 3.05 M/mm3 (4.2-5.4); Red Cell Distribution Width 14.8 % (11.5-14.5); White Blood Count 17.6 K/mm3 (4.5-10.0)
[2021-03-08] MEDS: SODIUM CHLORIDE 0.9% IV 1,000 ML 999 ML IV CONT (07:01)
[2021-03-08 08:00] VITALS: O2SAT 94
[2021-03-08 08:13] LABS: Glucose Point of Care 121 mg/dl (65-105)
[2021-03-08] MEDS: EPOETIN ALFA-EPBX 10,000 UNITS/ML VIAL 10000 UNITS SUB-Q (09:39)
[2021-03-08] MEDS: amLODIPine BESYLATE 5 MG TABLET 10 MG PO (09:39)
[2021-03-08] MEDS: SACCHAROMYCES BOULARDII 250 MG CAPSULE PO (09:39)
[2021-03-08 09:40] VITALS: PULSE 72
[2021-03-08] MEDS: METOPROLOL TARTRATE 12.5 MG TABLET PO (09:40)
[2021-03-08] MEDS: SOD HYPOCHLORITE 1/4 STRENGTH 473 ML 1 APPLIC TOPICAL (09:44)
[2021-03-08] MEDS: TOLNAFTATE 1% POWDER 45 GM BTL 1 APPLIC TOPICAL (09:44)
[2021-03-08] MEDS: ZINC OXIDE 20% OINT 30 GM TUBE 1 APPLIC TOPICAL (09:44)
[2021-03-08] MEDS: PANTOPRAZOLE SODIUM IV 40 MG VIAL IV PUSH (09:45)
[2021-03-08] MEDS: ACETAMINOPHEN 325 MG TABLET 650 MG PO (09:56)
[2021-03-08] MEDS: ONDANSETRON INJ 4 MG/2 ML VIAL IV PUSH (10:17)
[2021-03-08 10:57] LABS: Anion Gap 10 mmol/L (8-16); Blood Urea Nitrogen 69 mg/dL (7-17); Calcium 7.8 mg/dL (8.4-10.2); Carbon Dioxide 30 mmol/L (22-30); Chloride 93 mmol/L (98-107); Estimated CRCL calculation 20 ml/min; Estimated Glomerular Filt Rate 19; Glucose 128 mg/dL (65-110); Potassium 3.8 mmol/L (3.4-5.0); Sodium 133 mmol/L (137-145)
--- NOTE | 2021-03-08 12:40 | PM.DDS ---
Discharge Summary Date and Time Date of : 03/08/21 Time of : 12:40 Provider Pronounced By: Dr. Ragsdale Probable Cause of Probable Cause of : Sepsis with COPD Summary Hospital Course: Patient is a 75-year-old female with past medical history diabetes, congestive heart failure, COPD, and chronic renal failure who presented to the emergency room with complaints of shortness of breath. Kang Ashley at that time patient was noted to have mildly worsened small left pleural effusion, Mildly worsened airspace opacities in the left mid and lower lung zones consistent with atelectasis versus pneumonia with cardiomegaly. Patient does chronically wear 2 and half to 3 L at home and has been on and off hospice multiple times throughout the last few years. COVID testing was negative. It was found the throughout the visit the patient had a chronic wound of her right extremity. The surgery was consulted and patient was taken for debridement however it was suggested her to have an amputation however she refused. patient also had acute on chronic renal failure and Nephrology was also involved in the case. Renal ultrasound was performed and showed normal kidneys without hydronephrosis. Patient was also treated for. She was placed on antibiotics consisting of IV Primaxin and vancomycin. Wound cultures did grow Enterococcus species and Infectious Disease was also consulted. With debridement it was found that her foot had infectious gangrene. This morning I did go and see the patient she was complaining that her back hurts and she could not move around. She also stated that she does not get up at home and they use a Teodora lift at home. She did state that she is short of breath any she was on 2 L at home however she was on 4 L here and saturations were good. Patient did eat a breakfast and stated that she was satisfied. It was noted overnight patient had 50 cc of urine out in her [place] and this morning she did have much as well. [place] was flushed which did not give much results, But it did feel hard to push. At roughly 12 15 katharine schaefer was called and patient was in complete cardiac arrest. Patient had just received a bath prior to this and was talkative and chatty. Patient was given multiple rounds of epi, bicarb, calcium and D50. Chest compressions were ongoing and at 12:40 p.m. patient was pronounced. Throughout the code patient was intubated with a 7 have tube 24 the lip. Upon interview exam no indication of this happenings was noticed including a thorough review of systems. Leukocytosis was predominant throughout the whole entire visit. White blood cell count today was 17.6 with his being 25,000. renal function however patient was 3.30 on admission and was 2.5 today. Patient did tell me that she had congestive heart failure and that is valle some time she is hard time breathing. upon admission patient was also offered a CPAP or BiPAP for obstructive sleep apnea which she refused and said she does not use at home either. After many minutes CPR and medications with intubation patient was pronounced at 12:40 p.m.. 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 Notified of : 03/08/21 Time [facility] Notified of : 12:51 Advance directives: Yes (Retracted last ) Hospice patient?: No
== END 2021-03-08 12:40 | disposition expired | DRG 853 ==
LOC: ANHED 11:22 → ANH3MEDSUR 12:27
PROVIDERS: Internal Medicine; Internal Medicine Nephrology; Nurse Practitioner; Physician Assistant; Surgery; Admitting Provider Internal Medicine; Emergency Provider Emergency Medicine; PCP Family Medicine; Visit Provider Internal Medicine
PROC: 0QBL0ZX Excision of Right Tarsal, Open Approach, Diagnostic (ICD-10-PCS; principal; 2021-03-05 16:00)
DX: A41.9 Sepsis, unspecified organism (principal); J96.22 Acute and chronic respiratory failure with hypercapnia; L89.614 Pressure ulcer of right heel, stage 4; E11.52 Type 2 diabetes mellitus with diabetic peripheral angiopathy with gangrene; I96 Gangrene, not elsewhere classified; M86.171 Other acute osteomyelitis, right ankle and foot; I13.0 Hypertensive heart and chronic kidney disease with heart failure and stage 1 through stage 4 chronic kidney disease, or unspecified chronic kidney disease; N18.4 Chronic kidney disease, stage 4 (severe); E66.2 Morbid (severe) obesity with alveolar hypoventilation; N17.9 Acute kidney failure, unspecified; I50.32 Chronic diastolic (congestive) heart failure; E11.69 Type 2 diabetes mellitus with other specified complication; B95.2 Enterococcus as the cause of diseases classified elsewhere; Z20.822 Contact with and (suspected) exposure to COVID-19; I46.9 Cardiac arrest, cause unspecified; E11.22 Type 2 diabetes mellitus with diabetic chronic kidney disease; J44.9 Chronic obstructive pulmonary disease, unspecified; F41.9 Anxiety disorder, unspecified; E03.9 Hypothyroidism, unspecified; E11.622 Type 2 diabetes mellitus with other skin ulcer; K57.90 Diverticulosis of intestine, part unspecified, without perforation or abscess without bleeding; K21.9 Gastro-esophageal reflux disease without esophagitis; D72.829 Elevated white blood cell count, unspecified; G47.33 Obstructive sleep apnea (adult) (pediatric); M48.00 Spinal stenosis, site unspecified; I87.2 Venous insufficiency (chronic) (peripheral); E86.0 Dehydration; R33.9 Retention of urine, unspecified; Z99.81 Dependence on supplemental oxygen; Z85.41 Personal history of malignant neoplasm of cervix uteri; Z90.711 Acquired absence of uterus with remaining cervical stump; Z86.718 Personal history of other venous thrombosis and embolism; Z87.11 Personal history of peptic ulcer disease; Z68.37 Body mass index [BMI] 37.0-37.9, adult; Z90.49 Acquired absence of other specified parts of digestive tract; Z98.42 Cataract extraction status, left eye; Z98.41 Cataract extraction status, right eye; Z87.891 Personal history of nicotine dependence; D63.1 Anemia in chronic kidney disease
CPT/HCPCS: 31500; 36415; 71045; 73620; 74018; 76775; 80048; 80053; 80202; 82550; 82570; 82948; 83036; 83605; 83615; 83690; 83735; 84100; 84156; 84300; 84443; 85014; 85018; 85025; 85027; 85610; 85730; 87040; 87070; 87077; 87186; 87205; 88305; 88307; 88311; 92950; 93005; 93970; 94640; 96361; 96365; 96366; 96367; 96372; 96375; 96376; 99285; A9270; C9113; C9803; G0378; J0171; J0743; J1644; J1815; J1940; J2405; J2704; J3370; J3480; J7030; J7060; J7120; Q5106; U0003; U0005